=== PATIENT | female | born 1955 | race Caucasian/White ===

== ENCOUNTER → 2023-04-01 10:21 | Outpatient (REF) | payer MEDICARE, BC, SELFPAY ==
[2023-04-01 11:05] LABS: % Basophils 0.6 % (0-2); % Immature Granulocytes 2.1 % (0-0.5); % Lymphocytes 17.9 % (20.5-51.1); % Monocytes 9.6 % (1.7-9.3); % Neutrophils 68.8 % (42.2-75.2); Absolute Basophils 0.1 10^3/uL (0-0.2); Absolute Eosinophils 0.1 10^3/uL (0-0.7); Absolute Immature Granulocytes 0.3 10^3/uL (0-0.05); Absolute Lymphocytes 2.6 10^3/uL (1.2-3.4); Absolute Monocytes 1.4 10^3/uL (0.1-0.6); Hematocrit 26.7 % (37.0-47.0); Hemoglobin 8.7 g/dL (12.0-16.0); Mean Corp Hgb Conc. 32.6 g/dL (33.0-37.0); Mean Corpuscular Hgb 30.6 pg (27.0-31.0); Nucleated Red Blood Cells % 0 %; Platelet Count 306 10^3/uL (130-400); Red Blood Cell Count 2.84 10^6/uL (4.20-5.40); Red Cell Dist. Width 17.5 % (11.5-14.5); White Blood Cell Count 14.5 10^3/uL (4.8-10.8)
[2023-04-01 11:19] LABS: Blood Urea Nitrogen 15 mg/dl (7-17); Calcium 8.5 mg/dl (8.4-10.2); Carbon Dioxide 27 mmol/L (22-30); Chloride 102 mmol/L (98-107); Glucose 156 mg/dl (70-99); Potassium 4.9 mmol/L (3.5-5.1); Sodium 133 mmol/L (135-145); eGFR > 60.00
== END ==
LOC: OLABP 10:21
PROVIDERS: ATTENDING PHYSICIAN Family Medicine
DX: L03.116 Cellulitis of left lower limb (principal); A41.9 Sepsis, unspecified organism; T81.49XD Infection following a procedure, other surgical site, subsequent encounter; I48.92 Unspecified atrial flutter; D63.8 Anemia in other chronic diseases classified elsewhere; E11.9 Type 2 diabetes mellitus without complications; I89.0 Lymphedema, not elsewhere classified; J44.9 Chronic obstructive pulmonary disease, unspecified; D50.9 Iron deficiency anemia, unspecified; I48.0 Paroxysmal atrial fibrillation
CPT/HCPCS: 36415; 80048; 85025

== ENCOUNTER → 2023-04-14 11:53 | Outpatient (REF) | payer OTHER, MEDICARE, BC, SELFPAY ==
[2023-04-14 12:51] LABS: % Basophils 0.6 % (0-2); % Eosinophils 3.3 % (0-6); % Immature Granulocytes 2.1 % (0-0.5); % Lymphocytes 25.1 % (20.5-51.1); % Monocytes 9.1 % (1.7-9.3); % Neutrophils 59.8 % (42.2-75.2); Absolute Basophils 0.1 10^3/uL (0-0.2); Absolute Eosinophils 0.4 10^3/uL (0-0.7); Absolute Immature Granulocytes 0.2 10^3/uL (0-0.05); Absolute Lymphocytes 2.8 10^3/uL (1.2-3.4); Absolute Neutrophils 6.6 10^3/uL (1.4-6.5); Hematocrit 27.2 % (37.0-47.0); Hemoglobin 8.8 g/dL (12.0-16.0); Mean Corp Hgb Conc. 32.4 g/dL (33.0-37.0); Mean Corpuscular Hgb 30.9 pg (27.0-31.0); Mean Corpuscular Volume 95.4 fL (81.0-99.0); Mean Platelet Volume 9.9 fL (7.4-10.4); Nucleated Red Blood Cells % 0 %; Platelet Count 333 10^3/uL (130-400); Red Blood Cell Count 2.85 10^6/uL (4.20-5.40); Red Cell Dist. Width 16.8 % (11.5-14.5); White Blood Cell Count 11.1 10^3/uL (4.8-10.8)
[2023-04-14 13:02] LABS: Blood Urea Nitrogen 15 mg/dl (7-17); Calcium 8.8 mg/dl (8.4-10.2); Carbon Dioxide 28 mmol/L (22-30); Chloride 100 mmol/L (98-107); Glucose 127 mg/dl (70-99); Potassium 4.6 mmol/L (3.5-5.1); Sodium 134 mmol/L (135-145); eGFR > 60.00
== END ==
LOC: OLABP 11:53
PROVIDERS: ATTENDING PHYSICIAN Family Medicine
DX: L03.116 Cellulitis of left lower limb (principal); T81.49XD Infection following a procedure, other surgical site, subsequent encounter; A41.9 Sepsis, unspecified organism; I48.92 Unspecified atrial flutter; D63.8 Anemia in other chronic diseases classified elsewhere; E11.9 Type 2 diabetes mellitus without complications; I89.0 Lymphedema, not elsewhere classified; J44.9 Chronic obstructive pulmonary disease, unspecified; D50.9 Iron deficiency anemia, unspecified; I48.0 Paroxysmal atrial fibrillation
CPT/HCPCS: 36415; 80048; 85025

== ENCOUNTER → 2023-04-28 12:58 | Outpatient (REF) | payer OTHER, MEDICARE, BC, SELFPAY ==
[2023-04-28 13:12] LABS: % Basophils 0.6 % (0-2); % Eosinophils 3.3 % (0-6); % Lymphocytes 25.7 % (20.5-51.1); % Neutrophils 60.4 % (42.2-75.2); Absolute Basophils 0.1 10^3/uL (0-0.2); Absolute Eosinophils 0.3 10^3/uL (0-0.7); Absolute Immature Granulocytes 0.1 10^3/uL (0-0.05); Absolute Lymphocytes 2.7 10^3/uL (1.2-3.4); Absolute Monocytes 0.9 10^3/uL (0.1-0.6); Absolute Neutrophils 6.3 10^3/uL (1.4-6.5); Hematocrit 30.6 % (37.0-47.0); Hemoglobin 9.8 g/dL (12.0-16.0); Mean Corpuscular Hgb 29.9 pg (27.0-31.0); Mean Corpuscular Volume 93.3 fL (81.0-99.0); Mean Platelet Volume 9.8 fL (7.4-10.4); Nucleated Red Blood Cells % 0 %; Platelet Count 299 10^3/uL (130-400); Red Blood Cell Count 3.28 10^6/uL (4.20-5.40); Red Cell Dist. Width 16.2 % (11.5-14.5); White Blood Cell Count 10.4 10^3/uL (4.8-10.8)
[2023-04-28 13:37] LABS: Blood Urea Nitrogen 27 mg/dl (7-17); Calcium 8.9 mg/dl (8.4-10.2); Carbon Dioxide 28 mmol/L (22-30); Chloride 95 mmol/L (98-107); Glucose 135 mg/dl (70-99); Potassium 4.3 mmol/L (3.5-5.1); Sodium 131 mmol/L (135-145); eGFR > 60.00
== END ==
LOC: OLABP 12:58
PROVIDERS: ATTENDING PHYSICIAN Family Medicine
DX: E11.9 Type 2 diabetes mellitus without complications (principal); I89.0 Lymphedema, not elsewhere classified; J44.9 Chronic obstructive pulmonary disease, unspecified; D50.9 Iron deficiency anemia, unspecified; I48.0 Paroxysmal atrial fibrillation; D63.8 Anemia in other chronic diseases classified elsewhere; A41.9 Sepsis, unspecified organism
CPT/HCPCS: 36415; 80048; 85025

== ENCOUNTER → 2023-05-14 16:40 | Outpatient (REF) | payer OTHER, MEDICARE, BC, SELFPAY | LOC: OLABP 16:40 | PROVIDERS: ATTENDING PHYSICIAN Family Medicine | DX: L03.116 Cellulitis of left lower limb (principal); T81.49XD Infection following a procedure, other surgical site, subsequent encounter; A41.9 Sepsis, unspecified organism; I48.92 Unspecified atrial flutter; D63.8 Anemia in other chronic diseases classified elsewhere; E11.9 Type 2 diabetes mellitus without complications; I89.0 Lymphedema, not elsewhere classified; J44.9 Chronic obstructive pulmonary disease, unspecified; D50.9 Iron deficiency anemia, unspecified; I48.0 Paroxysmal atrial fibrillation | CPT/HCPCS: 87070; 87147; 87205 ==

== ENCOUNTER → 2023-05-19 17:45 | Outpatient (REF) | payer OTHER, MEDICARE, BC, SELFPAY | LOC: OLABP 17:45 | PROVIDERS: ATTENDING PHYSICIAN Family Medicine | DX: L03.116 Cellulitis of left lower limb (principal); T81.49XD Infection following a procedure, other surgical site, subsequent encounter | CPT/HCPCS: 87070; 87077; 87186; 87205 ==

== ENCOUNTER → 2023-05-21 12:36 | Outpatient (REF) | payer OTHER, MEDICARE, BC, SELFPAY ==
[2023-05-21 13:52] LABS: % Basophils 0.6 % (0-2); % Eosinophils 2.6 % (0-6); % Immature Granulocytes 0.9 % (0-0.5); % Lymphocytes 25.8 % (20.5-51.1); % Monocytes 7.7 % (1.7-9.3); % Neutrophils 62.4 % (42.2-75.2); Absolute Basophils 0.1 10^3/uL (0-0.2); Absolute Eosinophils 0.3 10^3/uL (0-0.7); Absolute Immature Granulocytes 0.1 10^3/uL (0-0.05); Absolute Lymphocytes 2.5 10^3/uL (1.2-3.4); Absolute Monocytes 0.7 10^3/uL (0.1-0.6); Hemoglobin 9.6 g/dL (12.0-16.0); Mean Corp Hgb Conc. 33.1 g/dL (33.0-37.0); Mean Corpuscular Hgb 29.9 pg (27.0-31.0); Mean Corpuscular Volume 90.3 fL (81.0-99.0); Mean Platelet Volume 9.7 fL (7.4-10.4); Nucleated Red Blood Cells % 0 %; Platelet Count 303 10^3/uL (130-400); Red Blood Cell Count 3.21 10^6/uL (4.20-5.40); Red Cell Dist. Width 14.5 % (11.5-14.5); White Blood Cell Count 9.6 10^3/uL (4.8-10.8)
[2023-05-21 13:56] LABS: ALT (SGPT) 14 U/L (0-35); AST (SGOT) 16 U/L (14-36); Albumin 3.4 g/dl (3.5-5.0); Alkaline Phosphatase 72 U/L (38-126); Blood Urea Nitrogen 25 mg/dl (7-17); Calcium 9.3 mg/dl (8.4-10.2); Carbon Dioxide 31 mmol/L (22-30); Chloride 90 mmol/L (98-107); Glucose 166 mg/dl (70-99); Potassium 4.2 mmol/L (3.5-5.1); Sodium 128 mmol/L (135-145); Total Bilirubin 0.4 mg/dl (0.2-1.3); Total Protein 6.4 g/dl (6.3-8.2); eGFR > 60.00
== END ==
LOC: OLABP 12:36
PROVIDERS: ATTENDING PHYSICIAN Family Medicine
DX: L03.116 Cellulitis of left lower limb (principal); T81.49XD Infection following a procedure, other surgical site, subsequent encounter
CPT/HCPCS: 36415; 80053; 85025

== ENCOUNTER → 2023-05-26 10:21 | Outpatient (REF) | payer MEDICARE, BC, SELFPAY | LOC: OLABP 10:21 | PROVIDERS: ATTENDING PHYSICIAN Family Medicine | DX: T81.49XD Infection following a procedure, other surgical site, subsequent encounter (principal); L03.116 Cellulitis of left lower limb | CPT/HCPCS: 36415 ==

== ENCOUNTER → 2023-05-27 10:54 | Outpatient (REF) | payer MEDICARE, BC, SELFPAY ==
[2023-05-27 12:07] LABS: Blood Urea Nitrogen 38 mg/dl (7-17); Carbon Dioxide 23 mmol/L (22-30); Chloride 92 mmol/L (98-107); Glucose 94 mg/dl (70-99); Potassium 4.7 mmol/L (3.5-5.1); Sodium 123 mmol/L (135-145); eGFR > 60.00
== END ==
LOC: OLABP 10:54
PROVIDERS: ATTENDING PHYSICIAN Family Medicine
DX: L03.116 Cellulitis of left lower limb (principal); T81.49XD Infection following a procedure, other surgical site, subsequent encounter
CPT/HCPCS: 80048

== ENCOUNTER → 2023-05-28 09:26 | Outpatient (REF) | payer MEDICARE, BC, SELFPAY ==
[2023-05-28 12:58] LABS: Blood Urea Nitrogen 46 mg/dl (7-17); Calcium 9.2 mg/dl (8.4-10.2); Carbon Dioxide 28 mmol/L (22-30); Chloride 86 mmol/L (98-107); Glucose 132 mg/dl (70-99); Potassium 4.7 mmol/L (3.5-5.1); Sodium 124 mmol/L (135-145); eGFR > 60.00
== END ==
LOC: OLABP 09:26
PROVIDERS: ATTENDING PHYSICIAN Family Medicine
DX: T81.49XD Infection following a procedure, other surgical site, subsequent encounter (principal); L03.116 Cellulitis of left lower limb
CPT/HCPCS: 80048

== ENCOUNTER → 2023-05-28 16:54 | Outpatient (REF) | payer MEDICARE, BC, SELFPAY | LOC: RAD 16:54 | PROVIDERS: ATTENDING PHYSICIAN Orthopaedic Surgery; FAMILY PHYSICIAN Internal Medicine | DX: S72.002S Fracture of unspecified part of neck of left femur, sequela (principal) | CPT/HCPCS: 73700 ==

== ENCOUNTER → 2023-05-29 11:40 | Outpatient (REF) | payer MEDICARE, BC, SELFPAY ==
[2023-05-29 13:15] LABS: Blood Urea Nitrogen 45 mg/dl (7-17); Calcium 9.4 mg/dl (8.4-10.2); Carbon Dioxide 26 mmol/L (22-30); Chloride 87 mmol/L (98-107); Glucose 81 mg/dl (70-99); Potassium 4.8 mmol/L (3.5-5.1); Sodium 125 mmol/L (135-145); eGFR > 60.00
== END ==
LOC: OLABP 11:40
PROVIDERS: ATTENDING PHYSICIAN Family Medicine
DX: I48.0 Paroxysmal atrial fibrillation (principal); D50.9 Iron deficiency anemia, unspecified; J44.9 Chronic obstructive pulmonary disease, unspecified; A41.9 Sepsis, unspecified organism; L03.116 Cellulitis of left lower limb; T81.49XD Infection following a procedure, other surgical site, subsequent encounter; E11.9 Type 2 diabetes mellitus without complications; D63.8 Anemia in other chronic diseases classified elsewhere; I48.92 Unspecified atrial flutter; G92.8 Other toxic encephalopathy
CPT/HCPCS: 36415; 80048

== ENCOUNTER → 2023-05-30 09:30 | Outpatient (REF) | payer MEDICARE, BC, SELFPAY ==
[2023-05-30 12:05] LABS: Blood Urea Nitrogen 46 mg/dl (7-17); Calcium 8.9 mg/dl (8.4-10.2); Carbon Dioxide 26 mmol/L (22-30); Chloride 92 mmol/L (98-107); Glucose 94 mg/dl (70-99); Potassium 4.7 mmol/L (3.5-5.1); Sodium 124 mmol/L (135-145); eGFR > 60.00
== END ==
LOC: OLABP 09:30
PROVIDERS: ATTENDING PHYSICIAN Family Medicine
DX: A41.9 Sepsis, unspecified organism (principal); E11.9 Type 2 diabetes mellitus without complications; I48.0 Paroxysmal atrial fibrillation; I48.92 Unspecified atrial flutter; G92.8 Other toxic encephalopathy; D50.9 Iron deficiency anemia, unspecified
CPT/HCPCS: 36415; 80048

== ENCOUNTER 2023-06-02 04:46 | Inpatient (IN) | payer MEDICARE, BC, SELFPAY ==
[2023-06-01 23:25] VITALS: BP 94/59; BMI 50.4
[2023-06-01 23:33] VITALS: BP 92/65
[2023-06-01 23:47] LABS: % Basophils 0.2 % (0-2); % Eosinophils 1.1 % (0-6); % Immature Granulocytes 0.7 % (0-0.5); % Monocytes 5.2 % (1.7-9.3); % Neutrophils 81.8 % (42.2-75.2); Absolute Eosinophils 0.1 10^3/uL (0-0.7); Absolute Immature Granulocytes 0.1 10^3/uL (0-0.05); Absolute Lymphocytes 1.2 10^3/uL (1.2-3.4); Absolute Monocytes 0.5 10^3/uL (0.1-0.6); Absolute Neutrophils 8.6 10^3/uL (1.4-6.5); Hemoglobin 9.6 g/dL (12.0-16.0); Mean Corp Hgb Conc. 34.3 g/dL (33.0-37.0); Mean Corpuscular Hgb 29.6 pg (27.0-31.0); Mean Corpuscular Volume 86.4 fL (81.0-99.0); Mean Platelet Volume 9.1 fL (7.4-10.4); Nucleated Red Blood Cells % 0 %; Platelet Count 277 10^3/uL (130-400); Red Blood Cell Count 3.24 10^6/uL (4.20-5.40); Red Cell Dist. Width 14.1 % (11.5-14.5); White Blood Cell Count 10.5 10^3/uL (4.8-10.8)
[2023-06-02] VITALS (50 sets, daily range): BP systolic 68–148; BP diastolic 39–118; BMI 49.4
[2023-06-02 00:15] LABS: ALT (SGPT) 11 U/L (0-35); AST (SGOT) 16 U/L (14-36); Albumin 3.5 g/dl (3.5-5.0); Alkaline Phosphatase 70 U/L (38-126); Blood Urea Nitrogen 60 mg/dl (7-17); Calcium 9.1 mg/dl (8.4-10.2); Carbon Dioxide 24 mmol/L (22-30); Chloride 88 mmol/L (98-107); Estimated Creatinine Clearance 44 ml/min; Glucose 76 mg/dl (70-99); Potassium 4.8 mmol/L (3.5-5.1); Sodium 124 mmol/L (135-145); Total Bilirubin 0.3 mg/dl (0.2-1.3); Total Protein 6.6 g/dl (6.3-8.2); eGFR 41.49
--- NOTE | 2023-06-02 00:46 | ED.GENMED ---
History of Present Illness
General
Chief Complaint: Abnormal Lab Value
Source: patient
Exam Limitations: none
Time Seen by Provider: 06/02/23 00:17
Nursing documentation reviewed up to this point in time: agreed with
Travel History
Have you had any contact with someone who has COVID-19?: No
Do you have any symptoms of coronavirus? Fever > 100 degrees, chills, cough, shortness of breath, sore throat, loss of taste or smell, muscle aches, or headache?: No
History of Present Illness
History of Present Illness:
68-year-old female from [facility] presents with hyponatremia. These lab values resulted 3 days ago but were discovered this evening. Patient has been on fluid restriction due to this hyponatremia. She has been restricted for the last 3 days.
Patient also complains about dyspnea.
Vital signs are stable. Patient not hypoxic on room air
Nursing note reviewed. I agree with nursing documentation up to this point in time.
Home Meds and allergies reviewed.
NUMBER AND COMPLEXITY OF PROBLEMS ADDRESSED AT THE ENCOUNTER
� Chronic conditions affecting care: Brain tumor, hypertension, hyperlipidemia, diabetes, morbid obesity, cellulitis
� Acute Exacerbation and/or Progression of Chronic Illness: Seemingly acute problem
� Differential Diagnosis includes: Hyponatremia, fluid overload
AMOUNT AND/OR COMPLEXITY OF DATA TO BE REVIEWED AND ANALYZED
I performed an independent evaluation of the following and my interpretation is:
EKG:
CT:
X-rays:
Ultrasound:
Laboratory Studies:
Other:
Review of other/old records: Discharge summary from 03/26/2023 for septic shock.
Clinical information was obtained by an independent historian: None
Prescriptions/Medications Considered but not given:
Further testing considered but not performed:
RISK OF COMPLICATIONS AND/OR MORBIDITY OR MORTALITY OF PATIENT MANAGEMENT
Social determinants of health affecting care: Good Social Support lives at [facility]
Discussion with other providers: Hospitalist for admission
Escalation of care including admission/observation vs risk of discharge considered: Patient is hyponatremic. They have been fluid restricting her. She is weaker and now has intractable vomiting patient to be brought into the
hospital service
CRITICAL CARE NOTE: Not applicable
Total Time (exclusive of procedures):
Update:
Past History
Past History
ED Past Medical History: Arrthythmia (Atrial flutter, SVT), Asthma, HTN, Hypercholesterolemia, IDDM, Psychiatric (Anxiety, ), Other (Meningioma, SISI, Cellulitis) and Other (chronic back pain, Severe DJD both knees, PNA, Sleep apnea, DVT, Anemia, )
ED Past Surgical History: Cardiac (Cardiac ablation (01/15)), Cholecystectomy, Gynecological (Oophorectomy Bilateral with tubes) and Other (Brain tumor removed, cataracts. Hemorrhoidectomy)
Social History
Tobacco: Non-smoker
Alcohol: None
Drug: None
Personal:
Living: with family
Employment: Other
Family History
Family History: Other (Family has the BRACA 2 gene)
Review of Systems
Review of Systems
Allergies reviewed?: Yes
All Other Systems: ROS reviewed and negative except as documented in HPI and ROS
Constitutional: Reports fatigue
EENT: Reports no symptoms
Respiratory: Reports no symptoms
Cardiac: Reports no symptoms
ABD/GI: Reports nausea and vomiting
: Reports no symptoms
Musculoskeletal: Reports no symptoms
Skin: Reports no symptoms
Neurological: Reports no symptoms
Endocrine: Reports no symptoms
Hematologic/Lymphatic: Reports no symptoms
Psychiatric: Reports anxiety
Phy Exam
General Physical Exam
General Presentation: mild distress
Course
Orders/Labs/Results
Orders:
Orders
06/01/23 23:41
CMP [Comprehensive Metabolic Panel] Urgent
Complete Blood Count/With Diff Urgent
06/02/23 00:45
Diphenhydramine [Benadryl] 12.5 mg IV NOW STA
Metoclopramide [Reglan] 10 mg IV NOW STA
06/02/23 00:48
Electrocardiogram (*1) Urgent
Reason for Study: QTc Monitoring
EKG- Treatment ONCE
06/02/23 01:31
CR Chest Portable - 1 View Urgent
Comment:
Reason For Exam: dyspnea
Reason Study Needs to be Portable: Unable to Transport
06/02/23 04:00
Osmolality, Random Urine Routine
Urine Sodium Routine
06/02/23 04:18
Urinalysis Reflex To Culture Routine
06/02/23 04:23
Admit/Transfer Patient As Directed
Co-Sign Provider:
Level of Care: Inpatient admission
Assign to:: Telemetry
Physician / Group: [email or web address]
Diagnosis: hyponatemia, NOAM, lethargy
Reason for Telemetry: Other
Other Reason for Telemetry: hypotension
Date to Stop Telemetry: 06/04/23
Time to Stop Telemetry: 11:00
Reason for Hospitalization: hyponatemia, NOAM, lethargy
Expected length of stay greater than two midnights?: Yes
ELOS- Estimated Length of Stay in days: 7
I certify the patient meets the requirements for IP care: Yes
06/02/23 04:27
Code Status As Directed
Resuscitation Status: Full Code
06/02/23 04:51
Dextrose 50%-Water [Dextrose 50% Syringe] 12.5 grams IV [id number] PRN
Glucagon [GlucaGen] 1 mg IM PRN PRN
06/02/23 04:51
Consult Notification Routine
Specialty to Notify: Nephrology
NEPHROLOGY CONSULT Routine
Consulting Provider: Salbador Borjas
Was physician already notified: No
Reason for consult: hypervolemic hyponatremia
Activity As Directed
Activity Level: With Assistance
Bedside Glucose Monitoring As Directed
Frequency: AC&HS
Comment: Change to q6h if pt on TPN, tube feeding or not eating
Intake/ Output As Directed
Frequency: Per unit guidelines
Vital Signs As Directed
Frequency: Per unit guidelines
Weight As Directed
Frequency: Daily
Cpap [RESP] Routine
Patient to use own unit?: No
Set Pressure (cm H2O): 10
Instructions: HS
Speech Screening from [place] Routine
DX Deep Vein Thrombosis Video Routine
06/02/23 05:09
Basic Metabolic Panel IN AM
Complete Blood Count/No Diff IN AM
Glycohemoglobin (HgbA1c) IN AM
06/02/23 07:30
Insulin Aspart Corrective Low [Novolog Flexpen-Low Resistance] See Protocol SC AC
06/02/23 18:00
Enoxaparin Sodium [Lovenox] 60 mg SC Q12H
06/04/23 11:00
DC Protocol for Telemetry ONCE
Abnormal Lab Results
06/01/23
23:41
RBC 3.24 L 10^6/uL
(4.20-5.40)
Hgb 9.6 L g/dL
(12.0-16.0)
Hct 28.0 L %
(37.0-47.0)
Abs Immat Gran (auto) 0.1 H 10^3/uL
(0-0.05)
Absolute Neuts (auto) 8.6 H 10^3/uL
(1.4-6.5)
Immature Gran % 0.7 H %
(0-0.5)
Neutrophils % 81.8 H %
(42.2-75.2)
Lymphocytes % 11.0 L %
(20.5-51.1)
Sodium 124 L mmol/L
(135-145)
Chloride 88 L mmol/L
(98-107)
BUN 60 H mg/dl
(7-17)
Creatinine 1.4 H mg/dL
(0.6-1.0)
06/01/23 23:41
06/01/23 23:41
Vital Signs
Initial and Last Documented VS:
Initial Vital Signs
Temp Pulse Resp BP Pulse Ox
97.7 F 84 18 94/59 92
06/01/23 23:25 06/01/23 23:25 06/01/23 23:25 06/01/23 23:25 06/01/23 23:25
Last Documented Vital Signs
Temp Pulse Resp BP Pulse Ox
97.7 F 72 20 89/56 96
06/01/23 23:25 06/02/23 05:05 06/02/23 05:05 06/02/23 05:05 06/02/23 05:05
MDM/Problems Addressed
Chronic conditions affecting care:
Hyponatremia
*Radiology
Radiology exam reviewed: preliminary read by ED provider (unchanged)
*Pulse Oximetry
Patient hypoxic: no
*EKG
Interpreted by ED Provider?: Yes
EKG Intrepretation Date: 06/02/23
Interpretation: abnormal
Comparison EKG: changes noted
Heart Rate: 94
Rate: normal
[place]: left axis deviation
Interval: first degree heart block and long QT
QRS Pattern: normal QRS
Ischemia: no ischemia
*Business Test Analyst Interpretation
Rate: normal
*Critical Care Note
Total Time (30-74mins, 75-104mins- exclusive of procedures): Not Applicable
Patient Management
Social determinants of health affecting care: Living situation
Discussion with other providers: Hospitalist
Escalation/DeEscalation of care consider admission/obs:
With the vomiting and increased weakness and shortness of breath, patient to be admitted to the's. Patient has not had an improvement in her sodium despite her fluid restrictions
Update Note
Update Note:
Sodium has been low for the last several ER visits. Patient does have shortness of breath and intractable
ED Attending Note
-
Portions of this chart may have been created with voice recognition software.� Occasional wrong word or��sound alike� substitutions may have occurred due to the inherent limitations of voice recognition software.
Discharge Plan
Departure
Patient Disposition: Admit
Date of Disposition: 06/02/23
Time of Disposition: 02:11
Admit to: Telemetry
Presentation/result/management discussed w/ accepting MD/DO: Hospitalist
Condition: Good
Discharge Problem:
Vomiting, Acute hyponatremia
Interventions
Interventions:
*Risk Screen - Suicide Last Done: 06/01/23 23:25
*General Assessment Last Done: 06/01/23 23:25
*Neglect/Abuse Screening Last Done: 06/01/23 23:25
ED- Fall Risk Assessment Last Done: 06/02/23 01:33
*ED COVID-19 Vaccine History Last Done: 06/01/23 23:25
[2023-06-02] MEDS: BENADRYL 12.5 MG IV (01:16)
[2023-06-02] MEDS: REGLAN 10 MG IV (01:17)
--- NOTE | 2023-06-02 01:17 | EDRN ---
Went into patients room, patient had thrown up all over herself and floor, Dr. Ozuna was at bedside with me as wel at this time, meds ordered, patient reports she had a bad cough and soiled herself and then threw up, patient cleaned up, large
amounts of vomit and diarrhea noted all over patient, cleaned up, new brief and gown placed on patient and given a throw up bag incase she gets sick again, patient reports she had not been getting sick prior to this.
--- NOTE | 2023-06-02 03:34 | EDRN ---
Patients o2 dropping while shes sleeping, patient placed on 3L nasal canula
--- NOTE | 2023-06-02 04:10 | HPS.HSE ---
Addendum entered and electronically signed by Sebastien Taylor MD 06/02/23 04:32:
Correction:
<del>IV</del> <del>NS</del> <del>40/H</del> <del>x</del> <del>1000</del> <del>cc</del>
Addendum entered and electronically signed by Sebastien Taylor MD 06/02/23 04:31:
Correction:
Hypervolemic Hyponatremia <del>suspect</del> <del>dehydration</del> <del>due</del> <del>to</del> <del>fluid</del> <del>restriction</del>
Suspect prerenal NOAM with significant azotemia and Hypochloremic
Hypotension s<del>uspect</del> <del>hypovolemia</del> <del>volume</del> <del>due</del> <del>to</del> <del>mornbidly</del> <del>obese</del>
Clinically hypervolemic with b/l [place] edema
Morbidly obese
- Ur Na, Ur Os, Sr Osm
- IV NS 40/H x 1000 cc
- f/u Na in AM
- f/u Cr
- Renal consult <del>in</del> <del>AM</del> <del>if</del> <del>Na</del> <del>is</del> <del>still</del> <del>the</del> <del>same</del> <del>or</del> <del>less</del>
lethargic ? TME ? sepsis
- UA pending
- PCT for sepsis
- CXR ; await final report
- Hold of ABx for now
Original Note:
Family Physician
-
Family Physician: Valery Saunders
Chief Complaint
-
abn Na
History of Present Illness
68-year-old female from [employer] presents with hyponatremia. These lab values resulted 3 days ago but were discovered this evening. Patient has been on fluid restriction due to this hyponatremia. She has been restricted for the last 3 days.
Patient also complains about dyspnea
Medical History
Past Medical History
Past Medical History: Reports Other
Additional Past Medical History:
Left hip intertrochanteric fracture s/p open reduction internal fixation
Streptococcal bovis bacteremia
Paroxysmal atrial fibrillation not on anticoagulation due to hemorrhagic complication
Peripheral arterial disease
Diabetes mellitus type 2
Morbid obesity with BMI of 46
Essential hypertension
Anemia of chronic disease
Dyslipidemia
Obstructive sleep apnea
Anxiety
Asthma
DVT
Degenerative disc disease
Osteoarthritis
Chronic pain syndrome on opiates
Kidney stones
Meningioma status post removal
Past Surgical History: Reports Other
Additional Past Surgical History:
Left hip surgery
Cardiac ablation
Cholecystectomy
Oophorectomy Bilateral with tubes
Meningioma removed
Cataracts
Hemorrhoidectomy
Social History
Tobacco: Non-smoker
Alcohol: None
Drug: None
Personal:
Family History
Family History: Not pertinent
Allergies / Home Medications
Allergies reflects when Allergies were last updated in [facility].
Home Medications with original date entered in [facility]
Allergy/Medication List:
Allergies
Allergy/AdvReac Type Severity Reaction Status Date / Time
ampicillin Allergy Rash AT Verified 06/01/23 23:32
AGE 20
cefaclor [From Ceclor] Allergy Rash/tolerates Verified 06/01/23 23:32
Cephalexin,
Cefazolin
ciprofloxacin [From Cipro] Allergy Rash/tolerated Verified 06/01/23 23:32
levofloxacin
clindamycin Allergy Rash - see Verified 06/01/23 23:32
comments
daptomycin Allergy Rash/ Verified 06/01/23 23:32
tolerated
linezolid
erythromycin base Allergy Rash Verified 06/01/23 23:32
Iodinated Contrast Media Allergy Itching Verified 06/01/23 23:32
Penicillins Allergy Rash/tolerated Verified 06/01/23 23:32
meropenem
shellfish derived Allergy Rash, Verified 06/01/23 23:32
itching
Sulfa (Sulfonamide Allergy Swelling Verified 06/01/23 23:32
Antibiotics)
Tetanus Vaccines and Toxoid Allergy Swelling Verified 06/01/23 23:32
tetracycline Allergy Rash Verified 06/01/23 23:32
vancomycin Allergy vancomycin Verified 06/01/23 23:32
infusion
reaction/rash,
itching
02/14/21
Home Medications
metoprolol succinate 25 mg tablet,extended release 24 hr 25 mg PO DAILY Blood pressure ##0 11/22/19
montelukast 10 mg tablet 10 mg PO QPM asthma 11/22/19
sotalol 120 mg tablet 120 mg PO BID Arrhythmia 11/22/19
atorvastatin 20 mg tablet 20 mg PO QPM High Cholesterol 08/27/22
cyclobenzaprine 10 mg tablet 10 mg PO TIDPRN PRN muscle spasm 02/11/23
acetaminophen 325 mg tablet (Tylenol) 650 mg PO Q6HPRN PRN MILD PAIN 03/18/23
alogliptin 25 mg tablet 25 mg PO DAILY Diabetes 03/18/23
bisacodyl 10 mg rectal suppository (Dulcolax (bisacodyl)) 10 mg MO DAILYPRN PRN IF NO BM AFTR MOM 03/18/23
glimepiride 2 mg tablet 2 mg PO DAILY Diabetes 03/18/23
irbesartan 150 mg tablet 150 mg PO DAILY Blood Pressure 03/18/23
lorazepam 1 mg tablet 1 mg PO [id number] PRN anxiety/sleep 03/18/23
mupirocin 2 % topical ointment 1 applic topical BID LEFT LOWER LEG 03/18/23
sodium phosphates 19 gram-7 gram/118 mL enema (Fleet Enema) 118 ml MO DAILYPRN PRN IF NO BM AFTR DULCOLAX 03/18/23
therapeutic multivitamin 1 tab PO DAILY Supplement 03/18/23
Lactobac/Bifidobac [Visbiome] 2 cap PO DAILY ##0 03/25/23
ammonium lactate 12 % lotion 1 applic topical BID #0 grams 03/25/23
cephalexin 500 mg capsule 500 mg PO QID #0 caps 03/25/23
gabapentin 100 mg capsule 100 mg PO TID #0 caps 03/25/23
pantoprazole 40 mg tablet,delayed release 40 mg PO DAILY #0 tabs 03/25/23
Review of Systems
-
Constitutional: Reports No Symptoms
EENT: Reports No Symptoms
Respiratory: Reports No Symptoms
Cardiac: Reports No Symptoms
Abdomen/GI: Reports No Symptoms
: Reports No Symptoms
Musculoskeletal: Reports No Symptoms
Skin: Reports No Symptoms
Neurological: Reports No Symptoms
Endocrine: Reports No Symptoms
Hematologic/Lymphatic: Reports No Symptoms
Psych: Reports No Symptoms
Physical Exam
Vital Signs
Vital Signs
Temp Pulse Resp BP Pulse Ox
97.7 F 88 22 90/59 97
06/01/23 23:25 06/02/23 03:30 06/02/23 03:30 06/02/23 03:00 06/02/23 03:34
Physical Exam
General: Slurred Speech and Morbidly Obese; No Conversant
HEENT: NormoCephalic and Anicteric
Respiratory: Clear; No Wheezes, Rales or Rhonchi
Cardiac: S1/S2, Regular Rhythm and Other (hypotensive )
Breast: Deferred by me
GI: Soft and Other (obese )
Rectal: Deferred by Provider
Genito-urinary: Deferred by me
Musculoskeletal: Edema, Left Lower Extremity (3plus ) and Edema, Right Lower Extremity (3 plus )
Skin: Other (echimoses both legs )
Neuro: Alert (lethargic )
Psych: Other (sleepy )
Laboratory Results
-
06/01/23 23:41
06/01/23 23:41
Laboratory Results
Total Bilirubin 0.3 mg/dl (0.2-1.3) 06/01/23 23:41
AST 16 U/L (14-36) 06/01/23 23:41
ALT 11 U/L (0-35) 06/01/23 23:41
Alkaline Phosphatase 70 U/L (38-126) 06/01/23 23:41
Data Reviewed
-
Lab Data: Labs Reviewed by me
Old Records: Reviewed
Impression/Plan
-
Reviewed VS: Afebrile HR 88 BP 90/60 RR 22 POx 85- 90
Data
nl WCC
Hgb 9.6 - stable
Na 124 - baseline is 124 to 128
Cl 88
BUN 60
Cr 1.4
nl LFTs
Pending Ur Na, Ur Os, Sr Osm
Pending UA
Pending CXR
EKG
SINUS RHYTHM WITH 1ST DEGREE A-V BLOCK WITH PREMATURE ATRIAL COMPLEXES
MODERATE VOLTAGE CRITERIA FOR LVH, MAY BE NORMAL VARIANT ( R in aVL , Nhan
product )
PROLONGED QT
ABNORMAL ECG
WHEN COMPARED WITH ECG OF 23-MAR-2023 09:22,
PREMATURE ATRIAL COMPLEXES ARE NOW PRESENT
MO INTERVAL HAS INCREASED
NONSPECIFIC T WAVE ABNORMALITY HAS REPLACED INVERTED T WAVES IN INFERIOR LEADS
QT HAS LENGTHENED
Last hospitalist admission: 03/18/23- 03/25/23
DC Dx
. Streptococcal septic shock.
2. Left lower extremity cellulitis.
3. Drug rash.
4. Acute on chronic anemia.
5. Recent left hip fracture.
6. Paroxysmal atrial fibrillation.
7. Acute toxic metabolic encephalopathy.
8. Acute kidney injury.
9. Hyponatremia.
10. Hypomagnesemia.
ASSESSMENT & PLAN
pending Rx reconciliation
Hyponatremia suspect dehydration due to fluid restriction
Suspect prerenal NOAM with significant azotemia and Hypochloremic
Hypotension suspect hypovolemia volume due to mornbidly obese
- Ur Na, Ur Os, Sr Osm
- IV NS 40/H x 1000 cc
- f/u Na in AM
- f/u Cr
- Renal consult in AM if Na is still the same or less
lethargic ? TME ? sepsis
- UA pending
- PCT for sepsis
- CXR ; await final report
- Hold of ABx for now
HX Paroxysmal AF
- Not on anticoagulation due to hemorrhagic complications in the past
- cont. sotalol
Chronic anemia
- stable
Essential HTN
- Held Irbesartan and metoprolol
Realtive hypoglycemia
T2DM
- Hold home glimepiride
- add ISS low
Chronic pain syndrome on chronic opioids
- Continue pain medications
SISI
- CPAP at bedtime
Morbid obesity due to excess calories
Affects all aspects of care
DVT Px: LMWH
Code: Full code
IP MS
[2023-06-02 05:21] LABS: Hemoglobin 8.9 g/dL (12.0-16.0); Mean Corp Hgb Conc. 34.2 g/dL (33.0-37.0); Mean Corpuscular Hgb 29.9 pg (27.0-31.0); Mean Corpuscular Volume 87.2 fL (81.0-99.0); Mean Platelet Volume 9.2 fL (7.4-10.4); Platelet Count 240 10^3/uL (130-400); Red Blood Cell Count 2.98 10^6/uL (4.20-5.40); Red Cell Dist. Width 14.2 % (11.5-14.5)
--- NOTE | 2023-06-02 05:34 | EDRN ---
Patients blood pressure trending down tiger texted hospitalist covering tele, patient upgraded to ICU and new orders placed
[2023-06-02 05:48] LABS: Blood Urea Nitrogen 63 mg/dl (7-17); Calcium 8.6 mg/dl (8.4-10.2); Carbon Dioxide 22 mmol/L (22-30); Chloride 89 mmol/L (98-107); Estimated Creatinine Clearance 44 ml/min; Glucose 33 mg/dl (70-99); Osmolality Serum 278 mOsm/kg (275-300); Potassium 4.5 mmol/L (3.5-5.1); Sodium 122 mmol/L (135-145); eGFR 41.49
[2023-06-02] MEDS: DEXTROSE 50% SYRINGE 12.5 GRAMS IV ×4 (05:50→15:23)
[2023-06-02] MEDS: LR 500 IV (05:51)
[2023-06-02 05:58] LABS: Procalcitonin 0.08 ng/ml (0.0-0.25)
[2023-06-02] MEDS: LEVOPHED 250 IV (06:06)
--- NOTE | 2023-06-02 06:10 | EDRN ---
blood sugar result was 33, gave prn dextrose and informed hospitalist, repeat blood sugar after is 130.
[2023-06-02 06:12] LABS: Glucose - Point of Care 130 mg/dl (70-99)
--- NOTE | 2023-06-02 06:15 | W.PN.UPDATE ---
Addendum entered and electronically signed by Sebastien Taylor MD 06/02/23 13:44:
Case d/w House [facility].
I saw and examined the patient.
The ANNEALING FURNACE TENDER or PA's note was reviewed and I agree with the note.
:
Original Note:
Update Note
Progress Note Update
ED RN reports BP decreasing now sbp 70s-80s/50s maps 50s-low 60s
Discussed with Dr Taylor. Due to recent sepsis last admit and similar presentations Will upgrade to ICU level of care- poss impending sepsis (source unknown)
Add:
-LR 500mg x1 ( avoiding excess fluids as hypervolemic hyponatremia suspected)
- check lactic, procal, blood cultures, us and cs
-Add levo gtt (keep MAP > 65)
-on am labs BG 33--dextrose iv given.
-add Meropenem (pt with mutltiple allergies to abx) - tolerated this last admit
[2023-06-02] MEDS: MERREM 500 MG IV ×3 (06:21→19:42)
[2023-06-02] MEDS: STERILE WATER FOR INJECTION 10 ML IV ×3 (06:22→19:42)
--- NOTE | 2023-06-02 06:29 | PTCARENOTE ---
OGT unclamped after approx 1 hour after acetaminophen administered. Placed back on low continuous suction, which pt had been in the beginning of the night. Immediately pt started draining dark maroon drainage. 600mL drained and then canister changed
before next shift, pt was still draining at that time. Several family members at bedside.
--- NOTE | 2023-06-02 06:35 | EDRN ---
Report to ICU as well as updated hospitalist on all patients morning lab changes.
--- NOTE | 2023-06-02 06:40 | PTCARENOTE ---
Arrived from ED via stretcher with RN, Oxygen 4 liters nasal cannula, and Norepinephrine infusing via left AC 20g @ 8mcg/min. Pt disoriented to place, she was informed of where she was and oriented to the ICU & plan of care. It was reported she had
explosive diarrhea and vomiting in the ED. She was incontinent for loose light brown stool upon arrival. Complete CHG bath upon arrival. Expelled large amounts of flatus while laying on her left side during assessment. Breath sounds posteriorly with
scattered late expiratory wheeze. Orthopneic. Requires 2 pillows. Morbidly obese. +BSX4. FMS placed due to MASD of her fili area and posterior upper thighs. She also has Left hand #22g and Right hand 20g protective catheters. Gross +2 anasarca. Left
hip silicone border dressing with packed wound with small amount of purulent blood tinged drainage. Pt denies any discomfort. She is able to make her needs known, calling out despite being reminded that her call frances is in her right hand. Safe
environment maintained. Placed in enhanced precautions due to diarrhea & bowel incontinence. She was informed that I would contact her family regarding her whereabouts and her condition.
--- NOTE | 2023-06-02 07:18 | CON.INTV ---
Consultation
Consultation Request
Date/Time Consultation Requested: 06/02/23
Date/Time Consultation Performed: 06/02/23
Performing Provider: Rose
Reason for Consultation: ICU
Medical History
-
History of Present Illness:
Patient is a 68-year-old female with history of Aflutter, HTN, IDDM, SISI, anxiety presenting to ER from [facility] with abnormal labs-hyponatremia. Patient has been on fluid restriction due to this hyponatremia for the last 3 days. Sodium on
arrival 123, previously 131 on 04/28/23. She was noted to be hypotensive on arrival, started on levophed and admitted to ICU.
She is noted to be hypoglycemic on arrival as well, given amp Dextrose with minimal improvement.
She does not provide additional history. Lethargic during conversation.
She had recent admission for L hip fracture s/p repair 02/16/23; readmitted in March for infected hip, treated with abx, discharged 03/26/23.
Past Medical History
Past Medical History: Other (see list below)
Social History
Tobacco: Non-smoker
Alcohol: None
Drug: None
Family History
Family History: Reviewed & Not Pertinent
Allergies / Home Medications
Allergies
Allergy/AdvReac Type Severity Reaction Status Date / Time
ampicillin Allergy Rash AT Verified 06/01/23 23:32
AGE 20
cefaclor [From Ceclor] Allergy Rash/tolerates Verified 06/01/23 23:32
Cephalexin,
Cefazolin
ciprofloxacin [From Cipro] Allergy Rash/tolerated Verified 06/01/23 23:32
levofloxacin
clindamycin Allergy Rash - see Verified 06/01/23 23:32
comments
daptomycin Allergy Rash/ Verified 06/01/23 23:32
tolerated
linezolid
erythromycin base Allergy Rash Verified 06/01/23 23:32
Iodinated Contrast Media Allergy Itching Verified 06/01/23 23:32
Penicillins Allergy Rash/tolerated Verified 06/01/23 23:32
meropenem
shellfish derived Allergy Rash, Verified 06/01/23 23:32
itching
Sulfa (Sulfonamide Allergy Swelling Verified 06/01/23 23:32
Antibiotics)
Tetanus Vaccines and Toxoid Allergy Swelling Verified 06/01/23 23:32
tetracycline Allergy Rash Verified 06/01/23 23:32
vancomycin Allergy vancomycin Verified 06/01/23 23:32
infusion
reaction/rash,
itching
02/14/21
Home Medications
�Medication �Instructions �Recorded �Confirmed �Last Taken �Type
metoprolol succinate 25 mg 25 mg PO DAILY Blood pressure ##0 11/22/19 03/18/23 12/16/22 09:00 History
tablet,extended release 24 hr
montelukast 10 mg tablet 10 mg PO QPM asthma 11/22/19 03/18/23 12/15/22 18:00 History
sotalol 120 mg tablet 120 mg PO BID Arrhythmia 11/22/19 03/18/23 02/10/23 History
atorvastatin 20 mg tablet 20 mg PO QPM High Cholesterol 08/27/22 03/18/23 12/15/22 18:00 History
cyclobenzaprine 10 mg tablet 10 mg PO TIDPRN PRN muscle spasm 02/11/23 03/18/23 Unknown History
acetaminophen 325 mg tablet 650 mg PO Q6HPRN PRN MILD PAIN 03/18/23 03/18/23 Unknown History
(Tylenol)
alogliptin 25 mg tablet 25 mg PO DAILY Diabetes 03/18/23 03/18/23 Unknown History
bisacodyl 10 mg rectal suppository 10 mg [place] DAILYPRN PRN IF NO BM 03/18/23 03/18/23 Unknown History
(Dulcolax (bisacodyl)) AFTR MOM
glimepiride 2 mg tablet 2 mg PO DAILY Diabetes 03/18/23 03/18/23 Unknown History
irbesartan 150 mg tablet 150 mg PO DAILY Blood Pressure 03/18/23 03/18/23 Unknown History
lorazepam 1 mg tablet 1 mg PO [id number] PRN anxiety/sleep 03/18/23 03/18/23 Unknown History
mupirocin 2 % topical ointment 1 applic topical BID LEFT LOWER LEG 03/18/23 03/18/23 Unknown History
sodium phosphates 19 gram-7 118 ml [place] DAILYPRN PRN IF NO BM 03/18/23 03/18/23 Unknown History
gram/118 mL enema (Fleet Enema) AFTR DULCOLAX
therapeutic multivitamin 1 tab PO DAILY Supplement 03/18/23 03/18/23 Unknown History
Lactobac/Bifidobac [Visbiome] 2 cap PO DAILY ##0 03/25/23 Unknown Rx
ammonium lactate 12 % lotion 1 applic topical BID #0 grams 03/25/23 Unknown Rx
cephalexin 500 mg capsule 500 mg PO QID #0 caps 03/25/23 Unknown Rx
gabapentin 100 mg capsule 100 mg PO TID #0 caps 03/25/23 Unknown Rx
pantoprazole 40 mg tablet,delayed 40 mg PO DAILY #0 tabs 03/25/23 Unknown Rx
release
Review of Systems
-
Unable to Obtain full review of systems at this time due to: Acuity
Vitals / Labs / Diagnostic Testing
Vital Signs
Temp Pulse Resp BP Pulse Ox
97.7 F 71 16 73/41 96
06/01/23 23:25 06/02/23 06:15 06/02/23 06:15 06/02/23 06:10 06/02/23 06:15
Lab Data
06/02/23 05:09
06/02/23 05:09
Diagnostic Testing:
Physical Exam
-
HEENT: Normocephalic, Anicteric and Moist Mucous Membranes
Cardiovascular: S1/S2 and Regular Rhythm
Respiratory: Clear and Non-Labored Respirations
GI: Soft, Non Distended and Non Tender
Neurology: Other (lethargic)
Skin: Warm and Dry
General: Comfortable, Poor Appetite and Other (NAD)
Assessment
-
Patient is a 68-year-old female with history of Aflutter, HTN, IDDM, SISI, anxiety presenting to ER from [facility] with abnormal labs-hyponatremia. Patient has been on fluid restriction due to this hyponatremia for the last 3 days. Sodium on
arrival 123, previously 131 on 04/28/23. She was noted to be hypotensive on arrival, started on levophed and admitted to ICU.
She is noted to be hypoglycemic on arrival as well, given amp Dextrose with minimal improvement.
Acute on chronic hyponatremia
Persistent hypoglycemia
Hypotension on pressors
NOAM, creat 1.4
Conditions present prior admission:
Discharged from 01/2023: Lethargy/status post fall status post left hip intertrochanteric fracture with repair
Lower extremity infection with Streptococcus bovis seen by ID and discharged on antibiotics until 02/26/2023
Atrial fibrillation off anticoagulation due to hemorrhagic complication
Peripheral arterial disease
Diabetes mellitus type 2
Morbid obesity with a BMI of 46
Hypertension
Anemia of chronic disease
Dyslipidemia
Obstructive sleep apnea
Chronic pain syndrome on opiates
Plan
TME noted, likely due to electrolyte abnl
Baseline MS reported as normal, she has chronic pain/opiate use history
Psychiatric history noted above including anxiety
Pain/sedation: limit, to assess MS
RASS goals: 0
Hemodynamically stable, not requiring pressors.
Requiring pressors: levophed needed initially, weaned to off this AM
Cardiac history reviewed--AFlutter maintained on sotalol
Prior ECHO reviewed indicating normal function
Hold home meds, resume when able
Oxygen needs: stable on room air
No history of pulmonary disease
SISI noted, can resume CPAP
Supplemental O2 as indicated to maintain sats > 89%
CXR/CT reviewed indicating clear lungs/NAD
NPO, resume diet when able, advance as tolerated
Assistant Editor recommendations
Aspiration precautions, HOB > 30 degrees
Speech therapy eval can be considered if at elevated risk
GI prophylaxis if indicated for mechanical ventilation >48 hours, prior history of GERD, stress ulcer formation in the critically ill
NOAM present
Renal consult, appreciate recs, possible need for 3%
Creat at baseline, no history of renal disease
Void trials
Follow urine output, critical I/Os
Replete electrolytes as needed--NA/Glu
No signs/symptoms suspicious for infectious etiology at this time, no fever/WBC
Started on empiric antibiotics--MRP, unclear source
She had recent admission for L hip fracture s/p repair 02/16/23; readmitted in March for infected hip, treated with abx
ID following
Cultures sent/pending
Blood
Wound culture left leg 03/18/2023: MRSA and Pseudomonas.
Follow fever trend, WBC count
Lactate not elevated on admission
CBC stable, no signs of bleeding or coagulopathy
DVT prophylaxis as assessed based on risk, including mechanical SCDs
Can transfuse if indicated for Hb <7, plt < 10
INR WNL
No prior h/o thyroid disease
H/o diabetes, persistent hypoglycemia noted, ? if from lack of intake
Can continue on home meds, SS for coverage --hold while hypoglycemic
D5NSS IVFs, continue to check accuchecks q2
HbA1c 7.1
We will follow
Diagnostic Data
Chest X-Ray:
Chest x-ray 03/18/2023: Rotated film. No acute infiltrates.
CT Scan: AP 02/13/23- Findings suggesting enteritis/ileus. Findings suggesting sequelae of chronic terminal ileitis. Intertrochanteric left femur fracture.
Echo: 02/17/23- Normal left ventricular size and systolic function. No regional wall motion abnormalities are seen. LV ejection fraction is 65-70% by visual assessment. Mild concentric left ventricular hypertrophy. Normal diastolic function. Mildly
dilated left atrium. Mild aortic stenosis. Peak/mean gradients are 34/18mmHg. The valve area by continuity equation is 1.6cm sq, using a LVOT of 1.9cm.
Mild aortic regurgitation. When compared to prior echocardiogram from June 16, 2021, the left atrium is now mildly enlarged and otherwise there is no significant change.
Echocardiogram 02/17/2023: Normal LVEF. Mild LVH. Mild aortic stenosis. Mild AR
PFT's:
Nocturnal ox 07/27/15: time below 90% 1:22:18 (23.8%); time below 88% 46:20 (13.4%); O2 nicol 67%; ALICIA >10s 31.0
Reports and relevant images were personally reviewed.
-----
Critical Care time 65 mins -- The patient is admitted for acute critical illness for the treatment of vital organ failure and/or prevention of further life-threatening conditions. Total care includes time spent in review of history, physical exam,
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
--- NOTE | 2023-06-02 07:56 | PTCARENOTE ---
Pt's daughter Pia Contreras [phone] called the unit and was updated regarding her mother's condition of admission. She is aware that her sodium and glucose was low and the interventions provided. She is also aware of her mother's mental state of
not being aware of her surroundings and required orientation several times.
[2023-06-02 08:34] LABS: Glucose - Point of Care 83 mg/dl (70-99)
[2023-06-02 08:46] LABS: Glycohemoglobin (HgbA1c) 7.1 % (4.0-5.6)
[2023-06-02 08:58] LABS: Magnesium 1.2 mg/dl (1.6-2.3)
--- NOTE | 2023-06-02 09:01 | W.PN.UPDATE ---
Addendum entered and electronically signed by Alexis Garcia MD 06/02/23 09:25:
pt initiated on meropenem on adx ;will dc cefepime.
Addendum entered and electronically signed by Alexis Garcia MD 06/02/23 09:16:
Pt with mulitple abx allergies - will hold on vanco till seen by ID; Cefepime initiated.
Original Note:
Update Note
Progress Note Update
Seen by Dr. Taylor this morning. Admitted to ICU because of hypotension. Currently on vasopressors.
Initial referral from facility seems to be hyponatremia issue.
Patient is alert and oriented. She complains of being nauseous and she did throw up after getting to the hospital. She also has ongoing loose stools.
She feels cold and asking for more blankets.
She has an audible wheeze. She says she has asthma. She has active ongoing bronchospasm without respiratory distress.
Abdomen tympanic soft nontender.
Bilateral lower extremity edema noted but denies any pain.
She has a left hip wound with purulence. She had a prior left hip fracture repair.CT Left hip 05/28/2023 -ORIF of an intertrochanteric/subtrochanteric fracture. The fracture plane remains evident, but there is some callus and heterotopic
ossification about the fracture site.
Clinical shock-patient with hypotension requiring vasopressors. Recent history of streptococcal bacteremia and wound infection noted. Clinically suspicious for sepsis as etiology for shock. She had normal EF on echo from end of last year. Blood
cultures are pending. Check a urine culture. Obtain the left hip wound culture as well. Start on empirical MRSA and gram-negative coverage. Consult infectious disease.
Hypervolemic hyponatremia. Patient also hypotensive. Unclear etiology of the hyponatremia - check urine lytes
NOAM on setting of hypotension -suspect hemodynamics related. Consult renal pending.
Severe hypoglycemia from this am labs - hold oral hypoglycemic agents
Diarrhea with vomiting -check stools for C Diff .
[2023-06-02] MEDS: NOVOLOG FLEXPEN-LOW RESISTANCE SC ×3 (09:09→16:15)
[2023-06-02 10:17] LABS: APTT 31.2 Sec (23.4-35.0); INR 1.01; PT 13.1 Sec (11.4-14.6)
--- NOTE | 2023-06-02 10:59 | CON.ID ---
Consultation
-
Date/Time Consultation Requested: 06/02/2023, 0909
Date/Time Consultation Performed: 06/02/2023, 1100
Requesting Provider: Dr. Alexis Garcia
Performing Provider: Dr. Kiera Neff
Reason for Consultation: shock
Chief Complaint / Past History
Chief Complaint
Hyponatremia
History of Present Illness
History obtained from review of medical records as patient currently lethargic. She is 68 year old female with class III obesity, DM, lymphedema, recurrent LE cellulitis, hx left hip fx nailing 02/16/23, numerous abx allergies who presented to ED
05/31 from [facility] with hyponatremia. Pt noted to be lethargic and hypotensive requiring pressor. She was started on empiric meropenem. The left hip incision wound noted to have mild purulence was cultured. Pt unable to provide history at this
time.
Past History
Additional Past Medical History:
Diabetes mellitus
Class III obesity BMI 49
Lymphedema
Obstructive sleep apnea
A flutter status post ablation
hypertension
cellulitis
Asthma
Dyslipidemia
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
Meningioma s/p resection
Chronic back pain
Cholecystectomy
Bilateral oophorectomy
Left hip fracture s/p gamma nailing 02/16/23
Allergy History:
ampicillin Allergy (Verified 06/01/23 23:32)
Rash AT AGE 20
cefaclor [From Ceclor] Allergy (Verified 06/01/23 23:32)
Rash/tolerates Cephalexin, Cefazolin
ciprofloxacin [From Cipro] Allergy (Verified 06/01/23 23:32)
Rash/tolerated levofloxacin
clindamycin Allergy (Verified 06/01/23 23:32)
Rash - see comments
daptomycin Allergy (Verified 06/01/23 23:32)
Rash/ tolerated linezolid
erythromycin base Allergy (Verified 06/01/23 23:32)
Rash
Iodinated Contrast Media Allergy (Verified 06/01/23 23:32)
Itching
Penicillins Allergy (Verified 06/01/23 23:32)
Rash/tolerated meropenem
shellfish derived Allergy (Verified 06/01/23 23:32)
Rash, itching
Sulfa (Sulfonamide Antibiotics) Allergy (Verified 06/01/23 23:32)
Swelling
Tetanus Vaccines and Toxoid Allergy (Verified 06/01/23 23:32)
Swelling
tetracycline Allergy (Verified 06/01/23 23:32)
Rash
vancomycin Allergy (Verified 06/01/23 23:32)
vancomycin infusion reaction/rash, itching 02/14/21
Medications Reviewed: Yes
Current Antibiotics:
meropenem d2
Social History
Tobacco: Non-Smoker
Alcohol: None
Drug: None
Living: [facility]
Family History
Family History: Not Pertinent
Review of Systems
Review of Systems
Unable to obtain due to lethargy
Vital Signs
Temp Pulse Resp BP Pulse Ox
97.4 F 87 14 90/56 87
06/02/23 10:34 06/02/23 10:30 06/02/23 10:30 06/02/23 10:30 06/02/23 09:45
Physical Exam
Physical Exam
Constitutional: Acutely Ill and Obese
Eyes: Sclera Anicteric
Cardiovascular: Regular Rate and Irregular Rate
Pulmonary: Clear
Gastrointestinal: Soft, Non Tender, Non Distended and Normal Bowel Sounds
Extremities: Edema (BLE lymphedema R>L) and Erythema (LLE erythroderma ankle to posterior thigh. RLE: milder erythema)
Wound: Other (left hip incision wound with packing - serosanguinous strike through, no surrounding erythema.)
Neurological: Other (lethargic)
Lab / Diagnostic Study Results
06/02/23 05:09
06/02/23 05:09
Abs Immat Gran (auto) 0.1 10^3/uL (0-0.05) H 06/01/23 23:41
Absolute Neuts (auto) 8.6 10^3/uL (1.4-6.5) H 06/01/23 23:41
Absolute Lymphs (auto) 1.2 10^3/uL (1.2-3.4) 06/01/23 23:41
Absolute Monos (auto) 0.5 10^3/uL (0.1-0.6) 06/01/23 23:41
Absolute Basos (auto) 0.0 10^3/uL (0-0.2) 06/01/23 23:41
Immature Gran % 0.7 % (0-0.5) H 06/01/23 23:41
Neutrophils % 81.8 % (42.2-75.2) H 06/01/23 23:41
Lymphocytes % 11.0 % (20.5-51.1) L 06/01/23 23:41
Monocytes % 5.2 % (1.7-9.3) 06/01/23 23:41
Eosinophils % 1.1 % (0-6) 06/01/23 23:41
Basophils % 0.2 % (0-2) 06/01/23 23:41
PT 13.1 Sec (11.4-14.6) 06/02/23 09:23
INR 1.01 06/02/23 09:23
Lactic Acid 1.0 mmol/L (0.7-2.0) 06/02/23 05:52
Procalcitonin 0.08 ng/ml (0.0-0.25) 06/02/23 05:09
Microbiology Results
Micro:
06/02/23 05:52 Blood Culture - Pending
Blood/Venous
06/02/23 05:52 Blood Culture - Pending
Blood/Venous
06/02/23 CXR: clear lungs
05/28/23 CT LLE: ORIF of an intertrochanteric/subtrochanteric fracture. The fracture plane remains evident, but there is some callus and heterotopic ossification about the fracture site.
Assessment / Plan
# Acute LLE cellulitis
# Possible left hip incision wound infection
# Hypotension on 1 pressor
# Leukocytosis
# hyponatremia
# NOAM
# Numerous abx allergies.
- Agree with meropenem for now
-Follow blood cx's.
-Follow wound cx.
-Trend vitals, wbc.
Care Review
Plan reviewed with: Nurse
--- NOTE | 2023-06-02 11:07 | W.CON.NEPH ---
Addendum entered and electronically signed by Claudia Abbott MD 06/02/23 12:53:
will try d5NS and repeat lab in 4hrs if sodium worsens likely switch to 3% saline and D10 at low rate
d/w pharmacy
Original Note:
Consultation
-
Date/Time Consultation Requested: 06/02/23 0500
Date/Time Consultation Performed: 06/02/23 1045
Requesting Provider: Lorrie Michelle
Performing Provider: Claudia Le
Reason for Consultation: Hyponatremia
Medical History
-
Chief Complaint: hyponatremia
History of Present Illness:
68-year-old female with PMH of Afib on Sotalol, HTN on ARB, DM type 2 on Glimepiride, Alogliptin, PAD, Obseity, SISI, chr pain syndrome on opioids, h/o left hip fracture status post surgery on 02/16/2023 who is at 2sms for 2m presents with
hyponatremia. Reportedly she has hyponatremia worsened since May 26 and did not improve with FR hence sent to ER, on arrival sodium was 124, BP were low and had 500cc LR and admit to ICU, was on pressors briefly till this morning.Sodium this am
at 122, cr 1.4 from baseline 0.9. She is poor historian most of the history from chart. She falls back sleep during conversation. She has mild nausea, no vomiting. 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 She is hypoglycemic this am at 33.
Past Medical History
Left hip intertrochanteric fracture s/p open reduction internal fixation 01/2023
Streptococcal bovis bacteremia
Paroxysmal atrial fibrillation not on anticoagulation due to hemorrhagic complication
Peripheral arterial disease
Diabetes mellitus type 2
Morbid obesity with BMI of 46
Essential hypertension
Anemia of chronic disease
Dyslipidemia
Obstructive sleep apnea
Anxiety
Asthma
DVT
Degenerative disc disease
Osteoarthritis
Chronic pain syndrome on opiates
Kidney stones
Meningioma status post removal
Past Surgical History: Other (Left hip surgery Cardiac ablation Cholecystectomy Oophorectomy Bilateral with tubes Meningioma removed Cataracts Hemorrhoidectomy)
Social History
Tobacco: Non-Smoker
Alcohol: None
Personal:
Living: Retirement
Family History
no CKD
Family History: Not Pertinent
Allergies / Home Medications
Allergy/AdvReac Type Severity Reaction Status Date / Time
ampicillin Allergy Rash AT Verified 06/01/23 23:32
AGE 20
cefaclor [From Ceclor] Allergy Rash/tolerates Verified 06/01/23 23:32
Cephalexin,
Cefazolin
ciprofloxacin [From Cipro] Allergy Rash/tolerated Verified 06/01/23 23:32
levofloxacin
clindamycin Allergy Rash - see Verified 06/01/23 23:32
comments
daptomycin Allergy Rash/ Verified 06/01/23 23:32
tolerated
linezolid
erythromycin base Allergy Rash Verified 06/01/23 23:32
Iodinated Contrast Media Allergy Itching Verified 06/01/23 23:32
Penicillins Allergy Rash/tolerated Verified 06/01/23 23:32
meropenem
shellfish derived Allergy Rash, Verified 06/01/23 23:32
itching
Sulfa (Sulfonamide Allergy Swelling Verified 06/01/23 23:32
Antibiotics)
Tetanus Vaccines and Toxoid Allergy Swelling Verified 06/01/23 23:32
tetracycline Allergy Rash Verified 06/01/23 23:32
vancomycin Allergy vancomycin Verified 06/01/23 23:32
infusion
reaction/rash,
itching
02/14/21
�Medication �Instructions �Recorded �Confirmed �Type
metoprolol succinate 25 mg 25 mg PO DAILY Blood pressure ##0 11/22/19 03/18/23 History
tablet,extended release 24 hr
montelukast 10 mg tablet 10 mg PO QPM asthma 11/22/19 03/18/23 History
sotalol 120 mg tablet 120 mg PO BID Arrhythmia 11/22/19 03/18/23 History
atorvastatin 20 mg tablet 20 mg PO QPM High Cholesterol 08/27/22 03/18/23 History
cyclobenzaprine 10 mg tablet 10 mg PO TIDPRN PRN muscle spasm 02/11/23 03/18/23 History
acetaminophen 325 mg tablet 650 mg PO Q6HPRN PRN MILD PAIN 03/18/23 03/18/23 History
(Tylenol)
alogliptin 25 mg tablet 25 mg PO DAILY Diabetes 03/18/23 03/18/23 History
bisacodyl 10 mg rectal suppository 10 mg [place] DAILYPRN PRN IF NO BM 03/18/23 03/18/23 History
(Dulcolax (bisacodyl)) AFTR MOM
glimepiride 2 mg tablet 2 mg PO DAILY Diabetes 03/18/23 03/18/23 History
irbesartan 150 mg tablet 150 mg PO DAILY Blood Pressure 03/18/23 03/18/23 History
lorazepam 1 mg tablet 1 mg PO [id number] PRN anxiety/sleep 03/18/23 03/18/23 History
mupirocin 2 % topical ointment 1 applic topical BID LEFT LOWER LEG 03/18/23 03/18/23 History
sodium phosphates 19 gram-7 118 ml [place] DAILYPRN PRN IF NO BM 03/18/23 03/18/23 History
gram/118 mL enema (Fleet Enema) AFTR DULCOLAX
therapeutic multivitamin 1 tab PO DAILY Supplement 03/18/23 03/18/23 History
Lactobac/Bifidobac [Visbiome] 2 cap PO DAILY ##0 03/25/23 Rx
ammonium lactate 12 % lotion 1 applic topical BID #0 grams 03/25/23 Rx
cephalexin 500 mg capsule 500 mg PO QID #0 caps 03/25/23 Rx
gabapentin 100 mg capsule 100 mg PO TID #0 caps 03/25/23 Rx
pantoprazole 40 mg tablet,delayed 40 mg PO DAILY #0 tabs 03/25/23 Rx
release
Review of Systems
-
difficult to obtain as pt unable to provide history
Physical Exam
Vital Signs
Vital Signs
Temp Pulse Resp BP Pulse Ox
97.4 F 87 14 90/56 87
06/02/23 10:34 06/02/23 10:30 06/02/23 10:30 06/02/23 10:30 06/02/23 09:45
Lab Results
WBC 11.0 10^3/uL (4.8-10.8) H 06/02/23 05:09
RBC 2.98 10^6/uL (4.20-5.40) L 06/02/23 05:09
Hgb 8.9 g/dL (12.0-16.0) L 06/02/23 05:09
Hct 26.0 % (37.0-47.0) L 06/02/23 05:09
Plt Count 240 10^3/uL (130-400) 06/02/23 05:09
Sodium 122 mmol/L (135-145) L 06/02/23 05:09
Potassium 4.5 mmol/L (3.5-5.1) 06/02/23 05:09
Chloride 89 mmol/L (98-107) L 06/02/23 05:09
Carbon Dioxide 22 mmol/L (22-30) 06/02/23 05:09
BUN 63 mg/dl (7-17) H 06/02/23 05:09
Creatinine 1.4 mg/dL (0.6-1.0) H 06/02/23 05:09
eGFR 41.49 06/02/23 05:09
Glucose 33 mg/dl (70-99) L* 06/02/23 05:09
Calcium 8.6 mg/dl (8.4-10.2) 06/02/23 05:09
Phosphorus 6.0 mg/dl (2.5-4.5) H 06/02/23 05:09
Albumin 3.5 g/dl (3.5-5.0) 06/01/23 23:41
CXR:
IMPRESSION:
1. Clear lungs.
2. No significant change compared to prior study.
Physical Exam
General: Awake, Oriented, No Distress and Nontoxic
HEENT: EOMI and Anicteric
Respiratory: Normal Excursion, Nonlabored Respirations and Other (decreased bilat)
Cardiac: S1/S2 and Regular Rate/Rhythm
Abdomen: Soft, Nontender and Nondistended
Musculoskeletal: Edema (3+)
Skin: Other (bilat LE erythema )
Neuro: Nonfocal/Grossly Intact
Psych: Appropriate
Assessment/Plan
-
IMP:
Hyponatremia-acute on chronic
NOAM with significant azotemia
suspected septic shock
hypoglycemia
Hypomagnesemia
TME
HX Paroxysmal AF- Not on anticoagulation due to hemorrhagic complications in the past
Chronic anemia
Essential HTN
T2DM
Chronic pain syndrome on chronic opioids
SISI - CPAP
Morbid obesity due to excess calories
PAD
h/o left hip fx s/p ORIF 01/2023
Plan:
A/w abnormal labs-hyponatremia, found to be hypotensive
Acute on chronic hyponatremia-will need urine studies
she is clinically hypervolemic however could be intravascularly dry
check BNP, will start 3% saline, frequent sodium checks Q6h
check TSH and cortisol
NOAM-possible prerenal, follow bladder scan and monitor UOP, check UA
avoid nephrotoxins, dose meds renally
Hypoglycemia-likely combine with 3%
replace mg total 3gm, possible from diarrhea
abx per primary, ID consulted
pressors prn to keep MAP>65
echo noted normal EF in Dec, holding ARB and BB
hypoglycemia-ok for d5 or d10 IVF if needed
d/w nursing and ICU
--- NOTE | 2023-06-02 11:16 | CM ---
Patient seen at bedside. Patient able to answer all questions. Patient stated that she lives with her and dog amrita in a 2 story home. Patient stated that she had elevators, and a chair lift. Patient stated that she also has home O2.
Patient on home O2 at night, but does not remember what company provides the DME. Patient also stated that she had helpers from [facility] at home for 3 hours daily but her plan is to go home with and not return to [facility] where she was for STC
after last hospitalization. Patient stated that she does not want to go back to SNF; Pending PT/OT assessment for care level needs. Patient PCP is Dr. Saunders and she uses the [facility] in [place].
Patient stated that she forgot her phone at the SNF and wanted to have daughter apple picker phone. Per [facility] admissions, patient has 7 days left in her medicare benefit, and family is not holding bed. Patient to apple picker belongings earlier this
afternoon. CM requested admissions to make sure phone was accounted for. CM will attempt to discuss with family. CM will continue to follow for discharge planning needs.
Plan; pending assessments; Patient wants home with Aides
[2023-06-02] MEDS: MAGNESIUM SULFATE 100 IV (11:32)
[2023-06-02 11:41] LABS: Glucose - Point of Care 43 mg/dl (70-99)
[2023-06-02 11:57] LABS: Glucose - Point of Care 47 mg/dl (70-99)
[2023-06-02 12:18] LABS: Glucose - Point of Care 73 mg/dl (70-99)
--- NOTE | 2023-06-02 12:26 | PTCARENOTE ---
Dr. Abbott notified via TT that 2 unsuccessful attempts were made in obtaining a urine sample via straight cath. Pur wick in place. Pt was repositioned in the bed.
--- NOTE | 2023-06-02 13:28 | RESPNOTE ---
CPAP ordered for patient- spoke to patient who informs me ' I will not wear that machine, I cant stand the mask. I only use oxygen at night.'
No machine left bedside
[2023-06-02 14:11] LABS: NT-proBNP 633 pg/ml
[2023-06-02] MEDS: D5/0.9% SODIUM CHLORIDE 1000 IV (14:29)
--- NOTE | 2023-06-02 14:30 | PTCARENOTE ---
Clarified with Dr. Abbott that she wanted an additional 2gm Magnesium Sulfate administered.
[2023-06-02 14:37] LABS: Glucose - Point of Care 63 mg/dl (70-99)
[2023-06-02] MEDS: ProAmatine 5 MG PO ×2 (15:23→21:02)
[2023-06-02] MEDS: MAGNESIUM SULFATE 50 IV (15:23)
[2023-06-02 15:29] LABS: Glucose - Point of Care 56 mg/dl (70-99)
[2023-06-02 15:54] LABS: Glucose - Point of Care 82 mg/dl (70-99)
[2023-06-02 15:59] LABS: Urine Albumin Trace (Neg - Trace); Urine Bilirubin Negative (Negative); Urine Character Slightly Cloudy (Clear); Urine Color Yellow; Urine Glucose Negative (Negative); Urine Ketone Trace (Negative); Urine Leukocyte 2+ (Negative); Urine Nitrite Negative (Negative); Urine Occult Blood 3+ (Negative); Urine Specific Gravity 1.015 (<1.030); Urine Urobilinogen Negative (Neg - 1+)
[2023-06-02 16:11] LABS: Urine Bacteria Moderate (Negative); Urine Red Blood Cell 0-2 /HPF (0-2); Urine White Cell 26-30 /HPF (0-5)
[2023-06-02 16:23] LABS: Glucose - Point of Care 77 mg/dl (70-99)
--- NOTE | 2023-06-02 17:06 | VATNOTE ---
Spoke w/ Dr. Velázquez for clarification on PICC Xray reading and PICC is central enough to use. Notified pt's PCN.
[2023-06-02 18:00] LABS: Glucose - Point of Care 70 mg/dl (70-99)
[2023-06-02] MEDS: LIPITOR 20 MG PO (18:05)
[2023-06-02 18:48] LABS: Sodium 124 mmol/L (135-145)
--- NOTE | 2023-06-02 19:06 | PTCARENOTE ---
Dr. Abbott notified of recent Na results. No orders at this time.
[2023-06-02] MEDS: PROTONIX 40 MG PO (19:47)
[2023-06-02] MEDS: NORCO 5/325 1 TABLET PO (19:58)
--- NOTE | 2023-06-02 20:00 | PTCARENOTE ---
Patient received in bed, awake, alert and oriented, forgetful, calls out frequently. NSR on monitor, afebrile, blood pressure as documented. Vasopressors off. +3 anasarca noted, distal pulses present by doppler. Lungs coarse, + orthponea, pulse
ox 95% on 4L. Abdomen obese with positve bowel sounds. FMS irrigated, purewick draining yellow urine. Left hip dressing intact. Bilateral arms, legs and neck red. Toes on both feet mottled. LDL PICC with IVF infusing as ordered, Turned and
repositioned. Call frances within reach
[2023-06-02 20:08] LABS: Urine Sodium 8 mmol/L (30-90)
[2023-06-02] MEDS: NEURONTIN 100 MG PO (21:02)
[2023-06-02] MEDS: FLEXERIL 5 MG PO (21:02)
[2023-06-02] MEDS: ATIVAN PO (21:03)
[2023-06-02 21:23] LABS: Osmolality Urine 231 mOsm/kg (300-900)
[2023-06-02] MEDS: ATIVAN 1 MG PO (21:26)
[2023-06-02 21:47] LABS: Cortisol, Random 28.8 ug/dl
[2023-06-02 22:32] LABS: Glucose - Point of Care 74 mg/dl (70-99)
[2023-06-02] MEDS: HEPARIN 5000 UNITS SC (23:49)
[2023-06-03] VITALS (21 sets, daily range): BP systolic 86–117; BP diastolic 48–75
--- NOTE | 2023-06-03 | PTCARENOTE ---
Assumed care of patient. NSR/ST. VSS on 4L NC. PICC line LUE infusing D5NS@50ml/hr. Purewick in place and FMS in place. Pt repositioned. All extremities elevated. Skin mottled, cool and ecchymotic. General edema throughout. Assessment for nursing
flowsheet.
--- NOTE | 2023-06-03 04:09 | PTCARENOTE ---
NSR - ST with PACs. SBP 90s, due for midodrine this am. Pt resting - wakes upon entering room. Assessment unchanged.
[2023-06-03] MEDS: STERILE WATER FOR INJECTION 10 ML IV ×4 (04:32→23:37)
[2023-06-03] MEDS: MERREM 500 MG IV ×4 (04:32→23:33)
[2023-06-03 05:08] LABS: Hematocrit 27.3 % (37.0-47.0); Hemoglobin 8.9 g/dL (12.0-16.0); Mean Corp Hgb Conc. 32.6 g/dL (33.0-37.0); Mean Corpuscular Volume 88.9 fL (81.0-99.0); Mean Platelet Volume 9.5 fL (7.4-10.4); Platelet Count 243 10^3/uL (130-400); Red Blood Cell Count 3.07 10^6/uL (4.20-5.40); Red Cell Dist. Width 13.9 % (11.5-14.5); White Blood Cell Count 12.6 10^3/uL (4.8-10.8)
[2023-06-03 05:56] LABS: Blood Urea Nitrogen 52 mg/dl (7-17); Calcium 8.9 mg/dl (8.4-10.2); Carbon Dioxide 25 mmol/L (22-30); Chloride 96 mmol/L (98-107); Estimated Creatinine Clearance 54 ml/min; Glucose 79 mg/dl (70-99); Magnesium 1.8 mg/dl (1.6-2.3); Potassium 4.8 mmol/L (3.5-5.1); Sodium 126 mmol/L (135-145); eGFR 55.42
[2023-06-03] MEDS: ProAmatine 5 MG PO ×3 (05:56→21:15)
[2023-06-03 07:57] LABS: Glucose - Point of Care 49 mg/dl (70-99)
[2023-06-03] MEDS: NOVOLOG FLEXPEN-LOW RESISTANCE SC ×2 (07:58→12:31)
[2023-06-03] MEDS: TYLENOL 650 MG PO ×2 (08:01→16:20)
[2023-06-03] MEDS: PROTONIX 40 MG PO ×2 (08:02→21:14)
[2023-06-03] MEDS: NEURONTIN 100 MG PO ×3 (08:02→21:16)
[2023-06-03] MEDS: HEPARIN 5000 UNITS SC ×3 (08:02→23:38)
[2023-06-03 08:04] LABS: Glucose - Point of Care 53 mg/dl (70-99)
[2023-06-03] MEDS: DEXTROSE 50% SYRINGE 12.5 GRAMS IV (08:24)
[2023-06-03 08:26] LABS: Glucose - Point of Care 68 mg/dl (70-99)
--- NOTE | 2023-06-03 08:42 | W.PN.HOSP.TC ---
Today's Communication/Plan
-
CW ABX
Wound care consult;Compression dressings to legs and lasix
Follow Na and Cr.
Follow accuchecks ;liberalize diet.
Wean O2.
Assessment / Plan
Assessment / Plan
Shock -suspected sepsis -resolved .Off of pressors . Normal EF on recent ECHO (01/2023), normal diastolic function, Mild ,mild AR .
Left leg cellulitis with left hip area wound - await cx data . CW Meropenem. Hx of MDR. ID following
Right leg warm and red as well - possible cellulitis -cw abx
Bilateral lower extremity edema-suspected may be dependent. Echo in January 2023 shows normal diastolic function and normal EF. Her BNP on admission was within the normal limit. Her weight gain has been significant since her recent discharge.
With superimposed cellulitis with started on diuretics as her blood pressure permits for edema management. Will also use compression dressings for fluid management.
Acute hypoxic respiratory insufficiency-chest x-ray with low lung volumes and no focal lung disease. Suspect may be atelectasis related. Patient also has obstructive sleep apnea. Continue with oxygen support.
Hyponatremia - management per renal - acute on chronic
NOAM with significant azotemia -urine sodium less than 8 all going in favor prerenal. Fluids per Renal.
HTN - hold ARB due to hypotension and follow
DM 2 with hyperglycemia. Patient with poor oral intake. Hemoglobin A1c 7.1. Hold glimepiride and alogliptin for now.Check cortisol.
Recent Left Hip ORIF - OP CT hip noted - cw PT eval; Wound care/abx for left hip wound.
Paroxysmal atrial fibrillation-in sinus rhythm. Holding sotalol with prolonged QTc. QTc in March 2023 was within normal limits. Follow QTc entry assumed when appropriate.
Chronic normocytic anemia-check iron stores. Hemoglobin at baseline. Aim to keep it more than 8.
Full code
Discussed with HAND COREMAKER
Discussed with and updated the clinical diagnosis and the treatment plan
Total time spent on today's encounter was 52 minutes which included time spent in counseling the patient/family regarding diagnosis and treatment plan as listed above, goals of care, and symptom management. Case was discussed with nursing staff,
specialists, and care coordinators/case management. All labs and imaging personally reviewed by me. Remainder the time spent in detailed review of previous records, lab data, imaging, and other medical provider documentation.
Anticipated Discharge: > 48 hours
Subjective/Interval History
-
Date of Service: June 03, 2023
Awake , alert and oriented today.
Low blood sugars requiring IV dextrose today.RN noticed her bit confused with low blood sugars.
Denies nausea vomiting. No abdominal pain.
Denies shortness of breath.
Off of vasopressors.
Objective Data
-
Labs:
Laboratory Results
06/03/23
04:31
WBC 12.6 H
Hgb 8.9 L
Hct 27.3 L
Plt Count 243
Sodium 126 L
Potassium 4.8
Chloride 96 L
Carbon Dioxide 25
BUN 52 H
Creatinine 1.1 H
Glucose 79
Calcium 8.9
Vital Signs:
Vital Signs
Temp Pulse Resp BP Pulse Ox
99.1 F 98 15 94/51 96
06/03/23 07:40 06/03/23 05:56 06/03/23 05:00 06/03/23 05:56 06/03/23 05:00
I&O
06/02/23 06/03/23 06/04/23
06:59 06:59 06:59
Intake Total 1717.5 / 1717.5
Output Total 1550 / 1550
Balance 167.5 / 167.5
Review of Systems
-
Constitutional: Denies Fever or Chills
Respiratory: Denies Trouble Breathing
Cardiac: Denies Chest Pain
Genitourinary: Denies Dysuria
Musculoskeletal: Reports Other (slight pain in left leg and left hip wound area)
Neuro: Denies Dizzy
Physical Exam
-
General: No Apparent Distress
HEENT: Moist Mucous Membranes
Respiratory: Clear to Auscultation (anteriorly but prolonged exp phase of respiration noted) and Non Labored Respirations; Negative Accessory Resp Muscle Use
Cardiac: Regular Rhythm, S1/S2 and Tachycardic
GI: Soft, Nontender, Normal Bowel Sounds and Other (obese)
Musculoskeletal: Edema, Right Lower Extrem and Edema, Left Lower Extrem (warm and red)
Skin: Other (left hip wound with pack in it-no drainage )
Neuro: AO x 3
Psych: Calm
Data Reviewed
-
Labs: Labs Reviewed by me
[2023-06-03 08:46] LABS: Glucose - Point of Care 88 mg/dl (70-99)
--- NOTE | 2023-06-03 10:23 | W.PN.ID1 ---
Date of Service
Date of Service: June 03, 2023
Today's Communication
Add ceftaroline to meropenem.
See below.
Assessment / Plan
# GPC clusters bacteremia (1 of 2 sets)
# Acute LLE cellulitis
# Possible left hip incision wound infection
# Shock on 1 pressor
# Leukocytosis - persists
# NOAM improving
# Numerous abx allergies.
-Repeat blood cx's x 2, then start ceftaroline 600mg IV q12 pending identification of GPC.
-Await left hip wound cx result.
-Continue meropenem (d2)
-Trend vitals, wbc.
#Additional Past Medical History:
Diabetes mellitus
Class III obesity BMI 49
Lymphedema
Obstructive sleep apnea
A flutter status post ablation
hypertension
cellulitis
Asthma
Dyslipidemia
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
Meningioma s/p resection
Chronic back pain
Cholecystectomy
Bilateral oophorectomy
Left hip fracture s/p gamma nailing 02/16/23
Chief Complaint
-: Clinical Sepsis
Subjective / Review of Systems
Drowsy
Vital Signs / Physical Exam
Vital Signs
Vital Signs
Temp Pulse Resp BP Pulse Ox
99.1 F 98 15 94/51 96
06/03/23 07:40 06/03/23 05:56 06/03/23 05:00 06/03/23 05:56 06/03/23 05:00
Physical Exam
Constitutional: Acutely Ill
Eyes: Sclera Anicteric
Cardiovascular: Regular Rate and S1/S2
Pulmonary: Clear
Gastrointestinal: Soft, Non Tender and Non Distended
Extremities: Edema (BLE 3+) and Erythema (LLE ankle to below knee to posterior thigh erythema decreased. RLE erythema stable)
Wound: Other (Left hip wound packing in place)
Neurological: Other (lethargic)
Objective Data
Lab Data
Lab Results
06/03/23 04:31
06/03/23 04:31
PT 13.1 Sec (11.4-14.6) 06/02/23 09:23
INR 1.01 06/02/23 09:23
APTT 31.2 Sec (23.4-35.0) 06/02/23 09:23
Estimated Creat Clear 54 ml/min 06/03/23 04:31
Lactic Acid 1.0 mmol/L (0.7-2.0) 06/02/23 05:52
Total Bilirubin 0.3 mg/dl (0.2-1.3) 06/01/23 23:41
AST 16 U/L (14-36) 06/01/23 23:41
ALT 11 U/L (0-35) 06/01/23 23:41
Alkaline Phosphatase 70 U/L (38-126) 06/01/23 23:41
Most recent labs reviewed.
Micro Results:
06/02/23 05:52 Blood Culture - Preliminary
Blood/Venous Positive culture in progress
Gram Stain - Preliminary
06/02/23 05:52 Blood Culture - Preliminary
Blood/Venous No Growth in 24 hours- Final report to follow
06/02/23 18:34 C. difficile GDH Antigen & Toxins - Final
Feces/Stool Negative for toxigenic C.difficile
06/02/23 13:24 Wound Culture - Pending
Hip - Left Gram Stain - Preliminary
06/02/23 13:25 Urine Culture - Pending
Urine
06/02/23 13:23 MRSA Screen - Pending
Nose
06/02/23 CXR: clear lungs
05/28/23 CT LLE: ORIF of an intertrochanteric/subtrochanteric fracture. The fracture plane remains evident, but there is some callus and heterotopic ossification about the fracture site.
--- NOTE | 2023-06-03 11:01 | W.PN.NEPH.PH ---
Today's Communication / Plan
-
ok for lasix
wean off IVF as BG improves
Assessment/Plan
-
IMP:
Hyponatremia-acute on chronic
NOAM with significant azotemia
suspected septic shock
hypoglycemia
Hypomagnesemia
TME
HX Paroxysmal AF- Not on anticoagulation due to hemorrhagic complications in the past
Chronic anemia
Essential HTN
T2DM
Chronic pain syndrome on chronic opioids
SISI - CPAP
Morbid obesity due to excess calories
PAD
h/o left hip fx s/p ORIF 01/2023
Plan:
A/w abnormal labs-hyponatremia, found to be hypotensive
Acute on chronic hyponatremia-U osmo 231, U na low 8-prerenal
she is clinically hypervolemic on exam however could be intravascularly dry
BNP low at 633, sodium better with isotonic IVF
TSH slightly high, pending F4, cortisol high as expected
NOAM-possible prerenal, UA with ?UTI, cr improving to 1.1
avoid nephrotoxins
Hypoglycemia-to start po today likely d/c IVF later today
abx per ID
pressors prn to keep MAP>65, currently off, on scheduled midodrine
echo noted normal EF in Dec, holding ARB and BB
wts are higher than last admit ok for lasix 40mg IV today
d/w nursing and ICU
-
-
Date of Service: June 03, 2023
CC / HPI / ROS
-
Chief Complaint:
NOAM, hyponatremia
History of Present Illness:
sodium improving to 126, cr better at 1.1
non oliguric
BG at 72 on D5NS
hb stable at 8.9
Review of Systems:
offers no cp
no n/v
poor historian, no sob at rest on 4lit NC
Labs
-
Labs:
WBC 12.6 10^3/uL (4.8-10.8) H 06/03/23 04:31
RBC 3.07 10^6/uL (4.20-5.40) L 06/03/23 04:31
Hgb 8.9 g/dL (12.0-16.0) L 06/03/23 04:31
Hct 27.3 % (37.0-47.0) L 06/03/23 04:31
Plt Count 243 10^3/uL (130-400) 06/03/23 04:31
Sodium 126 mmol/L (135-145) L 06/03/23 04:31
Potassium 4.8 mmol/L (3.5-5.1) 06/03/23 04:31
Chloride 96 mmol/L (98-107) L 06/03/23 04:31
Carbon Dioxide 25 mmol/L (22-30) 06/03/23 04:31
BUN 52 mg/dl (7-17) H 06/03/23 04:31
Creatinine 1.1 mg/dL (0.6-1.0) H 06/03/23 04:31
eGFR 55.42 06/03/23 04:31
Glucose 79 mg/dl (70-99) 06/03/23 04:31
Calcium 8.9 mg/dl (8.4-10.2) 06/03/23 04:31
Phosphorus 6.0 mg/dl (2.5-4.5) H 06/02/23 05:09
Dai-P-Kbwkgjybbbx Pept 633 pg/ml 06/02/23 05:09
Albumin 3.5 g/dl (3.5-5.0) 06/01/23 23:41
Physical Exam
-
Vital Signs:
Vital Signs
Temp Pulse Resp BP Pulse Ox
99.1 F 98 15 94/51 96
06/03/23 07:40 06/03/23 05:56 06/03/23 05:00 06/03/23 05:56 06/03/23 05:00
Cardiovascular:: Regular rate and rhythm
Lung Excursion:: Normal (decreased)
Abdomen:: Nontender and Soft
Extremity Edema:: +3: Bilateral:
Moore Catheter: No
Other Findings::
bilat LE erythema
[2023-06-03 11:02] LABS: Glucose - Point of Care 165 mg/dl (70-99)
[2023-06-03] MEDS: D5/0.9% SODIUM CHLORIDE 1000 IV (11:24)
[2023-06-03] MEDS: TEFLARO 270 MG IV (11:56)
[2023-06-03] MEDS: LASIX 40 MG IV (12:08)
[2023-06-03 12:14] LABS: Glucose - Point of Care 147 mg/dl (70-99)
--- NOTE | 2023-06-03 12:45 | PTCARENOTE ---
pt drowsy and confused this morning , pt hypoglycemic blood sugar 48 , protocol followed , current glucose is 147, pt is tolerating diet without difficulty , NSR on monitor, BP adequate , on 4L NC sats are 97% , incontinent of bowel and bladder,
lower extremities skin is reddened and warm to touch , pt had blood cultures drawn , she was given 40 of IV Lasix , NA level improving to 126 , she is currently oob to chair with lift device , pt has generalized weakness , she states she is
wheelchair bound
[2023-06-03 13:54] LABS: Free T3 2.63 pg/ml (2.77-5.27); Free T4 1.37 ng/dl (0.78-2.19)
--- NOTE | 2023-06-03 13:57 | W.PN.INTV ---
Today's Communication / Plan
Recommendations
Continue antibiotics
Follow cultures
Diuretics started
Monitor electrolytes
D5 for hypoglycemia. Will discontinue as blood sugars improved. Tolerating diet.
Continue to hold hypoglycemic agents
Advance diet as able.
Assessment
-
Patient is a 68-year-old female with history of Aflutter, HTN, IDDM, SISI, anxiety presenting to ER from [facility] with abnormal labs-hyponatremia. Patient has been on fluid restriction due to this hyponatremia for the last 3 days. Sodium on
arrival 123, previously 131 on 04/28/23. She was noted to be hypotensive on arrival, started on levophed and admitted to ICU.
She is noted to be hypoglycemic on arrival as well, given amp Dextrose with minimal improvement.
Acute on chronic hyponatremia
Persistent hypoglycemia
Hypotension on pressors
NOMA, creat 1.4
Conditions present prior admission:
Discharged from 01/2023: Lethargy/status post fall status post left hip intertrochanteric fracture with repair
Lower extremity infection with Streptococcus bovis seen by ID and discharged on antibiotics until 02/26/2023-Wound culture left leg 03/18/2023: MRSA and Pseudomonas.
Atrial fibrillation off anticoagulation due to hemorrhagic complication
Peripheral arterial disease
Diabetes mellitus type 2
Morbid obesity with a BMI of 46
Hypertension
Anemia of chronic disease
Dyslipidemia
Obstructive sleep apnea
Chronic pain syndrome on opiates
Plan
Shock has resolved. Likely septic.
Currently on midodrine.
Patient has normal LVEF on echocardiogram. Mild and mild AR on 01/2023.
-
Left lower extremity cellulitis likely on physical examination.
Significant lower extremity edema bilaterally.
Continue current antibiotics per infectious disease.
Blood cultures with gram-positive cocci in clusters. Identification pending.
She had recent admission for L hip fracture s/p repair 02/16/23; readmitted in March for infected hip, treated with abx
Continue to follow fever curve and leukocytosis
-
TME noted, likely due to electrolyte abnl-hyponatremia. Improved
Lasix started follow serial BMPs.
Increased TSH/reported low free T3. Free T4 is pending. I will defer this to primary team. Possible sick euthyroid.
Cortisol pending
Nephrology following the patient.
-
Baseline MS reported as normal, she has chronic pain/opiate use history.
Improved, back to baseline.
Back on gabapentin and lorazepam.
Psychiatric history noted above including anxiety
-
Cardiac history reviewed--AFlutter maintained on sotalol
Prior ECHO reviewed indicating normal function
Hold home meds, resume when able
Mild oxygen requirements likely due to atelectasis. Maintain pulse ox above 89%.
No history of pulmonary disease
SISI noted, can resume CPAP if patient tolerates.
CXR/CT reviewed indicating clear lungs/NAD
Advance diet as tolerated
Acute kidney injury improved. Creatinine down to 1.1.
Lasix started.
Continue to follow electrolytes and renal function.
Follow urine output, critical I/Os
-
H/o diabetes, persistent hypoglycemia noted, ? if from lack of intake and oral hypoglycemics in the outpatient setting.
Hold hypoglycemic agents
Continue D5 IV fluids. Hopefully can discontinue later, blood sugars are rising.
-
No severe hypoglycemia.
Will consider transfer to telemetry later today.
-
If transfer out of the ICU, critical care team will sign off. If any pulmonary issues arise, please call pulmonary.

Diagnostic Data
Chest X-Ray:
Chest x-ray 03/18/2023: Rotated film. No acute infiltrates.
CT Scan: AP 02/13/23- Findings suggesting enteritis/ileus. Findings suggesting sequelae of chronic terminal ileitis. Intertrochanteric left femur fracture.
Echo: 02/17/23- Normal left ventricular size and systolic function. No regional wall motion abnormalities are seen. LV ejection fraction is 65-70% by visual assessment. Mild concentric left ventricular hypertrophy. Normal diastolic function. Mildly
dilated left atrium. Mild aortic stenosis. Peak/mean gradients are 34/18mmHg. The valve area by continuity equation is 1.6cm sq, using a LVOT of 1.9cm.
Mild aortic regurgitation. When compared to prior echocardiogram from June 16, 2021, the left atrium is now mildly enlarged and otherwise there is no significant change.
Echocardiogram 02/17/2023: Normal LVEF. Mild LVH. Mild aortic stenosis. Mild AR
PFT's:
Nocturnal ox 07/27/15: time below 90% 1:22:18 (23.8%); time below 88% 46:20 (13.4%); O2 nicol 67%; ALICIA >10s 31.0
Reports and relevant images were personally reviewed.
-----
Subjective Dataa
Subjective Data
Date of Service:
Date of Service: June 03, 2023
Chief Complaint: Salon Professional Follow Up (Shock, hyponatremia.)
Review of Systems
General: Fever (n)
Cardiopulmonary: Dyspnea (none at rest)
GI: Abdominal Pain (n) and Nausea (n)
Objective Data
Data Reviewed
Vital Signs / I&O / Oxygen:
Vital Signs
Temp Pulse Resp BP Pulse Ox
98.7 F 99 20 102/75 99
06/03/23 11:15 06/03/23 13:50 06/03/23 12:03 06/03/23 13:50 06/03/23 09:00
Intake and Output
06/02/23 06/03/23 06/04/23
06:59 06:59 06:59
Intake Total 1717.5 / 1767.5 860 / 860
Output Total 1550 / 1550
Balance 167.5 / 217.5 860 / 860
SaO2 99
Nasal Cannula flow liters per 4
minute
Physical Exam
General: Respiratory Distress (n) and Comfortable
HEENT: Normocephalic
Cardiovascular: S1-S2
Respiratory: Clear and Non-Labored Respirations
GI: Soft and Non Distended
Neurology: Awake and Alert
Skin: Other
Labs/Micro/Reports
Lab Data
06/03/23 04:31
06/03/23 04:31
Microbiology
06/02/23 13:25 Urine Urine Culture - Final
NO GROWTH
06/02/23 13:24 Hip - Left Wound Culture - Preliminary
06/02/23 13:24 Hip - Left Gram Stain - Preliminary
06/02/23 05:52 Blood/Venous Blood Culture - Preliminary
Positive culture in progress
06/02/23 05:52 Blood/Venous Gram Stain - Preliminary
06/02/23 05:52 Blood/Venous Blood Culture - Preliminary
No Growth in 24 hours- Final report to follow
06/02/23 18:34 Feces/Stool C. difficile GDH Antigen & Toxins - Final
Negative for toxigenic C.difficile
[2023-06-03 14:07] LABS: Cortisol, Random 9.3 ug/dl
--- NOTE | 2023-06-03 15:53 | CM ---
CM following re: discharge planning.
Discussed in rounds, reviewed pt's chart, met with pt.
Pt reports she admitted here from [facility] where she was almost 2 months. Pt stated she was planning to return back to [facility] but they offered a bed hold payment and it was very expensive for the pt and pt's declined to pay a bed
hold. Pt reports she is able to stand only with 2-3 people to help and able to make a step or 2. Pt stated she was planning to return back to [facility] but now pt stated she is requesting to return back home. Pt stated she and her are
planning to have 12 hours of caregiver services with [facility]. It was not clear whether or not pt made a reasonable request regarding returning back home. CM will discuss in details with pt's and pt's daughter. Pt stated she lives
with and a dog in a 2SH and has supportive daughter. Pt stated she has a wheelchair and a walker at home.
PT and OT will evaluate the pt to determine a level of care at discharge.
D/c plan: per pt's request, home with VN and 12 hours of caregiver services and family support.
CM will follow with discharge plan updates as hospitalization progresses
--- NOTE | 2023-06-03 16:42 | PTCARENOTE ---
pt noted to have a rash after being washed up and also had Ceftaroline IV , it is on arms and trunk and blanchable she has not complaints of itching
, Dr Neff and Pharmacist notified
--- NOTE | 2023-06-03 16:50 | W.PN.UPDATE ---
Update Note
Progress Note Update
Patient seen and examined. L lateral thigh wound appears to be healing appropriately. No drainage expressed. Recommend continued antibiotics and packing of wound (change packing daily). She may WBAT at the LLE. Recommend PT/OT.
[2023-06-03] MEDS: LIPITOR 20 MG PO (17:00)
--- NOTE | 2023-06-03 17:00 | WOUNDNOTE ---
NICKIE RN NOTE: Patient admitted with acute hyponatremia, see computer for PMH. Patient known to service from frequent admissions. Spoke to nurse Hannah who just changed L hip surgical wound, packing with Mesalt and dry dressing. Nurse reports sacrum is
intact. Legs with cellulitis no open wounds. Patient for transfer to floor, asked nurse to put on [facility] air bed when transferred. Air mattress outside for when transferred. Will follow tomorrow for pictures and further instructions.
[2023-06-03 17:10] LABS: Glucose - Point of Care 310 mg/dl (70-99)
[2023-06-03] MEDS: NOVOLOG FLEXPEN-LOW RESISTANCE 4 UNITS SC (17:32)
--- NOTE | 2023-06-03 18:03 | PTCARENOTE ---
pt transferred to room 333 , report given to receiving RN
--- NOTE | 2023-06-03 19:17 | PTCARENOTE ---
1755 Pt received as transferred from ICU in bed. Personal items and call light within reach. Pt placed on telemetry.
[2023-06-03] MEDS: ATIVAN 1 MG PO (21:15)
[2023-06-03] MEDS: NORCO 5/325 1 TABLET PO (21:22)
[2023-06-03] MEDS: FLEXERIL 5 MG PO (21:23)
[2023-06-03 21:39] LABS: Glucose - Point of Care 392 mg/dl (70-99)
[2023-06-04 02:29] LABS: Glucose - Point of Care 279 mg/dl (70-99)
[2023-06-04 03:25] VITALS: BP 140/65
[2023-06-04 05:17] LABS: Hematocrit 25.4 % (37.0-47.0); Hemoglobin 8.2 g/dL (12.0-16.0); Mean Corp Hgb Conc. 32.3 g/dL (33.0-37.0); Mean Corpuscular Hgb 29.1 pg (27.0-31.0); Mean Corpuscular Volume 90.1 fL (81.0-99.0); Mean Platelet Volume 9.3 fL (7.4-10.4); Platelet Count 218 10^3/uL (130-400); Red Blood Cell Count 2.82 10^6/uL (4.20-5.40); White Blood Cell Count 14.3 10^3/uL (4.8-10.8)
[2023-06-04] MEDS: ProAmatine PO ×2 (05:28→15:33)
[2023-06-04] MEDS: MERREM 500 MG IV ×2 (05:29→12:38)
[2023-06-04] MEDS: STERILE WATER FOR INJECTION 10 ML IV ×2 (05:29→12:38)
[2023-06-04 05:40] LABS: Blood Urea Nitrogen 41 mg/dl (7-17); Calcium 9.2 mg/dl (8.4-10.2); Carbon Dioxide 26 mmol/L (22-30); Chloride 93 mmol/L (98-107); Estimated Creatinine Clearance 65 ml/min; Glucose 245 mg/dl (70-99); Iron 49 ug/dl (37-170); Potassium 4.7 mmol/L (3.5-5.1); Sodium 127 mmol/L (135-145); eGFR > 60.00
[2023-06-04 05:50] LABS: Percent Saturation 21 % (20-50); Total Iron Binding Capacity 229 ug/dl (265-497)
[2023-06-04 06:00] VITALS: BMI 48.8
[2023-06-04 06:15] LABS: Ferritin 33.3 ng/ml (11.1-264.0)
[2023-06-04 07:00] VITALS: BP 143/63
[2023-06-04 07:49] LABS: Glucose - Point of Care 258 mg/dl (70-99)
[2023-06-04] MEDS: NEURONTIN 100 MG PO ×3 (08:30→21:18)
[2023-06-04] MEDS: LASIX IV (08:30)
[2023-06-04] MEDS: PROTONIX 40 MG PO ×2 (08:31→19:54)
[2023-06-04] MEDS: HEPARIN 5000 UNITS SC ×3 (08:31→23:59)
[2023-06-04] MEDS: NOVOLOG FLEXPEN-LOW RESISTANCE 3 UNITS SC (08:32)
[2023-06-04] MEDS: LASIX 40 MG IV (08:45)
--- NOTE | 2023-06-04 09:03 | WOUNDNOTE ---
POSTERIOR LEGS AND HEELS
--- NOTE | 2023-06-04 09:03 | WOUNDNOTE ---
NICKIE RN NOTE: Followed up today with assist from PCT. Patient is on a [facility] care air bed, air cushion with pillow under calves. Appetite is good, getting protein in diet. Patient's skin much improved since last admission, has redness of legs/feet.
Now with L hip surgical site wound, shallow pink base. Wound culture is negative so far. Plain packing placed at base of wound followed by silicone foam. Will confirm with hospitalist and update care plan and orders. Nurse Casey updated with care.
Will follow as needed.
[2023-06-04 11:00] VITALS: BP 120/84
[2023-06-04 12:19] LABS: Glucose - Point of Care 236 mg/dl (70-99)
[2023-06-04] MEDS: NOVOLOG FLEXPEN-LOW RESISTANCE 2 UNITS SC ×2 (12:39→18:07)
[2023-06-04 15:00] VITALS: BP 143/70
--- NOTE | 2023-06-04 15:06 | W.PN.HOSP.TC ---
Today's Communication/Plan
-
CW ABX
Wean O2
Change Lasix to Ethacrynic acid
PT /OT eval
Assessment / Plan
Assessment / Plan
Shock -suspected sepsis -resolved .Off of pressors . Normal EF on recent ECHO (01/2023), normal diastolic function, Mild ,mild AR .
Left leg cellulitis with left hip area wound - No draiange from wound - eval by ortho. CW Meropenem. Hx of MDR. ID following
Right leg warm and red as well - possible cellulitis -cw abx
Bilateral lower extremity edema-suspected may be dependent. Echo in January 2023 shows normal diastolic function and normal EF. Her BNP on admission was within the normal limit. Her weight gain has been significant since her recent discharge.
With superimposed cellulitis with started on diuretics as her blood pressure permits for edema management. Will also use compression dressings for fluid management. Pt says she is allergic to sulfa including lasix .switch to ethacryanic acid
Acute hypoxic respiratory insufficiency-chest x-ray with low lung volumes and no focal lung disease. Suspect may be atelectasis related. Patient also has obstructive sleep apnea. Continue with oxygen support.
Hyponatremia - management per renal - acute on chronic
NOAM with significant azotemia -urine sodium less than 8 all going in favor prerenal.Off of IV fluids
HTN - hold ARB due to hypotension and follow
DM 2 with hyperglycemia. Patient with poor oral intake. Hemoglobin A1c 7.1. Hold glimepiride and alogliptin for now. cortisol is ok .
Recent Left Hip ORIF - OP CT hip noted - cw PT eval; Wound care/abx for left hip wound. Ortho input noted.
Paroxysmal atrial fibrillation-in sinus rhythm. QTc normal now . QTc in March 2023 was within normal limits. resume sotalol.
Chronic normocytic anemia-ACD. Hemoglobin at baseline. Aim to keep it more than 8.
Full code
Anticipated Discharge: 24 - 48 hours
Subjective/Interval History
-
Date of Service: June 04, 2023
Feeling improved. Improved appetite. Blood pressure improved. Not dizzy.
Patient having some attention that she is also allergic to Lasix. She is allergic to sulfa. Lasix is not mentioned in her allergy list. She says she did give her hives.
Objective Data
-
Labs:
Laboratory Results
06/04/23
04:47
WBC 14.3 H
Hgb 8.2 L
Hct 25.4 L
Plt Count 218
Sodium 127 L
Potassium 4.7
Chloride 93 L
Carbon Dioxide 26
BUN 41 H
Creatinine 0.9
Glucose 245 H
Calcium 9.2
Vital Signs:
Vital Signs
Temp Pulse Resp BP Pulse Ox
98.1 F 107 20 120/84 99
06/04/23 11:00 06/04/23 11:00 06/04/23 11:00 06/04/23 11:00 06/04/23 11:00
I&O
06/03/23 06/04/23 06/05/23
06:59 06:59 06:59
Intake Total 1717.5 / 1767.5 1600 / 1600
Output Total 1550 / 1550 900 / 900
Balance 167.5 / 217.5 700 / 700
Review of Systems
-
Constitutional: Denies Fever
Respiratory: Denies Trouble Breathing (normally on 2l of O2 at home per pt)
Cardiac: Denies Chest Pain
Abdomen/GI: Denies Nausea or Vomiting
Neuro: Denies Dizzy or Headache
Physical Exam
-
General: No Apparent Distress
HEENT: Moist Mucous Membranes
Respiratory: Clear to Auscultation (anteriorly)
Cardiac: Regular Rhythm and S1/S2
GI: Soft, Nontender, Nondistended, Normal Bowel Sounds and Other (obese)
Musculoskeletal: Edema, Right Lower Extrem and Edema, Left Lower Extrem (BL redness of LE)
Neuro: AO x 3
Psych: Calm
Data Reviewed
-
Labs: Labs Reviewed by me
--- NOTE | 2023-06-04 15:40 | W.PN.NEPH.PH ---
Today's Communication / Plan
-
Follow electrolytes
Currently on ethacrynic acid for volume overload
Assessment/Plan
-
IMP:
Hyponatremia-acute on chronic
NOAM with significant azotemia
suspected septic shock
hypoglycemia
Hypomagnesemia
TME
HX Paroxysmal AF- Not on anticoagulation due to hemorrhagic complications in the past
Chronic anemia
Essential HTN
T2DM
Chronic pain syndrome on chronic opioids
SISI - CPAP
Morbid obesity due to excess calories
PAD
h/o left hip fx s/p ORIF 01/2023
Plan:
A/w abnormal labs-hyponatremia, found to be hypotensive
Acute on chronic hyponatremia-U osmo 231, U na low 8-prerenal
Serum sodium with modest improvement to 127
Urine osmolality 231
BNP low at 633, sodium better with isotonic IVF
TSH slightly high, pending F4, cortisol high as expected
NOAM-possible prerenal, UA with ?UTI, cr improving to 0.9
avoid nephrotoxins
Will use Samsca if hyponatremia exacerbated
abx per ID currently on meropenem for cellulitis
on scheduled midodrine
echo noted normal EF in Dec, holding ARB and BB
wts are higher than last admit now on ethacrynic acid twice daily as patient reports allergy to Lasix and noted rash after Lasix given yesterday
d/w nursing and ICU
-
-
Date of Service: June 04, 2023
CC / HPI / ROS
-
Chief Complaint:
NOAM, hyponatremia
History of Present Illness:
sodium improving to 127, cr better at 0.9
non oliguric with ethacrynic acid
developed erythematous red rash on chest last p.m. after Lasix given
Review of Systems:
offers no cp
no n/v
poor historian, no sob at rest on 4lit NC
Labs
-
Labs:
WBC 14.3 10^3/uL (4.8-10.8) H 06/04/23 04:47
RBC 2.82 10^6/uL (4.20-5.40) L 06/04/23 04:47
Hgb 8.2 g/dL (12.0-16.0) L 06/04/23 04:47
Hct 25.4 % (37.0-47.0) L 06/04/23 04:47
Plt Count 218 10^3/uL (130-400) 06/04/23 04:47
Sodium 127 mmol/L (135-145) L 06/04/23 04:47
Potassium 4.7 mmol/L (3.5-5.1) 06/04/23 04:47
Chloride 93 mmol/L (98-107) L 06/04/23 04:47
Carbon Dioxide 26 mmol/L (22-30) 06/04/23 04:47
BUN 41 mg/dl (7-17) H 06/04/23 04:47
Creatinine 0.9 mg/dL (0.6-1.0) 06/04/23 04:47
eGFR > 60.00 06/04/23 04:47
Glucose 245 mg/dl (70-99) H 06/04/23 04:47
Calcium 9.2 mg/dl (8.4-10.2) 06/04/23 04:47
Phosphorus 6.0 mg/dl (2.5-4.5) H 06/02/23 05:09
Ivb-O-Suybmfothin Pept 633 pg/ml 06/02/23 05:09
Albumin 3.5 g/dl (3.5-5.0) 06/01/23 23:41
Physical Exam
-
Vital Signs:
Vital Signs
Temp Pulse Resp BP Pulse Ox
98.1 F 109 20 143/70 99
0403/24 11:00 06/04/23 15:33 06/04/23 11:00 06/04/23 15:33 06/04/23 11:00
Cardiovascular:: Regular rate and rhythm
Respiratory:: Bilateral: Coarse
Lung Excursion:: Normal
Abdomen:: Nontender
Bowel Sounds:: Normal
Extremity Edema:: +1: Bilateral: (Erythematous cellulitic changes)
Moore Catheter: No
--- NOTE | 2023-06-04 15:45 | CM ---
CM following for d/c planning
Remains on IV abx, weaning FiO2, diuretics
Pending PT/OT recs
CM will follow for d/c planning
Plan - anticipate VN vs SNF
[2023-06-04] MEDS: EDECRIN 50 MG PO (15:55)
--- NOTE | 2023-06-04 15:59 | W.PN.ID1 ---
Date of Service
Date of Service: June 04, 2023
Today's Communication
Transition IV abx to po linezolid.
Assessment / Plan
# New drug rash- likely due to furosemide
- Received furosemide prior to rash
-Per patient similar reaction in the past with furosemide.
- Ordered Benadryl now and prn
# Coag-neg staph bacteremia (1 of 2 sets)
-contaminant
- dc'd ceftaroline yesterday (received 1 dose)
# Acute LLE cellulitis
# Lymphedema
# MRSA colonized
- some improvement.
-Transition meropenem (d3) to po linezolid 600mg po bid x 5 more days.
- Apply compression
# Left hip incision wound clean without infection
- cx skin [place]
# s/p Shock
# Leukocytosis - trending up
- follow for now
# NOAM resolved
# Numerous abx allergies.
#Additional Past Medical History:
Diabetes mellitus
Class III obesity BMI 49
Lymphedema
Obstructive sleep apnea
A flutter status post ablation
hypertension
cellulitis
Asthma
Dyslipidemia
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
Meningioma s/p resection
Chronic back pain
Cholecystectomy
Bilateral oophorectomy
Left hip fracture s/p gamma nailing 02/16/23
Chief Complaint
-: Clinical Sepsis
Subjective / Review of Systems
c/o itchy rash since yesterday afternoon. States she received lasix yesterday at noon and this am. Reports she developed hives in the past with lasix.
Vital Signs / Physical Exam
Vital Signs
Vital Signs
Temp Pulse Resp BP Pulse Ox
98.3 F 109 20 143/70 99
06/04/23 15:00 06/04/23 15:33 06/04/23 15:00 06/04/23 15:33 06/04/23 15:00
Physical Exam
Constitutional: Obese
Eyes: Sclera Anicteric
Pulmonary: Clear (anteriorly)
Gastrointestinal: Soft, Non Tender and Non Distended
Genito-Urinary: Negative CVA Tenderness
Extremities: Edema (BLE lymphedema) and Erythema (BLE erythroderma)
Skin: Rash (Diffuse blanchable rash on torso, BUE, B thighs, neck.)
Wound: Other (left hip insicion wound about 0.5 cm shallow granulation tissue, clean, no surrounding erythema)
Neurological: AO x 3
Objective Data
Lab Data
Lab Results
06/04/23 04:47
06/04/23 04:47
PT 13.1 Sec (11.4-14.6) 06/02/23 09:23
INR 1.01 06/02/23 09:23
APTT 31.2 Sec (23.4-35.0) 06/02/23 09:23
Estimated Creat Clear 65 ml/min 06/04/23 04:47
Lactic Acid 1.0 mmol/L (0.7-2.0) 06/02/23 05:52
Total Bilirubin 0.3 mg/dl (0.2-1.3) 06/01/23 23:41
AST 16 U/L (14-36) 06/01/23 23:41
ALT 11 U/L (0-35) 06/01/23 23:41
Alkaline Phosphatase 70 U/L (38-126) 06/01/23 23:41
Most recent labs reviewed.
Micro Results:
06/02/23 13:24 Wound Culture - Final
Hip - Left Gram Stain - Final
06/03/23 10:41 Blood Culture - Preliminary
Blood/Venous No Growth in 24 hours- Final report to follow
06/03/23 10:41 Blood Culture - Preliminary
Blood/Venous No Growth in 24 hours- Final report to follow
06/02/23 05:52 Blood Culture - Preliminary
Blood/Venous Coagulase neg. staphylococcus
Additional testing on request
Gram Stain - Preliminary
06/02/23 13:23 MRSA Screen - Final
Nose Staph aureus MRSA
06/02/23 05:52 Blood Culture - Preliminary
Blood/Venous No Growth in 48 hours- Final report to follow
06/02/23 13:25 Urine Culture - Final
Urine NO GROWTH
06/02/23 18:34 C. difficile GDH Antigen & Toxins - Final
Feces/Stool Negative for toxigenic C.difficile
06/02/23 CXR: clear lungs
05/28/23 CT LLE: ORIF of an intertrochanteric/subtrochanteric fracture. The fracture plane remains evident, but there is some callus and heterotopic ossification about the fracture site.
Care Review
Plan reviewed with: Physician (Dr. Lozano)
[2023-06-04 16:16] LABS: Glucose - Point of Care 242 mg/dl (70-99)
[2023-06-04] MEDS: LIPITOR 20 MG PO (18:06)
[2023-06-04] MEDS: BENADRYL PO (18:08)
[2023-06-04] MEDS: BENADRYL 50 MG PO (18:13)
[2023-06-04] MEDS: ZYVOX 600 MG PO (19:46)
[2023-06-04] MEDS: BETAPACE 120 MG PO (19:50)
[2023-06-04 20:02] VITALS: BP 105/73
[2023-06-04 21:11] LABS: Glucose - Point of Care 206 mg/dl (70-99)
[2023-06-04] MEDS: ATIVAN 1 MG PO (21:18)
[2023-06-04 23:50] VITALS: BP 138/71
[2023-06-05] VITALS (7 sets, daily range): BP systolic 116–139; BP diastolic 57–78; BMI 46.8
[2023-06-05 05:11] LABS: Hematocrit 24.9 % (37.0-47.0); Hemoglobin 8.2 g/dL (12.0-16.0); Mean Corp Hgb Conc. 32.9 g/dL (33.0-37.0); Mean Corpuscular Hgb 28.8 pg (27.0-31.0); Mean Corpuscular Volume 87.4 fL (81.0-99.0); Mean Platelet Volume 9.2 fL (7.4-10.4); Platelet Count 193 10^3/uL (130-400); Red Blood Cell Count 2.85 10^6/uL (4.20-5.40); Red Cell Dist. Width 14.1 % (11.5-14.5); White Blood Cell Count 9.9 10^3/uL (4.8-10.8)
--- NOTE | 2023-06-05 05:28 | PTCARENOTE ---
Pt incontinent - with frequent large amount of loose stools and urine. Discussed with [employer] need for fecal management system due to risk of skin breakdown. Orders placed and FMS inserted by PRN nurse. Pure wick in place at this time.
[2023-06-05 05:42] LABS: Blood Urea Nitrogen 35 mg/dl (7-17); Calcium 9.5 mg/dl (8.4-10.2); Carbon Dioxide 30 mmol/L (22-30); Chloride 94 mmol/L (98-107); Estimated Creatinine Clearance 81 ml/min; Glucose 209 mg/dl (70-99); Potassium 4.2 mmol/L (3.5-5.1); Sodium 131 mmol/L (135-145); eGFR > 60.00
--- NOTE | 2023-06-05 05:42 | W.PN.UPDATE ---
Update Note
Progress Note Update
Swelling and redness was noted by [place] team at [facility] [place] around PICC area. LT arm with + pulse. Patient has medical history of DVT.
-U/S of [facility] [place] order was placed.
[2023-06-05 08:03] LABS: Glucose - Point of Care 205 mg/dl (70-99)
[2023-06-05] MEDS: NEURONTIN 100 MG PO ×3 (09:00→23:07)
[2023-06-05] MEDS: EDECRIN 50 MG PO ×2 (09:00→17:40)
[2023-06-05] MEDS: BETAPACE 120 MG PO ×2 (09:00→21:14)
[2023-06-05] MEDS: ZYVOX 600 MG PO ×2 (09:00→21:15)
[2023-06-05] MEDS: PROTONIX 40 MG PO ×2 (09:00→21:15)
[2023-06-05] MEDS: HEPARIN 5000 UNITS SC (09:00)
[2023-06-05] MEDS: NOVOLOG FLEXPEN-LOW RESISTANCE 2 UNITS SC ×3 (09:01→17:41)
--- NOTE | 2023-06-05 11:17 | W.PN.ID1 ---
Date of Service
Date of Service: June 05, 2023
Today's Communication
Continue linezolid 600mg po bid x through 06/08/2023.
Assessment / Plan
# Drug rash- likely due to furosemide
- Significantly improved off furosemide
# Coag-neg staph bacteremia (1 of 2 sets)
-contaminant
# Acute LLE cellulitis - resolving
# Lymphedema
# MRSA colonized
-s/p meropenem x 3 d.
-Continue linezolid 600mg po bid x through 06/08/2023.
Hold Flexeril while on linezolid.
- Continue compression
# Coag-neg staph bacteremia (1 of 2 sets)
-contaminant
# Left hip incision wound clean without infection
- cx skin [place]
# s/p Shock
# Leukocytosis - resolved
# NOAM resolved
# Numerous abx allergies.
#Additional Past Medical History:
Diabetes mellitus
Class III obesity BMI 49
Lymphedema
Obstructive sleep apnea
A flutter status post ablation
hypertension
cellulitis
Asthma
Dyslipidemia
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
Meningioma s/p resection
Chronic back pain
Cholecystectomy
Bilateral oophorectomy
Left hip fracture s/p gamma nailing 02/16/23
Chief Complaint
-: Clinical Sepsis and Cellulitis
Subjective / Review of Systems
No itching today.
Thirsty.
Vital Signs / Physical Exam
Vital Signs
Vital Signs
Temp Pulse Resp BP Pulse Ox
97.6 F 101 20 116/58 99
06/05/23 07:00 06/05/23 07:00 06/05/23 07:00 06/05/23 07:00 06/05/23 07:00
Physical Exam
Constitutional: No Acute Distress and Comfortable
Extremities: Edema (BLE edema decreased) and Erythema (LLE resolving)
Skin: Rash (Difuse rash on torso BUE, neck improved)
Neurological: AO x 3
Objective Data
Lab Data
Lab Results
06/05/23 05:01
06/05/23 05:01
PT 13.1 Sec (11.4-14.6) 06/02/23 09:23
INR 1.01 06/02/23 09:23
APTT 31.2 Sec (23.4-35.0) 06/02/23 09:23
Estimated Creat Clear 81 ml/min 06/05/23 05:01
Lactic Acid 1.0 mmol/L (0.7-2.0) 06/02/23 05:52
Total Bilirubin 0.3 mg/dl (0.2-1.3) 06/01/23 23:41
AST 16 U/L (14-36) 06/01/23 23:41
ALT 11 U/L (0-35) 06/01/23 23:41
Alkaline Phosphatase 70 U/L (38-126) 06/01/23 23:41
Most recent labs reviewed.
Micro Results:
06/03/23 10:41 Blood Culture - Preliminary
Blood/Venous No Growth in 48 hours- Final report to follow
06/03/23 10:41 Blood Culture - Preliminary
Blood/Venous No Growth in 48 hours- Final report to follow
06/02/23 05:52 Blood Culture - Preliminary
Blood/Venous No Growth in 72 hours- Final report to follow
06/02/23 13:24 Wound Culture - Final
Hip - Left Gram Stain - Final
06/02/23 05:52 Blood Culture - Preliminary
Blood/Venous Coagulase neg. staphylococcus
Additional testing on request
Gram Stain - Preliminary
06/02/23 13:23 MRSA Screen - Final
Nose Staph aureus MRSA
06/02/23 13:25 Urine Culture - Final
Urine NO GROWTH
06/02/23 18:34 C. difficile GDH Antigen & Toxins - Final
Feces/Stool Negative for toxigenic C.difficile
06/02/23 CXR: clear lungs
05/28/23 CT LLE: ORIF of an intertrochanteric/subtrochanteric fracture. The fracture plane remains evident, but there is some callus and heterotopic ossification about the fracture site.
[2023-06-05 12:15] LABS: Glucose - Point of Care 208 mg/dl (70-99)
--- NOTE | 2023-06-05 12:38 | W.PN.NEPH.PH ---
Today's Communication / Plan
-
follow bmp
Assessment/Plan
-
IMP:
Hyponatremia-acute on chronic
NOAM with significant azotemia
suspected septic shock
hypoglycemia
Hypomagnesemia
TME
HX Paroxysmal AF- Not on anticoagulation due to hemorrhagic complications in the past
Chronic anemia
Essential HTN
T2DM
Chronic pain syndrome on chronic opioids
SISI - CPAP
Morbid obesity due to excess calories
PAD
h/o left hip fx s/p ORIF 01/2023
Plan:
A/w abnormal labs-hyponatremia, found to be hypotensive
Acute on chronic hyponatremia-U osmo 231, U na low 8-prerenal
Serum sodium with modest improvement to 131
Urine osmolality 231
BNP low at 633
TSH slightly high, pending F4, cortisol high as expected
NOAM-possible prerenal, UA with ?UTI, cr improving to 0.7
avoid nephrotoxins
Will use Samsca if hyponatremia exacerbated
abx per ID currently on meropenem for cellulitis
on scheduled midodrine
echo noted normal EF in Dec, holding ARB and BB
wts are higher than last admit now on ethacrynic acid twice daily as patient reports allergy to Lasix and noted rash after Lasix given yesterday
d/w nursing and ICU
-
-
Date of Service: June 05, 2023
CC / HPI / ROS
-
Chief Complaint:
NOAM, hyponatremia
History of Present Illness:
sodium improving to 131, cr better at 0.7
non oliguric with ethacrynic acid
developed erythematous red rash on chest last p.m. after Lasix given
Review of Systems:
offers no cp
no n/v
poor historian, no sob at rest on 4lit NC
Labs
-
Labs:
WBC 9.9 10^3/uL (4.8-10.8) 06/05/23 05:01
RBC 2.85 10^6/uL (4.20-5.40) L 06/05/23 05:01
Hgb 8.2 g/dL (12.0-16.0) L 06/05/23 05:01
Hct 24.9 % (37.0-47.0) L 06/05/23 05:01
Plt Count 193 10^3/uL (130-400) 06/05/23 05:01
Sodium 131 mmol/L (135-145) L 06/05/23 05:01
Potassium 4.2 mmol/L (3.5-5.1) 06/05/23 05:01
Chloride 94 mmol/L (98-107) L 06/05/23 05:01
Carbon Dioxide 30 mmol/L (22-30) 06/05/23 05:01
BUN 35 mg/dl (7-17) H 06/05/23 05:01
Creatinine 0.7 mg/dL (0.6-1.0) 06/05/23 05:01
eGFR > 60.00 06/05/23 05:01
Glucose 209 mg/dl (70-99) H 06/05/23 05:01
Calcium 9.5 mg/dl (8.4-10.2) 06/05/23 05:01
Phosphorus 6.0 mg/dl (2.5-4.5) H 06/02/23 05:09
Kst-O-Ipdojcsfzuh Pept 633 pg/ml 06/02/23 05:09
Albumin 3.5 g/dl (3.5-5.0) 06/01/23 23:41
Physical Exam
-
Vital Signs:
Vital Signs
Temp Pulse Resp BP Pulse Ox
97.6 F 101 20 116/58 99
06/05/23 07:00 06/05/23 07:00 06/05/23 07:00 06/05/23 07:00 06/05/23 07:00
Cardiovascular:: Regular rate and rhythm
Respiratory:: Bilateral: Coarse
Lung Excursion:: Normal
Abdomen:: Nontender and Soft
Bowel Sounds:: Normal
Extremity Edema:: +1: Bilateral:
Moore Catheter: No
--- NOTE | 2023-06-05 13:49 | W.PN.HOSP.TC ---
Today's Communication/Plan
-
prn zofran
cw abx
wean O2
cw PT
Assessment / Plan
Assessment / Plan
Shock -suspected sepsis -resolved .Off of pressors . Normal EF on recent ECHO (01/2023), normal diastolic function, Mild ,mild AR .
Left leg cellulitis with left hip area wound - No draiange from wound - eval by ortho. CW abx per ID. Hx of MDR. ID following
Right leg warm and red as well - possible cellulitis -cw abx
Bilateral lower extremity edema-suspected may be dependent. Echo in January 2023 shows normal diastolic function and normal EF. Her BNP on admission was within the normal limit. Her weight gain has been significant since her recent discharge.
With superimposed cellulitis with started on diuretics as her blood pressure permits for edema management. Will also use compression dressings for fluid management. Pt says she is allergic to sulfa including lasix .switch to ethacryanic acid
Drug rash -possible lasix - it is off now. Got 2 doses only . Allergic to sulfa drugs . Lasix listed as allergy as well now.
Acute hypoxic respiratory insufficiency-chest x-ray with low lung volumes and no focal lung disease. Suspect may be atelectasis related. Patient also has obstructive sleep apnea. Continue with oxygen support.
Chronic hypoxic respiratory insufficiency -normally on 2l at home
Hyponatremia - management per renal - acute on chronic .Improved.
NOAM with significant azotemia -urine sodium less than 8 all going in favor prerenal.Off of IV fluids.Improved.
HTN - hold ARB due to hypotension and follow
DM 2 with hyperglycemia. Patient with poor oral intake. Hemoglobin A1c 7.1. Hold glimepiride and alogliptin for now. cortisol is ok .
Recent Left Hip ORIF - OP CT hip noted - cw PT eval; Wound care/abx for left hip wound. Ortho input noted.
Paroxysmal atrial fibrillation-in sinus rhythm. QTc normal now . QTc in March 2023 was within normal limits. resume sotalol.
Chronic normocytic anemia-ACD. Hemoglobin at baseline. Aim to keep it more than 8.
Emesis*1 - abdo soft -follow for now. New abx started . Álvaro davenport.
Full code
Anticipated Discharge: > 48 hours
Subjective/Interval History
-
Date of Service: June 05, 2023
Vomiting *1 this afternoon
Breakfast and dinner was ok
Denies Abdo pain
Has rectal tube
Breathing is okay. Normally on 2 L of oxygen at home currently on 4 L
Objective Data
-
Labs:
Laboratory Results
06/05/23
05:01
WBC 9.9
Hgb 8.2 L
Hct 24.9 L
Plt Count 193
Sodium 131 L
Potassium 4.2
Chloride 94 L
Carbon Dioxide 30
BUN 35 H
Creatinine 0.7
Glucose 209 H
Calcium 9.5
Vital Signs:
Vital Signs
Temp Pulse Resp BP Pulse Ox
98.1 F 103 20 121/65 99
06/05/23 11:00 06/05/23 11:00 06/05/23 11:00 06/05/23 11:00 06/05/23 11:00
I&O
06/04/23 06/05/23 06/06/23
06:59 06:59 06:59
Intake Total 1600 / 1600 900 / 900
Output Total 900 / 900 1600 / 1600
Balance 700 / 700 -700 / -700
Review of Systems
-
Constitutional: Denies Fever or Chills
Cardiac: Denies Chest Pain
Skin: Reports Rash (after lasix ; on chest and arms -now ok)
Neuro: Denies Dizzy
Physical Exam
-
General: No Apparent Distress
HEENT: Moist Mucous Membranes
Respiratory: Clear to Auscultation (anteriorly)
Cardiac: Regular Rhythm and S1/S2
GI: Soft, Nontender and Other (obese)
Skin: Rash (torso and arms)
Neuro: AO x 3
Psych: Calm
--- NOTE | 2023-06-05 15:19 | CM ---
[facility] following for d/c planning
PT recs - SNF vs LTC
Discussed with pt and at bedside
Request [facility] - referral sent in [facility]
PLan - anticipate transfer to [facility] pending acceptance
[2023-06-05 16:52] LABS: Glucose - Point of Care 202 mg/dl (70-99)
[2023-06-05] MEDS: LIPITOR 20 MG PO (17:39)
[2023-06-05] MEDS: LOVENOX 100 MG SC (17:40)
[2023-06-05] MEDS: HEPARIN SC (17:46)
[2023-06-05] MEDS: ATIVAN 1 MG PO (21:14)
[2023-06-05 21:25] LABS: Glucose - Point of Care 180 mg/dl (70-99)
[2023-06-06 03:40] VITALS: BP 119/69
[2023-06-06 05:42] VITALS: BMI 45.9
[2023-06-06] MEDS: LOVENOX 100 MG SC ×2 (06:06→16:10)
[2023-06-06 06:20] LABS: Mean Corpuscular Hgb 28.7 pg (27.0-31.0); Mean Corpuscular Volume 89.6 fL (81.0-99.0); Mean Platelet Volume 9.2 fL (7.4-10.4); Platelet Count 208 10^3/uL (130-400); Red Blood Cell Count 2.79 10^6/uL (4.20-5.40); White Blood Cell Count 11.6 10^3/uL (4.8-10.8)
[2023-06-06 06:46] LABS: Blood Urea Nitrogen 31 mg/dl (7-17); Calcium 9.5 mg/dl (8.4-10.2); Carbon Dioxide 28 mmol/L (22-30); Chloride 98 mmol/L (98-107); Estimated Creatinine Clearance 70 ml/min; Glucose 135 mg/dl (70-99); Potassium 3.6 mmol/L (3.5-5.1); Sodium 133 mmol/L (135-145); eGFR > 60.00
[2023-06-06 07:40] VITALS: BP 111/60
[2023-06-06 08:06] LABS: Glucose - Point of Care 149 mg/dl (70-99)
[2023-06-06] MEDS: EDECRIN 50 MG PO ×2 (08:07→16:10)
[2023-06-06] MEDS: PROTONIX 40 MG PO ×2 (08:07→23:07)
[2023-06-06] MEDS: ZYVOX 600 MG PO ×2 (08:07→23:08)
[2023-06-06] MEDS: BETAPACE 120 MG PO ×2 (08:07→23:06)
[2023-06-06] MEDS: NEURONTIN 100 MG PO ×3 (08:07→23:08)
[2023-06-06] MEDS: NOVOLOG FLEXPEN-LOW RESISTANCE SC (08:12)
[2023-06-06 11:38] LABS: Glucose - Point of Care 171 mg/dl (70-99)
[2023-06-06] MEDS: NOVOLOG FLEXPEN-LOW RESISTANCE 1 UNITS SC ×2 (12:12→17:40)
[2023-06-06 12:18] VITALS: BP 128/83
--- NOTE | 2023-06-06 13:54 | W.PN.ID1 ---
Date of Service
Date of Service: June 06, 2023
Today's Communication
Continue linezolid 600mg po bid x through 06/08/2023.
Assessment / Plan
# Acute LLE cellulitis - resolving
# Lymphedema
# MRSA colonized
-s/p meropenem x 3 d.
-Continue linezolid 600mg po bid x through 06/08/2023.
Hold Flexeril while on linezolid.
- Continue BLE compression
# Drug rash- likely due to furosemide
- improved off furosemide
# Coag-neg staph bacteremia (1 of 2 sets)
-contaminant
# LUE picc associated DVT
- PICC dc'd
# Left hip incision wound clean without infection
- cx skin [place]
# s/p Shock
# NOAM resolved
# Numerous abx allergies.
#Additional Past Medical History:
Diabetes mellitus
Class III obesity BMI 49
Lymphedema
Obstructive sleep apnea
A flutter status post ablation
hypertension
cellulitis
Asthma
Dyslipidemia
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
Meningioma s/p resection
Chronic back pain
Cholecystectomy
Bilateral oophorectomy
Left hip fracture s/p gamma nailing 02/16/23
Chief Complaint
-: Clinical Sepsis and Cellulitis
Subjective / Review of Systems
Wants to increase PT sessions.
Appetite poor.
Diarrhea yesterday, better today.
Vital Signs / Physical Exam
Vital Signs
Vital Signs
Temp Pulse Resp BP Pulse Ox
98.1 F 93 18 128/83 100
06/06/23 12:18 06/06/23 12:18 06/06/23 12:18 06/06/23 12:18 06/06/23 12:18
Physical Exam
Constitutional: Comfortable and Chronically Ill
Gastrointestinal: Soft, Non Tender and Non Distended
Extremities: Edema (BLE lymphedema improving, 2 small blisters RLE) and Erythema (BLE overall less bright)
Skin: Rash (Residual rash on torso, arms)
Neurological: AO x 3
Objective Data
Lab Data
Lab Results
06/06/23 05:43
06/06/23 05:43
PT 13.1 Sec (11.4-14.6) 06/02/23 09:23
INR 1.01 06/02/23 09:23
APTT 31.2 Sec (23.4-35.0) 06/02/23 09:23
Estimated Creat Clear 70 ml/min 06/06/23 05:43
Lactic Acid 1.0 mmol/L (0.7-2.0) 06/02/23 05:52
Total Bilirubin 0.3 mg/dl (0.2-1.3) 06/01/23 23:41
AST 16 U/L (14-36) 06/01/23 23:41
ALT 11 U/L (0-35) 06/01/23 23:41
Alkaline Phosphatase 70 U/L (38-126) 06/01/23 23:41
Most recent labs reviewed.
Micro Results:
06/03/23 10:41 Blood Culture - Preliminary
Blood/Venous No Growth in 72 hours- Final report to follow
06/03/23 10:41 Blood Culture - Preliminary
Blood/Venous No Growth in 72 hours- Final report to follow
06/02/23 05:52 Blood Culture - Preliminary
Blood/Venous No Growth in 4 days- Final report to follow
06/02/23 13:24 Wound Culture - Final
Hip - Left Gram Stain - Final
06/02/23 05:52 Blood Culture - Preliminary
Blood/Venous Coagulase neg. staphylococcus
Additional testing on request
Gram Stain - Preliminary
06/02/23 13:23 MRSA Screen - Final
Nose Staph aureus MRSA
06/02/23 13:25 Urine Culture - Final
Urine NO GROWTH
06/02/23 18:34 C. difficile GDH Antigen & Toxins - Final
Feces/Stool Negative for toxigenic C.difficile
06/02/23 CXR: clear lungs
05/28/23 CT LLE: ORIF of an intertrochanteric/subtrochanteric fracture. The fracture plane remains evident, but there is some callus and heterotopic ossification about the fracture site.
--- NOTE | 2023-06-06 14:41 | W.PN.HOSP.TC ---
Today's Communication/Plan
-
see plan above
Assessment / Plan
Assessment / Plan
Shock -suspected sepsis -resolved .Off of pressors . Normal EF on recent ECHO (01/2023), normal diastolic function, Mild ,mild AR .
Left leg cellulitis with left hip area wound - No draiange from wound - eval by ortho. CW abx per ID. Hx of MDR. ID following
Right leg warm and red as well - possible cellulitis -cw abx
Bilateral lower extremity edema-suspected may be dependent. Echo in January 2023 shows normal diastolic function and normal EF. Her BNP on admission was within the normal limit. Her weight gain has been significant since her recent discharge.
With superimposed cellulitis with started on diuretics as her blood pressure permits for edema management. Will also use compression dressings for fluid management. Pt says she is allergic to sulfa including lasix .switched to ethacryanic acid
-improved wt
Drug rash -possible lasix - it is off now. Got 2 doses only . Allergic to sulfa drugs . Lasix listed as allergy as well now.
Acute hypoxic respiratory insufficiency-chest x-ray with low lung volumes and no focal lung disease. Suspect may be atelectasis related. Patient also has obstructive sleep apnea. Continue with oxygen support.
Chronic hypoxic respiratory insufficiency -normally on 2l at home- back on 2l
Nausea with vomiting - no vomiting today , abdo soft , no pain and not tender. tx symptomatically . New medication is Linezolid and ethycranic acid.
Hyponatremia - management per renal - acute on chronic .Improved.
NOAM with significant azotemia -urine sodium less than 8 all going in favor prerenal.Off of IV fluids.Improved.
HTN - hold ARB due to hypotension and follow
DM 2 with hyperglycemia. Patient with poor oral intake. Hemoglobin A1c 7.1. Hold glimepiride and alogliptin for now. cortisol is ok .
Recent Left Hip ORIF - OP CT hip noted - cw PT eval; Wound care/abx for left hip wound. Ortho input noted.
Paroxysmal atrial fibrillation-in sinus rhythm. QTc normal now . QTc in March 2023 was within normal limits. resume sotalol.
Chronic normocytic anemia-ACD. Hemoglobin at baseline. Aim to keep it more than 8. No iron def.
Left arm PICC associated DVT -tx with AC for 1 month. On lovenox ,will switch to PO eliquis once GI symtoms are resolved
Full code
DW at bedside.
Anticipated Discharge: 24 - 48 hours
Subjective/Interval History
-
Date of Service: June 06, 2023
Patient felt nauseous today. Did not throw up. She had vomiting yesterday. Denies any abdominal pain.
Objective Data
-
Labs:
Laboratory Results
06/06/23
05:43
WBC 11.6 H
Hgb 8.0 L
Hct 25.0 L
Plt Count 208
Sodium 133 L
Potassium 3.6
Chloride 98
Carbon Dioxide 28
BUN 31 H
Creatinine 0.8
Glucose 135 H
Calcium 9.5
Vital Signs:
Vital Signs
Temp Pulse Resp BP Pulse Ox
98.1 F 93 18 128/83 100
06/06/23 12:18 06/06/23 12:18 06/06/23 12:18 06/06/23 12:18 06/06/23 12:18
I&O
06/05/23 06/06/23 06/07/23
06:59 06:59 06:59
Intake Total 900 / 900 780 / 780 100 / 100
Output Total 1600 / 1600 600 / 600 750 / 750
Balance -700 / -700 180 / 180 -650 / -650
Review of Systems
-
Constitutional: Reports Weakness; Denies Fever
Respiratory: Denies Trouble Breathing
Cardiac: Denies Chest Pain
Neuro: Denies Dizzy
Physical Exam
-
General: No Apparent Distress
HEENT: Moist Mucous Membranes
Respiratory: Clear to Auscultation (anteriorly) and Non Labored Respirations; Negative Accessory Resp Muscle Use
Cardiac: Regular Rhythm and S1/S2
GI: Soft, Nontender, Nondistended, Normal Bowel Sounds and Other (obese)
Musculoskeletal: Edema, Right Lower Extrem and Edema, Left Lower Extrem (improved)
Neuro: AO x 3
Psych: Calm
Data Reviewed
-
Labs: Labs Reviewed by me
[2023-06-06 15:20] VITALS: BP 126/74
--- NOTE | 2023-06-06 15:59 | W.PN.NEPH.PH ---
Today's Communication / Plan
-
cotn diuresis, FR
Assessment/Plan
-
IMP:
Hyponatremia-acute on chronic
NOAM with significant azotemia
suspected septic shock
hypoglycemia
Hypomagnesemia
TME
HX Paroxysmal AF- Not on anticoagulation due to hemorrhagic complications in the past
Chronic anemia
Essential HTN
T2DM
Chronic pain syndrome on chronic opioids
SISI - CPAP
Morbid obesity due to excess calories
PAD
h/o left hip fx s/p ORIF 01/2023
Plan:
A/w abnormal labs-hyponatremia, found to be hypotensive
Acute on chronic hyponatremia-U osmo 231, U na low 8-prerenal
Serum sodium improving to 133 on diuretics
TSH slightly high, pending F4, cortisol high as expected
NOAM-possible prerenal, UA with ?UTI, cr improving to 0.7
avoid nephrotoxins
abx per ID currently on meropenem for cellulitis
BP stable off midodrine
echo noted normal EF in Dec, resume ARB and BB when needed
Rash reprotedly improving per family, off lasix on Ethacrynic acid-cont even at d/c , adjust dose as needed
will s/o, call with ?s
d/w nursing
-
-
Date of Service: June 06, 2023
CC / HPI / ROS
-
Chief Complaint:
NOAM, hyponatremia
History of Present Illness:
sodium improving to 133, cr better at 0.78
non oliguric with ethacrynic acid
developed erythematous red rash on chest post Lasix now improving per family
Review of Systems:
offers no cp
not willing to work with PT
Labs
-
Labs:
WBC 11.6 10^3/uL (4.8-10.8) H 06/06/23 05:43
RBC 2.79 10^6/uL (4.20-5.40) L 06/06/23 05:43
Hgb 8.0 g/dL (12.0-16.0) L 06/06/23 05:43
Hct 25.0 % (37.0-47.0) L 06/06/23 05:43
Plt Count 208 10^3/uL (130-400) 06/06/23 05:43
Sodium 133 mmol/L (135-145) L 06/06/23 05:43
Potassium 3.6 mmol/L (3.5-5.1) 06/06/23 05:43
Chloride 98 mmol/L (98-107) 06/06/23 05:43
Carbon Dioxide 28 mmol/L (22-30) 06/06/23 05:43
BUN 31 mg/dl (7-17) H 06/06/23 05:43
Creatinine 0.8 mg/dL (0.6-1.0) 06/06/23 05:43
eGFR > 60.00 06/06/23 05:43
Glucose 135 mg/dl (70-99) H 06/06/23 05:43
Calcium 9.5 mg/dl (8.4-10.2) 06/06/23 05:43
Phosphorus 6.0 mg/dl (2.5-4.5) H 06/02/23 05:09
Lnj-F-Gfbobxtjdkz Pept 633 pg/ml 06/02/23 05:09
Albumin 3.5 g/dl (3.5-5.0) 06/01/23 23:41
Physical Exam
-
Vital Signs:
Vital Signs
Temp Pulse Resp BP Pulse Ox
98.3 F 88 17 126/74 100
06/06/23 15:20 06/06/23 15:20 06/06/23 15:20 06/06/23 15:20 06/06/23 15:20
Cardiovascular:: Regular rate and rhythm
Respiratory:: Bilateral: CTA
Lung Excursion:: Normal (decreased)
Abdomen:: Nontender and Soft
Extremity Edema:: +2: Bilateral:
Moore Catheter: No
--- NOTE | 2023-06-06 16:07 | CM ---
[place] [facility] following for d/c planning
PT recs - SNF vs LTC
Discussed with pt and at bedside
Request [facility]
Referral sent in [facility]
Plan - anticipate transfer to [facility] pending acceptance when medically ready
[2023-06-06 16:59] LABS: Glucose - Point of Care 195 mg/dl (70-99)
[2023-06-06] MEDS: LIPITOR 20 MG PO (17:40)
[2023-06-06 19:00] VITALS: BP 143/74
[2023-06-06 21:51] LABS: Glucose - Point of Care 152 mg/dl (70-99)
[2023-06-06 23:00] VITALS: BP 150/78
[2023-06-06] MEDS: ATIVAN 1 MG PO (23:08)
[2023-06-07 03:28] VITALS: BP 103/56
[2023-06-07] MEDS: LOVENOX 100 MG SC ×2 (04:16→16:57)
[2023-06-07 06:00] VITALS: BMI 45.0
[2023-06-07 07:57] VITALS: BP 91/51
[2023-06-07 08:22] LABS: Glucose - Point of Care 151 mg/dl (70-99)
[2023-06-07 08:59] LABS: Hematocrit 24.9 % (37.0-47.0); Hemoglobin 8.3 g/dL (12.0-16.0); Mean Corp Hgb Conc. 33.3 g/dL (33.0-37.0); Mean Corpuscular Hgb 29.4 pg (27.0-31.0); Mean Corpuscular Volume 88.3 fL (81.0-99.0); Mean Platelet Volume 9.4 fL (7.4-10.4); Platelet Count 215 10^3/uL (130-400); Red Blood Cell Count 2.82 10^6/uL (4.20-5.40); Red Cell Dist. Width 13.9 % (11.5-14.5)
[2023-06-07 09:33] LABS: Blood Urea Nitrogen 28 mg/dl (7-17); Calcium 9.1 mg/dl (8.4-10.2); Carbon Dioxide 29 mmol/L (22-30); Chloride 95 mmol/L (98-107); Estimated Creatinine Clearance 69 ml/min; Glucose 128 mg/dl (70-99); Potassium 3.4 mmol/L (3.5-5.1); Sodium 133 mmol/L (135-145); eGFR > 60.00
[2023-06-07] MEDS: ZYVOX 600 MG PO ×2 (10:58→20:17)
[2023-06-07] MEDS: PROTONIX 40 MG PO ×2 (10:58→20:17)
[2023-06-07] MEDS: NEURONTIN 100 MG PO ×3 (10:58→21:04)
[2023-06-07] MEDS: EDECRIN 50 MG PO ×2 (10:59→16:48)
[2023-06-07] MEDS: BETAPACE 120 MG PO ×2 (11:05→20:17)
[2023-06-07] MEDS: NORCO 5/325 1 TABLET PO (11:05)
[2023-06-07 11:34] VITALS: BP 137/74
[2023-06-07] MEDS: NOVOLOG FLEXPEN-LOW RESISTANCE SC ×3 (11:40→16:58)
[2023-06-07 12:20] LABS: Glucose - Point of Care 142 mg/dl (70-99)
--- NOTE | 2023-06-07 12:27 | PTCARENOTE ---
Patient with vomiting of moderate amount of emesis, patient states the onset of nausea was sudden and has gone away since vomiting. Patient ate 50% of breakfast tray. Will continue to monitor.
--- NOTE | 2023-06-07 14:11 | W.PN.ID1 ---
Date of Service
Date of Service: June 07, 2023
Today's Communication
See below.
Assessment / Plan
# Green mucous loose stools
# Nausea/vomiting
# Leukocytosis trending up
- C. diff negative
-Check for norovirus
-AXR
-OK for Imodium
- Follow WBC and clinically
# Acute LLE cellulitis - resolving
# Lymphedema
# MRSA colonized
-s/p meropenem x 3 d.
-Continue linezolid 600mg po bid x through 06/08/2023 am
Hold Flexeril while on linezolid.
- Continue BLE compression
# Drug rash resolving off furosemide
# Coag-neg staph bacteremia (1 of 2 sets)
-contaminant
# LUE picc associated DVT
- PICC dc'd
# Left hip incision wound clean without infection
- cx skin [place]
# s/p Shock
# NOAM resolved
# Numerous abx allergies.
#Additional Past Medical History:
Diabetes mellitus
Class III obesity BMI 49
Lymphedema
Obstructive sleep apnea
A flutter status post ablation
hypertension
cellulitis
Asthma
Dyslipidemia
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
Meningioma s/p resection
Chronic back pain
Cholecystectomy
Bilateral oophorectomy
Left hip fracture s/p gamma nailing 02/16/23
Chief Complaint
-: Cellulitis
Subjective / Review of Systems
+ N/V, appetite poor
Per nurse, pt with green mucous stool
Vital Signs / Physical Exam
Vital Signs
Vital Signs
Temp Pulse Resp BP Pulse Ox
98.5 F 91 16 137/74 97
06/07/23 11:34 06/07/23 11:34 06/07/23 11:34 06/07/23 11:34 06/07/23 11:34
Physical Exam
Constitutional: Chronically Ill
Extremities: Edema (BLE edema decreasing) and Erythema (BLE erythema resolving)
Skin: Rash (Diffuse resolving)
Objective Data
Lab Data
Lab Results
06/07/23 08:06
06/07/23 08:06
PT 13.1 Sec (11.4-14.6) 06/02/23 09:23
INR 1.01 06/02/23 09:23
APTT 31.2 Sec (23.4-35.0) 06/02/23 09:23
Estimated Creat Clear 69 ml/min 06/07/23 08:06
Lactic Acid 1.0 mmol/L (0.7-2.0) 06/02/23 05:52
Total Bilirubin 0.3 mg/dl (0.2-1.3) 06/01/23 23:41
AST 16 U/L (14-36) 06/01/23 23:41
ALT 11 U/L (0-35) 06/01/23 23:41
Alkaline Phosphatase 70 U/L (38-126) 06/01/23 23:41
Most recent labs reviewed.
Micro Results:
06/03/23 10:41 Blood Culture - Preliminary
Blood/Venous No Growth in 4 days- Final report to follow
06/03/23 10:41 Blood Culture - Preliminary
Blood/Venous No Growth in 4 days- Final report to follow
06/02/23 05:52 Blood Culture - Final
Blood/Venous No Growth - Final Report
06/02/23 13:24 Wound Culture - Final
Hip - Left Gram Stain - Final
06/02/23 05:52 Blood Culture - Preliminary
Blood/Venous Coagulase neg. staphylococcus
Additional testing on request
Gram Stain - Preliminary
06/02/23 13:23 MRSA Screen - Final
Nose Staph aureus MRSA
06/02/23 13:25 Urine Culture - Final
Urine NO GROWTH
06/02/23 18:34 C. difficile GDH Antigen & Toxins - Final
Feces/Stool Negative for toxigenic C.difficile
06/02/23 CXR: clear lungs
05/28/23 CT LLE: ORIF of an intertrochanteric/subtrochanteric fracture. The fracture plane remains evident, but there is some callus and heterotopic ossification about the fracture site.
Care Review
Plan reviewed with: Nurse and Physician (Dr. Garcia)
--- NOTE | 2023-06-07 15:16 | W.PN.HOSP.TC ---
Today's Communication/Plan
-
Check AXR
Norovirus check
Prn imodium
CW antiemetics
Assessment / Plan
Assessment / Plan
Shock -suspected sepsis -resolved .Off of pressors . Normal EF on recent ECHO (01/2023), normal diastolic function, Mild ,mild AR .
Left leg cellulitis with left hip area wound - No draiange from wound - eval by ortho. CW abx per ID. Hx of MDR. ID following
Right leg warm and red as well - possible cellulitis -cw abx
Bilateral lower extremity edema-suspected may be dependent. Echo in January 2023 shows normal diastolic function and normal EF. Her BNP on admission was within the normal limit. Her weight gain has been significant since her recent discharge.
With superimposed cellulitis with started on diuretics as her blood pressure permits for edema management. Will also use compression dressings for fluid management. Pt says she is allergic to sulfa including lasix .switched to ethacryanic acid
-improved wt
Drug rash -possible lasix - it is off now. Got 2 doses only . Allergic to sulfa drugs . Lasix listed as allergy as well now.
Acute hypoxic respiratory insufficiency-chest x-ray with low lung volumes and no focal lung disease. Suspect may be atelectasis related. Patient also has obstructive sleep apnea. Continue with oxygen support.
Chronic hypoxic respiratory insufficiency -normally on 2l at home- back on 2l
Nausea with vomiting with loose stools- abdo soft , no pain and not tender. tx symptomatically . New medication is Linezolid and ethycranic acid. Check Abdo xray, check stools for Noro virus.Imodium prn
Hyponatremia - management per renal - acute on chronic .Improved.
NOAM with significant azotemia -urine sodium less than 8 all going in favor prerenal.Off of IV fluids.Improved.
HTN - hold ARB due to hypotension and follow
DM 2 with hyperglycemia. Patient with poor oral intake. Hemoglobin A1c 7.1. Hold glimepiride and alogliptin for now. cortisol is ok .
Recent Left Hip ORIF - OP CT hip noted - cw PT eval; Wound care/abx for left hip wound. Ortho input noted.
Paroxysmal atrial fibrillation-in sinus rhythm. QTc normal now . QTc in March 2023 was within normal limits. resume sotalol.
Chronic normocytic anemia-ACD. Hemoglobin at baseline. Aim to keep it more than 8. No iron def.
Left arm PICC associated DVT -tx with AC for 1 month. On lovenox ,will switch to PO eliquis once GI symtoms are resolved
Full code
Anticipated Discharge: > 48 hours
Subjective/Interval History
-
Date of Service: June 07, 2023
Feeling nausea intermittently. She has some belching. She did tolerate some breakfast. She is having loose stools. Some vague abdominal gassy pain.
No fever or chills.
Breathing is okay.
Objective Data
-
Labs:
Laboratory Results
06/07/23
08:06
WBC 14.0 H
Hgb 8.3 L
Hct 24.9 L
Plt Count 215
Sodium 133 L
Potassium 3.4 L
Chloride 95 L
Carbon Dioxide 29
BUN 28 H
Creatinine 0.8
Glucose 128 H
Calcium 9.1
Vital Signs:
Vital Signs
Temp Pulse Resp BP Pulse Ox
98.5 F 91 16 137/74 97
06/07/23 11:34 06/07/23 11:34 06/07/23 11:34 06/07/23 11:34 06/07/23 11:34
I&O
06/06/23 06/07/23 06/08/23
06:59 06:59 06:59
Intake Total 780 / 780 194 / 1939
Output Total 600 / 600 2250 / 2250
Balance 180 / 180 -310 / -310
Review of Systems
-
Respiratory: Denies Trouble Breathing
Cardiac: Denies Chest Pain
Neuro: Denies Dizzy
Physical Exam
-
General: No Apparent Distress
HEENT: Moist Mucous Membranes
Respiratory: Clear to Auscultation (anteriorly)
Cardiac: Regular Rhythm and S1/S2
GI: Soft, Nontender, Nondistended, Normal Bowel Sounds and Other (obese)
Musculoskeletal: Edema, Right Lower Extrem and Edema, Left Lower Extrem (improved)
Neuro: AO x 3
Psych: Calm
Data Reviewed
-
Labs: Labs Reviewed by me
[2023-06-07 16:54] LABS: Glucose - Point of Care 149 mg/dl (70-99)
[2023-06-07] MEDS: LIPITOR 20 MG PO (17:50)
[2023-06-07 19:00] VITALS: BP 121/63
[2023-06-07] MEDS: ATIVAN 1 MG PO (21:04)
[2023-06-07] MEDS: IMODIUM 2 MG PO (21:04)
[2023-06-07 22:17] LABS: Glucose - Point of Care 148 mg/dl (70-99)
[2023-06-07 23:00] VITALS: BP 104/58
[2023-06-08 03:00] VITALS: BP 131/64
[2023-06-08] MEDS: LOVENOX 100 MG SC ×2 (04:05→17:19)
[2023-06-08 06:00] VITALS: BMI 43.6
[2023-06-08 07:00] VITALS: BP 127/64
[2023-06-08 08:16] LABS: Albumin 2.8 g/dl (3.5-5.0); Chloride 100 mmol/L (98-107); Sodium 133 mmol/L (135-145)
[2023-06-08 08:50] LABS: Hematocrit 26.4 % (37.0-47.0); Hemoglobin 8.6 g/dL (12.0-16.0); Mean Corp Hgb Conc. 32.6 g/dL (33.0-37.0); Mean Corpuscular Hgb 29.6 pg (27.0-31.0); Mean Corpuscular Volume 90.7 fL (81.0-99.0); Mean Platelet Volume 9.6 fL (7.4-10.4); Platelet Count 213 10^3/uL (130-400); Red Blood Cell Count 2.91 10^6/uL (4.20-5.40); Red Cell Dist. Width 14.1 % (11.5-14.5); White Blood Cell Count 17.2 10^3/uL (4.8-10.8)
[2023-06-08] MEDS: PROTONIX 40 MG PO ×2 (09:03→20:33)
[2023-06-08] MEDS: EDECRIN 50 MG PO (09:03)
[2023-06-08] MEDS: NEURONTIN 100 MG PO ×3 (09:04→21:51)
[2023-06-08] MEDS: ZYVOX 600 MG PO (09:04)
[2023-06-08] MEDS: BETAPACE 120 MG PO ×2 (09:04→20:32)
[2023-06-08 09:07] LABS: Glucose - Point of Care 112 mg/dl (70-99)
[2023-06-08] MEDS: IMODIUM 2 MG PO ×2 (09:08→17:19)
[2023-06-08] MEDS: NOVOLOG FLEXPEN-LOW RESISTANCE SC ×2 (09:09→17:18)
[2023-06-08] MEDS: NORCO 5/325 1 TABLET PO (09:16)
[2023-06-08 10:12] LABS: ALT (SGPT) < 10 U/L (0-35); AST (SGOT) 18 U/L (14-36); Alkaline Phosphatase 68 U/L (38-126); Blood Urea Nitrogen 28 mg/dl (7-17); Calcium 9.6 mg/dl (8.4-10.2); Carbon Dioxide 15 mmol/L (22-30); Estimated Creatinine Clearance 50 ml/min; Glucose 98 mg/dl (70-99); Lipase 157 U/L (23-300); Total Bilirubin 0.5 mg/dl (0.2-1.3); Total Protein 5.8 g/dl (6.3-8.2); eGFR 55.42
--- NOTE | 2023-06-08 10:41 | W.PN.HOSP.TC ---
Today's Communication/Plan
-
CT A/P
Hold Ethacrynic acid
Assessment / Plan
Assessment / Plan
Shock -suspected sepsis -resolved .Off of pressors . Normal EF on recent ECHO (01/2023), normal diastolic function, Mild ,mild AR .
Left leg cellulitis with left hip area wound - No draiange from wound - eval by ortho. CW abx per ID. Hx of MDR. ID following
Right leg warm and red as well - possible cellulitis -cw abx
Bilateral lower extremity edema-suspected may be dependent. Echo in January 2023 shows normal diastolic function and normal EF. Her BNP on admission was within the normal limit. Her weight gain has been higher since her recent discharge. cw
compression dressings for fluid management. Pt says she is allergic to sulfa including lasix .switched to ethacryanic acid -much improved wt ;lowest so far in [facility] system since 06/2021.Raise in Cr slightly noted .Hold Ethycranic acid.
Drug rash -possible lasix - it is off now. Got 2 doses only . Allergic to sulfa drugs . Lasix listed as allergy as well now.
Acute hypoxic respiratory insufficiency-chest x-ray with low lung volumes and no focal lung disease. Suspect may be atelectasis related. Patient also has obstructive sleep apnea. Continue with oxygen support.
Chronic hypoxic respiratory insufficiency -normally on 2l at home- back on 2l
Nausea with vomiting with loose stools- abdo soft , no pain and not tender. tx symptomatically . New medication is Linezolid and ethycranic acid. Abdo xray no SI obstruction;showed moderate stomach distension .Pt denies hx of gastroparesis.Ongoing
diarrhea , check stools for Noro virus.Imodium prn
With raising WBC will obtain CT A/P for further eval
Hyponatremia - management per renal - acute on chronic .Improved.
NOAM with significant azotemia -urine sodium less than 8 all going in favor prerenal.Off of IV fluids.Improved.
HTN - hold ARB due to hypotension and follow
DM 2 with hyperglycemia. Patient with poor oral intake. Hemoglobin A1c 7.1. Hold glimepiride and alogliptin for now. cortisol is ok .
Recent Left Hip ORIF - OP CT hip noted - cw PT eval; Wound care/abx for left hip wound. Ortho input noted.
Paroxysmal atrial fibrillation-in sinus rhythm. QTc normal now . QTc in March 2023 was within normal limits. resumed sotalol.
Chronic normocytic anemia-ACD. Hemoglobin at baseline. Aim to keep it more than 8. No iron def.
Left arm PICC associated DVT -tx with AC for 1 month. On lovenox ,will switch to PO eliquis once GI symtoms are resolved
Full code
total time spent on today's encounter was 52 minutes which included time spent in counseling the patient regarding diagnosis and treatment plan as listed above, goals of care, and symptom management. Case was discussed with nursing staff,
specialists . All labs and imaging personally reviewed by me. Remainder the time spent in detailed review of previous records, lab data, imaging, and other medical provider documentation.
Anticipated Discharge: > 48 hours
Subjective/Interval History
-
Date of Service: June 08, 2023
Ongoing nausea with episodes of emesis. Not much abdo pain.
Ongoing diarrhea.
No fever or chills.
No shortness of breath ;on 2l NC which is chronic for her.
Objective Data
-
Labs:
Laboratory Results
06/08/23 06/08/23
06:23 08:31
WBC Cancelled 17.2 H
Hgb Cancelled 8.6 L
Hct Cancelled 26.4 L
Plt Count Cancelled 213
Sodium 133 L
Potassium 4.0
Chloride 100
Carbon Dioxide 15 L
BUN 28 H
Creatinine 1.1 H
Glucose 98
Calcium 9.6
Total Bilirubin 0.5
AST 18
ALT < 10
Alkaline Phosphatase 68
Vital Signs:
Vital Signs
Temp Pulse Resp BP Pulse Ox
99.0 F 84 19 127/64 98
06/08/23 07:00 06/08/23 09:04 06/08/23 07:00 06/08/23 09:04 06/08/23 07:00
I&O
06/07/23 06/08/23 06/09/23
06:59 06:59 06:59
Intake Total 1939 1140 / 1140
Output Total 2249 / 2249
Balance -310 / -310 1140 / 1140
Review of Systems
-
Constitutional: Denies Fever
EENT: Denies Sore Throat
Genitourinary: Denies Dysuria
Neuro: Denies Dizzy or Headache
Physical Exam
-
General: No Apparent Distress
HEENT: Moist Mucous Membranes
Respiratory: Clear to Auscultation; Negative Wheezes
Cardiac: Regular Rhythm and S1/S2
GI: Soft, Nondistended, Normal Bowel Sounds, Tender (some discomfort in LLQ) and Other (obese)
Musculoskeletal: Edema, Right Lower Extrem and Edema, Left Lower Extrem (IMPROVED)
Neuro: AO x 3
Psych: Calm
Data Reviewed
-
Labs: Labs Reviewed by me
[2023-06-08 11:00] VITALS: BP 92/62
[2023-06-08 12:08] LABS: Glucose - Point of Care 152 mg/dl (70-99)
[2023-06-08] MEDS: NOVOLOG FLEXPEN-LOW RESISTANCE 1 UNITS SC (12:26)
--- NOTE | 2023-06-08 12:35 | W.PN.ID1 ---
Date of Service
Date of Service: June 08, 2023
Today's Communication
Completed abx.
Assessment / Plan
# Nausea/vomiting
# Green mucous loose stools
# Leukocytosis trending up
- C. diff negative
-norovirus negative
-AXR: moderate distention of the stomach.
- Imodium prn
- Follow WBC
-N/V possibly due to ethacrynic acid - > dc'd today by hospitalist
# Acute LLE cellulitis - resolved
# Lymphedema
# MRSA colonized
-s/p meropenem x 3 d.
-Completed linezolid 600mg po bid x through 06/08/2023 am
Resume Flexeril tomorrow.
- Continue BLE compression
# Drug rash resolved off furosemide
# Coag-neg staph bacteremia (1 of 2 sets)
-contaminant
# LUE picc associated DVT
- PICC dc'd
# Left hip incision wound clean without infection
- cx skin [place]
# s/p Shock
# NOAM resolved
# Numerous abx allergies.
#Additional Past Medical History:
Diabetes mellitus
Class III obesity BMI 49
Lymphedema
Obstructive sleep apnea
A flutter status post ablation
hypertension
cellulitis
Asthma
Dyslipidemia
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
Meningioma s/p resection
Chronic back pain
Cholecystectomy
Bilateral oophorectomy
Left hip fracture s/p gamma nailing 02/16/23
Chief Complaint
-: Cellulitis
Subjective / Review of Systems
Still with N/V after eating. She now recalled similar symptoms in the past when she developed rash to furosemide, an alternative diuretic was used resulting in N/V.
Vital Signs / Physical Exam
Vital Signs
Vital Signs
Temp Pulse Resp BP Pulse Ox
98.6 F 83 18 92/62 97
06/08/23 11:00 06/08/23 11:00 06/08/23 11:00 06/08/23 11:00 06/08/23 11:00
Physical Exam
Constitutional: No Acute Distress
Gastrointestinal: Soft, Non Tender and Non Distended
Extremities: Edema (BLE decreasing) and Erythema (BLE resolving)
Neurological: AO x 3
Objective Data
Lab Data
Lab Results
06/08/23 08:31
06/08/23 06:23
PT 13.1 Sec (11.4-14.6) 06/02/23 09:23
INR 1.01 06/02/23 09:23
APTT 31.2 Sec (23.4-35.0) 06/02/23 09:23
Estimated Creat Clear 50 ml/min 06/08/23 06:23
Lactic Acid 1.0 mmol/L (0.7-2.0) 06/02/23 05:52
Total Bilirubin 0.5 mg/dl (0.2-1.3) 06/08/23 06:23
AST 18 U/L (14-36) 06/08/23 06:23
ALT < 10 U/L (0-35) 06/08/23 06:23
Alkaline Phosphatase 68 U/L (38-126) 06/08/23 06:23
Most recent labs reviewed.
Micro Results:
06/07/23 23:53 - Final
Feces/Stool Negative for Norovirus GI and GII.
06/03/23 10:41 Blood Culture - Final
Blood/Venous No Growth - Final Report
06/03/23 10:41 Blood Culture - Final
Blood/Venous No Growth - Final Report
06/02/23 05:52 Blood Culture - Final
Blood/Venous Coagulase neg. staphylococcus
Additional testing on request
Gram Stain - Final
06/02/23 05:52 Blood Culture - Final
Blood/Venous No Growth - Final Report
06/02/23 13:24 Wound Culture - Final
Hip - Left Gram Stain - Final
06/02/23 13:23 MRSA Screen - Final
Nose Staph aureus MRSA
06/02/23 13:25 Urine Culture - Final
Urine NO GROWTH
06/02/23 18:34 C. difficile GDH Antigen & Toxins - Final
Feces/Stool Negative for toxigenic C.difficile
06/02/23 CXR: clear lungs
05/28/23 CT LLE: ORIF of an intertrochanteric/subtrochanteric fracture. The fracture plane remains evident, but there is some callus and heterotopic ossification about the fracture site.
Care Review
Plan reviewed with: Physician (Dr. Garcia. )
[2023-06-08] MEDS: SOLU-CORTEF 200 MG IV (13:54)
[2023-06-08] MEDS: BENADRYL 50 MG IV (13:56)
[2023-06-08] MEDS: OMNIPAQUE 50 ML PO (14:12)
[2023-06-08 17:13] LABS: Glucose - Point of Care 146 mg/dl (70-99)
[2023-06-08] MEDS: LIPITOR 20 MG PO (17:19)
[2023-06-08] MEDS: MYLICON 80 MG PO (17:27)
[2023-06-08 19:50] VITALS: BP 136/70
[2023-06-08] MEDS: BENADRYL 25 MG PO (20:33)
[2023-06-08 21:38] LABS: Glucose - Point of Care 179 mg/dl (70-99)
[2023-06-08] MEDS: ATIVAN 1 MG PO (21:51)
[2023-06-08 23:45] VITALS: BP 140/61
[2023-06-09 04:00] VITALS: BP 130/54
[2023-06-09] MEDS: LOVENOX 100 MG SC ×2 (04:00→16:24)
[2023-06-09] MEDS: IMODIUM 2 MG PO (04:10)
[2023-06-09 05:58] LABS: Hematocrit 26.2 % (37.0-47.0); Hemoglobin 8.7 g/dL (12.0-16.0); Mean Corp Hgb Conc. 33.2 g/dL (33.0-37.0); Mean Corpuscular Hgb 29.2 pg (27.0-31.0); Mean Corpuscular Volume 87.9 fL (81.0-99.0); Mean Platelet Volume 9.2 fL (7.4-10.4); Platelet Count 221 10^3/uL (130-400); Red Blood Cell Count 2.98 10^6/uL (4.20-5.40); Red Cell Dist. Width 13.8 % (11.5-14.5); White Blood Cell Count 18.5 10^3/uL (4.8-10.8)
[2023-06-09 06:00] VITALS: BMI 43.5
[2023-06-09 06:25] LABS: Blood Urea Nitrogen 30 mg/dl (7-17); Carbon Dioxide 22 mmol/L (22-30); Chloride 100 mmol/L (98-107); Estimated Creatinine Clearance 39 ml/min; Glucose 109 mg/dl (70-99); Potassium 2.8 mmol/L (3.5-5.1); Sodium 133 mmol/L (135-145); eGFR 41.49
[2023-06-09 07:00] VITALS: BP 99/49
[2023-06-09 08:08] LABS: Glucose - Point of Care 147 mg/dl (70-99)
--- NOTE | 2023-06-09 09:31 | WOUNDNOTE ---
POS
SACRUM, BUTTOCKS, BACK
--- NOTE | 2023-06-09 09:33 | WOUNDNOTE ---
BILATERAL HEELS (blanchable red)
[2023-06-09] MEDS: BETAPACE 120 MG PO ×2 (09:39→22:11)
[2023-06-09] MEDS: NOVOLOG FLEXPEN-LOW RESISTANCE SC (09:39)
--- NOTE | 2023-06-09 09:39 | WOUNDNOTE ---
[facility] RN NOTE: Reviewed chart and spoke to RNSima. Per chart review, patient with allergic reaction to Lasix and cellulitis right LE. Patient also with rectal tube to help manage moisture related to urine and fecal incontinence/diarrhea. Left thigh
with flakey, crusty appearance that appears to be resolving. Buttocks and posterior thighs with MASD. All skin cleaned with assistance of MILADIS Paris and moisture barrier applied. Left hip wound appears stable and wound care performed as
ordered. Heels intact and off-loaded on pillows. RN Sima given update. Will continue to follow as needed.
[2023-06-09] MEDS: NEURONTIN 100 MG PO ×3 (09:40→22:11)
[2023-06-09] MEDS: PROTONIX 40 MG PO ×2 (09:40→22:12)
--- NOTE | 2023-06-09 09:58 | CON.GI ---
Addendum entered and electronically signed by Robbie Jackson MD 06/09/23 11:52:
Patient seen and examined, agree respecters for now. Patient presents again with sepsis, we are consulted for abnormal CT scan. She is a history of strep bovis bacteremia in March 2023, though thought to be more from a Ortho source, was to
follow-up for colonoscopy after discharge but has not been able to. She has complicated past medical history including diabetes, benign meningioma, peripheral vascular disease, AAS, colon polyps and liver hemangioma, last colonoscopy in 2015 with a
15 mm polyp at the hepatic flexure. She was to have repeat colonoscopy in though that was canceled in August. Currently she has been having increasing green diarrhea, though stool studies have been negative including C. difficile. She denies any
significant abdominal pain and exam is overall benign from an abdominal standpoint. Her CT scan did show a possible 1.5 cm intraluminal mass in the descending colon/sigmoid colon junction suspicious for large polyp, possibly adenocarcinoma per
radiology. There is mild diffuse small bowel distention as well as mild diffuse thickening of the distal colon and rectum, along with mild pancolitis. This is a difficult clinical scenario, though given her previous strep bovis bacteremia and CAT
scan results underlying malignancy is not excluded. She has had difficulty with colon preps in the past and medically she would likely have a hard time finishing this now as she is recovering from her current illnesses. We discussed at length,
will plan sigmoidoscopy tomorrow after 2 tapwater enemas, hopefully able to reach the area noted on CT scan, as well as also can rule out underlying inflammatory bowel disease given her chronic diarrhea and thickening noted on CT scan. Pending
these results would need eventual for colonoscopy unable to tolerate prep.
Original Note:
Consultation
-
Date/Time Consultation Requested: 06/09/23 09
Date/Time Consultation Performed: 06/09/23914
Requesting Provider: Dr. Garcia
Performing Provider: Dr. Jackson/CHARLA Escamilla
Reason for Consultation: pancolitis, large polyp
Medical History
Chief Complaint / HPI
Chief Complaint: diarrhea, fall
History of Present Illness:
68 year old female with a past medical history of osteoarthritis, brain tumor (meningioma that was removed), DM, HTN, HLD, peripheral vascular diseases with chronic foot ulcers, lymphedema, left hip fx with nailing 01/2023, hx DVT off AC secondary
to hemorrhagic complications. , aortic stenosis, SVT, hx colon polyps 2015(15 mm hepatic flexure tubular adenoma) and liver hemangioma. Hx of blood culture was positive for strep bovis in March 2023, she was treated for an infected hip at that
time and was to follow up for colonoscopy after DC. Patient was to have colonoscopy in 2022 as well but cancelled that appt in August 2022. She was admitted on 06/02/23 from [facility] with abnormal labs (hyponatremia 123, she was found to be hypotensive
and she was started on Levophed and admitted to the ICU. The patient was started on Meropenem, her left hip incision was found to have purulence and was cultured. She continues on Merem and Linezolid added. Patient was placed on Lasix and developed
a drug rash. This was stopped and patient started on Edecrin. The day following her appetite decreased and she developed N/V and diarrhea. Patient has baseline loose stools, this was green copious and gelatinous.C Diff was negative. Linezolid
finished 06/08/23. Imodium added as Cdiff was negative. She has been on a solid diet her entire admission without any issues. Edecrin had been stopped. Nausea and vomiting resolved. Patient without any abdominal pain. WBC increasing therefore CT Abd
Pelvis ordered. (Patient did require SoluCortef prior to CT as patient has allergy to contrast, however WBC rising prior) Patient had multiple episodes of BM yesterday per Nursing staff. Minimal today. Patient currently denies any F, C, V, abd pain,
melena, hematochezia, dysphagia or odynophagia. She does states that she does not have much of an appetite.
Past Medical History
Past Medical History: Other (osteoarthritis, brain tumor (meningioma that was removed), DM, HTN, HLD, peripheral vascular diseases with chronic foot ulcers, DVT, , SVT, colon polyp, liver hemangioma)
Past Surgical History: Other (Cardiac (Cardiac ablation (01/15), Cholecystectomy, Gynecological (Oophorectomy Bilateral with tubes) and Other (Brain tumor removed, cataracts. Hemorrhoidectomy), left hip fx with mail 01/2023)
Social History
Tobacco: Non-Smoker
Alcohol: None
Drug: None
Living: With Family
Family History
Family History: Other (no family history of colorectal cancer or IBD)
Allergies / Home Medications
Allergy/AdvReac Type Severity Reaction Status Date / Time
ampicillin Allergy Rash AT Verified 06/01/23 23:32
AGE 20
cefaclor [From Ceclor] Allergy Rash/tolerates Verified 06/01/23 23:32
Cephalexin,
Cefazolin
ciprofloxacin [From Cipro] Allergy Rash/tolerated Verified 06/01/23 23:32
levofloxacin
clindamycin Allergy Rash - see Verified 06/01/23 23:32
comments
daptomycin Allergy Rash/ Verified 06/01/23 23:32
tolerated
linezolid
erythromycin base Allergy Rash Verified 06/01/23 23:32
furosemide Allergy Body Rash Verified 06/04/23 16:04
Iodinated Contrast Media Allergy Itching Verified 06/01/23 23:32
Penicillins Allergy Rash/tolerated Verified 06/01/23 23:32
meropenem
shellfish derived Allergy Rash, Verified 06/01/23 23:32
itching
Sulfa (Sulfonamide Allergy Swelling Verified 06/01/23 23:32
Antibiotics)
Tetanus Vaccines and Toxoid Allergy Swelling Verified 06/01/23 23:32
tetracycline Allergy Rash Verified 06/01/23 23:32
vancomycin Allergy vancomycin Verified 06/01/23 23:32
infusion
reaction/rash,
itching
02/14/21
lasix Allergy Intermediate Rash Uncoded 06/05/23 13:49
�Medication �Instructions �Recorded
metoprolol succinate 25 mg 25 mg PO DAILY Blood pressure ##0 11/22/19
tablet,extended release 24 hr
montelukast 10 mg tablet 10 mg PO QPM asthma 11/22/19
sotalol 120 mg tablet 120 mg PO BID Arrhythmia 11/22/19
atorvastatin 20 mg tablet 20 mg PO QPM High Cholesterol 08/27/22
cyclobenzaprine 10 mg tablet 10 mg PO TID PRN MUSCLE SPASM 02/11/23
acetaminophen 325 mg tablet 650 mg PO Q6HPRN PRN MILD PAIN 03/18/23
(Tylenol)
alogliptin 25 mg tablet 25 mg PO DAILY Diabetes 03/18/23
glimepiride 2 mg tablet 2 mg PO DAILY Diabetes 03/18/23
irbesartan 150 mg tablet 150 mg PO DAILY Blood Pressure 03/18/23
lorazepam 1 mg tablet 1 mg PO HS anxiety 03/18/23
gabapentin 100 mg capsule 100 mg PO TID #0 caps 03/25/23
Saccharomyces boulardii 250 mg 250 mg PO DAILY probiotic 06/02/23
capsule
hydrocodone 5 mg-acetaminophen 325 1 tab PO Q8H Pain 06/02/23
mg tablet
levofloxacin 750 mg tablet 750 mg PO HS Infection 06/02/23
pantoprazole 40 mg tablet,delayed 40 mg PO BID Gastrointestinal Issue 06/02/23
release
ammonium lactate 12 % lotion 1 applic topical BID Skin Issues 06/03/23
Review of Systems
-
All other systems: A 12 pt ROS was Negative except as stated above in HPI
Vital Signs
Temp Pulse Resp BP Pulse Ox
98.6 F 74 18 99/49 97
06/09/23 07:00 06/09/23 07:00 06/09/23 07:00 06/09/23 07:00 06/09/23 07:00
Physical Exam
Exam
General: No Apparent Distress
Respiratory: Clear (anterior)
Cardiac: Regular Rhythm
GI: Soft, Non Tender, Non Distended and Normal Bowel Sounds
Musculoskeletal: Edema (+ JAMA)
Skin: Rash (+ fine red rash B/L arms/hands)
Neuro: AO x 3
Psych: Calm
Results
WBC 18.5 10^3/uL (4.8-10.8) H 06/09/23 05:49
Hgb 8.7 g/dL (12.0-16.0) L 06/09/23 05:49
Hct 26.2 % (37.0-47.0) L 06/09/23 05:49
MCV 87.9 fL (81.0-99.0) 06/09/23 05:49
Plt Count 221 10^3/uL (130-400) 06/09/23 05:49
Absolute Neuts (auto) 8.6 10^3/uL (1.4-6.5) H 06/01/23 23:41
PT 13.1 Sec (11.4-14.6) 06/02/23 09:23
INR 1.01 06/02/23 09:23
APTT 31.2 Sec (23.4-35.0) 06/02/23 09:23
Sodium 133 mmol/L (135-145) L 06/09/23 05:49
Potassium 2.8 mmol/L (3.5-5.1) L D 06/09/23 05:49
Chloride 100 mmol/L (98-107) 06/09/23 05:49
Carbon Dioxide 22 mmol/L (22-30) 06/09/23 05:49
BUN 30 mg/dl (7-17) H 06/09/23 05:49
Creatinine 1.4 mg/dL (0.6-1.0) H 06/09/23 05:49
Calcium 8.0 mg/dl (8.4-10.2) L D 06/09/23 05:49
Total Bilirubin 0.5 mg/dl (0.2-1.3) 06/08/23 06:23
AST 18 U/L (14-36) 06/08/23 06:23
ALT < 10 U/L (0-35) 06/08/23 06:23
Alkaline Phosphatase 68 U/L (38-126) 06/08/23 06:23
Lipase 157 U/L (23-300) 06/08/23 06:23
Diagnostic Image Results:
CT Abd/Pelvis with IV/Oral contrast 06/08/23:
IMPRESSION:
1. MILD ACUTE INFECTIOUS PANCOLITIS with mild fluid distention of the proximal colon and mild wall thickening and mucosal hyperenhancement in the distal colon and rectum.
2. 1.5 cm intraluminal mass in the descending colon-sigmoid colon junction suspicious for a large colonic polyp (possibly adenocarcinoma).
3. Mild diffuse small bowel distention.
4. Mild hepatomegaly and mild diffuse hepatic steatosis.
5. Small hiatal hernia.
6. Mild pelvic and retroperitoneal lymphadenopathy.
7. Multiple uterine leiomyoma.
8. Mild diffuse thickening and trabeculation of the urinary bladder wall suggesting chronic cystitis.
9. Previous cholecystectomy.
10. Mild cardiomegaly.
11. Osteoporosis with multilevel chronic vertebral body endplate fractures in the lumbar spine.
12. Severe discogenic degenerative disease and facet joint arthrosis in the lower lumbar spine.
13. Severe atrophy of the parapelvic and posterior paraspinal muscles.
Electronically signed by Sergo Faulkner MD 06/08/2023 5:27 PM
Abd Xray 06/07/23:
IMPRESSION:
1. Moderate air distention of the stomach.
2. No radiographic evidence for small bowel obstruction.
3. Incompletely healed intertrochanteric fracture of the left proximal femur which has been treated with open reduction and internal fixation.
4. Severe bilateral osteoarthritis of the hips.
5. Severe discogenic degenerative disease and facet joint arthrosis in the lower lumbar spine.
Electronically signed by Sergo Faulkner MD 06/07/2023 6:07
Prior GI Procedures:
EGD:
Colonoscopy: Prior colonoscopy in [address] Woo showed a 15mm tubular adenoma at the hepatic flexure. There is no family history of colorectal cancer.
Assessment / Plan
-
68 year old female with a past medical history of osteoarthritis, brain tumor (meningioma that was removed), DM, HTN, HLD, peripheral vascular diseases with chronic foot ulcers, lymphedema, left hip fx with nailing 01/2023, hx DVT off AC secondary
to hemorrhagic complications. , aortic stenosis, SVT, hx colon polyps 2015(15 mm hepatic flexure tubular adenoma) and liver hemangioma. Hx of blood culture was positive for strep bovis in March 2023, she was treated for an infected hip at that
time and was to follow up for colonoscopy after DC. Patient was to have colonoscopy in 2022 as well but cancelled that appt in August 2022. She was admitted on 06/02/23 from [facility] with abnormal labs (hyponatremia 123, she was found to be hypotensive
and she was started on Levophed and admitted to the ICU. The patient was started on Meropenem, her left hip incision was found to have purulence and was cultured. She continues on Merem and Linezolid added. Patient was placed on Lasix and developed
a drug rash. This was stopped and patient started on Edecrin. The day following her appetite decreased and she developed N/V and diarrhea. Patient has baseline loose stools, this was green copious and gelatinous.C Diff was negative. CT Abd/Pelvis
with oral and IV contrast shows mild acute infectious pancolitis with mild fluid distention of the proximal colon and mild wall thickening and mucosal hyperenhancement in the distal colon and rectum. 1.5 cm intraluminal mass in the descending
colon�sigmoid colon junction suspicious for large colonic polyp (possibly adenocarcinoma). Mild diffuse small bowel distention. Mild hepatomegaly and mild diffuse hepatic steatosis. Small hiatal hernia. Mild pelvic and retroperitoneal
adenopathy. Multiple uterine leiomyoma. Mild diffuse thickening and trabeculation of the urinary bladder suggesting chronic cystitis. Previous cholecystectomy. Mild cardiomegaly. Osteoporosis. Severe degenerative disc disease. Severe atrophy
of the parapelvic and posterior paraspinal muscles.
Impression:
-Nausea/vomiting-> improved but patient still with no appetite. ? Edocrin associated
-Copious diarrhea-> slowing down. On Imodium currently. Stool negative C. difficile. Stool norovirus negative.
-Abnormal imaging of GI tract, -> descending�sigmoid colon junction suspicious for large colonic polyp sees possibly adenocarcinoma). Mild diffuse small bowel distention.
Patient with history of large 15 mm tubular adenoma at hepatic flexure in 2016 with repeat recommended in April 2022. Appointment canceled for August 2022. Hospitalized with strep bovis in January 2023. Recommended to have colonoscopy after
discharge as being treated for infected hip status post left hip fracture with nailing.
-Bilateral lower extremity edema-> drug rash with Lasix. Was on Edocrin, now off.
-Shock, suspected sepsis-resolved, off pressors. Off all Abx at this time.
-LUE DVT-> axillary vein with extension into the basilic vein-> on Lovenox
Plan:
-Trend labs, WBC and electrolytes.
-Clear liquids for now as patient still with some poor appetite and also plan on Flex Sig. Patient on chronic opiates with decreased mobility.
-Will plan on Flex Sig tomorrow with 2 Tap water enemas.
-In the past she was supposed to have extended prep (clear liquids for 2 days, Gavilyte and Senna). Patient states that she had a reaction to Miralax in the past 'turned her feet purple and her kidney function increased' but that she did okay with
gallon jug for colonoscopy in the past. Will plan on eventual colonoscopy, timing to be determined.
-NPO after midnight.
-
-
Thank you for consultation and allowing me to participate in the patient's care. Please call the concreting supervisor GI physician during the after hours with any questions or concerns.
[2023-06-09 11:00] VITALS: BP 134/67
--- NOTE | 2023-06-09 11:52 | W.PN.UPDATE ---
Update Note
Progress Note Update
For billing purposes
[2023-06-09 12:35] LABS: Glucose - Point of Care 206 mg/dl (70-99)
--- NOTE | 2023-06-09 12:44 | W.PN.ID1 ---
Date of Service
Date of Service: June 09, 2023
Today's Communication
Observe off abx.
Assessment / Plan
# New finding of intraluminal colon mass
- hx Strep bovis bacteremia 02/11/2023. Pt did not follow-up with colonoscopy
- GI planning for sigmoidoscopy tomorrow
# Nausea/vomiting/Green mucous loose stools/mild pancolitis on CT
- Possibly due to ethacrynic acid - > dc'd 06/07
- Symptoms improving off the drug.
- C. diff negative
-norovirus negative
# Leukocytosis trending up (Received 1 dose hydrocortisone 200mg on 06/08/23)
- Unclear source
-C. diff neg.
- Check CBC with diff in am.
# Acute LLE cellulitis - resolved
# Lymphedema
# MRSA colonized
-s/p meropenem x 3 d.
-Completed linezolid 600mg po bid x through 06/08/2023 am
Resume Flexeril tomorrow.
- Continue BLE compression
# Drug rash resolved off furosemide
# Coag-neg staph bacteremia (1 of 2 sets)
-contaminant
# LUE picc associated DVT
- PICC dc'd
# Left hip incision wound clean without infection
- cx skin [place]
# s/p Shock
# Numerous abx allergies.
#Additional Past Medical History:
Diabetes mellitus
Class III obesity BMI 49
Lymphedema
Obstructive sleep apnea
A flutter status post ablation
hypertension
cellulitis
Asthma
Dyslipidemia
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
Meningioma s/p resection
Chronic back pain
Cholecystectomy
Bilateral oophorectomy
Left hip fracture s/p gamma nailing 02/16/23
Chief Complaint
-: Cellulitis
Subjective / Review of Systems
Nausea improved.
Vital Signs / Physical Exam
Vital Signs
Vital Signs
Temp Pulse Resp BP Pulse Ox
98.6 F 68 18 134/67 99
06/09/23 11:00 06/09/23 11:00 06/09/23 11:00 06/09/23 11:00 06/09/23 11:00
Physical Exam
Constitutional: No Acute Distress and Chronically Ill
Gastrointestinal: Soft, Non Tender and Non Distended
Extremities: Edema (ble improving) and Erythema (ble resolved to baseline )
Objective Data
Lab Data
Lab Results
06/09/23 05:49
06/09/23 05:49
PT 13.1 Sec (11.4-14.6) 06/02/23 09:23
INR 1.01 06/02/23 09:23
APTT 31.2 Sec (23.4-35.0) 06/02/23 09:23
Estimated Creat Clear 39 ml/min 06/09/23 05:49
Lactic Acid 1.0 mmol/L (0.7-2.0) 06/02/23 05:52
Total Bilirubin 0.5 mg/dl (0.2-1.3) 06/08/23 06:23
AST 18 U/L (14-36) 06/08/23 06:23
ALT < 10 U/L (0-35) 06/08/23 06:23
Alkaline Phosphatase 68 U/L (38-126) 06/08/23 06:23
Most recent labs reviewed.
Micro Results:
06/07/23 23:53 - Final
Feces/Stool Negative for Norovirus GI and GII.
06/03/23 10:41 Blood Culture - Final
Blood/Venous No Growth - Final Report
06/03/23 10:41 Blood Culture - Final
Blood/Venous No Growth - Final Report
06/02/23 05:52 Blood Culture - Final
Blood/Venous Coagulase neg. staphylococcus
Additional testing on request
Gram Stain - Final
06/02/23 05:52 Blood Culture - Final
Blood/Venous No Growth - Final Report
06/02/23 13:24 Wound Culture - Final
Hip - Left Gram Stain - Final
06/02/23 13:23 MRSA Screen - Final
Nose Staph aureus MRSA
06/02/23 13:25 Urine Culture - Final
Urine NO GROWTH
06/02/23 18:34 C. difficile GDH Antigen & Toxins - Final
Feces/Stool Negative for toxigenic C.difficile
06/08/23 CT a/p: MILD ACUTE INFECTIOUS PANCOLITIS with mild fluid distention of the proximal colon and mild wall thickening and mucosal hyperenhancement in the distal colon and rectum. 1.5 cm intraluminal mass in the descending colon-sigmoid colon
junction suspicious for a large colonic polyp (possibly adenocarcinoma). Mild diffuse small bowel distention.
06/02/23 CXR: clear lungs
05/28/23 CT LLE: ORIF of an intertrochanteric/subtrochanteric fracture. The fracture plane remains evident, but there is some callus and heterotopic ossification about the fracture site.
Care Review
Plan reviewed with: Physician (Dr. Garcia)
[2023-06-09] MEDS: NOVOLOG FLEXPEN-LOW RESISTANCE 2 UNITS SC (12:58)
--- NOTE | 2023-06-09 14:02 | W.PN.HOSP.TC ---
Today's Communication/Plan
-
Finished Linezolid
Off of diuretics
Watch raising WBC off of steroids
GI consult
Assessment / Plan
Assessment / Plan
Shock -suspected sepsis -resolved .Off of pressors . Normal EF on recent ECHO (01/2023), normal diastolic function, Mild ,mild AR .
Left leg cellulitis with left hip area wound - No draiange from wound - eval by ortho. CW abx per ID. Hx of MDR. ID following
Right leg warm and red as well - possible cellulitis -cw abx
Bilateral lower extremity edema-suspected may be dependent. Echo in January 2023 shows normal diastolic function and normal EF. Her BNP on admission was within the normal limit. Her weight gain has been higher since her recent discharge. cw
compression dressings for fluid management. Pt says she is allergic to sulfa including lasix .switched to ethacryanic acid -much improved wt ;lowest so far in [employer] system since 06/2021.Raise in Cr slightly noted .Hold Ethycranic acid.
Drug rash -possible lasix - it is off now. Got 2 doses only . Allergic to sulfa drugs . Lasix listed as allergy as well now.
Acute hypoxic respiratory insufficiency-chest x-ray with low lung volumes and no focal lung disease. Suspect may be atelectasis related. Patient also has obstructive sleep apnea. Continue with oxygen support.
Chronic hypoxic respiratory insufficiency -normally on 2l at home- back on 2l
Nausea with vomiting with loose stools- abdo soft , no pain and not tender. tx symptomatically . New medication is Linezolid and ethycranic acid. Abdo xray no SI obstruction;showed moderate stomach distension .Pt denies hx of gastroparesis.Ongoing
diarrhea , Neg Noro virus.Imodium prn. Resolved upper GI symptoms.
Mild cabrera colitis with left colon large polyp - GI consult noted - for colo tomorrow.
Hyponatremia - management per renal - acute on chronic .Improved.
NOAM with significant azotemia -urine sodium less than 8 all going in favor prerenal.Off of IV fluids.Improved.
HTN - hold ARB due to hypotension and follow
DM 2 with hyperglycemia. Patient with poor oral intake. Hemoglobin A1c 7.1. Hold glimepiride and alogliptin for now. cortisol is ok .
Recent Left Hip ORIF - OP CT hip noted - cw PT eval; Wound care/abx for left hip wound. Ortho input noted.
Paroxysmal atrial fibrillation-in sinus rhythm. QTc normal now . QTc in March 2023 was within normal limits. resumed sotalol.
Chronic normocytic anemia-ACD. Hemoglobin at baseline. Aim to keep it more than 8. No iron def.
Left arm PICC associated DVT -tx with AC for 1 month. On lovenox ,will switch to PO eliquis once GI symtoms are resolved
Full code
Anticipated Discharge: > 48 hours
Subjective/Interval History
-
Date of Service: June 09, 2023
Feel exhausted. Did sleep well last night.
Denies any other GI symptoms today. No nausea vomiting. Tolerating diet. Ongoing diarrhea.
No fever or chills.
Objective Data
-
Labs:
Laboratory Results
06/09/23
05:49
WBC 18.5 H
Hgb 8.7 L
Hct 26.2 L
Plt Count 221
Sodium 133 L
Potassium 2.8 L D
Chloride 100
Carbon Dioxide 22
BUN 30 H
Creatinine 1.4 H
Glucose 109 H
Calcium 8.0 L D
Vital Signs:
Vital Signs
Temp Pulse Resp BP Pulse Ox
98.6 F 68 18 134/67 99
06/09/23 11:00 06/09/23 11:00 06/09/23 11:00 06/09/23 11:00 06/09/23 11:00
I&O
06/08/23 06/09/23 06/10/23
06:59 06:59 06:59
Intake Total 1140 / 1140 720 / 720
Balance 1140 / 1140 720 / 720
Review of Systems
-
Respiratory: Denies Trouble Breathing
Cardiac: Denies Chest Pain
Neuro: Denies Dizzy
Physical Exam
-
General: No Apparent Distress
HEENT: Moist Mucous Membranes
Respiratory: Clear to Auscultation (anteriorly)
Cardiac: Regular Rhythm and S1/S2
GI: Soft, Nontender, Nondistended and Normal Bowel Sounds
Neuro: AO x 3
Data Reviewed
-
CT Scan: Report Reviewed by me (ct a/p)
[2023-06-09 15:00] VITALS: BP 108/57
--- NOTE | 2023-06-09 15:37 | CM ---
Case management following for d/c planning
Pt now off diuretics
Watching WBC's off of steroids
GI consult today
Referral sent in care port to [facility] for SNF when medically ready
CM will continue to follow for d/c needs
Plan - [facility] when medically ready
[2023-06-09] MEDS: NORCO 5/325 1 TABLET PO (16:24)
[2023-06-09 16:55] LABS: Glucose - Point of Care 173 mg/dl (70-99)
[2023-06-09] MEDS: NOVOLOG FLEXPEN-LOW RESISTANCE 1 UNITS SC (17:33)
[2023-06-09] MEDS: LIPITOR 20 MG PO (17:33)
[2023-06-09] MEDS: BENADRYL 25 MG PO ×2 (18:37→22:44)
[2023-06-09 19:30] VITALS: BP 103/57
[2023-06-09 21:44] LABS: Glucose - Point of Care 136 mg/dl (70-99)
[2023-06-09] MEDS: FLEXERIL 5 MG PO (22:11)
[2023-06-09] MEDS: ATIVAN 1 MG PO (22:11)
[2023-06-09 23:55] VITALS: BP 107/42
[2023-06-10 03:20] VITALS: BP 91/52
[2023-06-10 05:54] LABS: % Basophils 0.4 % (0-2); % Eosinophils 3.7 % (0-6); % Immature Granulocytes 4.5 % (0-0.5); % Lymphocytes 24.8 % (20.5-51.1); % Monocytes 9.3 % (1.7-9.3); % Neutrophils 57.3 % (42.2-75.2); Absolute Basophils 0.1 10^3/uL (0-0.2); Absolute Eosinophils 0.6 10^3/uL (0-0.7); Absolute Immature Granulocytes 0.7 10^3/uL (0-0.05); Absolute Lymphocytes 3.9 10^3/uL (1.2-3.4); Absolute Monocytes 1.5 10^3/uL (0.1-0.6); Hematocrit 27.6 % (37.0-47.0); Mean Corp Hgb Conc. 32.6 g/dL (33.0-37.0); Mean Corpuscular Hgb 29.4 pg (27.0-31.0); Mean Corpuscular Volume 90.2 fL (81.0-99.0); Mean Platelet Volume 9.4 fL (7.4-10.4); Nucleated Red Blood Cells % 0 %; Platelet Count 232 10^3/uL (130-400); Red Blood Cell Count 3.06 10^6/uL (4.20-5.40); Red Cell Dist. Width 14.1 % (11.5-14.5); White Blood Cell Count 15.8 10^3/uL (4.8-10.8)
[2023-06-10] MEDS: LOVENOX 100 MG SC (05:55)
[2023-06-10 06:00] VITALS: BMI 43.6
[2023-06-10 06:44] LABS: ALT (SGPT) < 10 U/L (0-35); AST (SGOT) 14 U/L (14-36); Albumin 2.7 g/dl (3.5-5.0); Alkaline Phosphatase 58 U/L (38-126); Blood Urea Nitrogen 35 mg/dl (7-17); Calcium 7.7 mg/dl (8.4-10.2); Carbon Dioxide 24 mmol/L (22-30); Chloride 95 mmol/L (98-107); Estimated Creatinine Clearance 18 ml/min; Glucose 122 mg/dl (70-99); Potassium 2.8 mmol/L (3.5-5.1); Sodium 132 mmol/L (135-145); Total Bilirubin 0.3 mg/dl (0.2-1.3); Total Protein 5.5 g/dl (6.3-8.2); eGFR 16.63
[2023-06-10] MEDS: BETAPACE 120 MG PO (07:32)
[2023-06-10] MEDS: NEURONTIN 100 MG PO ×3 (07:32→22:51)
[2023-06-10] MEDS: PROTONIX 40 MG PO ×2 (07:32→22:50)
[2023-06-10] MEDS: NOVOLOG FLEXPEN-LOW RESISTANCE 1 UNITS SC ×2 (07:33→17:16)
[2023-06-10 07:34] LABS: Glucose - Point of Care 172 mg/dl (70-99)
[2023-06-10 07:42] VITALS: BP 114/63
[2023-06-10] MEDS: KCL 270 MEQ IV (08:38)
[2023-06-10] MEDS: BENADRYL 25 MG PO ×2 (09:18→16:23)
[2023-06-10 11:40] VITALS: BP 118/57
[2023-06-10] MEDS: NORCO 5/325 1 TABLET PO (13:30)
[2023-06-10] MEDS: NOVOLOG FLEXPEN-LOW RESISTANCE SC (15:22)
[2023-06-10] MEDS: NSS 1000 IV (15:23)
[2023-06-10] MEDS: KCL 40 MEQ PO (15:24)
[2023-06-10 15:27] VITALS: BP 103/59
--- NOTE | 2023-06-10 15:41 | W.PN.HOSP.TC ---
Today's Communication/Plan
-
Diet per GI.
Start on IV fluids.
Straight catheter retention assessment and urine lites.
Consult nephrology.
Hold sotalol.
Will switch to IV heparin when okay from GI standpoint
Assessment / Plan
Assessment / Plan
Shock -suspected sepsis -resolved .Off of pressors . Normal EF on recent ECHO (01/2023), normal diastolic function, Mild ,mild AR .
Left leg cellulitis with left hip area wound - No draiange from wound - eval by ortho. CW abx per ID. Hx of MDR. ID following
Right leg warm and red as well - possible cellulitis
Off of abx - finished PO Linezolid
Watch closely white count which is up
Bilateral lower extremity edema-suspected may be dependent. Echo in January 2023 shows normal diastolic function and normal EF. Her BNP on admission was within the normal limit. Her weight gain has been higher since her recent discharge. cw
compression dressings for fluid management. Pt says she is allergic to sulfa including lasix .switched to ethacryanic acid -much improved wt ;lowest so far in enymotion system since 06/2021.Raise in Cr slightly noted .Hold Ethacrynic acid. There is
concern of N/V sec to ethacrynic acid but pt was also getting linezolid at same time.
Drug rash -possible lasix - it is off now. Got 2 doses only . Allergic to sulfa antibiotic drugs . Lasix listed as allergy as well now.
Acute hypoxic respiratory insufficiency-chest x-ray with low lung volumes and no focal lung disease. Suspect may be atelectasis related. Patient also has obstructive sleep apnea. Continue with oxygen support.
Chronic hypoxic respiratory insufficiency -normally on 2l at home- back on 2l
Nausea with vomiting with loose stools- abdo soft , no pain and not tender. tx symptomatically . New medication is Linezolid and ethycranic acid. Abdo xray no SI obstruction;showed moderate stomach distension .Pt denies hx of gastroparesis.Ongoing
diarrhea , Neg Noro virus.Imodium prn. Resolved upper GI symptoms.
Mild cabrera colitis with left colon large polyp
s/p flex thomas - 3 polyps removed; large on20mm to be removed at by interventionalist GI - timing not know yet.
Hyponatremia - management per renal - acute on chronic .Improved.
NOAM with significant azotemia -urine sodium less than 8 all going in favor prerenal.Off of IV fluids.Improved.
Recurrent NOAM - suspect contrast or prerenal related . Check urine lytes .Straight cath to rule out retention . consult renal. start on iv fluids .
HTN - hold ARB due to hypotension and follow
DM 2 with hyperglycemia. Patient with poor oral intake. Hemoglobin A1c 7.1. Hold glimepiride and alogliptin for now. cortisol is ok .
Recent Left Hip ORIF - OP CT hip noted - cw PT eval; Wound care/abx for left hip wound. Ortho input noted.
Paroxysmal atrial fibrillation-in sinus rhythm. QTc normal now . QTc in March 2023 was within normal limits. hold sotalol due to NOAM.
Chronic normocytic anemia-ACD. Hemoglobin at baseline. Aim to keep it more than 8. No iron def.
Left arm PICC associated DVT -tx with AC for 1 month. On lovenox ,will switch to PO eliquis once GI symtoms are resolved. Now with NOAM and need for repeat colo will have to consider IV heparin . Her DVT was in axillary vein extending into basilic .
Full code
DW GI
DW RN
Total time spent on today's encounter was 52 minutes which included time spent in counseling the patient regarding diagnosis and treatment plan as listed above, goals of care, and symptom management. Case was discussed with nursing staff,
specialists, and care coordinators/case management. All labs and imaging personally reviewed by me. Remainder the time spent in detailed review of previous records, lab data, imaging, and other medical provider documentation.
Anticipated Discharge: > 48 hours
Subjective/Interval History
-
Date of Service: June 10, 2023
Back from flex thomas
denies any abdominal pain. She is feeling hungry. No further nausea vomiting.
Denies shortness of breath.
Objective Data
-
Labs:
Laboratory Results
06/10/23
05:43
WBC 15.8 H
Hgb 9.0 L
Hct 27.6 L
Plt Count 232
Sodium 132 L
Potassium 2.8 L
Chloride 95 L
Carbon Dioxide 24
BUN 35 H
Creatinine 3.0 H
Glucose 122 H
Calcium 7.7 L
Total Bilirubin 0.3
AST 14
ALT < 10
Alkaline Phosphatase 58
Vital Signs:
Vital Signs
Temp Pulse Resp BP Pulse Ox
98.6 F 64 17 103/59 99
06/10/23 15:27 06/10/23 15:27 06/10/23 15:27 06/10/23 15:27 06/10/23 15:27
I&O
06/09/23 06/10/23 06/11/23
06:59 06:59 06:59
Intake Total 720 / 720 1520 / 1520
Output Total 300 / 300
Balance 720 / 720 1220 / 1220
Review of Systems
-
Constitutional: Denies Fever
EENT: Denies Sore Throat
Respiratory: Denies Cough
Cardiac: Denies Diaphoresis
Neuro: Denies Dizzy
Physical Exam
-
General: No Apparent Distress
HEENT: Moist Mucous Membranes
Respiratory: Clear to Auscultation (ANTERIORLY)
Cardiac: Regular Rhythm and S1/S2
GI: Soft, Nontender, Nondistended, Normal Bowel Sounds and Other (obese)
Musculoskeletal: Edema, Right Lower Extrem and Edema, Left Lower Extrem (improved compared to prior)
Neuro: AO x 3
Psych: Calm
Data Reviewed
-
Labs: Labs Reviewed by me
[2023-06-10 16:23] LABS: Urine Sodium 73 mmol/L (30-90)
[2023-06-10 16:37] LABS: Glucose - Point of Care 175 mg/dl (70-99)
[2023-06-10] MEDS: NULYTELY SOLUTION 2 LITERS PO (17:03)
--- NOTE | 2023-06-10 17:13 | W.PN.NEPH.PH ---
Today's Communication / Plan
-
see plan
Assessment/Plan
-
IMP:
Hyponatremia-acute on chronic
NOAM with significant azotemia
suspected septic shock
hypoglycemia
Hypomagnesemia
TME
HX Paroxysmal AF- Not on anticoagulation due to hemorrhagic complications in the past
Chronic anemia
Essential HTN
T2DM
Chronic pain syndrome on chronic opioids
SISI - CPAP
Morbid obesity due to excess calories
PAD
h/o left hip fx s/p ORIF 01/2023
Plan:
Reconsult for NOAM , last saw on 06/05 with cr of 0.7
now cr up at 3, specially post contrast on 06/07+diarrhea
Ethacrynic acid last was on 06/07
HANNAH is on high differential, Fena not low
monitor UOP-decreasing today, low threshold for esposito, monitor with bladder scan, SC for 10cc per nurse
agree with IVF , recent CT no hydro but concern of GI abnormality colitis, mass?
for C scope tomorrow, sigmoidoscopy today , biopsy taken from polyp
hypokalemia- likely from diarrhea, replace k
stable hyponatremia
her edema is significantly improved, stay off diuretics for now
BP soft but stable
avoid nephrotoxins
d/w nursing
labs in am
high risk encounter
-
-
Date of Service: June 10, 2023
CC / HPI / ROS
-
Chief Complaint:
NOAM, hyponatremia
History of Present Illness:
sodium stable at 132, cr up at 3 from 1.4
UOP not measured, incontinent
developed erythematous red rash on chest post Lasix now improving
k is low 2.8
Review of Systems:
offers no cp or sob
sleepy post benadryl
Labs
-
Labs:
WBC 15.8 10^3/uL (4.8-10.8) H 06/10/23 05:43
RBC 3.06 10^6/uL (4.20-5.40) L 06/10/23 05:43
Hgb 9.0 g/dL (12.0-16.0) L 06/10/23 05:43
Hct 27.6 % (37.0-47.0) L 06/10/23 05:43
Plt Count 232 10^3/uL (130-400) 06/10/23 05:43
Sodium 132 mmol/L (135-145) L 06/10/23 05:43
Potassium 2.8 mmol/L (3.5-5.1) L 06/10/23 05:43
Chloride 95 mmol/L (98-107) L 06/10/23 05:43
Carbon Dioxide 24 mmol/L (22-30) 06/10/23 05:43
BUN 35 mg/dl (7-17) H 06/10/23 05:43
Creatinine 3.0 mg/dL (0.6-1.0) H 06/10/23 05:43
eGFR 16.63 06/10/23 05:43
Glucose 122 mg/dl (70-99) H 06/10/23 05:43
Calcium 7.7 mg/dl (8.4-10.2) L 06/10/23 05:43
Phosphorus 6.0 mg/dl (2.5-4.5) H 06/02/23 05:09
Efq-A-Jgmngvklqte Pept 633 pg/ml 06/02/23 05:09
Albumin 2.7 g/dl (3.5-5.0) L 06/10/23 05:43
Physical Exam
-
Vital Signs:
Vital Signs
Temp Pulse Resp BP Pulse Ox
98.6 F 64 17 103/59 99
06/10/23 15:27 06/10/23 15:27 06/10/23 15:27 06/10/23 15:27 06/10/23 15:27
Cardiovascular:: Regular rate and rhythm
Respiratory:: Bilateral: CTA (anteriorly)
Lung Excursion:: Normal
Abdomen:: Nontender and Soft
Extremity Edema:: +1: Bilateral:
Esposito Catheter: No
[2023-06-10] MEDS: LIPITOR 20 MG PO (17:16)
[2023-06-10 19:40] VITALS: BP 109/59
[2023-06-10 21:56] LABS: Glucose - Point of Care 159 mg/dl (70-99)
[2023-06-10] MEDS: ATIVAN 1 MG PO (22:56)
[2023-06-10 23:15] VITALS: BP 115/60
[2023-06-11] VITALS (8 sets, daily range): BP systolic 97–121; BP diastolic 45–68; BMI 44.8
[2023-06-11] MEDS: NSS 1000 IV ×2 (02:48→15:34)
[2023-06-11 05:20] LABS: Hematocrit 26.3 % (37.0-47.0); Hemoglobin 8.8 g/dL (12.0-16.0); Mean Corp Hgb Conc. 33.5 g/dL (33.0-37.0); Mean Corpuscular Hgb 29.2 pg (27.0-31.0); Mean Corpuscular Volume 87.4 fL (81.0-99.0); Mean Platelet Volume 9.2 fL (7.4-10.4); Platelet Count 209 10^3/uL (130-400); Red Blood Cell Count 3.01 10^6/uL (4.20-5.40); Red Cell Dist. Width 14.3 % (11.5-14.5)
[2023-06-11 05:37] LABS: Glucose - Point of Care 151 mg/dl (70-99)
[2023-06-11 05:43] LABS: Blood Urea Nitrogen 38 mg/dl (7-17); Carbon Dioxide 21 mmol/L (22-30); Chloride 99 mmol/L (98-107); Estimated Creatinine Clearance 15 ml/min; Glucose 128 mg/dl (70-99); Potassium 4.2 mmol/L (3.5-5.1); Sodium 129 mmol/L (135-145); eGFR 13.36
--- NOTE | 2023-06-11 06:45 | W.PN.UPDATE ---
Update Note
Progress Note Update
RN notified RADIOLOGY SPECIAL PROCEDURE TECH, patient with HR back and forth 60's -120. EKG showed AFib with RVR, NSR on previous EKG. Sotalol is on hold due to NOAM. HR mostly staying in 60's - 70's, BP= 97/52, Hr= 82 , MAP=67. Advised RN to let RADIOLOGY SPECIAL PROCEDURE TECH knows if sustaining High.
Also noted large maroon BM by RN. Hgb 8.8 at present. will monitor.
--- NOTE | 2023-06-11 06:50 | PTCARENOTE ---
@0503;Instructed [employer] ANALYST Wei , pt had large liquid maroon BM and mixed with yellow urine.Pt bladder scanned for 9ml. Pt's nasal rectal triumph was pushed out approx 0000 and found in Covidien.It was not placed back in rectum.@0515;Labs
drawn.Instructed [employer] ANALYST ;pt's heart rate is ranging 68 to 120.She is oriented and sleepy since 0000.BP now is =97/52 and HR=83.@0540; Instructed [employer] ANALYST ;pt is hallucinating and stating' I don't want to be eaten for dinner.I don't want to be in put in
the oven.'.@0540 EKG done and showed A fib.@0545 ;Instructed [employer] ANALYST on EKG and AM labs are up. @0630 ;WR=813/68 , HR= continues to range 68 to 119 , Resp= 20, and POX= 98% on 2liters.Pt appears comfortable sleeping.
[2023-06-11] MEDS: PROTONIX 40 MG PO (08:27)
[2023-06-11] MEDS: NEURONTIN 100 MG PO (08:27)
[2023-06-11 10:36] LABS: Hematocrit 28.6 % (37.0-47.0); Hemoglobin 9.2 g/dL (12.0-16.0); Mean Corp Hgb Conc. 32.2 g/dL (33.0-37.0); Mean Corpuscular Hgb 28.8 pg (27.0-31.0); Mean Corpuscular Volume 89.7 fL (81.0-99.0); Platelet Count 244 10^3/uL (130-400); Red Blood Cell Count 3.19 10^6/uL (4.20-5.40); Red Cell Dist. Width 14.1 % (11.5-14.5); White Blood Cell Count 14.7 10^3/uL (4.8-10.8)
--- NOTE | 2023-06-11 11:29 | W.PN.UPDATE ---
Addendum entered and electronically signed by Marlyn Monique DO 06/11/23 13:58:
I went to see the patient because of the concern that cardiology had about her being lethargic.
She is exactly how she was yesterday during her colonoscopy
Despite having some lower bleeding, likely from her polypectomies yesterday Her hemoglobin is stable. Her pathology is already back and she has high-grade dysplasia in the large polyp that we will hopefully be able to be EMR today
She can have ice chips, she is going for colon today with Dr. Wang WITHOUT SEDATION
She is to get an enema for the procedure today
Addendum entered and electronically signed by Chrissy Ivy NP 06/11/23 13:06:
Spoke with Rebecca Mercedes from cardiology who evaluated the patient in consultation. Per her the patient was lethargic and difficult to arouse which was not how she was this morning. I did let Dr. Monique know and she will evaluate the patient. Repeat
H/H stable. Ordered repeat for this afternoon. No further bleeding per Rina Etienne NP who evaluated her briefly after I saw her.
Original Note:
Update Note
Progress Note Update
Plan for scope today. Per nursing the patient has had an increase in her creatinine to 3.6 and sodium is lower at 129. She has been in and out of an atrial abnormal rhythm. She has been having some very dark red/burgundy output from her rectum
today. 1 episode that I witnessed, and another episode overnight. She has no complaints of abdominal pain, dizziness, or lightheadedness. Repeat H&H is stable at 9.2. She has been NPO. I did review this with Dr. Monique. Plan is to monitor her
bleeding and monitor her hemoglobin. She did have 2 polyps removed yesterday which may be the cause of the bleeding. She is otherwise hemodynamically stable. I did review this with the hospitalist as well and we will have cardiology see her due
to her abnormal atrial rhythm. She will proceed with an unsedated endoscopic evaluation later today as planned as long as she remains stable. Will repeat her H&H this afternoon and monitor for ongoing bleeding. Also recommended that she get a
blood transfusion if her hemoglobin does drop further to optimize her for her procedure today.
--- NOTE | 2023-06-11 11:53 | CON.CAR ---
Addendum entered and electronically signed by Wing Nj MD 06/11/23 15:37:
I saw and examined the patient.
The Roadside Mechanic's note was reviewed and I agree with the note.
Comment: Briefly, 68-year-old woman past medical history of SVT who was initially brought in for hyponatremia and admitted to ICU for septic shock requiring Levophed
Cardiology is consulted for evaluation of SVT
Maintained as an outpatient on sotalol but this has been discontinued due to NOAM (creatinine uptrending to 3.6 today)
Per my review of telemetry she is having paroxysms of SVT, suspect this is atrial tachycardia
Blood pressure may not tolerate beta-vivek or calcium channel vivek
Given renal dysfunction, would favor starting amiodarone in place of sotalol, this could be started potentially tomorrow following washout
Original Note:
Consultation
Consultation Request
Date/Time Consultation Performed: 06/11/23
Requesting Provider: Dr. Rincon
Performing Provider: Rebecca Mercedes PA-C for Dr. Nj
Reason for Consultation: tachycardia
Medical History
-
Chief Complaint: hyponatremia
History of Present Illness:
Patient is a 68 yo F who had been at [facility] for SNF after 03/2023 hospitalization, then returned to home with , who we have followed for SVT/atrial tachycardia. She underwent empiric CTI flutter ablation in 2014 as was uninducible for any
other arrhythmia. She has been maintained on sotalol therapy. She presented to 06/02/23 due to hyponatremia on OP labs. Had been on fluid restriction at [facility]. Na was 123 on arrival. She was then hypotensive and admitted to ICU for sepsis,
requiring levophed weaned off within 24 hours. proBNP low at 633. She received lasix however then developed rash. She was then transitioned to ethacrynic acid, last dose 06/07. Weight improved. She was found to have PICC associated LUE DVT. She was
placed on abx for LLE cellulitis. She then developed N/V/diarrhea. CTAP was noted to have possible 1.5 cm intraluminal mass in descending color suspicious for large polyp. Also evidence by CT scan of pancolitis. GI was consulted. She underwent
sigmoidoscopy 06/09 and noted to have several polyps which were removed. Over last 48 hours her Cr bumped from 1.4 to 3.6, possibly related to HANNAH from contrast. Her OP sotalol is on hold due to this, last dose 06/09/AM. Cardiology consulted as patient
noted to have brief runs of tachycardia. Concern for primary service for afib. Patient lethargic and unable to provide any history. She denies CP, SOB.
PMH:
Paroxysmal SVT with noninducibility during EP study and empiric atrial flutter ablation 2014
Prior rate related LBBB in setting of SVT
chronic sotalol therapy
Chronic HFpEF
Hyponatremia
HTN
HLD
DM
Diabetic neuropathy
History of RLE DVT
Anemia of chronic disease
Meningioma
Morbid obesity
SISI
Persistent LE wounds/cellulitis/osteomyelitis
Chronic lymphedema/venous stasis
History of L femur fracture s/p ORIF 02/16/2023 with incomplete healing by imaging
Chronic pain syndrome on opioids
History of partial hysterectomy, oophorectomy, salpingectomy
History of NOAM
Past Medical History
Past Medical History: Other (in HPI)
Social History
Living: Retirement
Allergies / Home Medications
Allergy/AdvReac Type Severity Reaction Status Date / Time
ampicillin Allergy Rash AT Verified 06/01/23 23:32
AGE 20
cefaclor [From Ceclor] Allergy Rash/tolerates Verified 06/01/23 23:32
Cephalexin,
Cefazolin
ciprofloxacin [From Cipro] Allergy Rash/tolerated Verified 06/01/23 23:32
levofloxacin
clindamycin Allergy Rash - see Verified 06/01/23 23:32
comments
daptomycin Allergy Rash/ Verified 06/01/23 23:32
tolerated
linezolid
erythromycin base Allergy Rash Verified 06/01/23 23:32
furosemide Allergy Body Rash Verified 06/04/23 16:04
Iodinated Contrast Media Allergy Itching Verified 06/01/23 23:32
Penicillins Allergy Rash/tolerated Verified 06/01/23 23:32
meropenem
shellfish derived Allergy Rash, Verified 06/01/23 23:32
itching
Sulfa (Sulfonamide Allergy Swelling Verified 06/01/23 23:32
Antibiotics)
Tetanus Vaccines and Toxoid Allergy Swelling Verified 06/01/23 23:32
tetracycline Allergy Rash Verified 06/01/23 23:32
vancomycin Allergy vancomycin Verified 06/01/23 23:32
infusion
reaction/rash,
itching
02/14/21
lasix Allergy Intermediate Rash Uncoded 06/05/23 13:49
�Medication �Instructions �Recorded �Confirmed �Type
metoprolol succinate 25 mg 25 mg PO DAILY Blood pressure ##0 11/22/19 06/02/23 History
tablet,extended release 24 hr
montelukast 10 mg tablet 10 mg PO QPM asthma 11/22/19 06/02/23 History
sotalol 120 mg tablet 120 mg PO BID Arrhythmia 11/22/19 06/02/23 History
atorvastatin 20 mg tablet 20 mg PO QPM High Cholesterol 08/27/22 06/02/23 History
cyclobenzaprine 10 mg tablet 10 mg PO TID PRN MUSCLE SPASM 02/11/23 06/02/23 History
acetaminophen 325 mg tablet 650 mg PO Q6HPRN PRN MILD PAIN 03/18/23 06/02/23 History
(Tylenol)
alogliptin 25 mg tablet 25 mg PO DAILY Diabetes 03/18/23 06/02/23 History
glimepiride 2 mg tablet 2 mg PO DAILY Diabetes 03/18/23 06/02/23 History
irbesartan 150 mg tablet 150 mg PO DAILY Blood Pressure 03/18/23 06/02/23 History
lorazepam 1 mg tablet 1 mg PO HS anxiety 03/18/23 06/02/23 History
gabapentin 100 mg capsule 100 mg PO TID #0 caps 03/25/23 06/02/23 Rx
Saccharomyces boulardii 250 mg 250 mg PO DAILY probiotic 06/02/23 06/02/23 History
capsule
hydrocodone 5 mg-acetaminophen 325 1 tab PO Q8H Pain 06/02/23 06/02/23 History
mg tablet
levofloxacin 750 mg tablet 750 mg PO HS Infection 06/02/23 06/02/23 History
pantoprazole 40 mg tablet,delayed 40 mg PO BID Gastrointestinal Issue 06/02/23 06/02/23 History
release
ammonium lactate 12 % lotion 1 applic topical BID Skin Issues 06/03/23 06/02/23 History
Review of Systems
-
History Source: Patient (although limited due to lethargy)
Physical Exam
Vital Signs
Temp Pulse Resp BP Pulse Ox
98.6 F 70 17 99/45 100
06/11/23 11:33 06/11/23 11:33 06/11/23 11:33 06/11/23 11:33 06/11/23 11:33
Lab Results
06/11/23 05:16
Yki-E-Ibxcfjxuwkq Pept 633 pg/ml 06/02/23 05:09
Physical Exam
General: No Apparent Distress, Comfortable and Other (lethargic. obese. on supp O2. chronically ill appearing)
HEENT: Normocephalic, Anicteric and Moist Mucous Membranes
Respiratory: Rhonchi and Non Labored Respirations
Cardiac: S1/S2 and Regular Rhythm
GI: Soft and Normal Bowel Sounds
Musculoskeletal: No Clubbing, No Cyanosis and Edema (2+ edema of B/L LE)
Skin: Warm and Dry
Neuro: Other (lethargic. opens eyes and can mumble answers to questions with simultaneous verbal and tactile stimulation)
Impression / Plan
-
Primary Public Relations Account Supervisor: Dr. Low, last seen in office 03/2022
Assessment:
Presentation with hyponatremia, acute worsening on chronic
Sepsis with shock
Acute on chronic hypoxic respiratory insufficiency, chronically on 2L NC
NOAM with azotemia
LLE cellulitis
N/V/D
Pancolitis
Colon polyps s/p flex sigmoidoscopy with snaring/biopsy 06/10/23
Drug rash, felt to be from lasix, improved
LUE PICC associated DVT
Lethargy
Prolonged QTc
Paroxysmal SVT with noninducibility during EP study and empiric atrial flutter ablation 2014
Prior rate related LBBB in setting of SVT
chronic sotalol therapy
Chronic HFpEF
Hyponatremia
HTN
HLD
DM
Diabetic neuropathy
History of RLE DVT
Anemia of chronic disease
Meningioma
Morbid obesity
SISI
Persistent LE wounds/cellulitis/osteomyelitis
Chronic lymphedema/venous stasis
History of L femur fracture s/p ORIF 02/16/2023 with incomplete healing by imaging
Chronic pain syndrome on opioids
History of partial hysterectomy, oophorectomy, salpingectomy
History of NOAM
ECHO 02/17/23: EF 65 to 70%, mild concentric LVH, mildly dilated left atrium, mild with peak/mean gradients 34/18 mmHg, LA NENA 1.6 cm�, mild AR
Plan:
-She has been hospitalized for 9 days initially with sepsis/shock, treated for LLE cellulitis. Then developed N/V/D, had CTAP with finding suspicious for large colon polyp and pancolitis. Now with NOAM felt to be due to combination of diarrhea and
contrast. Her OP sotalol has been held due to NOAM. On tele she has had multiple brief runs of atrial tachycardia, no episodes sustained.
-she does not have documented history of afib and is not on OAC as OP
-stop sotalol
-she currently does not appear able to take po medications.
-s/p flex sig with several polyps removed however not able to reach large polyp. with some rectal bleeding this morning per GI. she is NPO for unsedated colonoscopy today but is also very lethargic. unclear etiology. last ativan was last night per
record. d/w GI PIPE PRODUCTION WORKER today
-during flex sig yesterday reportedly with hypotension
-OP toprol on hold due to hypotension
-would consider transition to amiodarone in AM (after 48 hour sotalol washout), however will need to reassess QTc in AM, was prolonged by EKG 06/10. does not appear to be on QTc prolonging meds at present
-last echo from 01/2023 as above
-with prolonged, complex hospitalization.
-she is presently full code. reportedly prior to admission was living with .
-d/w nursing.
Data Reviewed
-
EKG: Tracing Personally Visualized and interpreted
CT Scan: Report Reviewed by me
Ultrasound: Report Reviewed by me
Medical Tests (Nuc Med, Echo etc): Report Reviewed by me
Labs: Labs Reviewed by me
Old Records: Reviewed
[2023-06-11 11:54] LABS: Glucose - Point of Care 133 mg/dl (70-99)
--- NOTE | 2023-06-11 12:06 | W.PN.HOSP.TC ---
Today's Communication/Plan
-
Discussed with the patient
Discussed with the nurse
Assessment / Plan
Assessment / Plan
Physical exam:
General: Lethargic but awake, alert and oriented x3, not in distress and holds appropriate conversation.
HEENT: No active discharge, ecchymosis or bruising, moist lips, tongue and mucous membrane.
Eyes: No discharge or red conjunctiva, no nystagmus, pupils are reactive and equal
Neck:Supple, no JVD no bruit no goiter.
Respiratory: Normal AP contour and diameter, normal chest wall movement, normal respiratory effort, no respiratory distress,
Lungs: Good air entry bilaterally, no wheezing or rhonchi, no rales or crackles
Heart: S1, S2 regular, normal rate, no added sound.
Gastrointestinal: Positive bowel sounds, soft, nontender, no guarding or rigidity or organomegaly
Musculoskeletal: no chest wall abnormality or tenderness. All joints and extremities have good range of motion, no muscle tenderness or any joint swelling or tenderness.
Extremities: Moderate lower extremity pitting edema, good peripheral pulses, good range of motion
Skin: Warm and dry, no ulceration, normal color.
Neurological: Awake, alert and oriented x3, speaks in low tone voice, no facial droop, but speech is clear, moves extremities well
Psychiatric: Normal mood, normal thought and judgment, normal affect,
Assessment and plan:
GI bleed.
Possible related to polyp after polyp resection.
Plan for colonoscopy already today as patient on a prep and she is n.p.o.
Discussed with GI look like they still get a go ahead with colonoscopy as she is bleeding
Continue to hold Eliquis
H&H ordered
GI recommended cardiology consult for preoperative evaluation specially she is in A-fib
Shock -suspected sepsis -resolved .Off of pressors . Normal EF on recent ECHO (01/2023), normal diastolic function, Mild ,mild AR .
Left leg cellulitis with left hip area wound - No drainage from wound - eval by ortho. Completed antibiotic,
# MRSA colonized
-s/p meropenem x 3 d.
-Completed linezolid 600mg po bid x through 06/08/2023 am
Right leg warm and red as well - possible cellulitis, completed antibiotic as above.
White cell count trended down and stable
Watch closely white count which is up
Bilateral lower extremity edema-suspected may be dependent. Echo in January 2023 shows normal diastolic function and normal EF. Her BNP on admission was within the normal limit. Her weight gain has been higher since her recent discharge. cw
compression dressings for fluid management. Pt says she is allergic to sulfa including lasix .switched to ethacryanic acid -much improved wt ;lowest so far in [facility] system since 06/2021.Raise in Cr slightly noted .Hold Ethacrynic acid. There is
concern of N/V sec to ethacrynic acid but pt was also getting linezolid at same time.
Cardiology were consulted.
Drug rash -possible lasix - it is off now. Got 2 doses only . Allergic to sulfa antibiotic drugs . Lasix listed as allergy as well now.
Acute hypoxic respiratory insufficiency-chest x-ray with low lung volumes and no focal lung disease. Suspect may be atelectasis related. Patient also has obstructive sleep apnea. Continue with oxygen support.
Chronic hypoxic respiratory insufficiency -normally on 2l at home- back on 2l
Nausea with vomiting with loose stools- abdo soft , no pain and not tender. tx symptomatically . New medication is Linezolid and ethycranic acid. Abdo xray no SI obstruction;showed moderate stomach distension .Pt denies hx of gastroparesis.Ongoing
diarrhea , Neg Noro virus.Imodium prn. Resolved upper GI symptoms.
Mild cabrera colitis with left colon large polyp
s/p flex thomas - 3 polyps removed; yesterday, , plan for colonoscopy today
Hyponatremia - management per renal - acute on chronic .Improved.
Fluctuating
Recheck
Nephrology on board
Recurrent NOAM - suspect contrast or prerenal related .
Initially creatinine was elevated but normalized now is relatively gone up today is 3.9
Nephrology on board
We nephrotoxin
HTN - hold ARB due to hypotension and follow
DM 2 with hyperglycemia. Patient with poor oral intake. Hemoglobin A1c 7.1. Hold glimepiride and alogliptin for now. cortisol is ok .
Recent Left Hip ORIF - OP CT hip noted - cw PT eval; Wound care/abx for left hip wound. Ortho input noted.
Paroxysmal atrial fibrillation-in sinus rhythm. QTc normal now . QTc in March 2023 was within normal limits. hold sotalol due to NOAM and low normal blood pressure
Cardiology consulted.
Chronic normocytic anemia-ACD. Hemoglobin at baseline. Aim to keep it more than 8. No iron def.
Left arm PICC associated DVT -tx with AC for 1 month. On lovenox which is on hold now because of bleeding and and acute renal failure,will switch to PO eliquis once GI symtoms are resolved.
Once cleared bleeding issues resolve may consider IV heparin .
Addressed with GI
Her DVT was in axillary vein extending into basilic .
Full code
DW GI
DW RN
Total time spent on today's encounter was 52 minutes which included time spent in counseling the patient regarding diagnosis and treatment plan as listed above, goals of care, and symptom management. Case was discussed with nursing staff,
specialists, and care coordinators/case management. All labs and imaging personally reviewed by me. Remainder the time spent in detailed review of previous records, lab data, imaging, and other medical provider documentation.
Anticipated Discharge: > 48 hours
Subjective/Interval History
-
Date of Service: June 11, 2023
Seen and examined, awake, alert and oriented x 3, she is n.p.o. and there was a plan for repeat colonoscopy with his bleeding, on feels hungry. Open creatinine has been fresh rectal bleed primarily morning earlier today and this morning was some
dark stool, denies abdominal pain, no nausea or vomiting or hematemesis, no fever or chill or chest pain.
-Moderate lower extremity edema, afebrile.
Had colonoscopy yesterday and 2 polyps removed
GI were at the bedside and discussed with GI.
Look like she is in and out of A-fib with rate control she has a history of A-fib
Objective Data
-
Labs:
Laboratory Results
06/11/23 06/11/23 06/11/23
05:16 09:53 09:53
WBC 15.0 H 14.7 H
Hgb 8.8 L 9.2 L Cancelled
Hct 26.3 L 28.6 L
Plt Count 209
Sodium 129 L
Potassium 4.2 D
Chloride 99
Carbon Dioxide 21 L
BUN 38 H
Creatinine 3.6 H
Glucose 128 H
Calcium 7.0 L
06/11/23 06/11/23
09:53 15:00
WBC
Hgb Pending
Hct Cancelled Pending
Plt Count 244
Sodium
Potassium
Chloride
Carbon Dioxide
BUN
Creatinine
Glucose
Calcium
Vital Signs:
Vital Signs
Temp Pulse Resp BP Pulse Ox
98.6 F 70 17 99/45 100
06/11/23 11:33 06/11/23 11:33 06/11/23 11:33 06/11/23 11:33 06/11/23 11:33
I&O
06/10/23 06/11/23 06/12/23
07:59 07:59 07:59
Intake Total 1520 / 1520 2910 / 2910
Output Total 300 / 300
Balance 1220 / 1220 2910 / 2910
Review of Systems
-
All other systems: Reviewed and negative
--- NOTE | 2023-06-11 13:27 | W.PN.ID1 ---
Date of Service
Date of Service: June 11, 2023
Today's Communication
ID will sign off.
Assessment / Plan
# Leukocytosis trending down
- (Received 1 dose hydrocortisone 200mg on 06/08/23)
- Unclear source
-C. diff neg.
# New finding of intraluminal colon mass
- hx Strep bovis bacteremia 02/11/2023, treated.
- 06/10/23 s/p sigmoidoscopy, removal of several polyps.
- For colonoscopy when stable
# NOAM
# s/p Nausea/vomiting/Green mucous loose stools/mild pancolitis on CT
- Possibly due to ethacrynic acid - > dc'd 06/07
- C. diff negative
-norovirus negative
# s/p Acute LLE cellulitis - resolved
# Lymphedema
-s/p meropenem x 3 d.
-Completed linezolid 600mg po bid through 06/08/2023 am
- Continue BLE compression
# Drug rash resolved off furosemide
# Coag-neg staph bacteremia (1 of 2 sets)
-contaminant
# LUE picc associated DVT
- PICC dc'd
# Left hip incision wound clean without infection
- cx skin [place]
# s/p Shock
# Numerous abx allergies.
ID will sign off. Call prn.
#Additional Past Medical History:
Diabetes mellitus
Class III obesity BMI 49
Lymphedema
Obstructive sleep apnea
A flutter status post ablation
hypertension
cellulitis
Asthma
Dyslipidemia
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
Meningioma s/p resection
Chronic back pain
Cholecystectomy
Bilateral oophorectomy
Left hip fracture s/p gamma nailing 02/16/23
Chief Complaint
-: Cellulitis
Vital Signs / Physical Exam
Vital Signs
Vital Signs
Temp Pulse Resp BP Pulse Ox
98.6 F 70 17 99/45 100
06/11/23 11:33 06/11/23 11:33 06/11/23 11:33 06/11/23 11:33 06/11/23 11:33
Physical Exam
Constitutional: No Acute Distress and Chronically Ill
Gastrointestinal: Soft, Non Tender and Non Distended
Extremities: Edema (BLE lymphedema with chronic mild erythema now at baseline)
Objective Data
Lab Data
Lab Results
06/11/23 05:16
PT 13.1 Sec (11.4-14.6) 06/02/23 09:23
INR 1.01 06/02/23 09:23
APTT 31.2 Sec (23.4-35.0) 06/02/23 09:23
Estimated Creat Clear 15 ml/min 06/11/23 05:16
Lactic Acid 1.0 mmol/L (0.7-2.0) 06/02/23 05:52
Total Bilirubin 0.3 mg/dl (0.2-1.3) 06/10/23 05:43
AST 14 U/L (14-36) 06/10/23 05:43
ALT < 10 U/L (0-35) 06/10/23 05:43
Alkaline Phosphatase 58 U/L (38-126) 06/10/23 05:43
Most recent labs reviewed.
Micro Results:
06/07/23 23:53 - Final
Feces/Stool Negative for Norovirus GI and GII.
06/03/23 10:41 Blood Culture - Final
Blood/Venous No Growth - Final Report
06/03/23 10:41 Blood Culture - Final
Blood/Venous No Growth - Final Report
06/02/23 05:52 Blood Culture - Final
Blood/Venous Coagulase neg. staphylococcus
Additional testing on request
Gram Stain - Final
06/02/23 05:52 Blood Culture - Final
Blood/Venous No Growth - Final Report
06/02/23 13:24 Wound Culture - Final
Hip - Left Gram Stain - Final
06/02/23 13:23 MRSA Screen - Final
Nose Staph aureus MRSA
06/02/23 13:25 Urine Culture - Final
Urine NO GROWTH
06/02/23 18:34 C. difficile GDH Antigen & Toxins - Final
Feces/Stool Negative for toxigenic C.difficile
06/08/23 CT a/p: MILD ACUTE INFECTIOUS PANCOLITIS with mild fluid distention of the proximal colon and mild wall thickening and mucosal hyperenhancement in the distal colon and rectum. 1.5 cm intraluminal mass in the descending colon-sigmoid colon
junction suspicious for a large colonic polyp (possibly adenocarcinoma). Mild diffuse small bowel distention.
06/02/23 CXR: clear lungs
05/28/23 CT LLE: ORIF of an intertrochanteric/subtrochanteric fracture. The fracture plane remains evident, but there is some callus and heterotopic ossification about the fracture site.
[2023-06-11 15:02] LABS: Hematocrit 26.9 % (37.0-47.0); Hemoglobin 8.7 g/dL (12.0-16.0)
--- NOTE | 2023-06-11 15:03 | CM ---
CM following for d/c planning
For colonoscopy today, questionable GI bleed
Cards consult - a fib
[facility] can accept pt has only 7 SNF left for coverage
CM cont to follow for d/c needs
Plan - Anticipate SNF at d/c
[2023-06-11] MEDS: LIPITOR PO (17:05)
[2023-06-11] MEDS: NEURONTIN PO (17:05)
--- NOTE | 2023-06-11 17:08 | W.PN.NEPH.PH ---
Today's Communication / Plan
-
decrease IVF
labs in am
Assessment/Plan
-
IMP:
Hyponatremia-acute on chronic
NOAM with significant azotemia
suspected septic shock
hypoglycemia
Hypomagnesemia
TME
HX Paroxysmal AF- Not on anticoagulation due to hemorrhagic complications in the past
Chronic anemia
Essential HTN
T2DM
Chronic pain syndrome on chronic opioids
SISI - CPAP
Morbid obesity due to excess calories
PAD
h/o left hip fx s/p ORIF 01/2023
Plan:
NOAM , baseline cr of 0.7
now cr up at 3.6, specially post contrast on 06/07+diarrhea
Ethacrynic acid last given on 06/07
HANNAH is on high differential, Fena not low
monitor UOP-decreasing, low threshold for esposito once colonoscopy is done
monitor with bladder scan, SC for 10cc per nurse
decrease IVF rate to 60cc/hr , recent CT no hydro but concern of GI abnormality colitis, mass?
hypokalemia- improved
hyponatremia -monitor decreasing to 129
her edema is significantly improved but wt is increasing with IVF, hold off diuretics for now
check I nikia for hypocalcemia, alb check in am
BP stable
avoid nephrotoxins
d/w nursing
labs in am
high risk encounter
-
-
Date of Service: June 11, 2023
CC / HPI / ROS
-
Chief Complaint:
NOAM, hyponatremia
History of Present Illness:
sodium down to 129, cr up at 3.6, wt is increasing
UOP not measured, incontinent
developed erythematous red rash on chest post Lasix now improving
k normal
BP stable
GIB now post sigmoidoscopy 06/09
Review of Systems:
offers no cp or sob
sleepy most of the time
Labs
-
Labs:
WBC 14.7 10^3/uL (4.8-10.8) H 06/11/23 09:53
RBC 3.19 10^6/uL (4.20-5.40) L 06/11/23 09:53
Hgb 8.7 g/dL (12.0-16.0) L 06/11/23 14:56
Hct 26.9 % (37.0-47.0) L 06/11/23 14:56
Plt Count 244 10^3/uL (130-400) 06/11/23 09:53
Sodium 129 mmol/L (135-145) L 06/11/23 05:16
Potassium 4.2 mmol/L (3.5-5.1) D 06/11/23 05:16
Chloride 99 mmol/L (98-107) 06/11/23 05:16
Carbon Dioxide 21 mmol/L (22-30) L 06/11/23 05:16
BUN 38 mg/dl (7-17) H 06/11/23 05:16
Creatinine 3.6 mg/dL (0.6-1.0) H 06/11/23 05:16
eGFR 13.36 06/11/23 05:16
Glucose 128 mg/dl (70-99) H 06/11/23 05:16
Calcium 7.0 mg/dl (8.4-10.2) L 06/11/23 05:16
Phosphorus 6.0 mg/dl (2.5-4.5) H 06/02/23 05:09
Mhq-P-Fssnqwogdnh Pept 633 pg/ml 06/02/23 05:09
Albumin 2.7 g/dl (3.5-5.0) L 06/10/23 05:43
Physical Exam
-
Vital Signs:
Vital Signs
Temp Pulse Resp BP Pulse Ox
98.0 F 77 17 121/53 99
06/11/23 15:29 06/11/23 15:29 06/11/23 15:29 06/11/23 15:29 06/11/23 15:29
Cardiovascular:: Regular rate and rhythm
Respiratory:: Bilateral: CTA
Lung Excursion:: Normal
Abdomen:: Nontender and Soft
Extremity Edema:: +1: Bilateral:
Esposito Catheter: No
--- NOTE | 2023-06-11 20:55 | PTCARENOTE ---
@1943 ;Received pt from GI lab,via stretcher ,tele monitor and accompanied by JUDE Best.Pt oriented x3 and anxious with many questions.Pt was incontinent of large amount of urine and small maroon rectal clot x1.Instructed pt and on plan of
care.Will clarify diet with [employer]ING [employer] WORKER.
[2023-06-11] MEDS: PROTONIX PO (21:00)
[2023-06-11 21:12] LABS: Glucose - Point of Care 162 mg/dl (70-99)
[2023-06-12] VITALS (7 sets, daily range): BP systolic 73–141; BP diastolic 51–72; BMI 45.5
[2023-06-12] MEDS: BENADRYL 25 MG PO ×2 (04:10→13:16)
[2023-06-12] MEDS: ATIVAN PO (04:10)
[2023-06-12] MEDS: NEURONTIN PO (04:10)
[2023-06-12 05:43] LABS: Ionized Calcium 0.92 mMOL/L (1.15-1.33)
[2023-06-12 05:45] LABS: % Basophils 0.4 % (0-2); % Eosinophils 3.3 % (0-6); % Immature Granulocytes 4.4 % (0-0.5); % Lymphocytes 16.5 % (20.5-51.1); % Monocytes 4.8 % (1.7-9.3); % Neutrophils 70.6 % (42.2-75.2); Absolute Basophils 0.1 10^3/uL (0-0.2); Absolute Eosinophils 0.5 10^3/uL (0-0.7); Absolute Immature Granulocytes 0.7 10^3/uL (0-0.05); Absolute Lymphocytes 2.4 10^3/uL (1.2-3.4); Absolute Monocytes 0.7 10^3/uL (0.1-0.6); Absolute Neutrophils 10.3 10^3/uL (1.4-6.5); Hematocrit 25.3 % (37.0-47.0); Hemoglobin 8.4 g/dL (12.0-16.0); Mean Corp Hgb Conc. 33.2 g/dL (33.0-37.0); Mean Corpuscular Volume 87.2 fL (81.0-99.0); Mean Platelet Volume 9.4 fL (7.4-10.4); Nucleated Red Blood Cells % 0 %; Platelet Count 230 10^3/uL (130-400); White Blood Cell Count 14.7 10^3/uL (4.8-10.8)
[2023-06-12 06:54] LABS: Albumin 2.2 g/dl (3.5-5.0); Blood Urea Nitrogen 43 mg/dl (7-17); Calcium 6.8 mg/dl (8.4-10.2); Carbon Dioxide 16 mmol/L (22-30); Chloride 100 mmol/L (98-107); Estimated Creatinine Clearance 14 ml/min; Glucose 116 mg/dl (70-99); Magnesium 0.7 mg/dl (1.6-2.3); Sodium 130 mmol/L (135-145); eGFR 11.77
--- NOTE | 2023-06-12 08:38 | W.PN.CARDCBS ---
Today's Communication / Plan
-
Permanently discontinue sotalol
Start amiodarone 200 mg 3 times daily, then 200 mg twice daily at discharge then 200 mg daily
Observe for allergy
Check EKG in a.m.
Volume management per nephrology
Impression / Plan
-
Primary Stock Shaper: Dr. Low, last seen in office 03/2022
Assessment:
Presentation with hyponatremia, acute worsening on chronic
Sepsis with shock
Acute on chronic hypoxic respiratory insufficiency, chronically on 2L NC
NOAM with azotemia
LLE cellulitis
N/V/D
Pancolitis
Colon polyps s/p flex sigmoidoscopy with snaring/biopsy 06/10/23
Drug rash, felt to be from lasix, improved
LUE PICC associated DVT
Lethargy
Prolonged QTc
Paroxysmal SVT with noninducibility during EP study and empiric atrial flutter ablation 2014
Prior rate related LBBB in setting of SVT
chronic sotalol therapy
Chronic HFpEF
Hyponatremia
HTN
HLD
DM
Diabetic neuropathy
History of RLE DVT
Anemia of chronic disease
Meningioma
Morbid obesity
SISI
Persistent LE wounds/cellulitis/osteomyelitis
Chronic lymphedema/venous stasis
History of L femur fracture s/p ORIF 02/16/2023 with incomplete healing by imaging
Chronic pain syndrome on opioids
History of partial hysterectomy, oophorectomy, salpingectomy
History of NOAM
ECHO 02/17/23: EF 65 to 70%, mild concentric LVH, mildly dilated left atrium, mild with peak/mean gradients 34/18 mmHg, LA NENA 1.6 cm�, mild AR
Plan:
Her creatinine continues to rise, but her rhythm is currently sinus. EKG yesterday showed runs of atrial tachycardia with prolonged QT.
She had multiple colon polyps removed yesterday.
Her arrhythmia is atrial tachycardia rather than atrial fibrillation, so at present would hold anticoagulation. She was not anticoagulated at admission.
Her QT interval looks better on telemetry today.
Will start amiodarone 200 mg 3 times daily. Recheck EKG in AM. She has multiple drug allergies, will need to observe closely for exacerbation of rash which was presumably sulfa related/related to furosemide.
Defer management of renal function, volume status, etc. to nephrology. She is still volume overloaded.
Discussed with Sergo over the phone.
Progress Note - Stock Shaper
Subjective
Date of Service: June 12, 2023:
Colonoscopy with multiple polyps resected June 10
Allergies: Ampicillin, cephalosporins, Cipro, clindamycin, daptomycin, contrast, sulfa/furosemide doxycycline, vancomycin,
Outpatient meds alogliptin, atorvastatin 40, cyclobenzaprine, gabapentin, glimepiride, hydrocodone, irbesartan, levofloxacin, metoprolol, Singulair, pantoprazole, sotalol 120 twice daily
Current medications: Neurontin, Ativan, pantoprazole, atorvastatin 20 mg daily, sotalol on hold, enoxaparin on hold, insulin, magnesium,
PMH/PSH/SH/FH: Reviewed
Review of systems: Negative except as described above
White count 14.7, hemoglobin 8.4, platelets 230, BUN and creatinine 43 and 4.0, sodium 130, magnesium 0.7, calcium 6.8
EKG June 10 sinus rhythm with runs of slow atrial tachycardia, LVH, left axis
Telemetry bursts of atrial tachycardia, currently sinus rhythm, QTc seems improved
Objective
Labs:
06/12/23 05:35
06/12/23 05:35
Labs
Hgb 8.4 g/dL (12.0-16.0) L 06/12/23 05:35
Hct 25.3 % (37.0-47.0) L 06/12/23 05:35
Plt Count 230 10^3/uL (130-400) 06/12/23 05:35
PT 13.1 Sec (11.4-14.6) 06/02/23 09:23
INR 1.01 06/02/23 09:23
APTT 31.2 Sec (23.4-35.0) 06/02/23 09:23
Sodium 130 mmol/L (135-145) L 06/12/23 05:35
Potassium 4.0 mmol/L (3.5-5.1) 06/12/23 05:35
BUN 43 mg/dl (7-17) H 06/12/23 05:35
Creatinine 4.0 mg/dL (0.6-1.0) H 06/12/23 05:35
Glucose 116 mg/dl (70-99) H 06/12/23 05:35
Vital Signs and I&O:
Vital Signs
Temp Pulse Resp BP Pulse Ox
36.5 C 72 18 112/51 100
06/12/23 03:00 06/12/23 03:00 06/12/23 03:00 06/12/23 03:00 06/12/23 03:00
Vital Signs
Temp Pulse Resp BP Pulse Ox
36.5 C 72 18 112/51 100
06/12/23 03:00 06/12/23 03:00 06/12/23 03:00 06/12/23 03:00 06/12/23 03:00
Intake & Output
06/10/23 06/11/23 06/12/23 06/13/23
07:59 07:59 07:59 07:59
Intake Total 1520 / 1520 2910 / 2910 960 / 960
Output Total 300 / 300
Balance 1220 / 1220 2910 / 2910 960 / 960
Physical Exam
Physical Exam
112/51, pulse 72, respirate 18, afebrile, sats 100%, weight is 98.7 kg, on 05/31 was 113.8 kg
Anasarca, no discrete distress, markedly reduced mobility, head neck exam question proptosis, rales left base greater than right, JVD hard to assess, systolic murmur at base, abdomen obese, extremities with anasarca, erythema of arms and legs, neuro
nonfocal
[2023-06-12 08:58] LABS: Glucose - Point of Care 119 mg/dl (70-99)
[2023-06-12] MEDS: NOVOLOG FLEXPEN-LOW RESISTANCE SC ×2 (09:10→12:21)
[2023-06-12] MEDS: OSCAL CAL 500 1000 MG PO ×2 (09:11→21:48)
[2023-06-12] MEDS: MAGNESIUM OXIDE 500 MG PO (09:11)
[2023-06-12] MEDS: PROTONIX 40 MG PO ×2 (09:14→21:49)
[2023-06-12] MEDS: NEURONTIN 100 MG PO ×3 (09:14→21:50)
[2023-06-12] MEDS: MAGNESIUM SULFATE 54 GRAMS IV (09:26)
--- NOTE | 2023-06-12 11:36 | W.PN.NEPH.PH ---
Today's Communication / Plan
-
esposito
replace mg and nikia
labs in am
Assessment/Plan
-
IMP:
Hyponatremia-acute on chronic
NOAM with significant azotemia
suspected septic shock
hypoglycemia
Hypomagnesemia
TME
HX Paroxysmal AF- Not on anticoagulation due to hemorrhagic complications in the past
Chronic anemia
Essential HTN
T2DM
Chronic pain syndrome on chronic opioids
SISI - CPAP
Morbid obesity due to excess calories
PAD
h/o left hip fx s/p ORIF 01/2023
Plan:
NOAM , baseline cr of 0.7
specially post contrast on 06/07+diarrhea
Ethacrynic acid last given on 06/07
HANNAH is on high differential, Fena not low
now cr up at 4 suspect it likely reaching peak since rate of rise is slowing down,
monitor UOP-decreasing, low threshold for esposito
Recent CT no hydro but concern of GI abnormality colitis, mass?
mild gap met acidosis-will give her low rate of bicarb IVF
hyponatremia -monitor stable at 130
her edema is significantly improved but wt is increasing, cont to hold off diuretics for now
replace calcium, hypocalcemia likely from hypomagnesemia, check vit D
replace magnesium-total 4gram today
BP stable but soft
avoid nephrotoxins
d/w pt and on phone in detail
reviewed that should her renal function worsens likely need [employer] iin next 1-2 days
hopefully she may escape
monitor h/h s/p C scope 06/10-polypectomies
Amio per cards for afib
labs in am
high risk encounter
-
-
Date of Service: June 12, 2023
CC / HPI / ROS
-
Chief Complaint:
NOAM, hyponatremia
History of Present Illness:
sodium stable at 130, cr up at 4, wt is increasing
UOP not measured, incontinent
developed erythematous red rash on chest post Lasix now improving
k normal , bicarb 116, nikia 6.8, I nikia 0.9, Mag 0.7
BP stable
GIB , Hb slowly decreasing 8.4 post sigmoidoscopy 06/09, C scope on 06/10 polypectomies
Review of Systems:
offers no cp or sob at rest
concern about BP cuff which not even inflated while addressing need of dialysis
insight seem poor
Labs
-
Labs:
WBC 14.7 10^3/uL (4.8-10.8) H 06/12/23 05:35
RBC 2.90 10^6/uL (4.20-5.40) L 06/12/23 05:35
Hgb 8.4 g/dL (12.0-16.0) L 06/12/23 05:35
Hct 25.3 % (37.0-47.0) L 06/12/23 05:35
Plt Count 230 10^3/uL (130-400) 06/12/23 05:35
Sodium 130 mmol/L (135-145) L 06/12/23 05:35
Potassium 4.0 mmol/L (3.5-5.1) 06/12/23 05:35
Chloride 100 mmol/L (98-107) 06/12/23 05:35
Carbon Dioxide 16 mmol/L (22-30) L 06/12/23 05:35
BUN 43 mg/dl (7-17) H 06/12/23 05:35
Creatinine 4.0 mg/dL (0.6-1.0) H 06/12/23 05:35
eGFR 11.77 06/12/23 05:35
Glucose 116 mg/dl (70-99) H 06/12/23 05:35
Calcium 6.8 mg/dl (8.4-10.2) L* 06/12/23 05:35
Phosphorus 6.0 mg/dl (2.5-4.5) H 06/02/23 05:09
Aaz-O-Kskqjkbpjeq Pept 633 pg/ml 06/02/23 05:09
Albumin 2.2 g/dl (3.5-5.0) L 06/12/23 05:35
Physical Exam
-
Vital Signs:
Vital Signs
Temp Pulse Resp BP Pulse Ox
97.7 F 73 17 103/56 100
06/12/23 03:00 06/12/23 07:00 06/12/23 07:00 06/12/23 07:00 06/12/23 07:00
Cardiovascular:: Regular rate and rhythm
Lung Excursion:: Abnormal (decreased)
Abdomen:: Nontender and Soft
Extremity Edema:: +2: Bilateral:
Esposito Catheter: No
[2023-06-12] MEDS: CALCIUM GLUCONATE 100 IV (12:20)
[2023-06-12 12:23] LABS: Glucose - Point of Care 143 mg/dl (70-99)
[2023-06-12] MEDS: SODIUM BICARBONATE 1150 MEQ IV (13:07)
[2023-06-12] MEDS: MAGNESIUM SULFATE 50 IV (13:08)
--- NOTE | 2023-06-12 13:47 | W.PN.HOSP.TC ---
Today's Communication/Plan
-
All discussed with the patient and the nurse
Assessment / Plan
Assessment / Plan
Physical exam:
General: Lethargic but awake, alert and oriented x3, not in distress and holds appropriate conversation.
HEENT: No active discharge, ecchymosis or bruising, moist lips, tongue and mucous membrane.
Eyes: No discharge or red conjunctiva, no nystagmus, pupils are reactive and equal
Neck:Supple, no JVD no bruit no goiter.
Respiratory: Normal AP contour and diameter, normal chest wall movement, normal respiratory effort, no respiratory distress,
Lungs: Good air entry bilaterally, no wheezing or rhonchi, no rales or crackles
Heart: S1, S2 regular, normal rate, no added sound.
Gastrointestinal: Positive bowel sounds, soft, nontender, no guarding or rigidity or organomegaly
Musculoskeletal: no chest wall abnormality or tenderness. All joints and extremities have good range of motion, no muscle tenderness or any joint swelling or tenderness.
Extremities: Moderate lower extremity pitting edema, good peripheral pulses, good range of motion
Skin: Warm and dry, no ulceration, normal color.
Neurological: Awake, alert and oriented x3, speaks in low tone voice, no facial droop, but speech is clear, moves extremities well
Psychiatric: Normal mood, normal thought and judgment, normal affect,
Assessment and plan:
GI bleed.
No bleeding.
Had a full colonoscopy yesterday and multiple polyps removed
Possible related to polyp after initial sigmoidoscopy and polyp resection.
Hemoglobin is stable
Continue to hold Eliquis
Recheck labs
Acute renal failure: Could be multifactorial including receiving ethacrynic acid, sepsis shock hypotension, IV contrast
Creatinine worsening today is similar
Nephrology on board
Continue to monitor
Avoid nephrotoxin
Started on low-dose of Ringer lactate because of metabolic acidosis
Discussed with the patient
Shock -suspected sepsis -resolved .Off of pressors . Normal EF on recent ECHO (01/2023), normal diastolic function, Mild ,mild AR .
Left leg cellulitis with left hip area wound - No drainage from wound - eval by ortho. Completed antibiotic,
# MRSA colonized
-s/p meropenem x 3 d.
-Completed linezolid 600mg po bid x through 06/08/2023 am
Right leg warm and red as well - possible cellulitis, completed antibiotic as above.
White cell count trended down and stable
Watch closely white count which is up
Bilateral lower extremity edema-suspected may be dependent, while protein caloric malnutrition hypoalbuminemia could be another reason, acute renal failure could adding to it.
. Echo in January 2023 shows normal diastolic function and normal EF. Her BNP on admission was within the normal limit. Her weight gain has been higher since her recent discharge. cw compression dressings for fluid management. Pt says she is
allergic to sulfa including lasix .switched to ethacryanic acid -much improved wt ;lowest so far in [facility] system since 06/2021.Raise in Cr slightly noted .Hold Ethacrynic acid. There is concern of N/V sec to ethacrynic acid but pt was also getting
linezolid at same time.
Cardiology were consulted.
Drug rash -possible lasix - it is off now. Got 2 doses only . Allergic to sulfa antibiotic drugs . Lasix listed as allergy as well now.
Acute hypoxic respiratory insufficiency-chest x-ray with low lung volumes and no focal lung disease. Suspect may be atelectasis related. Patient also has obstructive sleep apnea. Continue with oxygen support.
Chronic hypoxic respiratory insufficiency -normally on 2l at home- back on 2l
Nausea with vomiting with loose stools- abdo soft , no pain and not tender. tx symptomatically . New medication is Linezolid and ethycranic acid. Abdo xray no SI obstruction;showed moderate stomach distension .Pt denies hx of gastroparesis.Ongoing
diarrhea , Neg Noro virus.Imodium prn. Resolved upper GI symptoms.
Mild cabrera colitis with left colon large polyp
Status post sigmoidoscopy and colonoscopy.
Hyponatremia - management per renal - acute on chronic .
Fluctuating
Recheck
Nephrology on board
Moderate protein caloric malnutrition, albumin 2.2.
Get a telecommunication systems designer consult
Hypomagnesia: Magnesium 0.7
Replace and recheck
Hypocalcemia, corrected calcium is napoleon be close to 8 but we will put him on some calcium gluconate and recheck
HTN - hold ARB due to hypotension and follow
DM 2 with hyperglycemia. Patient with poor oral intake. Hemoglobin A1c 7.1. Hold glimepiride and alogliptin for now. cortisol is ok .
Recent Left Hip ORIF - OP CT hip noted - cw PT eval; Wound care/abx for left hip wound. Ortho input noted.
Paroxysmal atrial fibrillation-in sinus rhythm. QTc normal now . QTc in March 2023 was within normal limits. hold sotalol due to NOAM and low normal blood pressure
Cardiology consulted.
Chronic normocytic anemia-ACD. Hemoglobin at baseline. Aim to keep it more than 8. No iron def.
Left arm PICC associated DVT -tx with AC for 1 month. On lovenox which is on hold now because of bleeding and and acute renal failure,will switch to PO eliquis once GI symtoms are resolved.
Once cleared bleeding issues resolve may consider IV heparin .
Will get a hematology consult regarding this DVT
Her DVT was in axillary vein extending into basilic .
Full code
DW GI
DW RN
Total time spent on today's encounter was 52 minutes which included time spent in counseling the patient regarding diagnosis and treatment plan as listed above, goals of care, and symptom management. Case was discussed with nursing staff,
specialists, and care coordinators/case management. All labs and imaging personally reviewed by me. Remainder the time spent in detailed review of previous records, lab data, imaging, and other medical provider documentation.
Anticipated Discharge: > 48 hours
Subjective/Interval History
-
Date of Service: June 12, 2023
Seen and examined, awake and alert, tolerating liquid diet well and she asked for regular food, no rectal bleed no bowel movement so far yet.
Denies abdominal pain no fever or chill any nausea or vomiting, renal functioning worsening
Objective Data
-
Labs:
Laboratory Results
06/12/23
05:35
WBC 14.7 H
Hgb 8.4 L
Hct 25.3 L
Plt Count 230
Sodium 130 L
Potassium 4.0
Chloride 100
Carbon Dioxide 16 L
BUN 43 H
Creatinine 4.0 H
Glucose 116 H
Calcium 6.8 L*
Vital Signs:
Vital Signs
Temp Pulse Resp BP Pulse Ox
97.7 F 73 17 103/56 100
06/12/23 03:00 06/12/23 07:00 06/12/23 07:00 06/12/23 07:00 06/12/23 07:00
I&O
06/11/23 06/12/23 06/13/23
07:59 07:59 07:59
Intake Total 2910 / 2910 960 / 960
Balance 2910 / 2910 960 / 960
Review of Systems
-
All other systems: Reviewed and negative
--- NOTE | 2023-06-12 14:55 | W.PN.GI.CBS2 ---
Addendum entered and electronically signed by Marlyn Monique DO 06/12/23 16:24:
Patient seen and examined independently of COACH PROFESSIONAL ATHLETES. I agree with her note with my additions below
Patient has had no further bleeding. She tolerated the colonoscopy yesterday with Dr. Wang. Awaiting pathology on the advanced polyp in the descending colon status post EMR.
Otherwise she has been asymptomatic from a GI standpoint. No further vomiting.
-- Will follow peripherally for biopsy results
Original Note:
Today's Communication / Plan
-
s/p flex sig and colonoscopy 06/09 and 06/10
await path from repeat colon 06/10 with concern for high grade dysplasia on 06/09 flex with follow up EMR completed
trend cbc with anemia
cont diet as tolerated no further vomiting
monitor bowel function post procedures --likely need bowel regiment but noted diarrhea on admission. Per chart Miralax turned her feet purple and her kidney function increased will add senna PRN for now
Assessment / Plan
-
68 year old female with a past medical history of osteoarthritis, brain tumor (meningioma that was removed), DM, HTN, HLD, peripheral vascular diseases with chronic foot ulcers, lymphedema, left hip fx with nailing 01/2023, hx DVT off AC secondary
to hemorrhagic complications. , aortic stenosis, SVT, hx colon polyps 2015(15 mm hepatic flexure tubular adenoma) and liver hemangioma. Hx of blood culture was positive for strep bovis in March 2023, she was treated for an infected hip at that
time and was to follow up for colonoscopy after DC. Patient was to have colonoscopy in 2022 as well but cancelled that appt in August 2022. She was admitted on 06/02/23 from [facility] with abnormal labs (hyponatremia 123, she was found to be hypotensive
and she was started on Levophed and admitted to the ICU. The patient was started on Meropenem, her left hip incision was found to have purulence and was cultured. She continues on Merem and Linezolid added. She was noted with appetite decreased and
she developed N/V and diarrhea. CT as noted with pancolitis and also concernof r1.5 cm mass descending/sigmoid. S/p flex sig 06/09 and colonsocopy 06/10.
06/07 CT Abd/Pelvis with oral and IV contrast shows mild acute infectious pancolitis with mild fluid distention of the proximal colon and mild wall thickening and mucosal hyperenhancement in the distal colon and rectum. 1.5 cm intraluminal mass in
the descending colon�sigmoid colon junction suspicious for large colonic polyp (possibly adenocarcinoma). Mild diffuse small bowel distention. Mild hepatomegaly and mild diffuse hepatic steatosis. Small hiatal hernia. Mild pelvic and
retroperitoneal adenopathy. Multiple uterine leiomyoma. Mild diffuse thickening and trabeculation of the urinary bladder suggesting chronic cystitis. Previous cholecystectomy. Mild cardiomegaly. Osteoporosis. Severe degenerative disc disease.
Severe atrophy of the parapelvic and posterior paraspinal muscles.
06/09 flex sig fair preps 2 8-15 mm polyps sigmoid/descending 10mm polyp descending likely benign leison muliple polyps not removed path with sigmoid polyp TA with high grade dysplasia, descending TA, neg colitis on random bx
06/10 colonoscopy - poor prep, hemorrhoids, blood in rectum/descending colon, multiple polyps resected including 22 mm polyp descending with EMR and clip placed path pending
Impression:
-nausea/vomiting/diarrhea improving
-abnormal CT with pancolitis. SB distention and concern for intraluminial mass and pelvis/retroperitoneal adenopathy
-flex sig 06/09 with multiple polyps including sigmoid polyp with high grade dysplasia with follow up colonsocopy as above with EMR and removal of multiple polyps
-hx strep bovis bacteremia 01/2023
-hx colon polyps
-recent infected hip status post left hip fracture with nailing.
-Bilateral lower extremity edema-> drug rash with Lasix vs other
-Shock, suspected sepsis
-LUE DVT-> axillary vein with extension into the basilic vein-> on Lovenox
-fatty liver
PLAN:
s/p flex sig and colonoscopy 06/09 and 06/10
await path from repeat colon 06/10 with concern for high grade dysplasia on 06/09 flex with follow up EMR completed
trend cbc with anemia
cont diet as tolerated no further vomiting
monitor bowel function post procedures --likely need bowel regiment but noted diarrhea on admission. Per chart Miralax turned her feet purple and her kidney function increased will add senna PRN for now
Subjective
Subjective
Date of Service: June 12, 2023
06/10 brown bloody stool with prep on low residue diet
Objective
Data Reviewed
Laboratory Data:
Laboratory Results
06/12/23 05:35
06/12/23 05:35
Laboratory Results
PT 13.1 Sec (11.4-14.6) 06/02/23 09:23
INR 1.01 06/02/23 09:23
APTT 31.2 Sec (23.4-35.0) 06/02/23 09:23
Phosphorus 6.0 mg/dl (2.5-4.5) H 06/02/23 05:09
Magnesium 0.7 mg/dl (1.6-2.3) L* 06/12/23 05:35
Total Bilirubin 0.3 mg/dl (0.2-1.3) 06/10/23 05:43
AST 14 U/L (14-36) 06/10/23 05:43
ALT < 10 U/L (0-35) 06/10/23 05:43
Alkaline Phosphatase 58 U/L (38-126) 06/10/23 05:43
Lipase 157 U/L (23-300) 06/08/23 06:23
Vital Signs and I&O:
Vital Signs
Temp Pulse Resp BP Pulse Ox
97.7 F 77 18 122/61 99
06/12/23 11:00 06/12/23 11:00 06/12/23 11:00 06/12/23 11:00 06/12/23 11:00
I&O
06/11/23 06/12/23 06/13/23
06:59 06:59 06:59
Intake Total 2910 / 2910 960 / 960
Balance 2910 / 2910 960 / 960
Physical Exam
Physical Exam
HEENT: Anicteric and Moist mucous membranes
Cardiology: Normal Sinus Rhythm
Pulmonary: Clear
GI: Soft, Non Distended and Non Tender
Extremities: Edema (with swelling)
Neuro: Non Focal
[2023-06-12] MEDS: PACERONE 200 MG PO ×2 (15:43→21:50)
[2023-06-12] MEDS: NORCO 5/325 1 TABLET PO (15:50)
--- NOTE | 2023-06-12 16:24 | W.PN.UPDATE ---
Update Note
Progress Note Update
For billing purposes
[2023-06-12 16:36] LABS: Glucose - Point of Care 221 mg/dl (70-99)
[2023-06-12] MEDS: NOVOLOG FLEXPEN-LOW RESISTANCE 2 UNITS SC (17:06)
[2023-06-12] MEDS: LIPITOR 20 MG PO (17:06)
[2023-06-12] MEDS: ATIVAN 1 MG PO (21:49)
[2023-06-13] VITALS (13 sets, daily range): BP systolic 92–125; BP diastolic 43–70; PULSE 2–73; BMI 46.1
[2023-06-13 01:16] LABS: Glucose - Point of Care 225 mg/dl (70-99)
[2023-06-13 05:47] LABS: Hemoglobin 8.2 g/dL (12.0-16.0); Mean Corp Hgb Conc. 32.8 g/dL (33.0-37.0); Mean Corpuscular Hgb 28.8 pg (27.0-31.0); Mean Corpuscular Volume 87.7 fL (81.0-99.0); Mean Platelet Volume 9.6 fL (7.4-10.4); Platelet Count 260 10^3/uL (130-400); Red Blood Cell Count 2.85 10^6/uL (4.20-5.40); Red Cell Dist. Width 14.3 % (11.5-14.5); White Blood Cell Count 14.9 10^3/uL (4.8-10.8)
[2023-06-13 06:55] LABS: Blood Urea Nitrogen 46 mg/dl (7-17); Calcium 7.3 mg/dl (8.4-10.2); Carbon Dioxide 18 mmol/L (22-30); Chloride 99 mmol/L (98-107); Estimated Creatinine Clearance 13 ml/min; Glucose 175 mg/dl (70-99); Magnesium 1.7 mg/dl (1.6-2.3); Potassium 3.6 mmol/L (3.5-5.1); Sodium 128 mmol/L (135-145); eGFR 10.79
[2023-06-13 07:06] LABS: Vitamin D, 25-OH*** 26.2 ng/mL (30-80)
[2023-06-13 07:49] LABS: Glucose - Point of Care 204 mg/dl (70-99)
--- NOTE | 2023-06-13 09:10 | PTCARENOTE ---
pt lethargic, difficult to arouse, diaphoretic labored breathing. repositioned, obtained VS, obtained BS. tachycardic and low BP low grade temp, pt remained difficult to arouse and continues with abdominal labored breathing. RR called. ABG, labs
CXR. pt subsequently transferred to IMU
--- NOTE | 2023-06-13 09:19 | CON.ONC ---
Addendum entered and electronically signed by Robbie Calvin MD 06/13/23 15:33:
Hematology Addendum:
Pt seen and evaluated and agree w/ CERTIFICATION ENGINEER note and plan as outlined
-large left colon polyp on colonoscopy - await pathology
-left UE DVT w/ continued edema - anticoag on hold GI bleeding which appears to have abated
-anticoagulation to be re-started once determined to safe to re-start by GI
-heparin gtt could be utilized in short term w/ close monitoring
-follow CBC closely
Will continue to follow with you.
Original Note:
Impression
Impression
Large left colon polyp w/ concern for high grade dysplasia
GI bleed
Hypotension
Acute renal failure
LLE cellulitis s/p left hip fracture with repair (01/2023)
Lower extremity edema
Acute change in mental status
Hypercapnic respiratory failure
Hx SISI; noncompliant w/ CPAP
Plan
Plan
s/p flex sig 06/09 and colonoscopy 06/10
Await pathology report from 06/10 biopsies: concern for high grade dysplasia
Monitor CBC w/ diff daily
06/12 WBC 14.9, Hgb 8.2, Hct 25, PLT 260
Transfuse as needed to maintain Hgb >7.5, PLT >20
Anticoagulation on hold; transition to Eliquis once medically stable
Supportive care in IMU
Nephrology, Pulmonary, ID, and GI following
Await pathology of advanced polyp from 06/10. We will follow
Patient History
History of Present Illness
Sonam Nance is a 68 year old female from [place] who presented to ER on 06/01 due to abnormal outpatient labs revealing hyponatremia. She was instructed to maintain fluid restriction x3 days prior to coming in. She complained of dyspnea in the
ER as well. She was noted to be lethargic on presentation and severely hypotensive. She was admitted to ICU on Levophed gtt. She had left hip fracture s/p repair 02/16/23 and was then readmitted in March 2023 with infected joint/streptococcal
septic shock and LLE cellulitis. This morning, she was transferred from Med/Surg to IMU for closer monitoring due to change in mental status and abnormal ABGs showing hypercapnic hypoxic respiratory failure. She is on Bipap at this time.
Past-Medical/Surgical History
Atrial flutter, SVT (no anticoagulation)
Asthma
Chronic back pain with chronic opioid use
Hypertension
Hypercholesterolemia
IDDM
Anxiety
Meningioma removal
SISI noncompliance w/ CPAP
Cellulitis
Severe DJD bilateral knees
Anemia of chronic disease
Cardiac ablation
Cholecystectomy
B/L oophorectomy
Cataracts
Hemorrhoidectomy
Respiratory insufficiency, 2l oxygen at home PRN
LLE cellulitis, left hip repair 01/2023
Patient Medication
�Medication �Instructions �Recorded �Confirmed �Last Taken �Type
metoprolol succinate 25 mg 25 mg PO DAILY Blood pressure ##0 11/22/19 06/02/23 12/16/22 09:00 History
tablet,extended release 24 hr
montelukast 10 mg tablet 10 mg PO QPM asthma 11/22/19 06/02/23 12/15/22 18:00 History
sotalol 120 mg tablet 120 mg PO BID Arrhythmia 11/22/19 06/02/23 02/10/23 History
atorvastatin 20 mg tablet 20 mg PO QPM High Cholesterol 08/27/22 06/02/23 12/15/22 18:00 History
cyclobenzaprine 10 mg tablet 10 mg PO TID PRN MUSCLE SPASM 02/11/23 06/02/23 Unknown History
acetaminophen 325 mg tablet 650 mg PO Q6HPRN PRN MILD PAIN 03/18/23 06/02/23 Unknown History
(Tylenol)
alogliptin 25 mg tablet 25 mg PO DAILY Diabetes 03/18/23 06/02/23 Unknown History
glimepiride 2 mg tablet 2 mg PO DAILY Diabetes 03/18/23 06/02/23 Unknown History
irbesartan 150 mg tablet 150 mg PO DAILY Blood Pressure 03/18/23 06/02/23 Unknown History
lorazepam 1 mg tablet 1 mg PO HS anxiety 03/18/23 06/02/23 Unknown History
gabapentin 100 mg capsule 100 mg PO TID #0 caps 03/25/23 06/02/23 Unknown Rx
Saccharomyces boulardii 250 mg 250 mg PO DAILY probiotic 06/02/23 06/02/23 Unknown History
capsule
hydrocodone 5 mg-acetaminophen 325 1 tab PO Q8H Pain 06/02/23 06/02/23 Unknown History
mg tablet
levofloxacin 750 mg tablet 750 mg PO HS Infection 06/02/23 06/02/23 Unknown History
pantoprazole 40 mg tablet,delayed 40 mg PO BID Gastrointestinal Issue 06/02/23 06/02/23 Unknown History
release
ammonium lactate 12 % lotion 1 applic topical BID Skin Issues 06/03/23 06/02/23 Unknown History
Active Medications
Generic Name Dose Route Start Last Admin
Trade Name Freq PRN Reason Stop Dose Admin
Acetaminophen 650 mg 06/02/23 17:35 06/03/23 16:20
Acetaminophen 325 Mg Tablet PO 06/30/23 17:34 650 mg
Q4HPRN PRN Administration
mild pain
Hydrocodone Bitart/Acetaminophen 1 tablet 06/02/23 17:19 06/12/23 15:50
Hydrocodone 5 Mg/Acetaminophen 325 Mg Tablet PO 06/16/23 17:18 1 tablet
Q8HPRN PRN Administration
moderate-severe pain
Amiodarone HCl 200 mg 06/12/23 16:00 06/12/23 21:50
Amiodarone 200 Mg Tablet PO 07/10/23 15:59 200 mg
TID FLACO Administration
Atorvastatin Calcium 20 mg 06/02/23 18:00 06/12/23 17:06
Atorvastatin (Lipitor) 20 Mg Tablet PO 06/30/23 17:59 20 mg
QPM FLACO Administration
Calcium Carbonate 1,000 mg 06/12/23 09:00 06/12/23 21:48
Calcium Carbonate 500 Mg Tablet PO 07/10/23 08:59 1,000 mg
BID FLACO Administration
Cyclobenzaprine HCl 5 mg 06/02/23 17:19 06/09/23 22:11
Cyclobenzaprine 10 Mg Tablet PO 06/30/23 17:18 5 mg
TIDPRN PRN Administration
muscle spasms
Dextrose 12.5 grams 06/02/23 04:51 06/03/23 08:24
Dextrose 50% (0.5 Grams/Ml) 50 Ml Syringe IV 06/30/23 04:50 12.5 grams
[id number] PRN Administration
hypoglycemia
Protocol
Diphenhydramine HCl 25 mg 06/04/23 16:07 06/12/23 13:16
Diphenhydramine 25 Mg Capsule PO 07/02/23 16:06 25 mg
Q4HPRN PRN Administration
Itching
Enoxaparin Sodium 100 mg 06/05/23 17:00 06/10/23 05:55
Enoxaparin Sodium 100 Mg/Ml Syringe SC 07/03/23 16:59 100 mg
Q12H FLACO Administration
Gabapentin 100 mg 06/02/23 22:00 06/12/23 21:50
Gabapentin 100 Mg Capsule PO 06/30/23 21:59 100 mg
TID FLACO Administration
Glucagon 1 mg 06/02/23 04:51
Glucagon 1 Mg Vial IM 06/30/23 04:50
PRN PRN
hypoglycemia
Protocol
Sodium Bicarbonate 150 meq/ 1,150 mls @ 50 mls/hr 06/12/23 12:00 06/12/23 13:07
Dextrose IV 06/13/23 10:59 1,150 mls
.Q23H FLACO Administration
Insulin Aspart 0 units 06/12/23 07:30 04/11/24 17:06
Insulin Aspart Low Resistance 300 Units/3 Ml Pen.Injctr SC 07/10/23 07:29 2 units
AC FLACO Administration
Protocol
Loperamide HCl 2 mg 06/07/23 14:01 06/09/23 04:10
Loperamide 2 Mg Capsule PO 07/05/23 14:00 2 mg
Q4HPRN PRN Administration
diarrhea
Lorazepam 1 mg 06/02/23 22:00 06/12/23 21:49
Lorazepam 1 Mg Tablet PO 06/30/23 21:59 1 mg
HS FLACO Administration
Metoprolol Tartrate 2.5 mg 06/11/23 13:13
Metoprolol 5 Mg/5 Ml Vial IV 07/09/23 13:12
Q6HPRN PRN
sustained HR>120
Pantoprazole Sodium 40 mg 06/02/23 20:00 06/12/23 21:49
Pantoprazole 40 Mg Delayed Release Tablet PO 06/30/23 19:59 40 mg
BID FLACO Administration
Senna/Docusate Sodium 1 tablet 06/12/23 15:26
Docusate W/Senna (Geovanna-Colace) Tablet PO 07/10/23 15:25
DAILYPRN PRN
constipation
Simethicone 80 mg 06/07/23 15:28 06/08/23 17:27
Simethicone 80 Mg Chewable Tablet PO 07/05/23 15:27 80 mg
QIDPRN PRN Administration
Bleaching or gassy abdomen
Sodium Chloride 0 flush 06/02/23 05:00
Sodium Chloride 0.9% (Flush) Syringe IV 06/30/23 04:59
PER PROTOCOL FLACO
Trimethobenzamide HCl 200 mg 06/05/23 16:57
Trimethobenzamide 200 Mg/2 Ml Vial IM 07/03/23 16:56
Q6HPRN PRN
nausea/vomiting
Review of Systems
-
patient lethargic, unable to participate in ROS
Unable to obtain full review of systems at this time due to: Acuity
All Other Systems: Not reviewed unless documented
Physical Exam
-
Patient resting in bed. Portable CXR at bedside. patient denies pain. she arouses to voice.
General: No Apparent Distress, Comfortable, Respiratory Distress (bipap), Appears Chronically Ill and Morbidly Obese; Negative Conversant
HEENT: Negative Jaundice
Cardiology: S1 and S2
Pulmonary: Other (diminished/clear)
GI: Soft and Normal Bowel Sounds (hypoactive)
Genito-Urinary: Moore
Musculoskeletal: Edema, Right Upper Extrem, Edema. Left Upper Extrem, Edema, Right Lower Extrem and Edema, Left Lower Extrem
Extremities: Pulses Present
Neurology: Non Focal
Skin: Dry, Rash and Other (erythema to extremities)
Psych: Calm and Confused (aaox2, self/place. lethargic, arouses to voice )
Labs
Lab Results
WBC 14.9 10^3/uL (4.8-10.8) H 06/13/23 05:39
RBC 2.85 10^6/uL (4.20-5.40) L 06/13/23 05:39
Hgb 8.2 g/dL (12.0-16.0) L 06/13/23 05:39
Hct 25.0 % (37.0-47.0) L 06/13/23 05:39
MCV 87.7 fL (81.0-99.0) 06/13/23 05:39
MCH 28.8 pg (27.0-31.0) 06/13/23 05:39
MCHC 32.8 g/dL (33.0-37.0) L 06/13/23 05:39
RDW 14.3 % (11.5-14.5) 06/13/23 05:39
Plt Count 260 10^3/uL (130-400) 06/13/23 05:39
MPV 9.6 fL (7.4-10.4) 06/13/23 05:39
Abs Immat Gran (auto) 0.7 10^3/uL (0-0.05) H 06/12/23 05:35
Absolute Neuts (auto) 10.3 10^3/uL (1.4-6.5) H 06/12/23 05:35
Absolute Lymphs (auto) 2.4 10^3/uL (1.2-3.4) 06/12/23 05:35
Absolute Monos (auto) 0.7 10^3/uL (0.1-0.6) H 06/12/23 05:35
Absolute Eos (auto) 0.5 10^3/uL (0-0.7) 06/12/23 05:35
Absolute Basos (auto) 0.1 10^3/uL (0-0.2) 06/12/23 05:35
Immature Gran % 4.4 % (0-0.5) H 06/12/23 05:35
Neutrophils % 70.6 % (42.2-75.2) 06/12/23 05:35
Lymphocytes % 16.5 % (20.5-51.1) L 06/12/23 05:35
Monocytes % 4.8 % (1.7-9.3) 06/12/23 05:35
Eosinophils % 3.3 % (0-6) 06/12/23 05:35
Basophils % 0.4 % (0-2) 06/12/23 05:35
Creatinine 4.3 mg/dL (0.6-1.0) H* 06/13/23 05:39
Vital Signs
Vital Signs
Temp Pulse Resp BP Pulse Ox
99.0 F 62 18 99/43 95
06/13/23 03:03 06/13/23 03:03 06/13/23 03:03 06/13/23 03:03 06/13/23 03:03
06/08/23 CT abdomen/pelvis: MILD ACUTE INFECTIOUS PANCOLITIS with mild fluid distention of the proximal colon and mild wall thickening and mucosal hyperenhancement in the distal colon and rectum. 1.5 cm intraluminal mass in the descending
colon-sigmoid colon junction suspicious for a large colonic polyp (possibly adenocarcinoma). Mild diffuse small bowel distention.Mild hepatomegaly and mild diffuse hepatic steatosis.Small hiatal hernia. Mild pelvic and retroperitoneal
lymphadenopathy. Multiple uterine leiomyoma. Mild diffuse thickening and trabeculation of the urinary bladder wall suggesting chronic cystitis. Previous cholecystectomy. Mild cardiomegaly. Osteoporosis with multilevel chronic vertebral body
endplate fractures in the lumbar spine. Severe discogenic degenerative disease and facet joint arthrosis in the lower lumbar spine.Severe atrophy of the parapelvic and posterior paraspinal muscles.
[2023-06-13 09:22] LABS: Glucose - Point of Care 254 mg/dl (70-99)
[2023-06-13 09:51] LABS: B.E. -4.8 mmol/L; HCO3 22.6 mmol/L (21-28); O2 Saturation % 99.3 % (94-98); PCO2 54 mmHg (32-35); PO2 107 mmHg (83-108); pH 7.23 (7.35-7.45)
--- NOTE | 2023-06-13 09:53 | W.PN.HOSP.TC ---
Today's Communication/Plan
-
Tx to IMU
BIPAP
Reconsult Pulm
Assessment / Plan
Assessment / Plan
Assessment and plan:
change in mental status this morning - suspected encephalopathy
ABG was obtained it shows she has acute hypercapnic hypoxic respiratory failure.Correct respiratory status and assess mental status again . difficult exam neurologically with grossly intact.
Acute hypercapnic hypoxic respiratory failure. Patient with chronic hypoxic respiratory insufficiency on 2 L at home. She has history of sleep apnea but was not able to tolerate mask in the past. She is obese. Suspected respiratory distress
secondary to sleep apnea. Avoid sedation.
Obtain a chest x-ray to rule out secondary lung issues.
Start on BiPAP at 15/5 on 2 L of oxygen.
Consult pulmonary.
Aucte GI bleed
No active bleeding.
Had a full colonoscopy 06/10 and multiple polyps removed
Possible related to polyp after initial sigmoidoscopy and polyp resection.
Hemoglobin is stable
Continue to hold Eliquis
Follow bx results
GI following
Basline Chronic normocytic anemia-ACD. Hemoglobin at baseline. Aim to keep it more than 8. No iron def.
Acute renal failure: Could be multifactorial including receiving ethacrynic acid, sepsis shock hypotension, IV contrast
Creatinine seems to be peaking
Nephrology on board
Continue to monitor
Avoid nephrotoxin
CW IV fluids per renal
Watch closely white count which is up
Shock on admission -suspected sepsis -resolved .Off of pressors . Normal EF on recent ECHO (01/2023), normal diastolic function, Mild ,mild AR .
Left leg cellulitis with left hip area wound - No drainage from wound - eval by ortho. Completed antibiotic,
# MRSA colonized
-s/p meropenem x 3 d.
-Completed linezolid 600mg po bid x through 06/08/2023 am
- Follow leukocytosis closely
Right leg warm and red as well - possible cellulitis, completed antibiotic as above.
White cell count trended down and stable
Bilateral lower extremity edema-suspected may be dependent, while protein caloric malnutrition hypoalbuminemia could be another reason, acute renal failure could adding to it.
. Echo in January 2023 shows normal diastolic function and normal EF. Her BNP on admission was within the normal limit. Her weight gain has been higher since her recent discharge. cw compression dressings for fluid management. Pt says she is
allergic to sulfa including lasix .switched to ethacryanic acid -much improved wt ;lowest so far in [employer] system since 06/2021.Raise in Cr slightly noted .Hold Ethacrynic acid. There is concern of N/V sec to ethacrynic acid but pt was also getting
linezolid at same time.
Weight up again -follow daily weights
Drug rash -possible lasix - it is off now. Got 2 doses only . Allergic to sulfa antibiotic drugs . Lasix listed as allergy as well now.
Hyponatremia - management per renal - acute on chronic .
Fluctuating
Nephrology on board
Moderate protein caloric malnutrition, albumin 2.2.
HTN - hold ARB due to hypotension and follow
DM 2 with hyperglycemia. Patient with poor oral intake. Hemoglobin A1c 7.1. Hold glimepiride and alogliptin for now. cortisol is ok .
Recent Left Hip ORIF - OP CT hip noted - cw PT eval; Wound care/abx for left hip wound. Ortho input noted.
Paroxysmal atrial fibrillation-in sinus rhythm. QTc normal now . QTc in March 2023 was within normal limits. DC sotalol due to NOAM and low normal blood pressure
Cardiology following -now on Amio
Left arm PICC associated DVT -tx with AC for 1 month. On lovenox which is on hold now because of bleeding and and acute renal failure,will switch to PO eliquis once GI symtoms are resolved.
Once cleared bleeding issues resolve may consider IV heparin .
hematology consulted regarding this DVT
Her DVT was in axillary vein extending into basilic .
Full code
DW LOCAL TANKER TRUCK DRIVER team
DW RN
Total time spent on today's encounter was 52 minutes which included time spent in counseling the patient regarding diagnosis and treatment plan as listed above, goals of care, and symptom management. Case was discussed with nursing staff,
specialists, and care coordinators/case management. All labs and imaging personally reviewed by me. Remainder the time spent in detailed review of previous records, lab data, imaging, and other medical provider documentation.
Tx to IMU
Anticipated Discharge: > 48 hours
Subjective/Interval History
-
Date of Service: June 13, 2023
Rapid response was called for change in mental status.
rapid response team at bedside when I arrived.
Patient seen lethargic. Normally very talkative. She is able to answer questions. Able to follow simple commands.
She is oriented to place.
She does say her mouth is dry.
Denies any shortness of breath or chest pain. Denies any nausea or vomiting.
Objective Data
-
Labs:
Laboratory Results
06/13/23 06/13/23
05:39 09:44
WBC 14.9 H
Hgb 8.2 L
Hct 25.0 L
Plt Count 260
HCO3 Pending
Sodium 128 L
Potassium 3.6
Chloride 99
Carbon Dioxide 18 L
BUN 46 H
Creatinine 4.3 H*
Glucose 175 H
Calcium 7.3 L
Vital Signs:
Vital Signs
Temp Pulse Resp BP Pulse Ox
99.0 F 62 18 99/43 95
06/13/23 03:03 06/13/23 03:03 06/13/23 03:03 06/13/23 03:03 06/13/23 03:03
I&O
06/12/23 06/13/23 06/14/23
06:59 06:59 06:59
Intake Total 960 / 960 1614 / 1614
Output Total 250 / 250
Balance 960 / 960 1364 / 1364
Review of Systems
-
Unable to obtain full review of systems at this time due to: Other ( Difficult due to current mental status.)
Physical Exam
-
General: No Apparent Distress
HEENT: Moist Mucous Membranes
Respiratory: Clear to Auscultation (( on anterior ausculatation)but has bit prolonged exp phase of breathing) and Non Labored Respirations; Negative Accessory Resp Muscle Use
Cardiac: Regular Rhythm and S1/S2
GI: Soft, Nontender, Normal Bowel Sounds and Other (obese)
Neuro: Awake and Oriented (place and person); Negative Alert, No Motor Deficits ( Difficult exam but moving all 4 limbs. She has difficulty lifting her lower extremities at the hip and the knees but strength at ankles 4/5 atleast ), Tremors,
Slurred Speech or Facial Droop
Psych: Calm and Confused; Negative Agitated
Data Reviewed
-
Labs: Labs Reviewed by me (abg noted)
[2023-06-13 10:12] LABS: Lactic Acid 0.9 mmol/L (0.7-2.0)
--- NOTE | 2023-06-13 10:13 | PTOTSP ---
Patient transferred to IMU due to acute respiratory failure - please place updated PT and OT orders when medically stable to resume therapy. Thank you.
--- NOTE | 2023-06-13 10:18 | W.PN.PUL3 ---
Today's Communication / Plan
-
Asked to re-eval, doing well on BIPAP
Repeat ABG showing CO2 level stable with drop in pH suggestive of concurrent metabolic acidosis
NOAM and bicarb declining, which may indicate need for HD per renal in the near future
She remains full code
May consider overall discussions if she is clinically deteriorating
Assessment
-
Patient is a 68-year-old female with history of Aflutter, HTN, IDDM, SISI, anxiety presenting to ER from [facility] with abnormal labs-hyponatremia. Patient has been on fluid restriction due to this hyponatremia for the last 3 days. Sodium on
arrival 123, previously 131 on 04/28/23. She was noted to be hypotensive on arrival, started on levophed and admitted to ICU.
She is noted to be hypoglycemic on arrival as well, given amp Dextrose with minimal improvement.
Acute on chronic hyponatremia
Persistent hypoglycemia, resolved
NOAM, creat now 4.3
Worsening metabolic acidosis
Chronically compensated resp acidosis, suspected SISI/OHS now on BIPAP
Lethargy
Oliguria
Hypocalcemia/hypomag
Acute infected pancolitis on CT, neg lactate/c diff
Conditions present prior admission:
Discharged from 01/2023: Lethargy/status post fall status post left hip intertrochanteric fracture with repair
Lower extremity infection with Streptococcus bovis seen by ID and discharged on antibiotics until 02/26/2023-Wound culture left leg 03/18/2023: MRSA and Pseudomonas.
Atrial fibrillation off anticoagulation due to hemorrhagic complication
Peripheral arterial disease
Diabetes mellitus type 2
Morbid obesity with a BMI of 46
Hypertension
Anemia of chronic disease
Dyslipidemia
Obstructive sleep apnea
Chronic pain syndrome on opiates
Plan
Reconsulted on patient for SISI/chronic hypercarbia 06/13/23
History of SISI noted, started on BIPAP
She is otherwise maintained on 2L NC
Repeat ABG ., prior 7.
Chronic CO2 retention noted, she is close to baseline CO2
Suspect she has more concurrent metabolic acidosis - with worsening pH
CXR/CT reviewed indicating clear lungs/NAD
CT AP reviewed showing cabrera colitis, neg c diff and lactate
Initial Shock has resolved. Likely septic.
Currently on midodrine.
Patient has normal LVEF on echocardiogram. Mild and mild AR on 01/2023.
Completed antibiotics per infectious disease, signed off
Blood cultures with gram-positive cocci in clusters-CoNS, likely contaminant
MRSA screen +
Wound cultures with numerous orgs
She had recent admission for L hip fracture s/p repair 02/16/23; readmitted in March for infected hip, treated with abx
Continue to follow fever curve and leukocytosis
TME noted, likely due to electrolyte abnl-hyponatremia
Lasix started follow serial BMPs.
Increased TSH/reported low free T3.
Nephrology following the patient.
NOAM worsening, at some point may need HD in next few days if not improving
Bicarb IVFs
Cardiac history reviewed--AFlutter maintained on sotalol
Prior ECHO reviewed indicating normal function
Hold home meds, resume when able
Diagnostic Data
Chest X-Ray:
Chest x-ray 03/18/2023: Rotated film. No acute infiltrates.
CT AP 06/08/23- 1. MILD ACUTE INFECTIOUS PANCOLITIS with mild fluid distention of the proximal colon and mild wall thickening and mucosal hyperenhancement in the distal colon and rectum.
2. 1.5 cm intraluminal mass in the descending colon-sigmoid colon junction suspicious for a large colonic polyp (possibly adenocarcinoma).
3. Mild diffuse small bowel distention.
4. Mild hepatomegaly and mild diffuse hepatic steatosis.
5. Small hiatal hernia.
6. Mild pelvic and retroperitoneal lymphadenopathy.
7. Multiple uterine leiomyoma.
8. Mild diffuse thickening and trabeculation of the urinary bladder wall suggesting chronic cystitis.
9. Previous cholecystectomy.
10. Mild cardiomegaly.
11. Osteoporosis with multilevel chronic vertebral body endplate fractures in the lumbar spine.
12. Severe discogenic degenerative disease and facet joint arthrosis in the lower lumbar spine.
13. Severe atrophy of the parapelvic and posterior paraspinal muscles.
CT Scan: AP 02/13/23- Findings suggesting enteritis/ileus. Findings suggesting sequelae of chronic terminal ileitis. Intertrochanteric left femur fracture.
Echo: 02/17/23- Normal left ventricular size and systolic function. No regional wall motion abnormalities are seen. LV ejection fraction is 65-70% by visual assessment. Mild concentric left ventricular hypertrophy. Normal diastolic function. Mildly
dilated left atrium. Mild aortic stenosis. Peak/mean gradients are 34/18mmHg. The valve area by continuity equation is 1.6cm sq, using a LVOT of 1.9cm.
Mild aortic regurgitation. When compared to prior echocardiogram from June 16, 2021, the left atrium is now mildly enlarged and otherwise there is no significant change.
Echocardiogram 02/17/2023: Normal LVEF. Mild LVH. Mild aortic stenosis. Mild AR
PFT's:
Nocturnal ox 07/27/15: time below 90% 1:22:18 (23.8%); time below 88% 46:20 (13.4%); O2 nicol 67%; ALICIA >10s 31.0
Reports and relevant images were personally reviewed.
Subjective Data
-
Date of Service:
Date of Service: June 13, 2023
Chief Complaint: Pulmonary Follow Up
Subjective:
We are asked to re-see
More lethargic, repeat ABG showing chronic Co2 retention
Ongoing management for electrolyte issues
She is sleeping on my arrival, not answering
Objective Data
Data Reviewed
Vital Signs / I&O / Oxygen:
Vital Signs
Temp Pulse Resp BP Pulse Ox
99.0 F 78 22 99/55 96
06/13/23 09:00 06/13/23 09:00 06/13/23 09:00 06/13/23 09:10 06/13/23 09:00
Intake and Output
06/12/23 06/13/23 06/14/23
06:59 06:59 06:59
Intake Total 960 / 960 1614 / 1614
Output Total 250 / 250
Balance 960 / 960 1364 / 1364
SaO2 96
Nasal Cannula flow liters per 2
minute
Physical Exam
General: Poor Appetite and Other (chronically ill appearing, morbidly obese)
HEENT: Normocephalic, Anicteric and Moist Mucous Membranes
Cardiovascular: S1-S2, Regular Rhythm and Peripheral Edema
Respiratory: Clear, Non-Labored Respirations and Other (overall decreased)
GI: Soft, Non Distended and Non Tender
Neurology: Lethargic (not answering questions/following commands)
Skin: Warm, Dry and Other (mottling)
Labs/Micro/Reports
Lab Data
06/13/23 05:39
06/13/23 05:39
Laboratory Results
06/13/23
09:44
pH 7.23 L
pCO2 54 H
pO2 107
HCO3 22.6
O2 Delivery Level
--- NOTE | 2023-06-13 10:20 | W.PN.CARDCBS ---
Today's Communication / Plan
-
Continue amiodarone
Lovenox and gabapentin on hold related to renal failure
In sinus rhythm, anticoagulation at this moment not mandatory from cardiac standpoint.
Impression / Plan
-
Primary Senior Security Engineer: Dr. Low, last seen in office 03/2022
Assessment:
Acute on chronic hyponatremia
Clinical sepsis with shock
Acute on chronic hypoxic respiratory insufficiency, chronically on 2L NC
NOAM with azotemia
LLE cellulitis
N/V/D
Pancolitis
Colon polyps s/p flex sigmoidoscopy with snaring/biopsy 06/10/23
Drug rash, felt to be from lasix, improved
LUE PICC associated DVT
Lethargy
Prolonged QTc on sotalol
Paroxysmal SVT with noninducibility during EP study and empiric atrial flutter ablation 2014
Prior rate related LBBB in setting of SVT
Chronic HFpEF
Hyponatremia
HTN
HLD
DM
Diabetic neuropathy
History of RLE DVT
Anemia of chronic disease
Meningioma
Morbid obesity
SISI
Persistent LE wounds/cellulitis/osteomyelitis
Chronic lymphedema/venous stasis
History of L femur fracture s/p ORIF 02/16/2023 with incomplete healing by imaging
Chronic pain syndrome on opioids
History of partial hysterectomy, oophorectomy, salpingectomy
History of NOAM
ECHO 02/17/23: EF 65 to 70%, mild concentric LVH, mildly dilated left atrium, mild with peak/mean gradients 34/18 mmHg, LA NENA 1.6 cm�, mild AR
Plan:
She is now obtunded with hypercapnic respiratory failure on BiPAP. Somewhat more awake with BiPAP.
Sotalol has been discontinued because of renal failure and QTc prolongation.
Patient now on amiodarone, 200 mg 3 times daily. Most recent QTc is 491 ms and appears to be shortening. Continue amiodarone. No evidence of atrial fibrillation or atrial tach at present.
With progressive renal failure, clearance of gabapentin is decreased, would consider further adjustment in doses. Could be contributing to mental status changes. I have taken the liberty of holding for now, await assessment by renal and
hospitalist.
Creatinine continues to rise, defer to hospitalist and renal as to whether mental status changes could reflect uremia.
Hematology oncology now following given colonoscopy findings, await pathology.
She was not anticoagulated on admission. Currently written for therapeutic dose enoxaparin, dosed for normal renal function, now on hold. If anticoagulation required, would favor heparin over Lovenox.
Progress Note - Senior Security Engineer
Subjective
Date of Service: June 13, 2023:
Patient transferred to IMU today for BiPAP with hypercapnic hypoxemic respiratory failure and mental status changes
Allergies: Numerous per summary screen
Home medications: Per summary screenCurrent medications: Gabapentin 100 mg 3 times daily lorazepam, pantoprazole, atorvastatin 20 mg a day, enoxaparin 100 mg SQ every 12 on hold, insulin, amiodarone 200 mg 3 times daily
PMH/PSH/SH/FH: Reviewed
ROS: Negative except as above
hemoglobin 8.2, white count 14.9, ABG 7.23, pCO2 54, pO2 107, sodium 128, potassium 3.6, CO2 18, creatinine 4.3, GFR 13, lactic acid 0.9
ECG sinus rhythm, sinus arrhythmia, LVH with QRS widening, QTc 491
Objective
Labs:
06/13/23 05:39
06/13/23 05:39
Labs
Hgb 8.2 g/dL (12.0-16.0) L 06/13/23 05:39
Hct 25.0 % (37.0-47.0) L 06/13/23 05:39
Plt Count 260 10^3/uL (130-400) 06/13/23 05:39
PT 13.1 Sec (11.4-14.6) 06/02/23 09:23
INR 1.01 06/02/23 09:23
APTT 31.2 Sec (23.4-35.0) 06/02/23 09:23
Sodium 128 mmol/L (135-145) L 06/13/23 05:39
Potassium 3.6 mmol/L (3.5-5.1) 06/13/23 05:39
BUN 46 mg/dl (7-17) H 06/13/23 05:39
Creatinine 4.3 mg/dL (0.6-1.0) H* 06/13/23 05:39
Glucose 175 mg/dl (70-99) H 06/13/23 05:39
Vital Signs and I&O:
Vital Signs
Temp Pulse Resp BP Pulse Ox
37.2 C 78 22 99/55 96
06/13/23 09:00 06/13/23 09:00 06/13/23 09:00 06/13/23 09:10 06/13/23 09:00
Vital Signs
Temp Pulse Resp BP Pulse Ox
37.2 C 78 22 99/55 96
06/13/23 09:00 06/13/23 09:00 06/13/23 09:00 06/13/23 09:10 06/13/23 09:00
Intake & Output
06/11/23 06/12/23 06/13/23 06/14/23
07:59 07:59 07:59 07:59
Intake Total 2910 / 2910 960 / 960 1614 / 1614
Output Total 250 / 250
Balance 2910 / 2910 960 / 960 1364 / 1364
Physical Exam
Physical Exam
99/55, pulse 78, respiratory 22, febrile, sats 96%'s, weight is 100 kg, up to 1.4 kg, intake and output +1.4 L
On BiPAP, eyes open, responds to verbal stimuli, but obtunded, limited exam, diffuse drug rash persists, has systolic murmur JVD difficult to say exam of lungs limited, abdomen very obese, anasarca, neuro nonfocal
--- NOTE | 2023-06-13 11:08 | CM ---
Case Management following for d/c planning
Transferred to IMU today - change in MS and resp distress
CM will continue to follow for d/c needs
Plan - TBD based on needs
[2023-06-13] MEDS: PROTONIX PO ×2 (11:23→20:32)
[2023-06-13] MEDS: NEURONTIN PO (11:23)
[2023-06-13] MEDS: PACERONE PO ×3 (11:23→22:47)
[2023-06-13] MEDS: OSCAL CAL 500 PO ×2 (11:23→20:31)
[2023-06-13] MEDS: NOVOLOG FLEXPEN-LOW RESISTANCE SC (11:58)
[2023-06-13 13:33] LABS: Glucose - Point of Care 215 mg/dl (70-99)
[2023-06-13] MEDS: NOVOLOG FLEXPEN-LOW RESISTANCE 2 UNITS SC (13:35)
--- NOTE | 2023-06-13 16:15 | W.PN.NEPH.PH ---
Today's Communication / Plan
-
- transferred to IMU
- monitor kidney function
- hold IVF
Assessment/Plan
-
IMP:
Hyponatremia-acute on chronic
NOAM with significant azotemia
suspected septic shock
hypoglycemia
Hypomagnesemia
TME
HX Paroxysmal AF- Not on anticoagulation due to hemorrhagic complications in the past
Chronic anemia
Essential HTN
T2DM
Chronic pain syndrome on chronic opioids
SISI - CPAP
Morbid obesity due to excess calories
PAD
h/o left hip fx s/p ORIF 01/2023
Plan:
NOAM, baseline cr of 0.7
specially post contrast on 06/07+diarrhea
Ethacrynic acid last given on 06/07
HANNAH is on high differential, FeNa not low
now cr up at 4.3 suspect it likely reaching peak since rate of rise is slowing down
monitor UOP-decreasing, Moore in place now
Recent CT no hydro but concern of GI abnormality colitis, mass?
mild gap met acidosis-will hold off on fluids due to hypercapnia and c/f volume overloaod
hyponatremia -monitor. likely from some hypervolemia due to decreased kidney function. Na 128
her edema is significantly improved but wt is increasing, plan for ethacrynic acid tomorrow
replace calcium PRN and initiated on vit D supplementation
replace magnesium-total 4gram today
BP stable but soft
avoid nephrotoxins
unable to discuss with patient as she has NIV
previously reviewed by Dr. Abbott that should her renal function worsens likely need RETORT FORKER in next 1-2 days
hopefully she may escape
monitor h/h s/p C scope 06/10-polypectomies
Amio per cards for afib
labs in am
high risk encounter
-
-
Date of Service: June 13, 2023
CC / HPI / ROS
-
Chief Complaint:
NOAM, hyponatremia
History of Present Illness:
sodium stable at 128, cr up at 4.3, wt is increasing
UOP not measured, incontinent
developed erythematous red rash on chest post Lasix now improving
k normal, bicarb 18, nikia 7.3, Mag 1.7
BP stable
GIB , Hb slowly decreasing 8.2 post sigmoidoscopy 06/09, C scope on 06/10 polypectomies
Review of Systems:
now transferred to IMU for hypercapnia and lethargy
concern about BP cuff which not even inflated while addressing need of dialysis
insight seem poor
Labs
-
Labs:
WBC 14.9 10^3/uL (4.8-10.8) H 06/13/23 05:39
RBC 2.85 10^6/uL (4.20-5.40) L 06/13/23 05:39
Hgb 8.2 g/dL (12.0-16.0) L 06/13/23 05:39
Hct 25.0 % (37.0-47.0) L 06/13/23 05:39
Plt Count 260 10^3/uL (130-400) 06/13/23 05:39
Sodium 128 mmol/L (135-145) L 06/13/23 05:39
Potassium 3.6 mmol/L (3.5-5.1) 06/13/23 05:39
Chloride 99 mmol/L (98-107) 06/13/23 05:39
Carbon Dioxide 18 mmol/L (22-30) L 06/13/23 05:39
BUN 46 mg/dl (7-17) H 06/13/23 05:39
Creatinine 4.3 mg/dL (0.6-1.0) H* 06/13/23 05:39
eGFR 10.79 06/13/23 05:39
Glucose 175 mg/dl (70-99) H 06/13/23 05:39
Calcium 7.3 mg/dl (8.4-10.2) L 06/13/23 05:39
Phosphorus 6.0 mg/dl (2.5-4.5) H 06/02/23 05:09
Ocp-V-Wuzuraejdoq Pept 633 pg/ml 06/02/23 05:09
Albumin 2.2 g/dl (3.5-5.0) L 06/12/23 05:35
Physical Exam
-
Vital Signs:
Vital Signs
Temp Pulse Resp BP Pulse Ox
99.0 F 71 15 95/56 100
06/13/23 09:00 06/13/23 15:00 06/13/23 15:00 06/13/23 14:00 06/13/23 15:53
Cardiovascular:: Regular rate and rhythm
Respiratory:: Bilateral: Coarse
Lung Excursion:: Normal
Abdomen:: Nontender and Soft
Bowel Sounds:: Normal
Extremity Edema:: +2: Bilateral:
Moore Catheter: Yes
[2023-06-13 17:42] LABS: Glucose - Point of Care 178 mg/dl (70-99)
[2023-06-13] MEDS: NOVOLOG FLEXPEN-LOW RESISTANCE 1 UNITS SC (18:00)
[2023-06-13] MEDS: LIPITOR PO (18:15)
--- NOTE | 2023-06-13 19:35 | PTCARENOTE ---
day shift note. recieved pt from general floor s/p rapid response. assessment as charted. pt remains lethargic. bipap on with sat 99 to100 percent. pt opens eyes to voice and occasionally speaks then goes back to sleep. scant urine output at this
point. discussed with nephrology. no new orders at this time. sinus rythym with pacs on monitor. pt and kids here this afternoon and educated re pts plan of care.
[2023-06-13] MEDS: DESENEX/MITRAZOL/ZEASORB 1 APPLIC TOPICAL (20:31)
[2023-06-13 21:37] LABS: Glucose - Point of Care 144 mg/dl (70-99)
[2023-06-13] MEDS: ATIVAN PO (22:46)
[2023-06-14] VITALS (15 sets, daily range): BP systolic 97–127; BP diastolic 47–107; PULSE 2–103; BMI 46.5
--- NOTE | 2023-06-14 04:38 | PTCARENOTE ---
Pt received at beginning of shift resting in bed. BIPAP remains on at 15/5/2L POX 98-100%. Pt awakens with any care provided but remains drowsy. VSS. Afebrile. SR/PAC on CM rate 60-110, mostly 70's. Moore with minimal drainage overnight. Moore
tubing with bebo/sediment urine. Moore tubing closest to pt has straw colored urine in tubing. Odor present. Skin remain flushed. Desenex applied to all skin folds. Wound care to left hip completed. No change from previous assessment. Call frances
remains within reach. Will continue to monitor.
[2023-06-14 04:57] LABS: Blood Urea Nitrogen 59 mg/dl (7-17); Calcium 8.2 mg/dl (8.4-10.2); Carbon Dioxide 18 mmol/L (22-30); Chloride 98 mmol/L (98-107); Estimated Creatinine Clearance 13 ml/min; Glucose 126 mg/dl (70-99); Sodium 129 mmol/L (135-145)
[2023-06-14 07:52] LABS: Glucose - Point of Care 152 mg/dl (70-99)
[2023-06-14] MEDS: NOVOLOG FLEXPEN-LOW RESISTANCE 1 UNITS SC ×2 (08:20→12:48)
[2023-06-14] MEDS: PACERONE 200 MG PO ×3 (08:21→22:15)
[2023-06-14] MEDS: VITAMIN D3 (cholecalciferol) 125 MCG PO (08:21)
[2023-06-14] MEDS: PROTONIX 40 MG PO ×2 (08:21→22:11)
[2023-06-14] MEDS: OSCAL CAL 500 1000 MG PO ×2 (08:21→22:14)
[2023-06-14] MEDS: DESENEX/MITRAZOL/ZEASORB 1 APPLIC TOPICAL ×2 (08:21→19:44)
--- NOTE | 2023-06-14 08:27 | W.PN.CARDCBS ---
Today's Communication / Plan
-
Difficult situation
switched to amiodarone for arrhythmia suppression
treating hypercapnia
follow renal function
prognosis guarded
Impression / Plan
-
Primary Taping Machine Operator: Dr. Low, last seen in office 03/2022
Assessment:
Acute on chronic hyponatremia
Clinical sepsis with shock
Acute on chronic hypoxic respiratory insufficiency, chronically on 2L NC
NOAM with azotemia
LLE cellulitis
N/V/D
Pancolitis
Colon polyps s/p flex sigmoidoscopy with snaring/biopsy 06/10/23
Drug rash, felt to be from lasix, improved
LUE PICC associated DVT
Lethargy
Prolonged QTc on sotalol
Paroxysmal SVT with noninducibility during EP study and empiric atrial flutter ablation 2014
Prior rate related LBBB in setting of SVT
Chronic HFpEF
Hyponatremia
HTN
HLD
DM
Diabetic neuropathy
History of RLE DVT
Anemia of chronic disease
Meningioma
Morbid obesity
SISI
Persistent LE wounds/cellulitis/osteomyelitis
Chronic lymphedema/venous stasis
History of L femur fracture s/p ORIF 02/16/2023 with incomplete healing by imaging
Chronic pain syndrome on opioids
History of partial hysterectomy, oophorectomy, salpingectomy
History of NOAM
ECHO 02/17/23: EF 65 to 70%, mild concentric LVH, mildly dilated left atrium, mild with peak/mean gradients 34/18 mmHg, LA NENA 1.6 cm�, mild AR
Plan:
Change in mental status noted, she is interactive but not cogent
Sotalol has been discontinued because of renal failure and QTc prolongation.
Patient now on amiodarone, 200 mg 3 times daily. Most recent QTc is 491 ms and appears to be shortening. Continue amiodarone. No evidence of atrial fibrillation or atrial tach at present although she has frequent PAC's and amiodarone to suppress
rapid arrhythmias. would be ideal to avoid elevated rates
Follow renal function
Hematology oncology now following given colonoscopy findings, await pathology.
She was not anticoagulated on admission. Currently written for therapeutic dose enoxaparin, dosed for normal renal function, now on hold. If anticoagulation required, would favor heparin over Lovenox.
Progress Note - Taping Machine Operator
Subjective
Date of Service: June 14, 2023
responds to verbal stimuli but not coherent
Objective
Labs:
06/14/23 04:16
Labs
Hgb Cancelled 06/14/23 04:16
Hct Cancelled 06/14/23 04:16
Plt Count Cancelled 06/14/23 04:16
PT 13.1 Sec (11.4-14.6) 06/02/23 09:23
INR 1.01 06/02/23 09:23
APTT 31.2 Sec (23.4-35.0) 06/02/23 09:23
Sodium 129 mmol/L (135-145) L 06/14/23 04:16
Potassium 4.0 mmol/L (3.5-5.1) 06/14/23 04:16
BUN 59 mg/dl (7-17) H 06/14/23 04:16
Creatinine 4.4 mg/dL (0.6-1.0) H* 06/14/23 04:16
Glucose 126 mg/dl (70-99) H 06/14/23 04:16
Vital Signs and I&O:
Vital Signs
Temp Pulse Resp BP Pulse Ox
98.2 F 88 18 108/65 100
06/14/23 04:05 06/14/23 08:21 06/14/23 06:00 06/14/23 08:21 06/14/23 07:52
Vital Signs
Temp Pulse Resp BP Pulse Ox
98.2 F 88 18 108/65 100
06/14/23 04:05 06/14/23 08:21 06/14/23 06:00 06/14/23 08:21 06/14/23 07:52
Intake & Output
06/12/23 06/13/23 06/14/23 06/15/23
06:59 06:59 06:59 06:59
Intake Total 960 / 960 1614 / 1614 0 / 0
Output Total 250 / 250 100 / 100
Balance 960 / 960 1364 / 1364 -100 / -100
Physical Exam
Physical Exam
heent ncat
aao x 2
non localizing neurologically
morbid obesity
cor regular no m
lungs diminished
abd soft nt distended
1+ ext edema
--- NOTE | 2023-06-14 08:57 | W.PN.HOSP.TC ---
Today's Communication/Plan
-
Start on IV heparin
Follow HH
Midline
Follow Cr
Assessment / Plan
Assessment / Plan
Assessment and plan:
change in mental status this morning - sec to metabolic encephalopathy
ABG was obtained it shows she has acute hypercapnic hypoxic respiratory failure.
Resolved with BiPAP support.
Acute hypercapnic hypoxic respiratory failure. Patient with chronic hypoxic respiratory insufficiency on 2 L at home. She has history of sleep apnea but was not able to tolerate mask in the past. She is obese. Suspected respiratory distress
secondary to sleep apnea. Avoid sedation.
Repeat chest x-ray 06/12 showed low lung volumes
cw BiPAP at 15/5 on 2 L of oxygen prn sleep
Appt pulm input
Aucte GI bleed
No active bleeding.
Had a full colonoscopy 06/10 and multiple polyps removed
Possible related to polyp after initial sigmoidoscopy and polyp resection.
Hemoglobin is stable
Follow bx results
GI following
Restart AC for Left arm DVT
Baseline Chronic normocytic anemia-ACD. Hemoglobin at baseline. Aim to keep it more than 8. No iron def.
Acute renal failure: Could be multifactorial including receiving ethacrynic acid, sepsis shock hypotension, IV contrast
Creatinine seems to be peaking
Nephrology on board
Continue to monitor
Avoid nephrotoxin
CW IV fluids per renal
Left arm PICC associated DVT -tx with AC for 1 month. On lovenox which was on hold because of bleeding and and acute renal failure.
start on IV heparin .
hematology input noted regarding this DVT
Her DVT was in axillary vein extending into basilic .
Shock on admission -suspected sepsis -resolved .Off of pressors . Normal EF on recent ECHO (01/2023), normal diastolic function, Mild ,mild AR .
Left leg cellulitis with left hip area wound - No drainage from wound - eval by ortho. Completed antibiotic,
# MRSA colonized
-s/p meropenem x 3 d.
-Completed linezolid 600mg po bid x through 06/08/2023 am
- Follow leukocytosis closely
Right leg warm and red as well - possible cellulitis, completed antibiotic as above.
White cell count trended down and stable
Bilateral lower extremity edema-suspected may be dependent, while protein caloric malnutrition hypoalbuminemia could be another reason, acute renal failure could adding to it.
. Echo in January 2023 shows normal diastolic function and normal EF. Her BNP on admission was within the normal limit. Her weight gain has been higher since her recent discharge. cw compression dressings for fluid management. Pt says she is
allergic to sulfa including lasix .switched to ethacryanic acid -much improved wt ;lowest so far in [facility] system since 06/2021.Raise in Cr slightly noted .Hold Ethacrynic acid. There is concern of N/V sec to ethacrynic acid but pt was also getting
linezolid at same time.
Weight up again -follow daily weights
Drug rash -possible lasix - it is off now. Got 2 doses only . Allergic to sulfa antibiotic drugs . Lasix listed as allergy as well now.
Hyponatremia - management per renal - acute on chronic .
Fluctuating
Nephrology on board
Moderate protein caloric malnutrition, albumin 2.2.
HTN - hold ARB due to hypotension and follow
DM 2 with hyperglycemia. Patient with poor oral intake. Hemoglobin A1c 7.1. Hold glimepiride and alogliptin for now. cortisol is ok .
Recent Left Hip ORIF - OP CT hip noted - cw PT eval; Wound care/abx for left hip wound. Ortho input noted.
Paroxysmal atrial fibrillation-in sinus rhythm. QTc normal now . QTc in March 2023 was within normal limits. DC sotalol due to NOAM and low normal blood pressure
Cardiology following -now on Amio
Full code
DW RN
Total time spent on today's encounter was 52 minutes which included time spent in counseling the patient regarding diagnosis and treatment plan as listed above, goals of care, and symptom management. Case was discussed with nursing staff,
specialists. All labs and imaging personally reviewed by me. Remainder the time spent in detailed review of previous records, lab data, imaging, and other medical provider documentation.
Anticipated Discharge: > 48 hours
Subjective/Interval History
-
Date of Service: June 14, 2023
This morning much better. She tolerated BiPAP last night.
She is alert and oriented today. She does not remember much of yesterday.
She is hungry for breakfast. No nausea. No abdominal pain.
Denies shortness of breath.
Objective Data
-
Labs:
Laboratory Results
06/14/23 06/14/23
04:16 04:32
WBC Cancelled Pending
Hgb Cancelled Pending
Hct Cancelled Pending
Plt Count Cancelled Pending
Sodium 129 L
Potassium 4.0
Chloride 98
Carbon Dioxide 18 L
BUN 59 H
Creatinine 4.4 H*
Glucose 126 H
Calcium 8.2 L
Vital Signs:
Vital Signs
Temp Pulse Resp BP Pulse Ox
98.4 F 88 18 108/65 100
06/14/23 07:30 06/14/23 08:21 06/14/23 06:00 06/14/23 08:21 06/14/23 07:52
I&O
06/13/23 06/14/23 06/15/23
06:59 06:59 06:59
Intake Total 1614 / 1614 0 / 0
Output Total 250 / 250 100 / 100
Balance 1364 / 1364 -100 / -100
Review of Systems
-
Constitutional: Denies Fever
EENT: Denies Sore Throat
Respiratory: Denies Cough
Cardiac: Denies Chest Pain
Neuro: Denies Dizzy
Physical Exam
-
General: No Apparent Distress
HEENT: Moist Mucous Membranes
Respiratory: Clear to Auscultation (anteriorly)
Cardiac: Regular Rhythm and S1/S2
GI: Soft, Nontender, Normal Bowel Sounds and Other (obese)
Musculoskeletal: Edema, Left Upper Extrem (still with mild swelling)
Neuro: AO x 3; Negative Tremors
Psych: Calm; Negative Confused
Data Reviewed
-
Labs: Labs Reviewed by me
[2023-06-14] MEDS: EDECRIN IV (11:43)
[2023-06-14 12:10] LABS: Glucose - Point of Care 181 mg/dl (70-99)
[2023-06-14] MEDS: EDECRIN 50 MG IV (12:49)
--- NOTE | 2023-06-14 13:55 | W.PN.PUL3 ---
Today's Communication / Plan
-
Continue nocturnal BiPAP. Reviewed with patient that this will be lifelong
Continue to follow for metabolic acidemia
Nephrology following, may require MARINE ENGINE DRIVER
heparin therapy started
Positional therapy
Assessment
-
Patient is a 68-year-old female with history of Aflutter, HTN, IDDM, SISI, anxiety presenting to ER from [facility] with abnormal labs-hyponatremia. Patient has been on fluid restriction due to this hyponatremia for the last 3 days. Sodium on
arrival 123, previously 131 on 04/28/23. She was noted to be hypotensive on arrival, started on levophed and admitted to ICU.
She is noted to be hypoglycemic on arrival as well, given amp Dextrose with minimal improvement.
Acute on chronic hyponatremia
Persistent hypoglycemia, resolved
NOAM, creat now 4.3
Worsening metabolic acidosis
Chronically compensated resp acidosis, suspected SISI/OHS now on BIPAP
Lethargy
Oliguria
Hypocalcemia/hypomag
Acute infected pancolitis on CT, neg lactate/c diff
Conditions present prior admission:
Discharged from 01/2023: Lethargy/status post fall status post left hip intertrochanteric fracture with repair
Lower extremity infection with Streptococcus bovis seen by ID and discharged on antibiotics until 02/26/2023-Wound culture left leg 03/18/2023: MRSA and Pseudomonas.
Atrial fibrillation off anticoagulation due to hemorrhagic complication
Peripheral arterial disease
Diabetes mellitus type 2
Morbid obesity with a BMI of 46
Hypertension
Anemia of chronic disease
Dyslipidemia
Obstructive sleep apnea
Chronic pain syndrome on opiates
Plan
Reconsulted on patient for SISI/chronic hypercarbia 06/13/23
History of SISI noted, started on BIPAP
She is otherwise maintained on 2L NC
Repeat ABG 7.2354, prior 7.38
Chronic CO2 retention noted, she is close to baseline CO2
Suspect she has more concurrent metabolic acidosis - with worsening pH
CXR/CT reviewed indicating clear lungs/NAD
CT AP reviewed showing cabrera colitis, neg c diff and lactate
Initial Shock has resolved. Likely septic.
Currently on midodrine.
Patient has normal LVEF on echocardiogram. Mild and mild AR on 01/2023.
Completed antibiotics per infectious disease, signed off
Blood cultures with gram-positive cocci in clusters-CoNS, likely contaminant
MRSA screen +
Wound cultures with numerous orgs
She had recent admission for L hip fracture s/p repair 02/16/23; readmitted in March for infected hip, treated with abx
Continue to follow fever curve and leukocytosis
TME noted, likely due to electrolyte abnl-hyponatremia
Lasix started follow serial BMPs.
Increased TSH/reported low free T3.
Nephrology following. Reviewed with nephrology
NOAM worsening, at some point may need HD in next few days if not improving
Bicarb IVFs
Cardiac history reviewed--AFlutter maintained on sotalol
Prior ECHO reviewed indicating normal function
Hold home meds, resume when able
heparin therapy started
Avoid narcotics, sedatives
patient on gabapentin 100 mg 3 times a day, Ativan
Hold for sedation
Patient with poor prognosis long-term given multiple comorbidities, severely deconditioned
Diagnostic Data
Chest X-Ray:
Chest x-ray 03/18/2023: Rotated film. No acute infiltrates.
CT AP 06/08/23- 1. MILD ACUTE INFECTIOUS PANCOLITIS with mild fluid distention of the proximal colon and mild wall thickening and mucosal hyperenhancement in the distal colon and rectum.
2. 1.5 cm intraluminal mass in the descending colon-sigmoid colon junction suspicious for a large colonic polyp (possibly adenocarcinoma).
3. Mild diffuse small bowel distention.
4. Mild hepatomegaly and mild diffuse hepatic steatosis.
5. Small hiatal hernia.
6. Mild pelvic and retroperitoneal lymphadenopathy.
7. Multiple uterine leiomyoma.
8. Mild diffuse thickening and trabeculation of the urinary bladder wall suggesting chronic cystitis.
9. Previous cholecystectomy.
10. Mild cardiomegaly.
11. Osteoporosis with multilevel chronic vertebral body endplate fractures in the lumbar spine.
12. Severe discogenic degenerative disease and facet joint arthrosis in the lower lumbar spine.
13. Severe atrophy of the parapelvic and posterior paraspinal muscles.
CT Scan: AP 02/13/23- Findings suggesting enteritis/ileus. Findings suggesting sequelae of chronic terminal ileitis. Intertrochanteric left femur fracture.
Echo: 02/17/23- Normal left ventricular size and systolic function. No regional wall motion abnormalities are seen. LV ejection fraction is 65-70% by visual assessment. Mild concentric left ventricular hypertrophy. Normal diastolic function. Mildly
dilated left atrium. Mild aortic stenosis. Peak/mean gradients are 34/18mmHg. The valve area by continuity equation is 1.6cm sq, using a LVOT of 1.9cm.
Mild aortic regurgitation. When compared to prior echocardiogram from June 16, 2021, the left atrium is now mildly enlarged and otherwise there is no significant change.
Echocardiogram 02/17/2023: Normal LVEF. Mild LVH. Mild aortic stenosis. Mild AR
PFT's:
Nocturnal ox 07/27/15: time below 90% 1:22:18 (23.8%); time below 88% 46:20 (13.4%); O2 nicol 67%; ALICIA >10s 31.0
Reports and relevant images were personally reviewed.
Subjective Data
-
Date of Service:
Date of Service: June 14, 2023
Chief Complaint: Pulmonary Follow Up
Subjective:
Patient seen and examined earlier this morning. She did tolerate her BiPAP overnight but does not like it. He is fatigued, intermittently falling asleep during my interview with her. Denies nausea, abdominal pain. She denies shortness of breath
Objective Data
Data Reviewed
Vital Signs / I&O / Oxygen:
Vital Signs
Temp Pulse Resp BP Pulse Ox
98.4 F 106 18 127/95 100
04/13/24 11:20 06/14/23 12:49 06/14/23 06:00 06/14/23 12:49 06/14/23 07:52
Intake and Output
06/13/23 06/14/23 06/15/23
06:59 06:59 06:59
Intake Total 1614 / 1614 0 / 0
Output Total 250 / 250 100 / 100
Balance 1364 / 1364 -100 / -100
SaO2 100
Nasal Cannula flow liters per 2
minute
Physical Exam
General: Other (chronically ill appearing, morbidly obese)
HEENT: Normocephalic, Anicteric, Moist Mucous Membranes and Other (Large neck)
Cardiovascular: S1-S2, Regular Rhythm and Peripheral Edema
Respiratory: Clear, Wheeze (n), Crackles (n), Non-Labored Respirations, Stridor (n) and Other (overall decreased)
GI: Soft, Non Distended (Morbidly obese) and Non Tender
Neurology: Lethargic (She is conversant but closes eyes intermittently during conversation)
Skin: Warm, Dry, Cyanosis (n), Jaundice (n) and Other (mottling)
Labs/Micro/Reports
Lab Data
06/14/23 04:16
--- NOTE | 2023-06-14 15:01 | W.PN.NEPH.PH ---
Today's Communication / Plan
-
- ethacrynic acid
- trend BMPs
Assessment/Plan
-
IMP:
Hyponatremia-acute on chronic
NOAM with significant azotemia
suspected septic shock
hypoglycemia
Hypomagnesemia
TME
HX Paroxysmal AF- Not on anticoagulation due to hemorrhagic complications in the past
Chronic anemia
Essential HTN
T2DM
Chronic pain syndrome on chronic opioids
SISI - CPAP
Morbid obesity due to excess calories
PAD
h/o left hip fx s/p ORIF 01/2023
Plan:
NOAM, baseline cr of 0.7 now elevated to 4.4. hoping this is the peak
specially post contrast on 06/07+diarrhea
Ethacrynic acid last given on 06/07, plan to give again today
HANNAH is on high differential, FeNa not low
monitor UOP-decreasing, Moore in place now
Recent CT no hydro but concern of GI abnormality colitis, mass?
mild gap met acidosis-will hold off on fluids due to hypercapnia and c/f volume overloaod
hyponatremia -monitor. likely from some hypervolemia due to decreased kidney function. Na 128
continues to have edema, gave a dose of ethacrynic acid today
replace calcium PRN and initiated on vit D supplementation
BP stable but soft
avoid nephrotoxins
discussed with patient and at [facility]
previously reviewed by Dr. Abbott that should her renal function worsens likely need SEDIMENT REMEDIATION CONSULTANT in next 1-2 days
hopefully she may escape
monitor h/h s/p C scope 06/10-polypectomies
Amio per cards for afib
labs in am
high risk encounter
-
-
Date of Service: June 14, 2023
CC / HPI / ROS
-
Chief Complaint:
NOAM, hyponatremia
History of Present Illness:
sodium stable at 129, cr up at 4.4, wt is increasing
UOP not measured, incontinent
developed erythematous red rash on chest post Lasix now improving
k normal, bicarb 18, nikia 8.2
BP stable
GIB , Hb slowly decreasing 8.2 post sigmoidoscopy 06/09, C scope on 06/10 polypectomies
Review of Systems:
now transferred to IMU for hypercapnia and lethargy
concern about BP cuff which not even inflated while addressing need of dialysis
insight seem poor
Labs
-
Labs:
Sodium 129 mmol/L (135-145) L 06/14/23 04:16
Potassium 4.0 mmol/L (3.5-5.1) 06/14/23 04:16
Chloride 98 mmol/L (98-107) 06/14/23 04:16
Carbon Dioxide 18 mmol/L (22-30) L 06/14/23 04:16
BUN 59 mg/dl (7-17) H 06/14/23 04:16
Creatinine 4.4 mg/dL (0.6-1.0) H* 06/14/23 04:16
eGFR 10.50 06/14/23 04:16
Glucose 126 mg/dl (70-99) H 06/14/23 04:16
Calcium 8.2 mg/dl (8.4-10.2) L 06/14/23 04:16
Phosphorus 6.0 mg/dl (2.5-4.5) H 06/02/23 05:09
Dxk-L-Cazgdraparp Pept 633 pg/ml 06/02/23 05:09
Albumin 2.2 g/dl (3.5-5.0) L 06/12/23 05:35
Physical Exam
-
Vital Signs:
Vital Signs
Temp Pulse Resp BP Pulse Ox
98.4 F 106 18 127/95 100
06/14/23 11:20 06/14/23 12:49 06/14/23 06:00 06/14/23 12:49 06/14/23 07:52
Cardiovascular:: Regular rate and rhythm
Respiratory:: Bilateral: Coarse
Lung Excursion:: Normal
Abdomen:: Distended, Nontender and Soft
Bowel Sounds:: Normal
Extremity Edema:: +3: Bilateral:
Moore Catheter: Yes
[2023-06-14] MEDS: LIPITOR 20 MG PO (17:49)
[2023-06-14] MEDS: NOVOLOG FLEXPEN-LOW RESISTANCE 2 UNITS SC (17:51)
[2023-06-14 18:03] LABS: Glucose - Point of Care 214 mg/dl (70-99)
[2023-06-14 18:35] LABS: Hematocrit 24.6 % (37.0-47.0); Hemoglobin 8.5 g/dL (12.0-16.0); Mean Corp Hgb Conc. 34.6 g/dL (33.0-37.0); Mean Corpuscular Hgb 28.9 pg (27.0-31.0); Mean Corpuscular Volume 83.7 fL (81.0-99.0); Mean Platelet Volume 9.6 fL (7.4-10.4); Platelet Count 431 10^3/uL (130-400); Red Blood Cell Count 2.94 10^6/uL (4.20-5.40); Red Cell Dist. Width 14.4 % (11.5-14.5)
--- NOTE | 2023-06-14 18:44 | PTCARENOTE ---
POST RIGHT ARM ULTRASOUND,R ARM MIDLINE PLACED PER MD
[2023-06-14 19:29] LABS: APTT 21.6 Sec (23.4-35.0)
[2023-06-14] MEDS: HEPARIN 25000 UNITS/250 ML IV (19:34)
[2023-06-14] MEDS: TIGAN 200 MG IM (19:42)
--- NOTE | 2023-06-14 21:05 | RESPNOTE ---
I attempted to place pt on CPAP per the Dr's order. Pt adamantly refused stating 'You can't force me to wear that', 'I just want to wear oxygen'. I explained that we do not force any pt to do something they don't want. I explained that the Dr wished
for her to try it and again she refused.
[2023-06-14] MEDS: ATIVAN 1 MG PO (22:14)
[2023-06-14 22:43] LABS: Glucose - Point of Care 232 mg/dl (70-99)
[2023-06-15] VITALS (12 sets, daily range): BP systolic 90–140; BP diastolic 31–87; BMI 46.0
--- NOTE | 2023-06-15 01:30 | PTCARENOTE ---
Addendum entered by Jazz Feng RN 06/15/23 01:59:
Pt had episode of n/v at beginning of shift. Approx emesis 300mls. Tigan IM given as ordered with good relief.
Original Note:
Pt received at beginning of shift resting in bed. AAOx3. Calls out frequently when awake. PTT obtained at beginning of shift resulted 21.6. Heparin gtt initiated as ordered at 1800 units. Next PTT scheduled for 0145. Pt having multiple loose/watery
BM's. Rectal trumpet placed. Moore draining cloudy straw color urine. Skin remains flushed, red, peeling in areas, many areas open. Pt refuses to wear CPAP overnight. Continues on 4L NC. VSS. Afebrile. Rest of assessment as documented. Maintained on
Q2hr turns. Call frances remain within reach. Will continue to monitor.
[2023-06-15 02:05] LABS: APTT 113.6 Sec (23.4-35.0)
[2023-06-15 05:08] LABS: Hemoglobin 8.3 g/dL (12.0-16.0); Mean Corp Hgb Conc. 33.2 g/dL (33.0-37.0); Mean Corpuscular Hgb 28.8 pg (27.0-31.0); Mean Corpuscular Volume 86.8 fL (81.0-99.0); Mean Platelet Volume 10.3 fL (7.4-10.4); Platelet Count 420 10^3/uL (130-400); Red Blood Cell Count 2.88 10^6/uL (4.20-5.40); Red Cell Dist. Width 14.3 % (11.5-14.5); White Blood Cell Count 15.4 10^3/uL (4.8-10.8)
[2023-06-15 05:37] LABS: Blood Urea Nitrogen 68 mg/dl (7-17); Calcium 8.3 mg/dl (8.4-10.2); Carbon Dioxide 18 mmol/L (22-30); Chloride 99 mmol/L (98-107); Estimated Creatinine Clearance 13 ml/min; Glucose 147 mg/dl (70-99); Potassium 3.7 mmol/L (3.5-5.1); Sodium 130 mmol/L (135-145); eGFR 10.22
[2023-06-15] MEDS: PACERONE 200 MG PO ×3 (08:54→21:33)
[2023-06-15] MEDS: VITAMIN D3 (cholecalciferol) 125 MCG PO (08:54)
[2023-06-15] MEDS: OSCAL CAL 500 1000 MG PO ×2 (08:54→21:01)
[2023-06-15] MEDS: PROTONIX 40 MG PO ×2 (08:54→21:01)
[2023-06-15] MEDS: DESENEX/MITRAZOL/ZEASORB 1 APPLIC TOPICAL ×2 (08:55→21:01)
[2023-06-15] MEDS: NOVOLOG FLEXPEN-LOW RESISTANCE 1 UNITS SC ×3 (09:01→17:37)
[2023-06-15 09:11] LABS: Glucose - Point of Care 157 mg/dl (70-99)
--- NOTE | 2023-06-15 09:49 | W.PN.CARDCBS ---
Today's Communication / Plan
-
We switched to amiodarone therapy for SVT suppression
Clinically deteriorating
Following renal function
IV heparin for PICC associated DVT
Impression / Plan
-
Primary Bridal Service Sales And Management: Dr. Low, last seen in office 03/2022
Assessment:
Acute on chronic hyponatremia
Clinical sepsis with shock
Acute on chronic hypoxic respiratory insufficiency, chronically on 2L NC
NOAM with azotemia
LLE cellulitis
N/V/D
Pancolitis
Colon polyps s/p flex sigmoidoscopy with snaring/biopsy 06/10/23
Drug rash, felt to be from lasix, improved
LUE PICC associated DVT
Lethargy
Prolonged QTc on sotalol
Paroxysmal SVT with noninducibility during EP study and empiric atrial flutter ablation 2014
Prior rate related LBBB in setting of SVT
Chronic HFpEF
Hyponatremia
HTN
HLD
DM
Diabetic neuropathy
History of RLE DVT
Anemia of chronic disease
Meningioma
Morbid obesity
SISI
Persistent LE wounds/cellulitis/osteomyelitis
Chronic lymphedema/venous stasis
History of L femur fracture s/p ORIF 02/16/2023 with incomplete healing by imaging
Chronic pain syndrome on opioids
History of partial hysterectomy, oophorectomy, salpingectomy
History of NOAM
ECHO 02/17/23: EF 65 to 70%, mild concentric LVH, mildly dilated left atrium, mild with peak/mean gradients 34/18 mmHg, LA NENA 1.6 cm�, mild AR
Plan:
Change in mental status noted
Sotalol has been discontinued because of renal failure and QTc prolongation. We have switched her to amiodarone for arrhythmia suppression
Patient now on amiodarone, 200 mg 3 times daily. Most recent QTc is 477 ms and appears to be shortening. Continue amiodarone. No evidence of atrial fibrillation or atrial tach at present although she has frequent PAC's and amiodarone to suppress
rapid arrhythmias. would be ideal to avoid elevated rates
Follow renal function. Unfortunately it continues to slowly rise with a concomitant rise in BUN.
Hematology oncology now following given colonoscopy findings, await pathology.
She was not anticoagulated on admission. Currently written for heparin given her PICC line associated DVT. If anticoagulation required, would favor heparin over Lovenox.
Overall I am concerned about her clinical course and prognosis is guarded. It would be reasonable to have goals of care discussions with family as she appears to be deteriorating each day
Progress Note - Bridal Service Sales And Management
Subjective
Date of Service: June 15, 2023
Less interactive today
Objective
Labs:
06/15/23 04:24
06/15/23 04:24
Labs
Hgb 8.3 g/dL (12.0-16.0) L 06/15/23 04:24
Hct 25.0 % (37.0-47.0) L 06/15/23 04:24
Plt Count 420 10^3/uL (130-400) H 06/15/23 04:24
PT 13.1 Sec (11.4-14.6) 06/02/23 09:23
INR 1.01 06/02/23 09:23
APTT 113.6 Sec (23.4-35.0) H 06/15/23 01:45
Sodium 130 mmol/L (135-145) L 06/15/23 04:24
Potassium 3.7 mmol/L (3.5-5.1) 06/15/23 04:24
BUN 68 mg/dl (7-17) H 06/15/23 04:24
Creatinine 4.5 mg/dL (0.6-1.0) H* 06/15/23 04:24
Glucose 147 mg/dl (70-99) H 06/15/23 04:24
Vital Signs and I&O:
Vital Signs
Temp Pulse Resp BP Pulse Ox
99.9 F 91 19 111/47 96
06/15/23 04:10 06/15/23 06:03 06/15/23 06:03 06/15/23 06:03 06/15/23 06:03
Vital Signs
Temp Pulse Resp BP Pulse Ox
99.9 F 91 19 111/47 96
06/15/23 04:10 06/15/23 06:03 06/15/23 06:03 06/15/23 06:03 06/15/23 06:03
Intake & Output
06/13/23 06/14/23 06/15/23 06/16/23
06:59 06:59 06:59 06:59
Intake Total 1614 / 1614 0 / 0 175 / 175
Output Total 250 / 250 100 / 100 400 / 400
Balance 1364 / 1364 -100 / -100 -225 / -225
Physical Exam
Physical Exam
Physical Exam
General: no apparent distress, not acutely ill
Neck: supple. no meningeal signs. normal psoterior pharynx
Heart: s1/s2 regular rate and rhythm, no murmur. equal radial pulses.
Lungs: no acute respiratory distress. clear bilaterally
Abdomen: normal bowel sounds. not tender. no CVAT
Neuro: alert and oriented. no focal neurological deficits
Skin: no rash
Psychiatric: well kept. interactive and cooperative
Extremities: no edema. no calf tenderness. negative homans. good distal pulses
[2023-06-15] MEDS: HEPARIN 25000 UNITS/250 ML IV (11:38)
[2023-06-15 12:08] LABS: Glucose - Point of Care 178 mg/dl (70-99)
--- NOTE | 2023-06-15 13:40 | W.PN.NEPH.PH ---
Today's Communication / Plan
-
- ethacrynic acid
Assessment/Plan
-
IMP:
Hyponatremia-acute on chronic
NOAM with significant azotemia
suspected septic shock
hypoglycemia
Hypomagnesemia
TME
HX Paroxysmal AF- Not on anticoagulation due to hemorrhagic complications in the past
Chronic anemia
Essential HTN
T2DM
Chronic pain syndrome on chronic opioids
SISI - CPAP
Morbid obesity due to excess calories
PAD
h/o left hip fx s/p ORIF 01/2023
Plan:
NOAM, baseline cr of 0.7 now elevated to 4.5. hoping this is the peak
specially post contrast on 06/07+diarrhea
Ethacrynic acid last given on 06/13, plan to give again today
HANNAH is on high differential, FeNa not low
monitor UOP-increasing, Moore in place now
Recent CT no hydro but concern of GI abnormality colitis, mass?
mild gap met acidosis-will hold off on fluids due to hypercapnia and c/f volume overload
hyponatremia -monitor. likely from some hypervolemia due to decreased kidney function. Na 130 (improved after ethacrynic acid)
continues with edema
replace calcium PRN and initiated on vit D supplementation
BP stable but soft
avoid nephrotoxins
discussed with patient
previously reviewed by Dr. Abbott that should her renal function worsens likely need ADAPTED PHYSICAL EDUCATION TEACHER in next 1-2 days
Discussed again with patient on 06/13 that she would be okay with short term HD
If kidney function continues to worsen, would place HD line and initiate ADAPTED PHYSICAL EDUCATION TEACHER
hopefully she may escape
monitor h/h s/p C scope 06/10-polypectomies
Amio per cards for afib
labs in am
high risk encounter
-
-
Date of Service: June 15, 2023
CC / HPI / ROS
-
Chief Complaint:
NOAM, hyponatremia
History of Present Illness:
sodium stable at 130, cr up at 4.5
UOP at 200cc yesterday, improving today
developed erythematous red rash on chest post Lasix now improving
k normal, bicarb 18,
BP stable
GIB , Hb slowly decreasing 8.3 post sigmoidoscopy 06/09, C scope on 06/10 polypectomies
Review of Systems:
now transferred to IMU for hypercapnia and lethargy
insight seem poor
Labs
-
Labs:
WBC 15.4 10^3/uL (4.8-10.8) H 06/15/23 04:24
RBC 2.88 10^6/uL (4.20-5.40) L 06/15/23 04:24
Hgb 8.3 g/dL (12.0-16.0) L 06/15/23 04:24
Hct 25.0 % (37.0-47.0) L 06/15/23 04:24
Plt Count 420 10^3/uL (130-400) H 06/15/23 04:24
Sodium 130 mmol/L (135-145) L 06/15/23 04:24
Potassium 3.7 mmol/L (3.5-5.1) 06/15/23 04:24
Chloride 99 mmol/L (98-107) 06/15/23 04:24
Carbon Dioxide 18 mmol/L (22-30) L 06/15/23 04:24
BUN 68 mg/dl (7-17) H 06/15/23 04:24
Creatinine 4.5 mg/dL (0.6-1.0) H* 06/15/23 04:24
eGFR 10.22 06/15/23 04:24
Glucose 147 mg/dl (70-99) H 06/15/23 04:24
Calcium 8.3 mg/dl (8.4-10.2) L 06/15/23 04:24
Phosphorus 6.0 mg/dl (2.5-4.5) H 06/02/23 05:09
Zxy-M-Dtlqhfsdsad Pept 633 pg/ml 06/02/23 05:09
Albumin 2.2 g/dl (3.5-5.0) L 06/12/23 05:35
Physical Exam
-
Vital Signs:
Vital Signs
Temp Pulse Resp BP Pulse Ox
98.7 F 91 19 111/47 96
06/15/23 07:20 06/15/23 06:03 06/15/23 06:03 06/15/23 06:03 06/15/23 06:03
Cardiovascular:: Regular rate and rhythm
Respiratory:: Bilateral: Coarse
Lung Excursion:: Normal
Abdomen:: Nontender and Soft
Bowel Sounds:: Normal
Extremity Edema:: +2: Bilateral:
Moore Catheter: Yes
--- NOTE | 2023-06-15 13:59 | W.PN.HOSP.TC ---
Today's Communication/Plan
-
Repeat cabrera cx
Stool studies
Follow CBC
CW diuretics per renal
Assessment / Plan
Assessment / Plan
Assessment and plan:
change in mental status - sec to metabolic encephalopathy
ABG was obtained it shows she has acute hypercapnic hypoxic respiratory failure.
Resolved with BiPAP support.
Acute hypercapnic hypoxic respiratory failure. Patient with chronic hypoxic respiratory insufficiency on 2 L at home. She has history of sleep apnea but was not able to tolerate mask in the past. She is obese. Suspected respiratory distress
secondary to sleep apnea. Avoid sedation.
Repeat chest x-ray 06/12 showed low lung volumes
cw BiPAP at 15/5 on 2 L of oxygen prn sleep
Appt pulm input
Pt refusing BIPAP due to intolerance
Consider nasal CPAP
Aucte GI bleed
No active bleeding.
Had a full colonoscopy 06/10 and multiple polyps removed
Possible related to polyp after initial sigmoidoscopy and polyp resection.
Hemoglobin is stable
Follow bx results
GI following
Restart AC for Left arm DVT
Baseline Chronic normocytic anemia-ACD. Hemoglobin at baseline. Aim to keep it more than 8. No iron def.
Acute renal failure: Could be multifactorial including receiving ethacrynic acid, sepsis shock hypotension, IV contrast
Creatinine seems to be peaking
Pt is becoming oliguric
Wt is climging
Nephrology on board
Continue to monitor
Avoid nephrotoxin
IV Ethacrynic acid per renal
Left arm PICC associated DVT -tx with AC for 1 month. On lovenox which was on hold because of bleeding and and acute renal failure.
started on IV heparin .
hematology input noted regarding this DVT
Her DVT was in axillary vein extending into basilic .
Leukocytosis - afebrile .Nontoxic . check stools for C Diff and wbc;check urine analysis and cx ; CXR couple of days ago no pneumonia.Check Blood cx. Will reconsult ID if continued rise.
Shock on admission -suspected sepsis -resolved .Off of pressors . Normal EF on recent ECHO (01/2023), normal diastolic function, Mild ,mild AR .
Left leg cellulitis with left hip area wound - No drainage from wound - eval by ortho. Completed antibiotic,
# MRSA colonized
-s/p meropenem x 3 d.
-Completed linezolid 600mg po bid x through 06/08/2023 am
- Follow leukocytosis closely
Bilateral lower extremity edema-suspected may be dependent, while protein caloric malnutrition hypoalbuminemia could be another reason, acute renal failure could adding to it.
. Echo in January 2023 shows normal diastolic function and normal EF. Her BNP on admission was within the normal limit. Her weight gain has been higher since her recent discharge. cw compression dressings for fluid management. Pt says she is
allergic to sulfa including lasix .switched to ethacryanic acid -much improved wt ;lowest so far in [employer] system since 06/2021.Raise in Cr slightly noted .Hold Ethacrynic acid. There is concern of N/V sec to ethacrynic acid but pt was also getting
linezolid at same time.
Weight up again -follow daily weights
Drug rash -possible lasix - it is off now. Got 2 doses only . Allergic to sulfa antibiotic drugs . Lasix listed as allergy as well now.
Hyponatremia - management per renal - acute on chronic .
Fluctuating
Nephrology on board
Moderate protein caloric malnutrition, albumin 2.2.
HTN - hold ARB due to hypotension and follow
DM 2 with hyperglycemia. Patient with poor oral intake. Hemoglobin A1c 7.1. Hold glimepiride and alogliptin for now. cortisol is ok .
Recent Left Hip ORIF - OP CT hip noted - cw PT eval; Wound care/abx for left hip wound. Ortho input noted.
Paroxysmal atrial fibrillation-in sinus rhythm. QTc normal now . QTc in March 2023 was within normal limits. DC sotalol due to NOAM and low normal blood pressure
Cardiology following -now on Amio
With oliguric renal failure , inability to tolerate BIPAP, immobilization after hip surgery, and multiple comorbidities prognosis is guarded
DW at bedside and went over oliguric nature of renal failure and if no improvement HD need.
Full code
DW RN
Anticipated Discharge: > 48 hours
Subjective/Interval History
-
Date of Service: June 15, 2023
Nauseous last night
Emesis once - she thinks it is due to nerves
Today had her lunch without issues so far
Loose stools noted - rectal tube in
Denies Abdo pain
Denies SOB
Pt says she cant tolerate BIPAP mask and refused BIPAP last night
Objective Data
-
Labs:
Laboratory Results
06/15/23 06/15/23 06/15/23
01:45 04:24 09:55
WBC 15.4 H
Hgb 8.3 L
Hct 25.0 L
Plt Count 420 H
APTT 113.6 H 125.0 H
Sodium 130 L
Potassium 3.7
Chloride 99
Carbon Dioxide 18 L
BUN 68 H
Creatinine 4.5 H*
Glucose 147 H
Calcium 8.3 L
06/15/23
17:40
WBC
Hgb
Hct
Plt Count
APTT Pending
Sodium
Potassium
Chloride
Carbon Dioxide
BUN
Creatinine
Glucose
Calcium
Vital Signs:
Vital Signs
Temp Pulse Resp BP Pulse Ox
98.5 F 91 19 111/47 96
06/15/23 11:20 06/15/23 06:03 06/15/23 06:03 06/15/23 06:03 06/15/23 06:03
I&O
06/14/23 06/15/23 06/16/23
06:59 06:59 06:59
Intake Total 0 / 0 175 / 175
Output Total 100 / 100 400 / 400
Balance -100 / -100 -225 / -225
Review of Systems
-
Constitutional: Denies Fever
EENT: Denies Sore Throat
Respiratory: Denies Cough or Trouble Breathing (at rest)
Cardiac: Denies Chest Pain
Neuro: Denies Dizzy
Physical Exam
-
General: No Apparent Distress
HEENT: Moist Mucous Membranes
Respiratory: Clear to Auscultation (anteriorly)
Cardiac: Regular Rhythm and S1/S2
GI: Soft, Nontender, Nondistended (obese) and Normal Bowel Sounds
Musculoskeletal: Edema, Right Lower Extrem and Edema, Left Lower Extrem
Neuro: AO x 3
Psych: Calm; Negative Confused or Agitated
Data Reviewed
-
Labs: Labs Reviewed by me
--- NOTE | 2023-06-15 14:07 | W.PN.PUL3 ---
Today's Communication / Plan
-
Continue attempts with nocturnal BiPAP although patient is refusing
Amiodarone therapy per cardiology
Remains on heparin for DVT
Attempts at diuresis noted per nephrology
May require PHOTOGRAPHY INTERN
Poor prognosis
Assessment
-
Patient is a 68-year-old female with history of Aflutter, HTN, IDDM, SISI, anxiety presenting to ER from [facility] with abnormal labs-hyponatremia. Patient has been on fluid restriction due to this hyponatremia for the last 3 days. Sodium on
arrival 123, previously 131 on 04/28/23. She was noted to be hypotensive on arrival, started on levophed and admitted to ICU.
She is noted to be hypoglycemic on arrival as well, given amp Dextrose with minimal improvement.
Acute on chronic hyponatremia
Persistent hypoglycemia, resolved
NOAM, creat now 4.3
Worsening metabolic acidosis
Chronically compensated resp acidosis, suspected SISI/OHS now on BIPAP
Lethargy
Oliguria
Hypocalcemia/hypomag
Acute infected pancolitis on CT, neg lactate/c diff
Conditions present prior admission:
Discharged from 01/2023: Lethargy/status post fall status post left hip intertrochanteric fracture with repair
Lower extremity infection with Streptococcus bovis seen by ID and discharged on antibiotics until 02/26/2023-Wound culture left leg 03/18/2023: MRSA and Pseudomonas.
Atrial fibrillation off anticoagulation due to hemorrhagic complication
Peripheral arterial disease
Diabetes mellitus type 2
Morbid obesity with a BMI of 46
Hypertension
Anemia of chronic disease
Dyslipidemia
Obstructive sleep apnea
Chronic pain syndrome on opiates
Plan
Reconsulted on patient for SISI/chronic hypercarbia 06/13/23
History of SISI noted, started on BIPAP
She is otherwise maintained on 2L NC
Repeat ABG 7., prior 7
Chronic CO2 retention noted, she is close to baseline CO2
Suspect she has more concurrent metabolic acidosis - with worsening pH
Unfortunately she refused BiPAP yesterday p.m.
CXR/CT reviewed indicating clear lungs/NAD
CT AP reviewed showing cabrera colitis, neg c diff and lactate
Initial Shock has resolved. Likely septic.
Currently on midodrine.
Patient has normal LVEF on echocardiogram. Mild and mild AR on 01/2023.
Completed antibiotics per infectious disease, signed off
Blood cultures with gram-positive cocci in clusters-CoNS, likely contaminant
MRSA screen +
Wound cultures with numerous orgs
She had recent admission for L hip fracture s/p repair 02/16/23; readmitted in March for infected hip, treated with abx
Continue to follow fever curve and leukocytosis
TME noted, likely due to electrolyte abnl-hyponatremia
Patient refusing Lasix due to sulfa allergy
Increased TSH/reported low free T3.
Nephrology following. Reviewed with nephrology
NOAM worsening, at some point may need HD in next few days if not improving
Bicarb IVFs
Ethacrynic acid is being started
Cardiac history reviewed--AFlutter maintained on sotalol
Prior ECHO reviewed indicating normal function
Hold home meds, resume when able
heparin therapy started
Avoid narcotics, sedatives
patient on gabapentin 100 mg 3 times a day, Ativan
Hold for sedation
Patient with poor prognosis long-term given multiple comorbidities, severely deconditioned, noncompliance with recommendations
Diagnostic Data
Chest X-Ray:
Chest x-ray 03/18/2023: Rotated film. No acute infiltrates.
CT AP 06/08/23- 1. MILD ACUTE INFECTIOUS PANCOLITIS with mild fluid distention of the proximal colon and mild wall thickening and mucosal hyperenhancement in the distal colon and rectum.
2. 1.5 cm intraluminal mass in the descending colon-sigmoid colon junction suspicious for a large colonic polyp (possibly adenocarcinoma).
3. Mild diffuse small bowel distention.
4. Mild hepatomegaly and mild diffuse hepatic steatosis.
5. Small hiatal hernia.
6. Mild pelvic and retroperitoneal lymphadenopathy.
7. Multiple uterine leiomyoma.
8. Mild diffuse thickening and trabeculation of the urinary bladder wall suggesting chronic cystitis.
9. Previous cholecystectomy.
10. Mild cardiomegaly.
11. Osteoporosis with multilevel chronic vertebral body endplate fractures in the lumbar spine.
12. Severe discogenic degenerative disease and facet joint arthrosis in the lower lumbar spine.
13. Severe atrophy of the parapelvic and posterior paraspinal muscles.
CT Scan: AP 02/13/23- Findings suggesting enteritis/ileus. Findings suggesting sequelae of chronic terminal ileitis. Intertrochanteric left femur fracture.
Echo: 02/17/23- Normal left ventricular size and systolic function. No regional wall motion abnormalities are seen. LV ejection fraction is 65-70% by visual assessment. Mild concentric left ventricular hypertrophy. Normal diastolic function. Mildly
dilated left atrium. Mild aortic stenosis. Peak/mean gradients are 34/18mmHg. The valve area by continuity equation is 1.6cm sq, using a LVOT of 1.9cm.
Mild aortic regurgitation. When compared to prior echocardiogram from June 16, 2021, the left atrium is now mildly enlarged and otherwise there is no significant change.
Echocardiogram 02/17/2023: Normal LVEF. Mild LVH. Mild aortic stenosis. Mild AR
PFT's:
Nocturnal ox 07/27/15: time below 90% 1:22:18 (23.8%); time below 88% 46:20 (13.4%); O2 nicol 67%; ALICIA >10s 31.0
Reports and relevant images were personally reviewed.
Subjective Data
-
Date of Service:
Date of Service: June 15, 2023
Chief Complaint: Pulmonary Follow Up
Subjective:
Patient refused BiPAP yesterday p.m. During my exam, patient is sleeping and lethargic. Although she wakes up, she falls asleep easily
Objective Data
Data Reviewed
Vital Signs / I&O / Oxygen:
Vital Signs
Temp Pulse Resp BP Pulse Ox
98.5 F 91 19 111/47 96
06/15/23 11:20 06/15/23 06:03 06/15/23 06:03 06/15/23 06:03 06/15/23 06:03
Intake and Output
06/14/23 06/15/23 06/16/23
06:59 06:59 06:59
Intake Total 0 / 0 175 / 175
Output Total 100 / 100 400 / 400
Balance -100 / -100 -225 / -225
SaO2 96
Nasal Cannula flow liters per 4
minute
Physical Exam
General: Other (chronically ill appearing, morbidly obese)
HEENT: Normocephalic, Anicteric, Moist Mucous Membranes and Other (Large neck)
Cardiovascular: S1-S2, Regular Rhythm and Peripheral Edema
Respiratory: Clear, Wheeze (n), Crackles (n), Non-Labored Respirations, Stridor (n) and Other (overall decreased)
GI: Soft, Non Distended (Morbidly obese) and Non Tender
Neurology: Lethargic (Opens eyes, then falls asleep after saying 1-2 words)
Skin: Warm, Dry, Cyanosis (n), Jaundice (n) and Other (mottling)
Labs/Micro/Reports
Lab Data
06/15/23 04:24
06/15/23 04:24
Laboratory Results
06/14/23 06/14/23 06/15/23
08:55 18:28 01:45
APTT Cancelled 21.6 L 113.6 H
06/15/23
09:55
APTT 125.0 H
[2023-06-15] MEDS: EDECRIN 50 MG IV (15:51)
[2023-06-15] MEDS: LIPITOR 20 MG PO (17:32)
[2023-06-15 17:49] LABS: Glucose - Point of Care 189 mg/dl (70-99)
[2023-06-15 18:04] LABS: APTT 115.7 Sec (23.4-35.0)
[2023-06-15] MEDS: TIGAN 200 MG IM (18:44)
[2023-06-15] MEDS: TYLENOL 650 MG PO (21:02)
[2023-06-15] MEDS: ATIVAN 1 MG PO (21:33)
[2023-06-15 21:40] LABS: Glucose - Point of Care 218 mg/dl (70-99)
[2023-06-15] MEDS: FLEXERIL 5 MG PO (22:00)
[2023-06-16] VITALS (12 sets, daily range): BP systolic 92–141; BP diastolic 50–97; BMI 45.0
[2023-06-16 02:53] LABS: APTT 103.4 Sec (23.4-35.0)
--- NOTE | 2023-06-16 02:55 | PTCARENOTE ---
Addendum entered by Katrin Sanchez RN 06/16/23 06:34:
Pt refused BiPAP and trying nasal CPAP all night. Pt on 4l NC. SPOR 93-95%. morning Labs carbon dioxide 14, FAMILY MEDICINE RESIDENT made aware.
Original Note:
Assumed care of Pt from day RN. Pt having complaints of pain and anxiety. PRN medications given when able. During night Pt appeared to get 5+ hours of sleep. Pt vitals stable, Respiration even and unlabored. Assessment, vitals and care as charted.
[2023-06-16 05:24] LABS: Urine Albumin 2+ (Neg - Trace); Urine Bilirubin 1+ (Negative); Urine Character Very Cloudy (Clear); Urine Color Yellow; Urine Glucose Negative (Negative); Urine Ketone Trace (Negative); Urine Leukocyte 2+ (Negative); Urine Nitrite Positive (Negative); Urine Occult Blood 4+ (Negative); Urine Urobilinogen Negative (Neg - 1+)
[2023-06-16 05:24] LABS: Hematocrit 22.7 % (37.0-47.0); Hemoglobin 7.9 g/dL (12.0-16.0); Mean Corp Hgb Conc. 34.8 g/dL (33.0-37.0); Mean Corpuscular Hgb 29.4 pg (27.0-31.0); Mean Corpuscular Volume 84.4 fL (81.0-99.0); Mean Platelet Volume 9.7 fL (7.4-10.4); Platelet Count 523 10^3/uL (130-400); Red Blood Cell Count 2.69 10^6/uL (4.20-5.40); Red Cell Dist. Width 14.4 % (11.5-14.5); White Blood Cell Count 14.5 10^3/uL (4.8-10.8)
[2023-06-16 06:05] LABS: Blood Urea Nitrogen 70 mg/dl (7-17); Calcium 8.4 mg/dl (8.4-10.2); Carbon Dioxide 14 mmol/L (22-30); Chloride 103 mmol/L (98-107); Estimated Creatinine Clearance 13 ml/min; Glucose 124 mg/dl (70-99); Potassium 3.6 mmol/L (3.5-5.1); Sodium 130 mmol/L (135-145)
[2023-06-16 06:22] LABS: Urine White Cell >100 /HPF (0-5)
[2023-06-16] MEDS: HEPARIN 25000 UNITS/250 ML IV ×2 (07:47→22:52)
[2023-06-16 08:01] LABS: Glucose - Point of Care 170 mg/dl (70-99)
[2023-06-16] MEDS: PROTONIX 40 MG PO ×2 (08:26→21:17)
[2023-06-16] MEDS: VITAMIN D3 (cholecalciferol) 125 MCG PO (08:26)
[2023-06-16] MEDS: NOVOLOG FLEXPEN-LOW RESISTANCE 1 UNITS SC ×3 (08:26→17:12)
--- NOTE | 2023-06-16 08:26 | W.PN.CARDCBS ---
Addendum entered and electronically signed by Robina Lundberg MD 06/16/23 10:22:
I saw and examined the patient.
The Rating Examiner's note was reviewed and I agree with the note.
Comment: She is significantly ill with multiple medical problems as outlined below.
Sepsis, bacteremia, change in mental status acute renal failure and hypoxemic respiratory failure.
Supportive care of multiple medical conditions with overall poor outlook
From a cardiac point of view rhythm is overall fairly stable with sinus rhythm and short runs of PAT. This was known previously.
Sotalol was discontinued given renal function and prolonged QT interval. Avoid QT prolonging medications.
She is now on amiodarone and as of this morning has received 1.8 g. Continue to load.
Check EKG in the morning. Today's EKG pending.
Original Note:
Today's Communication / Plan
-
Continue Amiodarone load
ECG to monitor QTc
Continue IV Heparin
Impression / Plan
-
Family Physician: Valery Saunders
Primary Pastry Wrapper: Dr. Low, last seen in office 03/2022
Assessment:
Presented 06/02/23 w/ abnormal labs, hyponatremia
Acute on chronic hyponatremia
Clinical sepsis with shock from pancolitits
Acute on chronic hypoxic respiratory insufficiency, chronically on 2L NC
NOAM with azotemia
LLE cellulitis
N/V/D
Pancolitis
Colon polyps s/p flex sigmoidoscopy with snaring/biopsy 06/10/23
Drug rash, felt to be from lasix, improved
LUE PICC associated DVT
Lethargy
Prolonged QTc on sotalol
Paroxysmal SVT with noninducibility during EP study and empiric atrial flutter ablation 2014
Prior rate related LBBB in setting of SVT
Chronic HFpEF
Hyponatremia
HTN
HLD
DM
Diabetic neuropathy
History of RLE DVT
Anemia of chronic disease
Meningioma
Morbid obesity
SISI
Persistent LE wounds/cellulitis/osteomyelitis
Chronic lymphedema/venous stasis
History of L femur fracture s/p ORIF 02/16/2023 with incomplete healing by imaging
Chronic pain syndrome on opioids
History of partial hysterectomy, oophorectomy, salpingectomy
History of NOAM
ECHO 02/17/23: EF 65 to 70%, mild concentric LVH, mildly dilated left atrium, mild with peak/mean gradients 34/18 mmHg, LA NENA 1.6 cm�, mild AR
Plan:
Change in mental status noted. Likely TME Now appears to have UTI, culture pending and positive BC gram negative bacilli.
Sotalol has been discontinued (stopped 06/12/23) because of renal failure and QTc prolongation. We have switched her to amiodarone for arrhythmia suppression
History of SVT Patient now on amiodarone, 200 mg 3 times daily. Started 06/12/23, has gotten 1800 mg load so far. Most recent QTc is 477 ms and appears to be shortening. Repeat ECG. Continue amiodarone. No evidence of atrial fibrillation but does
have short runs of atrial tachycardia and frequent PAC's. Continue Amiodarone to suppress rapid arrhythmias. Would be ideal to avoid elevated rates
NOAM. Unfortunately renal function continues to slowly rise, admitted w/ creat of 0.7, peaked 4.5 but now 4.4. Nephrology following and managing diuretics, got ethacrynic acid on 06/15/23. They are considering PARKING METER ATTENDANT if no improvement in renal function
Left UE DVT. Hematology oncology involved given colonoscopy findings, await pathology. Anticoag on hold due to GI bleeding but on IV Heparin. Hgb 7.9.
She was not anticoagulated on admission. Currently getting heparin given her PICC line associated DVT.
Wean oxygen as tolerated, currently on 4 LPM via NC
Prognosis is guarded. It would be reasonable to have goals of care discussions with family as she appears to be deteriorating each day
Progress Note - Pastry Wrapper
Subjective
Date of Service: June 16, 2023
Patient seen and examined. Opens eyes on command but is lethargic
Objective
Labs:
06/16/23 04:22
06/16/23 04:22
Labs
Hgb 7.9 g/dL (12.0-16.0) L 06/16/23 04:22
Hct 22.7 % (37.0-47.0) L 06/16/23 04:22
Plt Count 523 10^3/uL (130-400) H D 06/16/23 04:22
PT 13.1 Sec (11.4-14.6) 06/02/23 09:23
INR 1.01 06/02/23 09:23
APTT 103.4 Sec (23.4-35.0) H 06/16/23 02:02
Sodium 130 mmol/L (135-145) L 06/16/23 04:22
Potassium 3.6 mmol/L (3.5-5.1) 06/16/23 04:22
BUN 70 mg/dl (7-17) H 06/16/23 04:22
Creatinine 4.4 mg/dL (0.6-1.0) H* 06/16/23 04:22
Glucose 124 mg/dl (70-99) H 06/16/23 04:22
Vital Signs and I&O:
Vital Signs
Temp Pulse Resp BP Pulse Ox
98.6 F 117 23 116/86 97
06/16/23 02:56 06/16/23 06:00 06/16/23 06:00 06/16/23 06:00 06/16/23 06:00
Vital Signs
Temp Pulse Resp BP Pulse Ox
98.6 F 117 23 116/86 97
06/16/23 02:56 06/16/23 06:00 06/16/23 06:00 06/16/23 06:00 06/16/23 06:00
Intake & Output
06/14/23 06/15/23 06/16/23 06/17/23
06:59 06:59 06:59 06:59
Intake Total 0 / 0 175 / 175 179 / 179
Output Total 100 / 100 400 / 400 1000 / 1000
Balance -100 / -100 -225 / -225 794 / 794
Physical Exam
Physical Exam
GEN: No distress, lethargic, chronically ill appearing
HEENT: supple, anicteric, mmm
LUNGS: CTA anteriorly, no wheezes/rales; on O2 via N/c
CV: Reg but tachycardic at times, S1/S2, 1/6 murmur
ABD: soft, BS+, NT/ND
EXT: +1 edema bilaterally
NEURO: lethargic, but opens eyes on command
SKIN: No rash, warm, dry, pink
[2023-06-16] MEDS: OSCAL CAL 500 1000 MG PO ×2 (08:27→21:17)
[2023-06-16] MEDS: PACERONE 200 MG PO ×3 (08:27→21:17)
[2023-06-16] MEDS: DESENEX/MITRAZOL/ZEASORB 1 APPLIC TOPICAL ×2 (08:27→21:26)
[2023-06-16 08:48] LABS: APTT 67.4 Sec (23.4-35.0)
--- NOTE | 2023-06-16 09:18 | W.PN.ID1 ---
Date of Service
Date of Service: June 16, 2023
Today's Communication
Start meropenem after repeat blood cx's.
Assessment / Plan
# Anaerobic GNR bacteremia (1 of 1 set)
# Leukocytosis persists
- Source possibly from colon translocation after resection of multiple polyps with associated GIB
- Repeat blood cx's x 2, then start meropenem 500mg IV q12h.
# NOAM without improvement
- May need HD per renal.
- Adjust abx dosing.
# Diarrha
- C. diff neg
# Intraluminal colon mass
- hx Strep bovis bacteremia 02/11/2023, treated.
- 06/10/23 s/p sigmoidoscopy, removal of several polyps.
- 06/11/23 s/p colonoscopy, removal of multiple polyps, clipping of ulcer in sigmoid
- Biopsis: tubular adenomas with focal high grade dysplasia, and tubulovillous adenomas
# Afib with RVR
# Numerous abx/drug allergies.
-Tolerated meropenem and linezolid in the past.
# s/pLLE cellulitis - resolved
# Lymphedema
-s/p meropenem x 3 d.
-Completed linezolid 600mg po bid through 06/08/2023 am
- Continue BLE compression
# Drug rash resolved off furosemide
# Coag-neg staph bacteremia (1 of 2 sets)
-contaminant
# LUE picc associated DVT
- PICC dc'd
# Left hip incision wound clean without infection
- cx skin [place]
#Additional Past Medical History:
Diabetes mellitus
Class III obesity BMI 49
Lymphedema
Obstructive sleep apnea
A flutter status post ablation
hypertension
cellulitis
Asthma
Dyslipidemia
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
Meningioma s/p resection
Chronic back pain
Cholecystectomy
Bilateral oophorectomy
Left hip fracture s/p gamma nailing 02/16/23
Chief Complaint
-: Cellulitis
Subjective / Review of Systems
Reconsult for bacteremia.
Pt not feeling well today. + nausea. Appetite poor.
Vital Signs / Physical Exam
Vital Signs
Vital Signs
Temp Pulse Resp BP Pulse Ox
98 F 117 23 116/86 97
06/16/23 07:30 06/16/23 06:00 06/16/23 06:00 06/16/23 06:00 06/16/23 06:00
Physical Exam
Constitutional: Acutely Ill and Chronically Ill
Cardiovascular: Irregular Rate and Other (tachycardic)
Pulmonary: Clear (anterior)
Gastrointestinal: Soft, Non Tender and Non Distended
Genito-Urinary: Moore and Other (urine dark)
Extremities: Edema (BLE lymphedema at baseline); Negative Erythema
Skin: Negative Rash
Lines: Other (RUE midline)
Objective Data
Lab Data
Lab Results
06/16/23 04:22
06/16/23 04:22
PT 13.1 Sec (11.4-14.6) 06/02/23 09:23
INR 1.01 06/02/23 09:23
APTT 67.4 Sec (23.4-35.0) H 06/16/23 08:03
Estimated Creat Clear 13 ml/min 06/16/23 04:22
Lactic Acid 0.9 mmol/L (0.7-2.0) 06/13/23 09:53
Total Bilirubin 0.3 mg/dl (0.2-1.3) 06/10/23 05:43
AST 14 U/L (14-36) 06/10/23 05:43
ALT < 10 U/L (0-35) 06/10/23 05:43
Alkaline Phosphatase 58 U/L (38-126) 06/10/23 05:43
Most recent labs reviewed.
Micro Results:
06/16/23 08:49 Blood Culture - Pending
Blood/Venous
06/15/23 18:58 Blood Culture - Preliminary
Blood/Venous Positive culture in progress
Gram Stain - Final
06/16/23 05:11 C. difficile GDH Antigen & Toxins - Final
Feces/Stool Negative for toxigenic C.difficile
06/16/23 05:11 Urine Culture - Pending
Urine
06/16/23 05:11 Stool Leukocytes - Pending
Feces/Stool
06/07/23 23:53 - Final
Feces/Stool Negative for Norovirus GI and GII.
06/03/23 10:41 Blood Culture - Final
Blood/Venous No Growth - Final Report
06/03/23 10:41 Blood Culture - Final
Blood/Venous No Growth - Final Report
06/02/23 05:52 Blood Culture - Final
Blood/Venous Coagulase neg. staphylococcus
Additional testing on request
Gram Stain - Final
06/02/23 05:52 Blood Culture - Final
Blood/Venous No Growth - Final Report
06/02/23 13:24 Wound Culture - Final
Hip - Left Gram Stain - Final
06/02/23 13:23 MRSA Screen - Final
Nose Staph aureus MRSA
06/02/23 13:25 Urine Culture - Final
Urine NO GROWTH
06/02/23 18:34 C. difficile GDH Antigen & Toxins - Final
Feces/Stool Negative for toxigenic C.difficile
06/14/23 CXR: Hypoaerated lungs without consolidation.
06/08/23 CT a/p: MILD ACUTE INFECTIOUS PANCOLITIS with mild fluid distention of the proximal colon and mild wall thickening and mucosal hyperenhancement in the distal colon and rectum. 1.5 cm intraluminal mass in the descending colon-sigmoid colon
junction suspicious for a large colonic polyp (possibly adenocarcinoma). Mild diffuse small bowel distention.
06/02/23 CXR: clear lungs
05/28/23 CT LLE: ORIF of an intertrochanteric/subtrochanteric fracture. The fracture plane remains evident, but there is some callus and heterotopic ossification about the fracture site.
Care Review
Plan reviewed with: Physician (Drs. Garcia and Blake)
--- NOTE | 2023-06-16 09:24 | W.PN.NEPH.PH ---
Today's Communication / Plan
-
sodium bicarbonate pills to be initiated
Assessment/Plan
-
IMP:
Hyponatremia-acute on chronic
NOAM with significant azotemia
suspected septic shock/gram-negative bacilli bacteremia
hypoglycemia
Hypomagnesemia
TME
HX Paroxysmal AF- Not on anticoagulation due to hemorrhagic complications in the past
Chronic anemia
Essential HTN
T2DM
Chronic pain syndrome on chronic opioids
SISI - CPAP
Morbid obesity due to excess calories
PAD
h/o left hip fx s/p ORIF 01/2023
Plan:
NOAM, baseline cr of 0.7 now elevated to 4.5. hoping this is the peak as creatinine 4.4 today, urine output oliguric
Metabolic acidosis exacerbating
specially post contrast on 06/07+diarrhea
Ethacrynic acid last given on 06/13, patient vomited will not take loop diuretic
Explained to her that dialysis will likely be our only option tomorrow as metabolic acidosis is exacerbated
We will attempt sodium bicarbonate tablets but this will likely fail as well she has trouble with pills
HANNAH is on high differential, FeNa not low
Maintain Moore
Recent CT no hydro but concern of GI abnormality colitis, mass?
gapped met acidosis-will hold off on fluids due to hypercapnia and c/f volume overload
hyponatremia -monitor. likely from some hypervolemia due to decreased kidney function. Na 130 (improved after ethacrynic acid)
continues with edema
replace calcium PRN and initiated on vit D supplementation
BP stable but soft
avoid nephrotoxins
discussed with patient
previously reviewed by Dr. Abbott that should her renal function worsens likely need SUPERINTENDENT JOB in next 1-2 days
Discussed again with patient on 06/13 that she would be okay with short term HD
If kidney function continues to worsen, would place HD line and initiate SUPERINTENDENT JOB
hopefully she may escape
monitor h/h s/p C scope 06/10-polypectomies
Amio per cards for afib
labs in am
high risk encounter
-
-
Date of Service: June 16, 2023
CC / HPI / ROS
-
Chief Complaint:
NOAM, hyponatremia
History of Present Illness:
sodium stable at 130, cr up at 4.4
UOP at 200cc yesterday, improving today
developed erythematous red rash on chest post Lasix now improving
k normal, bicarb 14,
BP stable
GIB , Hgb slowly decreasing 7.9 post sigmoidoscopy 06/09, C scope on 06/10 polypectomies
Review of Systems:
now transferred to IMU for hypercapnia and lethargy
insight seem poor
Labs
-
Labs:
WBC 14.5 10^3/uL (4.8-10.8) H 06/16/23 04:22
RBC 2.69 10^6/uL (4.20-5.40) L 06/16/23 04:22
Hgb 7.9 g/dL (12.0-16.0) L 06/16/23 04:22
Hct 22.7 % (37.0-47.0) L 06/16/23 04:22
Plt Count 523 10^3/uL (130-400) H D 06/16/23 04:22
Sodium 130 mmol/L (135-145) L 06/16/23 04:22
Potassium 3.6 mmol/L (3.5-5.1) 06/16/23 04:22
Chloride 103 mmol/L (98-107) 06/16/23 04:22
Carbon Dioxide 14 mmol/L (22-30) L* 06/16/23 04:22
BUN 70 mg/dl (7-17) H 06/16/23 04:22
Creatinine 4.4 mg/dL (0.6-1.0) H* 06/16/23 04:22
eGFR 10.50 06/16/23 04:22
Glucose 124 mg/dl (70-99) H 06/16/23 04:22
Calcium 8.4 mg/dl (8.4-10.2) 06/16/23 04:22
Phosphorus 6.0 mg/dl (2.5-4.5) H 06/02/23 05:09
Nes-U-Ysjwxfpvvjg Pept 633 pg/ml 06/02/23 05:09
Albumin 2.2 g/dl (3.5-5.0) L 06/12/23 05:35
Physical Exam
-
Vital Signs:
Vital Signs
Temp Pulse Resp BP Pulse Ox
98 F 117 23 116/86 97
06/16/23 07:30 06/16/23 06:00 06/16/23 06:00 06/16/23 06:00 06/16/23 06:00
Cardiovascular:: Regular rate and rhythm
Respiratory:: Bilateral: Coarse
Lung Excursion:: Normal
Abdomen:: Nontender and Soft
Extremity Edema:: +1: Bilateral:
Moore Catheter: Yes
--- NOTE | 2023-06-16 09:58 | W.PN.HOSP.TC ---
Today's Communication/Plan
-
Start on meropenem per ID
Repeat blood cultures.
Obtain a CT of the abdomen pelvis with oral contrast.
Assessment / Plan
Assessment / Plan
Assessment and plan:
change in mental status - sec to metabolic encephalopathy
ABG was obtained it shows she has acute hypercapnic hypoxic respiratory failure.
Resolved with BiPAP support.
Acute hypercapnic hypoxic respiratory failure. Patient with chronic hypoxic respiratory insufficiency on 2 L at home. She has history of sleep apnea but was not able to tolerate mask in the past. She is obese. Suspected respiratory distress
secondary to sleep apnea. Avoid sedation.
Repeat chest x-ray 06/12 showed low lung volumes
cw BiPAP at 15/5 on 2 L of oxygen prn sleep
Appt pulm input
Pt refusing BIPAP due to intolerance
Consider nasal CPAP
Aucte GI bleed
No active bleeding.
Had a full colonoscopy 06/10 and multiple polyps removed
Possible related to polyp after initial sigmoidoscopy and polyp resection.
Hemoglobin no major changes but low today at 7.9 ; aim to keep HH >8.0
Bx results noted
Baseline Chronic normocytic anemia-ACD. Hemoglobin at baseline. Aim to keep it more than 8. No iron def.
Acute renal failure: Could be multifactorial including receiving ethacrynic acid, sepsis shock hypotension, IV contrast
Creatinine seems to be peaking
Pt is becoming oliguric
Wt is climbing
Nephrology on board
Continue to monitor
Avoid nephrotoxin
IV Ethacrynic acid per renal
Left arm PICC associated DVT -tx with AC for 1 month. On lovenox which was on hold because of bleeding and and acute renal failure.
started on IV heparin .
hematology input noted regarding this DVT
Her DVT was in axillary vein extending into basilic .
Leukocytosis - afebrile .Nontoxic . stools for C Diff neg ;UA positive ; BCX positive ;CXR couple of days ago no pneumonia.Started on Meropenem . Repeat cultures requested by ID. In view of ongoing abdominal symptoms, recent GI interventions and
anaerobic cultures being positive we will get a CT of the abdomen pelvis today.
Shock on admission -suspected sepsis -resolved .Off of pressors . Normal EF on recent ECHO (01/2023), normal diastolic function, Mild ,mild AR .
Left leg cellulitis with left hip area wound - No drainage from wound - eval by ortho. Completed antibiotic,
# MRSA colonized
-s/p meropenem x 3 d.
-Completed linezolid 600mg po bid x through 06/08/2023 am
- Follow leukocytosis closely
Bilateral lower extremity edema-suspected may be dependent, while protein caloric malnutrition hypoalbuminemia could be another reason, acute renal failure could adding to it.
. Echo in January 2023 shows normal diastolic function and normal EF. Her BNP on admission was within the normal limit. Her weight gain has been higher since her recent discharge. cw compression dressings for fluid management. Pt says she is
allergic to sulfa including lasix .switched to ethacryanic acid -much improved wt ;lowest so far in [employer] system since 06/2021.Raise in Cr slightly noted .Hold Ethacrynic acid. There is concern of N/V sec to ethacrynic acid but pt was also getting
linezolid at same time.
Weight up again -follow daily weights
Drug rash -possible lasix - it is off now. Got 2 doses only . Allergic to sulfa antibiotic drugs . Lasix listed as allergy as well now.
Hyponatremia - management per renal - acute on chronic .
Fluctuating
Nephrology on board
Moderate protein caloric malnutrition, albumin 2.2.
HTN - hold ARB due to hypotension and follow
DM 2 with hyperglycemia. Patient with poor oral intake. Hemoglobin A1c 7.1. Hold glimepiride and alogliptin for now. cortisol is ok .
Recent Left Hip ORIF - OP CT hip noted - cw PT eval; Wound care/abx for left hip wound. Ortho input noted.
Paroxysmal atrial fibrillation-in sinus rhythm. QTc normal now . QTc in March 2023 was within normal limits. DC sotalol due to NOAM and low normal blood pressure
Cardiology following -now on Amio
With oliguric renal failure , inability to tolerate BIPAP, immobilization after hip surgery, and multiple comorbidities prognosis is guarded
DW 06/14 at bedside and went over oliguric nature of renal failure and if no improvement HD need.
Full code
DW RN
DW ID
Total time spent on today's encounter was 52 minutes which included time spent in counseling the patient regarding diagnosis and treatment plan as listed above, goals of care, and symptom management. Case was discussed with nursing staff,
specialists,. All labs and imaging personally reviewed by me. Remainder the time spent in detailed review of previous records, lab data, imaging, and other medical provider documentation.
Anticipated Discharge: > 48 hours
Subjective/Interval History
-
Date of Service: June 16, 2023
Patient states she is still feeling nauseous with the meals. She states she threw after her dinner yesterday. Loose stools in the rectal bag.
Not complaining of abdominal pain per se. Breathing is okay. Denies fever or chills.
Objective Data
-
Labs:
Laboratory Results
06/16/23 06/16/23 06/16/23
02:02 04:22 08:03
WBC 14.5 H
Hgb 7.9 L
Hct 22.7 L
Plt Count 523 H D
APTT 103.4 H 67.4 H
Sodium 130 L
Potassium 3.6
Chloride 103
Carbon Dioxide 14 L*
BUN 70 H
Creatinine 4.4 H*
Glucose 124 H
Calcium 8.4
Vital Signs:
Vital Signs
Temp Pulse Resp BP Pulse Ox
98 F 117 23 116/86 97
06/16/23 07:30 06/16/23 06:00 06/16/23 06:00 06/16/23 06:00 06/16/23 06:00
I&O
06/15/23 06/16/23 06/17/23
06:59 06:59 06:59
Intake Total 175 / 175 1794 / 1794
Output Total 400 / 400 1000 / 1000
Balance -225 / -225 794 / 794
Review of Systems
-
Constitutional: Denies Fever or Chills
EENT: Denies Sore Throat
Respiratory: Denies Cough or Trouble Breathing
Cardiac: Denies Chest Pain
Abdomen/GI: Reports Nausea and Vomiting
Genitourinary: Denies Dysuria
Neuro: Denies Dizzy or Headache
Physical Exam
-
General: No Apparent Distress
HEENT: Moist Mucous Membranes
Respiratory: Clear to Auscultation (anteriorly)
Cardiac: Regular Rhythm and S1/S2
GI: Soft, Nondistended (obese), Normal Bowel Sounds and Tender (noted today in RUQ but no rebound)
Musculoskeletal: Edema, Right Upper Extrem, Edema, Left Upper Extrem, Edema, Right Lower Extrem and Edema, Left Lower Extrem
Neuro: AO x 3
Psych: Calm; Negative Confused
Data Reviewed
-
Labs: Labs Reviewed by me
--- NOTE | 2023-06-16 10:18 | W.PN.PUL3 ---
Today's Communication / Plan
-
Continue attempts with nocturnal BiPAP although patient is refusing
Will try 's nasal pillow mask and I will lower settings from 15/07 to 02/04
Amiodarone therapy per cardiology
Attempts at diuresis noted per nephrology
May require iHD
Poor prognosis
Assessment
-
Patient is a 68-year-old female with history of Aflutter, HTN, IDDM, SISI, anxiety presenting to ER from [facility] with abnormal labs-hyponatremia. Patient has been on fluid restriction due to this hyponatremia for the last 3 days. Sodium on
arrival 123, previously 131 on 04/28/23. She was noted to be hypotensive on arrival, started on levophed and admitted to ICU.
She is noted to be hypoglycemic on arrival as well, given amp Dextrose with minimal improvement.
Acute on chronic hyponatremia
Persistent hypoglycemia, resolved
NOAM, creat now 4.4
Worsening metabolic acidosis due to NOAM
Chronically compensated resp acidosis, suspected OHS
Hx of SISI intolerant to PAP
Lethargy
Oliguria
Hypocalcemia/hypomag
Acute infected pancolitis on CT, neg lactate/c diff
Bacteremia with Klebsiella pneumonia ESBL and Acinetobacter (via BCx from 06/15/2023)
Conditions present prior admission:
Discharged from 01/2023: Lethargy/status post fall status post left hip intertrochanteric fracture with repair
Lower extremity infection with Streptococcus bovis seen by ID and discharged on antibiotics until 02/26/2023-Wound culture left leg 03/18/2023: MRSA and Pseudomonas.
Atrial fibrillation off anticoagulation due to hemorrhagic complication
Peripheral arterial disease
Diabetes mellitus type 2
Morbid obesity with a BMI of 46
Hypertension
Anemia of chronic disease
Dyslipidemia
Obstructive sleep apnea
Chronic pain syndrome on opiates
Plan
Reconsulted on patient for SISI/chronic hypercarbia 06/13/23
History of SISI noted, started on BIPAP
She is otherwise maintained on 4L NC
Repeat ABG 7., prior 7. back in 2023
Chronic CO2 retention noted, she is close to baseline CO2
Suspect she has more concurrent metabolic acidosis - with worsening pH
Unfortunately she refused BiPAP last 2 nights --> she is willing to try tonight with new mask that her brought in (nasal pillows); I will also lower settings from 15/07 to 02/04, bled with 2L/min
CXR/CT reviewed indicating clear lungs/NAD
CT AP reviewed showing cabrera colitis, neg c diff and lactate
She had a repeat CT A/P done today showing no acute pathology of the abdomen or pelvis or intestinal obstruction
Initial Shock has resolved. Likely septic.
Off midodrine sinve 06/04/2023
Patient has normal LVEF on echocardiogram. Mild and mild AR on 01/2023.
s/p antibiotics with mari, teflaro and zyvox per infectious disease, signed off - last dose of zyvix on 06/07
Now blood cultures from 06/14 are growing Klebsiella pneumonia ESBL and Acinetobacter spp --> ID reconsulted and meropenem restarted
MRSA screen + from 06/02/2023
Wound cultures from 05/19/2023 with numerous orgs
She had recent admission for L hip fracture s/p repair 02/16/23; readmitted in March for infected hip, treated with abx
Continue to follow fever curve and leukocytosis
TME noted, likely due to electrolyte abnl-hyponatremia
Patient refusing Lasix due to sulfa allergy --> s/p ethacrynic acid (last given on 06/14)
Increased TSH/low free T3 with normal free T4 --> likely euthyroid sick syndrome --> repeat TFTs in 6-8 weeks
Nephrology following. Reviewed with nephrology
NOAM worsening, at some point may need HD if no improvement
PO Bicarb started today
Cardiac history reviewed--AFlutter maintained on sotalol
Prior ECHO reviewed indicating normal function
Hold home meds, resume when able
On heparin gtt
Avoid narcotics, sedatives
patient on gabapentin 100 mg 3 times a day, Ativan
Hold for sedation
Patient with poor prognosis long-term given multiple comorbidities, severely deconditioned, noncompliance with recommendations
Total time spent today was 35 minutes for this encounter. Time includes reviewing laboratory test/imaging results, reviewing pertinent medical records, obtaining and reviewing medical history, performing an appropriate exam, ordering medications,
tests and procedures. Time also includes documentation of this encounter, coordinating patient care and communicating with other healthcare professionals. Total time does not include separately billed tests performed on this date of service.
Diagnostic Data
Chest X-Ray:
Chest x-ray 03/18/2023: Rotated film. No acute infiltrates.
CT AP 06/08/23- 1. MILD ACUTE INFECTIOUS PANCOLITIS with mild fluid distention of the proximal colon and mild wall thickening and mucosal hyperenhancement in the distal colon and rectum.
2. 1.5 cm intraluminal mass in the descending colon-sigmoid colon junction suspicious for a large colonic polyp (possibly adenocarcinoma).
3. Mild diffuse small bowel distention.
4. Mild hepatomegaly and mild diffuse hepatic steatosis.
5. Small hiatal hernia.
6. Mild pelvic and retroperitoneal lymphadenopathy.
7. Multiple uterine leiomyoma.
8. Mild diffuse thickening and trabeculation of the urinary bladder wall suggesting chronic cystitis.
9. Previous cholecystectomy.
10. Mild cardiomegaly.
11. Osteoporosis with multilevel chronic vertebral body endplate fractures in the lumbar spine.
12. Severe discogenic degenerative disease and facet joint arthrosis in the lower lumbar spine.
13. Severe atrophy of the parapelvic and posterior paraspinal muscles.
CT Scan: AP 02/13/23- Findings suggesting enteritis/ileus. Findings suggesting sequelae of chronic terminal ileitis. Intertrochanteric left femur fracture.
CT A/P 06/16/2023 - No acute pathology of the abdomen or pelvis identified. No evidence of intestinal obstruction.
Echo: 02/17/23- Normal left ventricular size and systolic function. No regional wall motion abnormalities are seen. LV ejection fraction is 65-70% by visual assessment. Mild concentric left ventricular hypertrophy. Normal diastolic function. Mildly
dilated left atrium. Mild aortic stenosis. Peak/mean gradients are 34/18mmHg. The valve area by continuity equation is 1.6cm sq, using a LVOT of 1.9cm.
Mild aortic regurgitation. When compared to prior echocardiogram from June 16, 2021, the left atrium is now mildly enlarged and otherwise there is no significant change.
Echocardiogram 02/17/2023: Normal LVEF. Mild LVH. Mild aortic stenosis. Mild AR
PFT's:
Nocturnal ox 07/27/15: time below 90% 1:22:18 (23.8%); time below 88% 46:20 (13.4%); O2 nicol 67%; ALICIA >10s 31.0
Reports and relevant images were personally reviewed.
Subjective Data
-
Date of Service:
Date of Service: June 16, 2023
Chief Complaint: Pulmonary Follow Up
Subjective:
Patient seen and evaluated today. Refused BiPAP last night. Currently on 4 L/min nasal cannula. brought in different BiPAP mask and patient is willing to try this tonight. Patient appears weak. She currently denies chest pain, headache,
abdominal pain. She does report diarrhea. Denies fever or chills.
Review of Systems
General: Other (Negative unless mentioned above)
Objective Data
Data Reviewed
Vital Signs / I&O / Oxygen:
Vital Signs
Temp Pulse Resp BP Pulse Ox
97.7 F 79 20 132/75 99
06/16/23 11:23 06/16/23 12:00 06/16/23 12:00 06/16/23 12:00 06/16/23 12:00
Intake and Output
06/15/23 06/16/23 06/17/23
06:59 06:59 06:59
Intake Total 175 / 175 1794 / 1794
Output Total 400 / 400 1000 / 1000
Balance -225 / -225 794 / 794
SaO2 99
Nasal Cannula flow liters per 4
minute
Physical Exam
General: Comfortable and Other (chronically ill appearing, morbidly obese)
HEENT: Normocephalic, Anicteric, Moist Mucous Membranes and Other (Thick neck)
Cardiovascular: S1-S2 and Peripheral Edema (+1 LE edema b.l)
Respiratory: Clear (anterior lung dyson b/l), Wheeze (n), Crackles (n), Non-Labored Respirations, Stridor (n) and Other (overall decreased)
GI: Soft, Non Distended (Morbidly obese) and Non Tender
Neurology: Lethargic (able to hold conversation but is slowed with her responses)
Skin: Warm, Dry, Cyanosis (n), Jaundice (n) and Other (mottling)
Labs/Micro/Reports
Lab Data
06/16/23 04:22
06/16/23 04:22
Laboratory Results
06/15/23 06/16/23 06/16/23
17:44 02:02 08:03
APTT 115.7 H 103.4 H 67.4 H
06/16/23
16:14
APTT 94.4 H
Microbiology
06/15/23 18:58 Blood/Venous Blood Culture - Preliminary
Klebsiella pneumoniae-ESBL
Acinetobacter Species
06/15/23 18:58 Blood/Venous Gram Stain - Final
06/16/23 05:11 Feces/Stool Stool Leukocytes - Final
06/16/23 05:11 Feces/Stool C. difficile GDH Antigen & Toxins - Final
Negative for toxigenic C.difficile
[2023-06-16] MEDS: OMNIPAQUE 50 ML PO (10:28)
[2023-06-16] MEDS: MERREM 500 MG IV ×2 (10:29→22:13)
[2023-06-16] MEDS: STERILE WATER FOR INJECTION 10 ML IV ×2 (10:29→22:13)
[2023-06-16 10:40] LABS: ALT (SGPT) < 10 U/L (0-35); AST (SGOT) 13 U/L (14-36); Albumin 2.3 g/dl (3.5-5.0); Alkaline Phosphatase 71 U/L (38-126); Direct Bilirubin 0.3 mg/dl (0.0-0.4); Total Bilirubin 0.3 mg/dl (0.2-1.3); Total Protein 5.2 g/dl (6.3-8.2)
--- NOTE | 2023-06-16 11:17 | W.PN.ONC ---
Today's Communication / Plan
-
follow CBC
Impression
Impression
Large left colon polyp w/ concern for high grade dysplasia
GI bleed
Hypotension
Acute renal failure
LLE cellulitis s/p left hip fracture with repair (01/2023)
Lower extremity edema
Acute change in mental status
Hypercapnic respiratory failure
Hx SISI; noncompliant w/ CPAP
Plan
Plan
s/p flex sig 06/09 and colonoscopy 06/10
pathology report from 06/10 biopsies: adenomas, descending colon polyp with high grade dysplasia, no malignancy
Monitor CBC w/ diff daily
Transfuse as needed to maintain Hgb >7.5, PLT >20
Anticoagulation -on heparin gtt, transition to DOAC once medically stable
Supportive care in IMU
Nephrology, Pulmonary, ID, and GI following
Subjective/Objective
Subjective/Objective
Vital Signs:
Vital Signs
Temp Pulse Resp BP Pulse Ox
98 F 117 23 116/86 97
06/16/23 07:30 06/16/23 06:00 06/16/23 06:00 06/16/23 06:00 06/16/23 06:00
Lab Results:
Laboratory Data
WBC 14.5 10^3/uL (4.8-10.8) H 06/16/23 04:22
Hgb 7.9 g/dL (12.0-16.0) L 06/16/23 04:22
Plt Count 523 10^3/uL (130-400) H D 06/16/23 04:22
PT 13.1 Sec (11.4-14.6) 06/02/23 09:23
INR 1.01 06/02/23 09:23
APTT 67.4 Sec (23.4-35.0) H 06/16/23 08:03
eGFR 10.50 06/16/23 04:22
[2023-06-16 12:35] LABS: Glucose - Point of Care 159 mg/dl (70-99)
--- NOTE | 2023-06-16 13:31 | PTCARENOTE ---
Assumed care of patient at beginning of this shift from previous RN with heparin infusing at 1200 units/hr. Follow up PTT 67.4, so rate was increased to 1400 units/hr as per order. Next PTT for 16:15. Lab notified of positive blood cultures from
blood obtain via midline. Phlebotomy obtained venous stick. Another blood culture order had been entered by ID; this nurse confirmed with Dr Neff that another set is to be drawn. This nurse sent one set of blood cultures from midline and phlebotomy
was contacted to draw venous as patient is a very difficult stick. Phlebotomy paged again as no one was up to draw. Patient reported to Dr Garcia c/o nausea that occurred yesterday; CT abd ordered with po contrast only. Patient just returned from
testing. FMS remains in place with liquid stool. This nurse confirmed with Dr oLzano that esposito catheter is to remain in place with no d/c date; order updated. See worklist for full assessment and vital signs; see MAR for med administration.
--- NOTE | 2023-06-16 14:52 | PTCARENOTE ---
Patient c/o L arm pain, pointing to area of midline. VAT RN up to assess and no changed made.
--- NOTE | 2023-06-16 15:43 | VATNOTE ---
Pt c/o pain in R upper arm. Pt has c/o shoulder pain very frequently in the past. Concern for midline infiltrate. UAC measured and no change from original 47cm. Also ML w/ positive blood return. Will continue to monitor.
--- NOTE | 2023-06-16 16:18 | WOUNDNOTE ---
L CALF (POSTERIOR UPPER LATERAL)
--- NOTE | 2023-06-16 16:19 | WOUNDNOTE ---
R BOYER/DISTAL KNEE
--- NOTE | 2023-06-16 16:19 | WOUNDNOTE ---
L CALF (LOWER LATERAL POSTERIOR)
--- NOTE | 2023-06-16 16:20 | WOUNDNOTE ---
R BUTTOCKS (LOWER MEDIAL)
--- NOTE | 2023-06-16 16:21 | WOUNDNOTE ---
L HIP (ANTERIOR)(shadow at R side of photo)
--- NOTE | 2023-06-16 16:40 | WOUNDNOTE ---
[facility] RN note: JUDE Richards requested evaluate R lower buttocks ulcer. Small scabbed abrasion vs stage 2 pressure injury noted suspect r/t edema/friction. Silicone border foam applied. FMS leaking. Patient has large amount loose brown stool. Posterior
thighs red with some linear red open areas from FMS along with edema and MASD. Cleansed with saline, miconazole powder followed by Calazime ointment applied to sacral MASD, and buttocks/posterior thigh affected areas. L lateral lower calf ulcer
appears larger with some yellow fibrin compared to 06/03 photo. BP cuff on L ankle. BP cuff switched to R ankle after knee high Keshawn wrap applied. Silicone border foam applied L lateral calf ulcers then L knee high Keshawn wrap. L heel appears red.
Silicone border foam applied by JUDE Rasmussen on heels. Geovanna care given, patient turned, linens changed by JUDE Richards, JUDE Rasmussen and MILADIS Pritchett. Heels off bed with pillow. Bariatric air chair cushion left in room (can be used to off load heels and
for recliner chair). Updated Dr. Garcia and Dr. Neff via tiger text. Dr. Gracia approved local wound care. Care plan to be updated. Will follow as needed.
--- NOTE | 2023-06-16 16:44 | VATNOTE ---
Blood cultures obtained from pt's left lower arm. Right arm was missed multiple times. Pressure dressing applied.
[2023-06-16 16:48] LABS: APTT 94.4 Sec (23.4-35.0)
--- NOTE | 2023-06-16 16:58 | CM ---
Patient with Dx altered mental status, Acute hypercapnic hypoxic respiratory failure, GI bleed, ARF, Left leg cellulitis with left hip area wound. O2 4L. Heparin gtt, IV Abx. PT & OT- need new orders to resume. Seen by wound care nurse.
As per prior CM notes, patient has home O2 for HS only.
CM continuing to follow.
Patient will benefit from orders to resume PT/OT when medically appropriate.
Plan follow patient's home O2 needs.
Plan follow up after seen by PT/OT.
[2023-06-16] MEDS: SODIUM BICARBONATE 325 MG PO ×2 (17:01→21:18)
[2023-06-16] MEDS: FLEXERIL 5 MG PO ×2 (17:13→22:52)
[2023-06-16] MEDS: LIPITOR 20 MG PO (17:13)
[2023-06-16 17:23] LABS: Glucose - Point of Care 153 mg/dl (70-99)
--- NOTE | 2023-06-16 17:40 | PTCARENOTE ---
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 VAT RN up and able to obtain [address] Neff made aware that patient had 1 set via midline and one set peripheral.
Patient with R arm edema. +blood return via midline. VAT RN up again to assess; another VAT RN up as well. Recommended US RUE to r/o DVT. Dr Garcia notified via tiger text and entered order for US.
--- NOTE | 2023-06-16 18:39 | PTCARENOTE ---
Per US tech, they will be up in approximately 30mins to do portable US.
--- NOTE | 2023-06-16 19:03 | VATNOTE ---
This VAT RN asked another VAT RN to assess pt's midline site. R arm is more swollen than earlier today. U/S recommended by both of us. U/S ordered and MD made aware. Will continue to monitor.
[2023-06-16] MEDS: ATIVAN 1 MG PO (21:18)
[2023-06-16 21:23] LABS: Glucose - Point of Care 189 mg/dl (70-99)
[2023-06-16 22:37] LABS: APTT 104.1 Sec (23.4-35.0)
--- NOTE | 2023-06-16 22:42 | PTCARENOTE ---
pt rfsuing bipa despite stong encouragement form RN RT and her . she still refuses. Husbands mask does not work with our equipment.
[2023-06-17] VITALS (16 sets, daily range): BP systolic 88–113; BP diastolic 36–75; PULSE 88–117; O2SAT 97–98; BMI 45.7
[2023-06-17 04:47] LABS: Hematocrit 22.8 % (37.0-47.0); Mean Corp Hgb Conc. 35.1 g/dL (33.0-37.0); Mean Corpuscular Hgb 29.6 pg (27.0-31.0); Mean Corpuscular Volume 84.4 fL (81.0-99.0); Mean Platelet Volume 9.4 fL (7.4-10.4); Platelet Count 559 10^3/uL (130-400); Red Cell Dist. Width 14.5 % (11.5-14.5); White Blood Cell Count 19.7 10^3/uL (4.8-10.8)
[2023-06-17 04:59] LABS: APTT 121.2 Sec (23.4-35.0)
[2023-06-17 05:16] LABS: Blood Urea Nitrogen 75 mg/dl (7-17); Calcium 8.4 mg/dl (8.4-10.2); Carbon Dioxide 16 mmol/L (22-30); Chloride 97 mmol/L (98-107); Glucose 160 mg/dl (70-99); Potassium 3.5 mmol/L (3.5-5.1); Sodium 128 mmol/L (135-145)
[2023-06-17 05:28] LABS: Estimated Creatinine Clearance 13 ml/min
[2023-06-17 07:18] LABS: Glucose - Point of Care 176 mg/dl (70-99)
--- NOTE | 2023-06-17 08:06 | W.PN.CARDCBS ---
Addendum entered and electronically signed by Robina Lundberg MD 06/17/23 09:29:
I saw and examined the patient.
The Dye Expert's note was reviewed and I agree with the note.
Comment: Cardiac status is without change. She remains on amiodarone for PAT and has received 2.2 g so far. Rare short-lived episodes of SVT/PAT on the monitor noted.
EKG QT interval stable.
Renal insufficiency noted and being followed by nephrology. Diuretics per nephrology.
Treatment of infection and PICC line related DVT per primary service.
Original Note:
Today's Communication / Plan
-
continue amio. follow QTc. follow on tele
defer diuresis to nephrology given NOAM
prognosis guarded
Impression / Plan
-
Family Physician: Valery Saunders
Primary Electrocardiograph Repairer: Dr. Low, last seen in office 03/2022
Assessment:
Presented 06/02/23 w/ abnormal labs, hyponatremia
Acute on chronic hyponatremia
Clinical sepsis with shock from pancolitits
Acute on chronic hypoxic respiratory insufficiency, chronically on 2L NC
NOAM with azotemia
LLE cellulitis
N/V/D
Pancolitis
Colon polyps s/p flex sigmoidoscopy with snaring/biopsy 06/10/23
Drug rash, felt to be from lasix, improved
LUE PICC associated DVT
Lethargy
Prolonged QTc on sotalol
Paroxysmal SVT with noninducibility during EP study and empiric atrial flutter ablation 2014
Prior rate related LBBB in setting of SVT
Chronic HFpEF
Hyponatremia
HTN
HLD
DM
Diabetic neuropathy
History of RLE DVT
Anemia of chronic disease
Meningioma
Morbid obesity
SISI
Persistent LE wounds/cellulitis/osteomyelitis
Chronic lymphedema/venous stasis
History of L femur fracture s/p ORIF 02/16/2023 with incomplete healing by imaging
Chronic pain syndrome on opioids
History of partial hysterectomy, oophorectomy, salpingectomy
History of NOAM
ECHO 02/17/23: EF 65 to 70%, mild concentric LVH, mildly dilated left atrium, mild with peak/mean gradients 34/18 mmHg, LA NENA 1.6 cm�, mild AR
Plan:
-she remains with altered mental status, felt to be TME
-she continues with paroxysms of SVT/atach by review of tele, for which she was previously maintained on sotalol. sotalol stopped 06/09 due to NOAM and QTc prolongation. transitioned to amiodarone started 06/11, continue 200mg TID
-QTc stable by EKG 06/16, follow
-with evidence of volume overload on exam however also remains with NOAM, Cr 4.2 on 06/16. defer diuretics to nephrology
-wean supp O2 as able
-diagnosed with PICC line associated LUE DVT. remains on IV heparin, hgb 8.0.
-Hematology/oncology involved given colonoscopy findings, await pathology.
-UA abnormal, urine and blood cultures pending. abx per primary service
-remains very ill. Prognosis is guarded. currently a full code
-d/w nursing
Progress Note - Electrocardiograph Repairer
Subjective
Date of Service: June 17, 2023
patient without complaints of palpitations
Objective
Labs:
06/17/23 04:38
06/17/23 04:38
Labs
Hgb 8.0 g/dL (12.0-16.0) L 06/17/23 04:38
Hct 22.8 % (37.0-47.0) L 06/17/23 04:38
Plt Count 559 10^3/uL (130-400) H 06/17/23 04:38
PT 13.1 Sec (11.4-14.6) 06/02/23 09:23
INR 1.01 06/02/23 09:23
APTT 121.2 Sec (23.4-35.0) H 06/17/23 04:38
Sodium 128 mmol/L (135-145) L 06/17/23 04:38
Potassium 3.5 mmol/L (3.5-5.1) 06/17/23 04:38
BUN 75 mg/dl (7-17) H 06/17/23 04:38
Creatinine 4.2 mg/dL (0.6-1.0) H* 06/17/23 04:38
Glucose 160 mg/dl (70-99) H 06/17/23 04:38
Vital Signs and I&O:
Vital Signs
Temp Pulse Resp BP Pulse Ox
97.6 F 94 18 90/50 98
06/17/23 07:40 06/17/23 06:01 06/17/23 06:01 06/17/23 06:01 06/17/23 06:01
Vital Signs
Temp Pulse Resp BP Pulse Ox
97.6 F 94 18 90/50 98
06/17/23 07:40 06/17/23 06:01 06/17/23 06:01 06/17/23 06:01 06/17/23 06:01
Intake & Output
06/15/23 06/16/23 06/17/23 06/18/23
07:59 07:59 07:59 07:59
Intake Total 175 / 175 1794 / 1794 720 / 720
Output Total 400 / 400 1000 / 1000 275 / 275
Balance -225 / -225 794 / 794 445 / 445
Physical Exam
Physical Exam
General: No Apparent Distress. lethargic. obese. on supp O2. chronically ill appearing
HEENT: Normocephalic, Anicteric and Moist Mucous Membranes
Respiratory: Rhonchi and Non Labored Respirations
Cardiac: Regular Rhythm, S1/S2, 1/6 syst LSB
GI: Soft and Normal Bowel Sounds
Musculoskeletal: No Clubbing, No Cyanosis. 2+ edema of B/L upper and lower extremities
Skin: Warm and Dry
Neuro: lethargic. answers some questions when asked
--- NOTE | 2023-06-17 08:50 | W.PN.PUL3 ---
Today's Communication / Plan
-
DC nocturnal BiPAP as pt is refusing - understands risks and still is adamant about refusing
Amiodarone therapy per cardiology
May require iHD, and considering she is hypotensive then she would need CRRT
Follow up UCx and blood Cx that are growing GNR from 06/15
Continue meropenem per ID
Poor prognosis
Pulmonary service will now sign off. Please reconsult if there are any additional questions/concerns, or if patient's respiratory status deteriorates.
Assessment
-
Patient is a 68-year-old female with history of Aflutter, HTN, IDDM, SISI, anxiety presenting to ER from [facility] with abnormal labs-hyponatremia. Patient has been on fluid restriction due to this hyponatremia for the last 3 days. Sodium on
arrival 123, previously 131 on 04/28/23. She was noted to be hypotensive on arrival, started on levophed and admitted to ICU.
She is noted to be hypoglycemic on arrival as well, given amp Dextrose with minimal improvement.
Impression:
Acute on chronic hyponatremia
Persistent hypoglycemia, resolved
NOAM, creat now 4.2
Metabolic acidosis due to NOAM - improved
Chronically compensated resp acidosis, suspected OHS
Hx of SISI intolerant/non-compliant to PAP
TME due to NOAM with sepsis
Oliguria
Hypocalcemia/hypomagnesemia - resolved
Acute infected pancolitis on CT, neg lactate/c diff
Bacteremia with Klebsiella pneumonia ESBL and Acinetobacter (via BCx from 06/15/2023)
Positive urine Cx with suspected UTI - growing GNR
Conditions present prior admission:
Discharged from 01/2023: Lethargy/status post fall status post left hip intertrochanteric fracture with repair
Lower extremity infection with Streptococcus bovis seen by ID and discharged on antibiotics until 02/26/2023-Wound culture left leg 03/18/2023: MRSA and Pseudomonas.
Atrial fibrillation off anticoagulation due to hemorrhagic complication
Peripheral arterial disease
Diabetes mellitus type 2
Morbid obesity with a BMI of 46
Hypertension
Anemia of chronic disease
Dyslipidemia
Obstructive sleep apnea
Chronic pain syndrome on opiates
Plan
Reconsulted on patient for SISI/chronic hypercarbia 06/13/23
History of SISI noted, started on BIPAP
Unfortunately she refused BiPAP last 3 nights
She is adamantly refusing despite changing the mask interfaces and adjusting IPAP/EPAP
She is aware of the risks of PAP noncompliance including uncontrolled hypertension, increased risk of pulm hypertension, excessive sleepiness with worsened quality of life, eventual right-sided heart failure and
She is otherwise maintained on 3-4L NC
Repeat ABG from 06/12 is 7.23/54, prior 7.38/51 back in 2023
Chronic CO2 retention noted, she is close to baseline CO2
She has more concurrent metabolic acidosis
CXR/CT reviewed indicating clear lungs/NAD
CT AP reviewed showing cabrera colitis, neg c diff and lactate
She had a repeat CT A/P done yesterday showing no acute pathology of the abdomen or pelvis or intestinal obstruction
Initial Shock has resolved. Likely septic.
Off midodrine since 06/04/2023
Patient has normal LVEF on echocardiogram. Mild and mild AR on 01/2023.
s/p antibiotics with mari, teflaro and zyvox per infectious disease, signed off - last dose of zyvix on 06/07
Now blood cultures from 06/14 are growing Klebsiella pneumonia ESBL and Acinetobacter spp --> ID reconsulted and meropenem restarted on 06/15
Also urine Cx and repeat blood Cx from 06/15 are both growing GNR --> follow up species and sensitivities
MRSA screen + from 06/02/2023
Wound cultures from 05/19/2023 with numerous orgs
She had recent admission for L hip fracture s/p repair 02/16/23; readmitted in March for infected hip, treated with abx
Trend leukocytosis
TME noted, at this point due to sepsis with severe NOAM
Patient refused lasix due to sulfa allergy --> s/p ethacrynic acid (last given on 06/14)
Increased TSH/low free T3 with normal free T4 --> likely euthyroid sick syndrome --> repeat TFTs in 6-8 weeks
Nephrology following - recs appreciated
NOAM worsening, at some point may need HD if no improvement
PO Bicarb started yesterday
Cardiac history reviewed--AFlutter maintained on sotalol at home
Prior ECHO reviewed indicating normal function
Hold home meds, resume when able
On heparin gtt and PO amio
Avoid narcotics, sedatives
patient on gabapentin 100 mg 3 times a day, Ativan
Hold for sedation
Patient with poor prognosis long-term given multiple comorbidities, severely deconditioned, noncompliance with recommendations
Considering patient is refusing nocturnal PAP, there is little that we can offer. Continue antibiotics per ID, wean supplemental oxygen to maintain SpO2 >90-94%, and if she ends up going home then check ambulatory pulse ox prior. Unfortunately she
has poor prognosis, as stated above, and she has a high risk of deteriorating further with ICU transfer and continued sepsis with multiorgan failure. Will discuss this with the and consider hospice depending how her hospital course goes.
Pulmonary service will now sign off. Thank you for allowing us to be involved in the care of this patient. Please reconsult if there are any additional questions/concerns, or if patient's respiratory status deteriorates.
Total time spent today was 50 minutes for this encounter. Time includes reviewing laboratory test/imaging results, reviewing pertinent medical records, obtaining and reviewing medical history, performing an appropriate exam, ordering medications,
tests and procedures. Time also includes documentation of this encounter, coordinating patient care and communicating with other healthcare professionals. Total time does not include separately billed tests performed on this date of service.
Diagnostic Data
Chest X-Ray:
Chest x-ray 03/18/2023: Rotated film. No acute infiltrates.
CT AP 06/08/23- 1. MILD ACUTE INFECTIOUS PANCOLITIS with mild fluid distention of the proximal colon and mild wall thickening and mucosal hyperenhancement in the distal colon and rectum.
2. 1.5 cm intraluminal mass in the descending colon-sigmoid colon junction suspicious for a large colonic polyp (possibly adenocarcinoma).
3. Mild diffuse small bowel distention.
4. Mild hepatomegaly and mild diffuse hepatic steatosis.
5. Small hiatal hernia.
6. Mild pelvic and retroperitoneal lymphadenopathy.
7. Multiple uterine leiomyoma.
8. Mild diffuse thickening and trabeculation of the urinary bladder wall suggesting chronic cystitis.
9. Previous cholecystectomy.
10. Mild cardiomegaly.
11. Osteoporosis with multilevel chronic vertebral body endplate fractures in the lumbar spine.
12. Severe discogenic degenerative disease and facet joint arthrosis in the lower lumbar spine.
13. Severe atrophy of the parapelvic and posterior paraspinal muscles.
CT Scan: AP 02/13/23- Findings suggesting enteritis/ileus. Findings suggesting sequelae of chronic terminal ileitis. Intertrochanteric left femur fracture.
CT A/P 06/16/2023 - No acute pathology of the abdomen or pelvis identified. No evidence of intestinal obstruction.
Echo: 02/17/23- Normal left ventricular size and systolic function. No regional wall motion abnormalities are seen. LV ejection fraction is 65-70% by visual assessment. Mild concentric left ventricular hypertrophy. Normal diastolic function. Mildly
dilated left atrium. Mild aortic stenosis. Peak/mean gradients are 34/18mmHg. The valve area by continuity equation is 1.6cm sq, using a LVOT of 1.9cm.
Mild aortic regurgitation. When compared to prior echocardiogram from June 16, 2021, the left atrium is now mildly enlarged and otherwise there is no significant change.
Echocardiogram 02/17/2023: Normal LVEF. Mild LVH. Mild aortic stenosis. Mild AR
PFT's:
Nocturnal ox 07/27/15: time below 90% 1:22:18 (23.8%); time below 88% 46:20 (13.4%); O2 nicol 67%; ALICIA >10s 31.0
Reports and relevant images were personally reviewed.
Subjective Data
-
Date of Service:
Date of Service: June 17, 2023
Chief Complaint: Pulmonary Follow Up
Subjective:
Patient refused BiPAP again last night. I discussed this with her today and she will not use the PAP with sleep regardless of what types of mask interfaces that we try. She understands the risks and is okay with it. She currently denies chest
pain, headache, shortness of breath, fevers or chills. She would like to lay down so that she can take a nap. She is currently on 3 L/min nasal cannula, saturating 99%. Heart rate 94 and BP 96/41.
Review of Systems
General: Other (Negative unless mentioned above)
Objective Data
Data Reviewed
Vital Signs / I&O / Oxygen:
Vital Signs
Temp Pulse Resp BP Pulse Ox
97.6 F 94 18 90/50 98
06/17/23 07:40 06/17/23 06:01 06/17/23 06:01 06/17/23 06:01 06/17/23 06:01
Intake and Output
06/16/23 06/17/23 06/18/23
06:59 06:59 06:59
Intake Total 1794 / 1794 720 / 720
Output Total 1000 / 1000 275 / 275
Balance 794 / 794 445 / 445
SaO2 98
Nasal Cannula flow liters per 4
minute
Physical Exam
General: Comfortable and Other (chronically ill appearing, morbidly obese, disheveled appearance; older than stated age)
HEENT: Normocephalic, Anicteric, Moist Mucous Membranes and Other (Thick neck)
Cardiovascular: S1-S2, Murmur (NATI heard best at LUSB) and Peripheral Edema (no LE edema b/l)
Respiratory: Wheeze (n), Crackles (n), Rhonchi (negative), Non-Labored Respirations, Stridor (n) and Other (Coarse breath sounds bilaterally)
GI: Soft, Non Distended (Morbidly obese) and Non Tender
Neurology: Awake, Alert and Other (sleepy at times but answering my questions appropriately)
Skin: Warm, Dry, Cyanosis (n) and Jaundice (n)
Labs/Micro/Reports
Lab Data
06/17/23 04:38
06/17/23 04:38
Laboratory Results
06/16/23 06/16/23 06/17/23
16:14 22:18 04:38
APTT 94.4 H 104.1 H 121.2 H
Microbiology
06/16/23 05:11 Urine Urine Culture - Preliminary
Gram negative bacilli
06/16/23 08:49 Blood/Venous Blood Culture - Preliminary
No Growth in 24 hours- Final report to follow
06/16/23 10:02 Blood/Venous Blood Culture - Preliminary
Gram negative bacilli
06/16/23 10:02 Blood/Venous Gram Stain - Final
06/15/23 18:58 Blood/Venous Blood Culture - Preliminary
Klebsiella pneumoniae-ESBL
Acinetobacter Species
06/15/23 18:58 Blood/Venous Gram Stain - Final
06/16/23 05:11 Feces/Stool Stool Leukocytes - Final
06/16/23 05:11 Feces/Stool C. difficile GDH Antigen & Toxins - Final
Negative for toxigenic C.difficile
--- NOTE | 2023-06-17 08:59 | W.PN.HOSP.TC ---
Today's Communication/Plan
-
Continue with antibiotics. Follow culture data.
Continue with IV heparin. Will switch to oral DOAC's once more medically stable.
Patient's remained sleepy during the day consider VBG
Assessment / Plan
Assessment / Plan
Assessment and plan:
change in mental status - sec to metabolic encephalopathy
ABG was obtained it shows she has acute hypercapnic hypoxic respiratory failure.
Resolved with BiPAP support.
Acute hypercapnic hypoxic respiratory failure. Patient with chronic hypoxic respiratory insufficiency on 2 L at home. She has history of sleep apnea but was not able to tolerate mask in the past. She is obese. Suspected respiratory distress
secondary to sleep apnea. Avoid sedation.
Repeat chest x-ray 06/12 showed low lung volumes
cw BiPAP at 15/5 on 2 L of oxygen prn sleep
Appt pulm input
Pt refusing BIPAP due to intolerance
Pulm Considering nasal CPAP
Aucte GI bleed
No active bleeding.
Had a full colonoscopy 06/10 and multiple polyps removed
Possible related to polyp after initial sigmoidoscopy and polyp resection.
Hemoglobin no major changes but low today at 8.0 ; aim to keep HH >8.0
Bx results noted -no malignancy ; follow colo per GI recs
Baseline Chronic normocytic anemia-ACD. Hemoglobin at baseline. Aim to keep it more than 8. No iron def.
Acute renal failure: Could be multifactorial including receiving ethacrynic acid, sepsis shock hypotension, IV contrast
Creatinine with slight improvement
oliguric
Wt is climbing
Nephrology on board
Continue to monitor
Avoid nephrotoxin
IV Ethacrynic acid per renal
Left arm PICC associated DVT -tx with AC for 1 month. On lovenox which was on hold because of bleeding and and acute renal failure.
started on IV heparin . DOAC when stable
hematology input noted regarding this DVT
Her DVT was in axillary vein extending into basilic .
Leukocytosis - afebrile .Nontoxic . stools for C Diff neg ;UA positive ; BCX positive ;CXR couple of days ago no pneumonia.Started on Meropenem . Repeat cultures requested by ID. In view of ongoing abdominal symptoms, recent GI interventions and
anaerobic cultures being positive a CT of the abdomen pelvis was obtained - no acute pathology identified.
ESBL Kleb pneumonia and Acinetobacter bacteremia - CW Meropenem, follow WBC closely.
Shock on admission -suspected sepsis - Off of pressors . Normal EF on recent ECHO (01/2023), normal diastolic function, Mild ,mild AR .
Left leg cellulitis with left hip area wound - No drainage from wound - eval by ortho. Completed antibiotic,
# MRSA colonized
-s/p meropenem x 3 d.
-Completed linezolid 600mg po bid x through 06/08/2023 am
- Follow leukocytosis closely
Bilateral lower extremity edema-suspected may be dependent, while protein caloric malnutrition hypoalbuminemia could be another reason, acute renal failure could adding to it.
. Echo in January 2023 shows normal diastolic function and normal EF. Her BNP on admission was within the normal limit. Her weight gain has been higher since her recent discharge. cw compression dressings for fluid management. Pt says she is
allergic to sulfa including lasix .switched to ethacryanic acid -much improved wt ;lowest so far in [employer] system since 06/2021.Raise in Cr slightly noted .Hold Ethacrynic acid. There is concern of N/V sec to ethacrynic acid but pt was also getting
linezolid at same time.
Weight up again -follow daily weights
Drug rash -possible lasix - it is off now. Got 2 doses only . Allergic to sulfa antibiotic drugs . Lasix listed as allergy as well now.
Hyponatremia - management per renal - acute on chronic .
Fluctuating
Nephrology on board
Moderate protein caloric malnutrition, albumin 2.2.
HTN - hold ARB due to hypotension and follow
DM 2 with hyperglycemia. Patient with poor oral intake. Hemoglobin A1c 7.1. Hold glimepiride and alogliptin for now. cortisol is ok .
Recent Left Hip ORIF - OP CT hip noted - cw PT eval; Wound care/abx for left hip wound. Ortho input noted.
Paroxysmal atrial fibrillation-in sinus rhythm. QTc normal now . QTc in March 2023 was within normal limits. DC sotalol due to NOAM and low normal blood pressure
Cardiology following -now on Amio
Prognosis is poor
Left message to on his phone.
Full code
DW RN
DW ID
Total time spent on today's encounter was 52 minutes which included time spent in counseling the patient regarding diagnosis and treatment plan as listed above, goals of care, and symptom management. Case was discussed with nursing staff,
specialists,. All labs and imaging personally reviewed by me. Remainder the time spent in detailed review of previous records, lab data, imaging, and other medical provider documentation.
Anticipated Discharge: > 48 hours
Subjective/Interval History
-
Date of Service: June 17, 2023
Patient is bit sleepy today.
Applicable. Oriented.
Denies shortness of breath.
Objective Data
-
Labs:
Laboratory Results
06/16/23 06/17/23 06/17/23
22:18 04:38 11:15
WBC 19.7 H
Hgb 8.0 L
Hct 22.8 L
Plt Count 559 H
APTT 104.1 H 121.2 H Pending
Sodium 128 L
Potassium 3.5
Chloride 97 L
Carbon Dioxide 16 L
BUN 75 H
Creatinine 4.2 H*
Glucose 160 H
Calcium 8.4
Vital Signs:
Vital Signs
Temp Pulse Resp BP Pulse Ox
97.6 F 94 18 90/50 98
06/17/23 07:40 06/17/23 06:01 06/17/23 06:01 06/17/23 06:01 06/17/23 06:01
I&O
06/16/23 06/17/23 06/18/23
06:59 06:59 06:59
Intake Total 1794 / 1794 720 / 720
Output Total 1000 / 1000 275 / 275
Balance 794 / 794 445 / 445
Review of Systems
-
Cardiac: Denies Chest Pain
Abdomen/GI: Denies Abdominal Pain, Nausea or Vomiting
Neuro: Denies Dizzy
Physical Exam
-
General: No Apparent Distress
HEENT: Moist Mucous Membranes
Respiratory: Clear to Auscultation (Anteriorly)
Cardiac: S1/S2 and Irregular Rhythm; Negative Tachycardic
GI: Soft, Nontender, Normal Bowel Sounds and Other (Obese)
Neuro: Awake; Negative Alert (sleepy but awakable)
Psych: Calm
Data Reviewed
-
CT Scan: Report Reviewed by me (ct chest)
Labs: Labs Reviewed by me
[2023-06-17] MEDS: NOVOLOG FLEXPEN-LOW RESISTANCE 1 UNITS SC ×2 (09:09→12:15)
[2023-06-17] MEDS: SODIUM BICARBONATE 325 MG PO ×3 (09:10→21:22)
[2023-06-17] MEDS: PACERONE 200 MG PO ×3 (09:10→21:21)
[2023-06-17] MEDS: OSCAL CAL 500 1000 MG PO ×2 (09:10→21:22)
[2023-06-17] MEDS: PROTONIX 40 MG PO ×2 (09:10→21:22)
[2023-06-17] MEDS: VITAMIN D3 (cholecalciferol) 125 MCG PO (09:11)
[2023-06-17] MEDS: DESENEX/MITRAZOL/ZEASORB 1 APPLIC TOPICAL ×2 (09:11→21:23)
--- NOTE | 2023-06-17 09:45 | W.PN.ID1 ---
Date of Service
Date of Service: June 17, 2023
Today's Communication
Continue meropenem.
Assessment / Plan
# ESBL-Klebsiella, Acinetobacter bacteremia
# Leukocytosis trending up
# Numerous abx/drug allergies. Tolerated meropenem and linezolid in the past.
- Source of bacteremia possibly from colon translocation after recent resection of multiple polyps with associated GIB
- Repeat blood cx's ( 1 of 2 from midline) + GNR (before meropenem)
- Repeat blood cx x 1 today and tomorrow am.
- Continue Meropenem 500mg IV q12h (d2) pending susceptibility.
# NOAM without improvement
- May need HD per renal.
- Adjust abx dosing.
# Diarrhea
- C. diff neg/norovirus negative
# Intraluminal colon mass
- hx Strep bovis bacteremia 02/11/2023, treated.
- 06/10/23 s/p sigmoidoscopy, removal of several polyps.
- 06/11/23 s/p colonoscopy, removal of multiple polyps, clipping of ulcer in sigmoid
- Biopsis: tubular adenomas with focal high grade dysplasia, and tubulovillous adenomas
# Afib
# s/pLLE cellulitis - resolved
# Lymphedema
-Completed linezolid 600mg po bid through 06/08/2023 am
- Continue BLE compression
# Drug rash resolved off furosemide
# LUE picc associated DVT
- PICC dc'd
# Left hip incision wound clean without infection
- cx skin [place]
Overall guarded prognosis. Pt lacks insight to her serious medical conditions.
#Additional Past Medical History:
Diabetes mellitus
Class III obesity BMI 49
Lymphedema
Obstructive sleep apnea
A flutter status post ablation
hypertension
cellulitis
Asthma
Dyslipidemia
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
Meningioma s/p resection
Chronic back pain
Cholecystectomy
Bilateral oophorectomy
Left hip fracture s/p gamma nailing 02/16/23
Chief Complaint
-: Leukocytosis and Bacteremia
Subjective / Review of Systems
She thinks she is going home.
Vital Signs / Physical Exam
Vital Signs
Vital Signs
Temp Pulse Resp BP Pulse Ox
97.6 F 94 18 90/50 98
06/17/23 07:40 06/17/23 06:01 06/17/23 06:01 06/17/23 06:01 06/17/23 06:01
Physical Exam
Constitutional: Acutely Ill
Eyes: Sclera Anicteric
Cardiovascular: Regular Rate and S1/S2
Pulmonary: Clear (anteriorly)
Gastrointestinal: Soft, Non Tender and Non Distended
Genito-Urinary: Moore and Other
Extremities: Edema (chronic BLE lymphdema)
Neurological: Awake
Lines: Other (RUE midline)
Objective Data
Lab Data
Lab Results
06/17/23 04:38
06/17/23 04:38
PT 13.1 Sec (11.4-14.6) 06/02/23 09:23
INR 1.01 06/02/23 09:23
APTT 121.2 Sec (23.4-35.0) H 06/17/23 04:38
Estimated Creat Clear 13 ml/min 06/17/23 04:38
Lactic Acid 0.9 mmol/L (0.7-2.0) 06/13/23 09:53
Total Bilirubin 0.3 mg/dl (0.2-1.3) 06/16/23 04:22
AST 13 U/L (14-36) L 06/16/23 04:22
ALT < 10 U/L (0-35) 06/16/23 04:22
Alkaline Phosphatase 71 U/L (38-126) 06/16/23 04:22
Most recent labs reviewed.
Micro Results:
06/16/23 08:49 Blood Culture - Preliminary
Blood/Venous No Growth in 24 hours- Final report to follow
06/16/23 10:02 Blood Culture - Preliminary
Blood/Venous Gram negative bacilli
Gram Stain - Final
06/15/23 18:58 Blood Culture - Preliminary
Blood/Venous Klebsiella pneumoniae-ESBL
Acinetobacter Species
Gram Stain - Final
06/16/23 16:36 Blood Culture - Pending
Blood/Venous
06/16/23 05:11 Stool Leukocytes - Final
Feces/Stool
06/16/23 05:11 C. difficile GDH Antigen & Toxins - Final
Feces/Stool Negative for toxigenic C.difficile
06/16/23 05:11 Urine Culture - Pending
Urine
06/07/23 23:53 - Final
Feces/Stool Negative for Norovirus GI and GII.
06/03/23 10:41 Blood Culture - Final
Blood/Venous No Growth - Final Report
06/03/23 10:41 Blood Culture - Final
Blood/Venous No Growth - Final Report
06/02/23 05:52 Blood Culture - Final
Blood/Venous Coagulase neg. staphylococcus
Additional testing on request
Gram Stain - Final
06/02/23 05:52 Blood Culture - Final
Blood/Venous No Growth - Final Report
06/02/23 13:24 Wound Culture - Final
Hip - Left Gram Stain - Final
06/02/23 13:23 MRSA Screen - Final
Nose Staph aureus MRSA
06/02/23 13:25 Urine Culture - Final
Urine NO GROWTH
06/02/23 18:34 C. difficile GDH Antigen & Toxins - Final
Feces/Stool Negative for toxigenic C.difficile
06/14/23 CXR: Hypoaerated lungs without consolidation.
06/08/23 CT a/p: MILD ACUTE INFECTIOUS PANCOLITIS with mild fluid distention of the proximal colon and mild wall thickening and mucosal hyperenhancement in the distal colon and rectum. 1.5 cm intraluminal mass in the descending colon-sigmoid colon
junction suspicious for a large colonic polyp (possibly adenocarcinoma). Mild diffuse small bowel distention.
06/02/23 CXR: clear lungs
05/28/23 CT LLE: ORIF of an intertrochanteric/subtrochanteric fracture. The fracture plane remains evident, but there is some callus and heterotopic ossification about the fracture site.
--- NOTE | 2023-06-17 10:09 | W.PN.NEPH.PH ---
Today's Communication / Plan
-
IV ethacrynic acid provided
Maintain sodium bicarbonate pills
follow bmp
Assessment/Plan
-
IMP:
Hyponatremia-acute on chronic
NOAM with significant azotemia
suspected septic shock/gram-negative bacilli bacteremia
hypoglycemia
Hypomagnesemia
TME
HX Paroxysmal AF- Not on anticoagulation due to hemorrhagic complications in the past
Chronic anemia
Essential HTN
T2DM
Chronic pain syndrome on chronic opioids
SISI - CPAP
Morbid obesity due to excess calories
PAD
h/o left hip fx s/p ORIF 01/2023
Plan:
NOAM, baseline cr of 0.7 now elevated to 4.5. hoping this is the peak as creatinine 4.2 today, urine output ~275, weights up
will re implement Ethacrynic acid IV times one
Metabolic acidosis improved with oral sodium bicarbonate
Remains hypotensive,WBC rising to ~19, gram-negative bacilli in blood (on meropenem)
CT of abdomen and pelvis nonrevealing
specially post contrast on 06/07+diarrhea
Explained to her that dialysis still maybe approaching
HANNAH is on high differential, FeNa not low
Maintain Moore
Recent CT no hydro but concern of GI abnormality colitis, mass?
gapped met acidosis-will hold off on fluids due to hypercapnia and c/f volume overload
continues with edema and increased weight gains
replaced calcium PRN and initiated on vit D supplementation
BP stable but soft
avoid nephrotoxins
discussed with patient
previously reviewed by Dr. Abbott that should her renal function worsens likely need RN PRODUCTION in next 1-2 days
Discussed again with patient on 06/13 that she would be okay with short term HD
If kidney function continues to worsen, would place HD line and initiate RN PRODUCTION
hopefully she may escape
monitor h/h s/p C scope 06/10-polypectomies
Amio per cards for afib
labs in am
high risk encounter
-
-
Date of Service: June 17, 2023
CC / HPI / ROS
-
Chief Complaint:
NOAM, hyponatremia
History of Present Illness:
sodium down at 128, cr dwon to 4.2 but BUN up to 75
UOP at 200cc
Hemodynamically labile
developed erythematous red rash on chest post Lasix now improving
Sodium bicarbonate provided for metabolic acidosis
BP stable
GIB , Hgb unchanged at 8 post sigmoidoscopy 06/09, C scope on 06/10 polypectomies
Review of Systems:
now transferred to IMU for hypercapnia and lethargy
insight seem poor
Oliguric via Moore
Labs
-
Labs:
WBC 19.7 10^3/uL (4.8-10.8) H 06/17/23 04:38
RBC 2.70 10^6/uL (4.20-5.40) L 06/17/23 04:38
Hgb 8.0 g/dL (12.0-16.0) L 06/17/23 04:38
Hct 22.8 % (37.0-47.0) L 06/17/23 04:38
Plt Count 559 10^3/uL (130-400) H 06/17/23 04:38
Sodium 128 mmol/L (135-145) L 06/17/23 04:38
Potassium 3.5 mmol/L (3.5-5.1) 06/17/23 04:38
Chloride 97 mmol/L (98-107) L 06/17/23 04:38
Carbon Dioxide 16 mmol/L (22-30) L 06/17/23 04:38
BUN 75 mg/dl (7-17) H 06/17/23 04:38
Creatinine 4.2 mg/dL (0.6-1.0) H* 06/17/23 04:38
eGFR 11.10 06/17/23 04:38
Glucose 160 mg/dl (70-99) H 06/17/23 04:38
Calcium 8.4 mg/dl (8.4-10.2) 06/17/23 04:38
Phosphorus 6.0 mg/dl (2.5-4.5) H 06/02/23 05:09
Yml-R-Alhtstkvkod Pept 633 pg/ml 06/02/23 05:09
Albumin 2.3 g/dl (3.5-5.0) L 06/16/23 04:22
Physical Exam
-
Vital Signs:
Vital Signs
Temp Pulse Resp BP Pulse Ox
97.6 F 94 18 90/50 98
06/17/23 07:40 06/17/23 06:01 06/17/23 06:01 06/17/23 06:01 06/17/23 06:01
Cardiovascular:: Regular rate and rhythm
Respiratory:: Bilateral: Coarse
Lung Excursion:: Normal
Abdomen:: Distended, Nontender and Soft
Bowel Sounds:: Decreased
Extremity Edema:: +2: Bilateral:
Moore Catheter: Yes
[2023-06-17 11:08] LABS: Glucose - Point of Care 188 mg/dl (70-99)
[2023-06-17 11:23] LABS: APTT 121.2 Sec (23.4-35.0)
[2023-06-17] MEDS: EDECRIN 50 MG IV (12:14)
[2023-06-17] MEDS: BENADRYL 25 MG PO (12:15)
[2023-06-17] MEDS: STERILE WATER FOR INJECTION 10 ML IV ×2 (12:15→22:00)
[2023-06-17] MEDS: MERREM 500 MG IV ×2 (12:15→22:00)
[2023-06-17] MEDS: IMODIUM 2 MG PO ×2 (14:51→21:22)
[2023-06-17] MEDS: TIGAN 200 MG IM (15:19)
[2023-06-17 16:26] LABS: Glucose - Point of Care 245 mg/dl (70-99)
--- NOTE | 2023-06-17 16:59 | PTCARENOTE ---
pt vomited mod amt undigested food this afternoon. tigan IM given. no further vomiting at this time. dr borrego made aware. no new orders at this time.
[2023-06-17] MEDS: NOVOLOG FLEXPEN-LOW RESISTANCE 2 UNITS SC (17:34)
[2023-06-17] MEDS: LIPITOR 20 MG PO (17:34)
[2023-06-17 19:37] LABS: APTT 83.8 Sec (23.4-35.0)
[2023-06-17] MEDS: FLEXERIL 5 MG PO (21:21)
[2023-06-17] MEDS: ATIVAN 1 MG PO (21:22)
[2023-06-17 22:13] LABS: Glucose - Point of Care 203 mg/dl (70-99)
[2023-06-18] VITALS (70 sets, daily range): BP systolic 73–135; BP diastolic 31–103; BMI 45.6
--- NOTE | 2023-06-18 04:45 | DOWNTIME ---
There was a [employer] Downtime on 06/18/2023 from 0100 to 06/18/2023 at 0439. Downtime documentation of patient's care, including medication administrations, has been reconciled in the electronic record per guidelines. Refer to the
patient's paper chart under the miscellaneous tab to see printed paper medication records and downtime forms.
[2023-06-18 05:45] LABS: Hematocrit 23.8 % (37.0-47.0); Hemoglobin 8.1 g/dL (12.0-16.0); Mean Corpuscular Hgb 28.9 pg (27.0-31.0); Mean Platelet Volume 9.8 fL (7.4-10.4); Platelet Count 537 10^3/uL (130-400); Red Cell Dist. Width 14.4 % (11.5-14.5); White Blood Cell Count 21.2 10^3/uL (4.8-10.8)
[2023-06-18 06:33] LABS: Blood Urea Nitrogen 79 mg/dl (7-17); Calcium 8.5 mg/dl (8.4-10.2); Carbon Dioxide 12 mmol/L (22-30); Chloride 96 mmol/L (98-107); Estimated Creatinine Clearance 12 ml/min; Glucose 174 mg/dl (70-99); Potassium 3.7 mmol/L (3.5-5.1); Sodium 127 mmol/L (135-145); eGFR 9.95
--- NOTE | 2023-06-18 06:36 | PTCARENOTE ---
no urine output- pt again refused bipap- - bp 94/49. edematous everywhere- seems more lethargic than yesterday but able to be aroused
[2023-06-18 07:40] LABS: Glucose - Point of Care 217 mg/dl (70-99)
--- NOTE | 2023-06-18 08:14 | W.PN.HOSP.TC ---
Addendum entered and electronically signed by Alexis Garcia MD 06/18/23 08:23:
Left a message just now to her Sergo on his phone for call back.
Original Note:
Today's Communication/Plan
-
VBG
Midodrine
Continue antibiotics
Hemodialysis catheter today, dialysis after
Assessment / Plan
Assessment / Plan
Assessment and plan:
change in mental status - sec to metabolic encephalopathy
ABG was obtained it shows she has acute hypercapnic hypoxic respiratory failure.
Resolved with BiPAP support.
Patient today lethargic-check VBG. She has been declining BiPAP.
Acute hypercapnic hypoxic respiratory failure. Patient with chronic hypoxic respiratory insufficiency on 2 L at home. She has history of sleep apnea but was not able to tolerate mask in the past. She is obese. Suspected respiratory distress
secondary to sleep apnea. Avoid sedation.
Repeat chest x-ray 06/12 showed low lung volumes
cw BiPAP at 15/5 on 2 L of oxygen prn sleep
Appt pulm input
Pt refusing BIPAP due to intolerance
Pulm Considering nasal CPAP
Aucte GI bleed
No active bleeding.
Had a full colonoscopy 06/10 and multiple polyps removed
Possible related to polyp after initial sigmoidoscopy and polyp resection.
Hemoglobin no major changes but low today at 8.1 ; aim to keep HH >8.0
Bx results noted -no malignancy ; follow colo per GI recs
Baseline Chronic normocytic anemia-ACD. Hemoglobin at baseline. Aim to keep it more than 8. No iron def.
Acute renal failure: Could be multifactorial including receiving ethacrynic acid, sepsis shock hypotension, IV contrast
Creatinine was again
oliguric
Wt is climbing; she is acidotic
Nephrology on board
Continue to monitor
Avoid nephrotoxin
IV Ethacrynic acid per renal
Left arm PICC associated DVT -tx with AC for 1 month. On lovenox which was on hold because of bleeding and and acute renal failure.
started on IV heparin . DOAC when stable
hematology input noted regarding this DVT
Her DVT was in axillary vein extending into basilic .
Leukocytosis - afebrile .Nontoxic . stools for C Diff neg ;UA positive ; BCX positive ;CXR couple of days ago no pneumonia.Started on Meropenem . Repeat cultures requested by ID. In view of ongoing abdominal symptoms, recent GI interventions and
anaerobic cultures being positive a CT of the abdomen pelvis was obtained - no acute pathology identified.
ESBL Kleb pneumonia and Acinetobacter bacteremia - CW Meropenem, follow WBC closely-continued rise of white count
Shock on admission -suspected sepsis - Off of pressors . Normal EF on recent ECHO (01/2023), normal diastolic function, Mild ,mild AR .
Blood pressure is on the lower side today-will give him midodrine. Might need to consider vasopressors again.
Left leg cellulitis with left hip area wound - No drainage from wound - eval by ortho. Completed antibiotic,
# MRSA colonized
-s/p meropenem x 3 d.
-Completed linezolid 600mg po bid x through 06/08/2023 am
- Follow leukocytosis closely
Bilateral lower extremity edema-suspected may be dependent, while protein caloric malnutrition hypoalbuminemia could be another reason, acute renal failure could adding to it.
. Echo in January 2023 shows normal diastolic function and normal EF. Her BNP on admission was within the normal limit. Her weight gain has been higher since her recent discharge. cw compression dressings for fluid management. Pt says she is
allergic to sulfa including lasix .switched to ethacryanic acid -much improved wt ;lowest so far in [employer] system since 06/2021.Raise in Cr slightly noted .Hold Ethacrynic acid. There is concern of N/V sec to ethacrynic acid but pt was also getting
linezolid at same time.
Weight up again -follow daily weights
Drug rash -possible lasix - it is off now. Got 2 doses only . Allergic to sulfa antibiotic drugs . Lasix listed as allergy as well now.
Hyponatremia - management per renal - acute on chronic .
Nephrology on board
Moderate protein caloric malnutrition, albumin 2.2.
HTN - hold ARB due to hypotension and follow
DM 2 with hyperglycemia. Patient with poor oral intake. Hemoglobin A1c 7.1. Hold glimepiride and alogliptin for now. cortisol is ok .
Recent Left Hip ORIF - OP CT hip noted - cw PT eval; Wound care/abx for left hip wound. Ortho input noted.
Paroxysmal atrial fibrillation-in sinus rhythm. QTc normal now . QTc in March 2023 was within normal limits. DC sotalol due to NOAM and low normal blood pressure
Cardiology following -now on Amio
Prognosis is poor
Full code
DW RN
DW nephrology - wouldl like to start on HD today ;IR consulted by them for line
Total time spent on today's encounter was 52 minutes which included time spent in counseling the patient/family regarding diagnosis and treatment plan as listed above, goals of care, and symptom management. Case was discussed with nursing staff,
specialists,. All labs and imaging personally reviewed by me. Remainder the time spent in detailed review of previous records, lab data, imaging, and other medical provider documentation.
Anticipated Discharge: > 48 hours
Subjective/Interval History
-
Date of Service: June 18, 2023
Patient is lethargic but awake. She is oriented to place, month, the year.
She complains of the blood pressure cuff in the right leg. Denies any pain anywhere else.
Denies shortness of breath. Denying nausea vomiting or abdominal pain.
No chest pain.
Objective Data
-
Labs:
Laboratory Results
06/18/23 06/18/23
00:25 05:24
WBC 21.2 H
Hgb 8.1 L
Hct 23.8 L
Plt Count 537 H
APTT 100.0 H 80.0 H
Sodium 127 L
Potassium 3.7
Chloride 96 L
Carbon Dioxide 12 L*
BUN 79 H
Creatinine 4.6 H*
Glucose 174 H
Calcium 8.5
Vital Signs:
Vital Signs
Temp Pulse Resp BP Pulse Ox
98.1 F 91 17 94/59 97
06/18/23 05:02 06/18/23 06:00 06/18/23 06:00 06/18/23 06:00 06/18/23 06:00
I&O
06/17/23 06/18/23 06/19/23
06:59 06:59 06:59
Intake Total 720 / 720 680 / 680
Output Total 275 / 275
Balance 445 / 445 680 / 680
Review of Systems
-
Unable to obtain full review of systems at this time due to: Other (Lethargic)
Constitutional: Denies Fever
EENT: Denies Sore Throat
Respiratory: Denies Cough or Trouble Breathing
Cardiac: Denies Chest Pain
Abdomen/GI: Denies Abdominal Pain, Nausea or Vomiting
Neuro: Denies Dizzy or Headache
Physical Exam
-
General: No Apparent Distress
HEENT: Moist Mucous Membranes
Respiratory: Clear to Auscultation (Anteriorly) and Non Labored Respirations
Cardiac: S1/S2 and Irregular Rhythm; Negative Tachycardic
GI: Soft and Nontender
Neuro: Awake and Oriented; Negative Alert (Lethargic) or Tremors
Psych: Calm
Data Reviewed
-
Labs: Labs Reviewed by me
[2023-06-18] MEDS: ProAmatine 5 MG PO ×2 (08:35→13:36)
[2023-06-18] MEDS: OSCAL CAL 500 1000 MG PO (08:35)
[2023-06-18] MEDS: PROTONIX 40 MG PO (08:40)
[2023-06-18] MEDS: SODIUM BICARBONATE 325 MG PO (08:40)
[2023-06-18] MEDS: VITAMIN D3 (cholecalciferol) 125 MCG PO (08:41)
[2023-06-18] MEDS: DESENEX/MITRAZOL/ZEASORB 1 APPLIC TOPICAL ×2 (08:41→22:14)
[2023-06-18] MEDS: PACERONE 200 MG PO (08:41)
[2023-06-18] MEDS: NOVOLOG FLEXPEN-LOW RESISTANCE 2 UNITS SC (08:42)
--- NOTE | 2023-06-18 08:51 | W.PN.CARDCBS ---
Today's Communication / Plan
-
Remains in sinus. HR improved
Reduce Amiodarone to once daily starting tomorrow. Remains on amiodarone for PAT. QTc stable.
Being evaluated for HD as per nephrology and primary service with diuresis as per nephrology
Wean O2 as able
Cont IV Heparin for PICC line associated LUE DVT. Monitor H/H
Hematology/oncology following given colonoscopy findings, await pathology.
Outpt cardiac follow up
Please recall if needed.
Impression / Plan
-
.
Family Physician: Valery Saunders
Primary Gymnastics Coach: Dr Sosa
Impression:
Presented 06/02/23 w/ abnormal labs, hyponatremia
Acute on chronic hyponatremia
Clinical sepsis with shock from pancolitits
Acute on chronic hypoxic respiratory insufficiency, chronically on 2L NC
NOAM with azotemia
LLE cellulitis
N/V/D
Pancolitis
Colon polyps s/p flex sigmoidoscopy with snaring/biopsy 06/10/23
Drug rash, felt to be from lasix, improved
LUE PICC associated DVT
Lethargy
Prolonged QTc on sotalol
Paroxysmal SVT with noninducibility during EP study and empiric atrial flutter ablation 2014
Prior rate related LBBB in setting of SVT
Chronic HFpEF
Hyponatremia
HTN
HLD
DM
Diabetic neuropathy
History of RLE DVT
Anemia of chronic disease
Meningioma
Morbid obesity
SISI
Persistent LE wounds/cellulitis/osteomyelitis
Chronic lymphedema/venous stasis
History of L femur fracture s/p ORIF 02/16/2023 with incomplete healing by imaging
Chronic pain syndrome on opioids
History of partial hysterectomy, oophorectomy, salpingectomy
History of NOAM
ECHO 02/17/23: EF 65 to 70%, mild concentric LVH, mildly dilated left atrium, mild with peak/mean gradients 34/18 mmHg, LA NENA 1.6 cm�, mild AR
Plan:
Remains in sinus. HR improved
Reduce Amiodarone to once daily starting tomorrow. Remains on amiodarone for PAT. QTc stable.
Being evaluated for HD as per nephrology and primary service with diuresis as per nephrology
Wean O2 as able
Cont IV Heparin for PICC line associated LUE DVT. Monitor H/H
Hematology/oncology following given colonoscopy findings, await pathology.
Outpt cardiac follow up
Please recall if needed.
Progress Note - Gymnastics Coach
Subjective
Date of Service: June 18, 2023
Pt seen and examined. No complaints. No chest pain or shortness of breath.
Objective
Labs:
06/18/23 05:24
06/18/23 05:24
Labs
Hgb 8.1 g/dL (12.0-16.0) L 06/18/23 05:24
Hct 23.8 % (37.0-47.0) L 06/18/23 05:24
Plt Count 537 10^3/uL (130-400) H 06/18/23 05:24
PT 13.1 Sec (11.4-14.6) 06/02/23 09:23
INR 1.01 06/02/23 09:23
APTT 80.0 Sec (23.4-35.0) H 06/18/23 05:24
Sodium 127 mmol/L (135-145) L 06/18/23 05:24
Potassium 3.7 mmol/L (3.5-5.1) 06/18/23 05:24
BUN 79 mg/dl (7-17) H 06/18/23 05:24
Creatinine 4.6 mg/dL (0.6-1.0) H* 06/18/23 05:24
Glucose 174 mg/dl (70-99) H 06/18/23 05:24
Vital Signs and I&O:
Vital Signs
Temp Pulse Resp BP Pulse Ox
98.1 F 89 17 93/55 97
06/18/23 05:02 06/18/23 08:41 06/18/23 06:00 06/18/23 08:41 06/18/23 06:00
Vital Signs
Temp Pulse Resp BP Pulse Ox
98.1 F 89 17 93/55 97
06/18/23 05:02 06/18/23 08:41 06/18/23 06:00 06/18/23 08:41 06/18/23 06:00
Intake & Output
06/16/23 06/17/23 06/18/23 06/19/23
06:59 06:59 06:59 06:59
Intake Total 1794 / 1794 720 / 720 680 / 680
Output Total 1000 / 1000 275 / 275
Balance 794 / 794 445 / 445 680 / 680
Physical Exam
Physical Exam
General: No acute distress, awake
Neck: Negative JVD
Heart: Regular, Negative S3 positive S1/S2, Negative S4, No murmur
Lungs: CTA b/l, negative wheezes/rales/rhonchi
Abd: Morbid obesity. Positive BS, NT/ND, neg rebound/rigidity/guarding
Ext: Negative cyanosis/clubbing/edema
Neuro: nonfocal
--- NOTE | 2023-06-18 10:18 | W.PN.ID1 ---
Date of Service
Date of Service: June 18, 2023
Today's Communication
Continue meropenem for now.
Prognosis guarded.
Assessment / Plan
# ESBL-Klebsiella, Acinetobacter bacteremia x 2 sets
# Leukocytosis continues to trend up
# Hypotension
# Numerous abx/drug allergies. Tolerated meropenem and linezolid in the past.
- Source of bacteremia possibly from colon translocation after recent resection of multiple polyps with associated GIB vs urine source (only ESBL in urine)
- Repeat blood cx's neg to date
- Continue Meropenem 500mg IV q12h (d2) pending Acinetobacter susceptibility.
- Trend vitals, wbc
- Prognosis guarded
# NOAM
- May need HD per renal.
- Adjust abx dosing as needed
# Diarrhea
- C. diff neg x2 /norovirus negative
# Intraluminal colon mass
- hx Strep bovis bacteremia 02/11/2023, treated.
- 06/10/23 s/p sigmoidoscopy, removal of several polyps.
- 06/11/23 s/p colonoscopy, removal of multiple polyps, clipping of ulcer in sigmoid
- Biopsis: tubular adenomas with focal high grade dysplasia, and tubulovillous adenomas
# Afib
# s/pLLE cellulitis - resolved
# Lymphedema
-Completed linezolid 600mg po bid through 06/08/2023 am
- Continue BLE compression
# Drug rash resolved off furosemide
# LUE picc associated DVT
- PICC dc'd
# Left hip incision wound clean without infection
- cx skin [place]
#Additional Past Medical History:
Diabetes mellitus
Class III obesity BMI 49
Lymphedema
Obstructive sleep apnea
A flutter status post ablation
hypertension
cellulitis
Asthma
Dyslipidemia
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
Meningioma s/p resection
Chronic back pain
Cholecystectomy
Bilateral oophorectomy
Left hip fracture s/p gamma nailing 02/16/23
Chief Complaint
-: Leukocytosis and Bacteremia
Subjective / Review of Systems
Drowsy
Vital Signs / Physical Exam
Vital Signs
Vital Signs
Temp Pulse Resp BP Pulse Ox
97.3 F 89 17 93/55 97
06/18/23 09:02 06/18/23 08:41 06/18/23 06:00 06/18/23 08:41 06/18/23 06:00
Physical Exam
Constitutional: Acutely Ill and Chronically Ill
Eyes: Sclera Anicteric
Gastrointestinal: Soft and Non Tender
Genito-Urinary: Moore and Clear Urine (dark urine)
Extremities: Edema (BLE lymphedema)
Objective Data
Lab Data
Lab Results
06/18/23 05:24
06/18/23 05:24
PT 13.1 Sec (11.4-14.6) 06/02/23 09:23
INR 1.01 06/02/23 09:23
APTT 80.0 Sec (23.4-35.0) H 06/18/23 05:24
Estimated Creat Clear 12 ml/min 06/18/23 05:24
Lactic Acid 0.9 mmol/L (0.7-2.0) 06/13/23 09:53
Total Bilirubin 0.3 mg/dl (0.2-1.3) 06/16/23 04:22
AST 13 U/L (14-36) L 06/16/23 04:22
ALT < 10 U/L (0-35) 06/16/23 04:22
Alkaline Phosphatase 71 U/L (38-126) 06/16/23 04:22
Most recent labs reviewed.
Micro Results:
06/15/23 18:58 Blood Culture - Preliminary
Blood/Venous Klebsiella pneumoniae-ESBL
Acinetobacter Species
Gram Stain - Final
06/16/23 10:02 Blood Culture - Preliminary
Blood/Venous Klebsiella pneumoniae-ESBL
Gram negative bacilli
Gram Stain - Final
06/16/23 05:11 Urine Culture - Final
Urine Klebsiella pneumoniae-ESBL
06/16/23 08:49 Blood Culture - Preliminary
Blood/Venous No Growth in 48 hours- Final report to follow
06/16/23 16:36 Blood Culture - Preliminary
Blood/Venous No Growth in 24 hours- Final report to follow
06/17/23 11:01 Blood Culture - Pending
Blood/Venous
06/16/23 05:11 Stool Leukocytes - Final
Feces/Stool
06/16/23 05:11 C. difficile GDH Antigen & Toxins - Final
Feces/Stool Negative for toxigenic C.difficile
06/07/23 23:53 - Final
Feces/Stool Negative for Norovirus GI and GII.
06/03/23 10:41 Blood Culture - Final
Blood/Venous No Growth - Final Report
06/03/23 10:41 Blood Culture - Final
Blood/Venous No Growth - Final Report
06/02/23 05:52 Blood Culture - Final
Blood/Venous Coagulase neg. staphylococcus
Additional testing on request
Gram Stain - Final
06/02/23 05:52 Blood Culture - Final
Blood/Venous No Growth - Final Report
06/02/23 13:24 Wound Culture - Final
Hip - Left Gram Stain - Final
06/02/23 13:23 MRSA Screen - Final
Nose Staph aureus MRSA
06/02/23 13:25 Urine Culture - Final
Urine NO GROWTH
06/02/23 18:34 C. difficile GDH Antigen & Toxins - Final
Feces/Stool Negative for toxigenic C.difficile
06/14/23 CXR: Hypoaerated lungs without consolidation.
06/08/23 CT a/p: MILD ACUTE INFECTIOUS PANCOLITIS with mild fluid distention of the proximal colon and mild wall thickening and mucosal hyperenhancement in the distal colon and rectum. 1.5 cm intraluminal mass in the descending colon-sigmoid colon
junction suspicious for a large colonic polyp (possibly adenocarcinoma). Mild diffuse small bowel distention.
06/02/23 CXR: clear lungs
05/28/23 CT LLE: ORIF of an intertrochanteric/subtrochanteric fracture. The fracture plane remains evident, but there is some callus and heterotopic ossification about the fracture site.
--- NOTE | 2023-06-18 10:44 | VATNOTE ---
Primary RN called IV Team to bedside. Pt pulled out midline and RN requesting new IV. IR to place Trialysis catheter for HD and Central Line Access.
--- NOTE | 2023-06-18 10:44 | PTCARENOTE ---
Received this am- very drowsy/ lethargic but arousable and oriented. Slurred/garbled non stop speech --but understandable. Took pills with applesauce including midodrine and amiodarone. BPs 80s/60s SR on tele 80s. Dr. Garcia at bedside.
BP showed 75/56 she was sleeping- aroused and BP 86/64. Placed supine and found her IV access (midline) dressing half removed and wet and cath was completely out. IRAD notified coming to bedside to place HD access and will place IV as well. VAT
placed right upper arm INT and heparin restarted there. Dr. Garcia aware.
Currently BP 109/57 laying supine - IRAD here placing access.
[2023-06-18] MEDS: LEVOPHED 250 IV (12:08)
[2023-06-18] MEDS: MERREM 500 MG IV ×2 (12:09→22:16)
[2023-06-18] MEDS: STERILE WATER FOR INJECTION 10 ML IV ×2 (12:10→22:16)
[2023-06-18 12:22] LABS: Venous Blood Gas B.E. -11.7 mmol/L (-4 to +4); Venous Blood Gas HCO3 15.1 mmol/L (22-27); Venous Blood Gas O2 Sat % 98.9 %; Venous Blood Gas pCO2 37 mmHg (35-48); Venous Blood Gas pH 7.22 (7.32-7.43); Venous Blood Gas pO2 160 mmHg (30-50)
[2023-06-18 12:46] LABS: Glucose - Point of Care 183 mg/dl (70-99)
[2023-06-18] MEDS: NOVOLOG FLEXPEN-LOW RESISTANCE 1 UNITS SC (13:36)
--- NOTE | 2023-06-18 14:56 | W.PN.UPDATE ---
Update Note
Progress Note Update
Family discussion in IMU
We met in family conference room in IMU
Sergo and daughter present in person
went over the clinical detail since admission including initial referral for hyponatremia and found to be in septic shock requiring vasopressors and treatment with antibiotics
Went over transient kidney dysfunction which got better with the treatment of sepsis.
Patient later had issues with GI symptoms and found to have polyps which needed resection and they are precancerous.
During the course of the hospitalization states started to have recurrent renal failure and also recurrent bacteremic sepsis.
Currently she is in oliguric renal failure needing hemodialysis but also hypotensive possibly secondary to infection process.
they were told that she is she is seriously ill now with organ dysfunction and recurrence of infection and sepsis.
We went back to the last admission when she came in with recurrent sepsis and septic shock. In January she had a fall needing femur repair but able to walk again since the repair. Mostly in rehab. She had a strep bovis bacteremia then. She
came in March with streptococcal shock. With this background and now currently with serious illness told them that prognosis is poor.
They want to support her with hemodialysis as much as possible if the blood pressure permits. Also if she were to become unstable respiratory robles may be brief ventilatory support but they do not for her to live on machines or prolonged support.
And the says her wishes would be no CPR or chest compression. in the event of cardiac arrest they do not want CPR, chest compressions and electrical cardioversion.
Discussed with RN taking care of the patient as well.
Critical care time including today's visit and discussions with concrete floater and the family 35-minute
--- NOTE | 2023-06-18 15:39 | CM ---
Patient with Dx altered mental status, Acute hypercapnic hypoxic respiratory failure, GI bleed, ARF, Left leg cellulitis with left hip area wound, Bilateral lower extremity edema. Levophed gtt, Heparin gtt, IV Abx. Per nurse notes; drowsy/
lethargic. HD catheter placement today. PT 06/16; dependent, recommend LTC. OT 06/16; dependent, recommend skilled rehab.
Dr Garcia had family meeting with daughter and today.
Spoke with patient's daughter; daughter & had meeting with Dr Garcia today and were made aware that patient's condition is serious. Daughter agrees that d/c plans are on hold - 'we are taking it day to day'. Daughter is unsure if family
would like to be contacted at this time- she was made aware they could also let nurse know who could contact pastoral care/telephone clerk telegraph office's office.
CM continuing to follow.
Plan TBD.
--- NOTE | 2023-06-18 15:44 | W.PN.NEPH.PH ---
Today's Communication / Plan
-
- initiate HD
Assessment/Plan
-
IMP:
Hyponatremia-acute on chronic
NOMA with significant azotemia
suspected septic shock/gram-negative bacilli bacteremia
hypoglycemia
Hypomagnesemia
TME
HX Paroxysmal AF- Not on anticoagulation due to hemorrhagic complications in the past
Chronic anemia
Essential HTN
T2DM
Chronic pain syndrome on chronic opioids
SISI - CPAP
Morbid obesity due to excess calories
PAD
h/o left hip fx s/p ORIF 01/2023
Plan:
NOAM, baseline cr of 0.7 now elevated to 4.6, after dropping to 4.2. basically anuric, even with ethacrynic acid
severe metabolic acidosis today (bicarb 12)
Remains hypotensive now requiring pressors. WBC rising to 21. klebsiella in blood and urine, on meropenem
CT of abdomen and pelvis nonrevealing
specially post contrast on 06/07+diarrhea
temporary HD line placed on 06/17 and plan for initiation of dialysis with pressor support. plan today, tomorrow and Friday for HD sessions
HANNAH is on high differential, FeNa not low
Maintain Moore
Recent CT no hydro but concern of GI abnormality colitis, mass?
gapped met acidosis-will hold off on fluids due to hypercapnia and c/f volume overload
continues with edema and increased weight gains
replaced calcium PRN and initiated on vit D supplementation
BP stable but soft
avoid nephrotoxins
discussed with patient
previously reviewed by Dr. Abbott that should her renal function worsens likely need [employer] in next 1-2 days
Discussed again with patient on 06/13 that she would be okay with short term HD
monitor h/h s/p C scope 06/10-polypectomies
Amio per cards for afib
-
-
Date of Service: June 18, 2023
CC / HPI / ROS
-
Chief Complaint:
NOAM, hyponatremia
History of Present Illness:
Na 127, bicarb 12, Cr up to 4.6
mentation also worsening
hypotensive on pressors
anuric at this point
developed erythematous red rash on chest post Lasix now improving
BP stable
GIB, Hgb unchanged at 8 post sigmoidoscopy 06/09, C scope on 06/10 polypectomies
Review of Systems:
now transferred to IMU for hypercapnia and lethargy
insight seem poor
anuric via Moore
Labs
-
Labs:
WBC 21.2 10^3/uL (4.8-10.8) H 06/18/23 05:24
RBC 2.80 10^6/uL (4.20-5.40) L 06/18/23 05:24
Hgb 8.1 g/dL (12.0-16.0) L 06/18/23 05:24
Hct 23.8 % (37.0-47.0) L 06/18/23 05:24
Plt Count 537 10^3/uL (130-400) H 06/18/23 05:24
Sodium 127 mmol/L (135-145) L 06/18/23 05:24
Potassium 3.7 mmol/L (3.5-5.1) 06/18/23 05:24
Chloride 96 mmol/L (98-107) L 06/18/23 05:24
Carbon Dioxide 12 mmol/L (22-30) L* 06/18/23 05:24
BUN 79 mg/dl (7-17) H 06/18/23 05:24
Creatinine 4.6 mg/dL (0.6-1.0) H* 06/18/23 05:24
eGFR 9.95 06/18/23 05:24
Glucose 174 mg/dl (70-99) H 06/18/23 05:24
Calcium 8.5 mg/dl (8.4-10.2) 06/18/23 05:24
Phosphorus 6.0 mg/dl (2.5-4.5) H 06/02/23 05:09
Ttj-A-[place] Pept 633 pg/ml 06/02/23 05:09
Albumin 2.3 g/dl (3.5-5.0) L 06/16/23 04:22
Physical Exam
-
Vital Signs:
Vital Signs
Temp Pulse Resp BP Pulse Ox
96.6 F L 84 20 110/42 89
06/18/23 13:10 06/18/23 14:15 06/18/23 14:15 06/18/23 14:15 06/18/23 14:15
Cardiovascular:: Regular rate and rhythm
Respiratory:: Bilateral: Coarse
Lung Excursion:: Normal
Abdomen:: Nontender and Soft
Bowel Sounds:: Normal
Extremity Edema:: +2: Bilateral:
Moore Catheter: Yes
--- NOTE | 2023-06-18 16:11 | W.PN.NEPH.HD ---
Assessment
-
- on pressors, titrating for HD
- nauseous and more lethargic than usual
Progress Note - Hemodialysis
-
Date of Service: June 18, 2023
Duration: 30 minutes and 2 hours
Potassium Bath: 3
Calcium Bath: 2.5
Opti-Dialyzer: 160
Ultrafiltration: Other
Blood Flow: 250
Dialysate Flow: Other (400)
[2023-06-18] MEDS: MANNITOL 12.5 GRAMS IV ×2 (17:12→18:53)
[2023-06-18] MEDS: ProAmatine PO (18:14)
[2023-06-18] MEDS: LIPITOR PO (18:14)
[2023-06-18] MEDS: SODIUM BICARBONATE PO ×2 (18:14→22:15)
[2023-06-18] MEDS: PACERONE PO ×2 (18:14→22:15)
--- NOTE | 2023-06-18 18:15 | PTCARENOTE ---
Started on Levophed this afternoon. Infusing via Right IJ (connected to HD cath) started at 2 up 3 mcg initially to maintain map>65. Mentation waxes and wanes, garbled speech some confused conversation- family was present for this. Code status
noted.
Currently on HD map now dropping below 65, titrating Levo per protocol currently at 7 mcg- ICU notified.
[2023-06-18] MEDS: HEPARIN 25000 UNITS/250 ML IV (19:02)
--- NOTE | 2023-06-18 19:20 | PTCARENOTE ---
pt is on HD. bp=87/37 (map54) p=104. Increased Levophed to 8mcg infusing through right IJ (connected to HD cath). pt is aaox1, continues with garbles speech and confusion. pt has +3-4 generalized edema w/ mottles toes and weak pedal pulses. fecal
management system and Moore in place. pt is 93% on room air. informed ICU charge nurse of increase in levo. pt currently continuing with HD.
[2023-06-18 21:58] LABS: Glucose - Point of Care 235 mg/dl (70-99)
[2023-06-18] MEDS: OSCAL CAL 500 PO (22:15)
[2023-06-18] MEDS: PROTONIX PO (22:15)
[2023-06-18] MEDS: ATIVAN PO (22:15)
[2023-06-19] VITALS (72 sets, daily range): BP systolic 66–139; BP diastolic 31–95; BMI 45.6
[2023-06-19] MEDS: LEVOPHED 250 IV ×2 (00:28→07:59)
[2023-06-19] MEDS: TYLENOL/FEVERALL 650 MG RECTAL (04:02)
[2023-06-19 04:23] LABS: Hematocrit 21.9 % (37.0-47.0); Hemoglobin 7.8 g/dL (12.0-16.0); Mean Corp Hgb Conc. 35.6 g/dL (33.0-37.0); Mean Corpuscular Hgb 29.2 pg (27.0-31.0); Mean Platelet Volume 10.8 fL (7.4-10.4); Platelet Count 347 10^3/uL (130-400); Red Blood Cell Count 2.67 10^6/uL (4.20-5.40); Red Cell Dist. Width 14.4 % (11.5-14.5); White Blood Cell Count 23.3 10^3/uL (4.8-10.8)
[2023-06-19 05:08] LABS: Blood Urea Nitrogen 49 mg/dl (7-17); Calcium 7.8 mg/dl (8.4-10.2); Carbon Dioxide 16 mmol/L (22-30); Chloride 100 mmol/L (98-107); Estimated Creatinine Clearance 18 ml/min; Glucose 167 mg/dl (70-99); Potassium 3.2 mmol/L (3.5-5.1); Sodium 129 mmol/L (135-145); eGFR 15.98
--- NOTE | 2023-06-19 06:09 | PTCARENOTE ---
Addendum entered by Cindy Bonilla RN 06/19/23 07:13:
pt MAP<50 x4 BP dropping. TEACHERS' ASSISTANT aware . pt max at Levophed still at 8mcg.
Original Note:
pt had no bm output from the rectal drainage system; however gelantious bm from around tube. rectal shield removed. esposito output only 50ml of milky yellow urine - had HD yesterday. pt is more alert this am. all night BP ranging 80-100/40-60's w/
MAP 60-70's. HR=90-110's. Levophed still at 8mcg infusing through right IJ (connected to HD cath). TEACHERS' ASSISTANT aware.
[2023-06-19] MEDS: NOVOLOG FLEXPEN-LOW RESISTANCE SC ×2 (06:56→07:43)
--- NOTE | 2023-06-19 07:21 | PTCARENOTE ---
Rec'd pt this AM letheargic, hypotensive requiring Levo increased to 10mcg per hour. RN notified via TT of declining condition and possible need for transfer to ICU
[2023-06-19 07:30] LABS: Glucose - Point of Care 232 mg/dl (70-99)
[2023-06-19] MEDS: PACERONE PO (07:30)
[2023-06-19] MEDS: DESENEX/MITRAZOL/ZEASORB 1 APPLIC TOPICAL ×2 (07:30→19:47)
[2023-06-19] MEDS: OSCAL CAL 500 PO (07:30)
[2023-06-19] MEDS: ProAmatine PO (07:31)
[2023-06-19] MEDS: SODIUM BICARBONATE PO (07:31)
[2023-06-19] MEDS: PROTONIX PO (07:31)
[2023-06-19] MEDS: VITAMIN D3 (cholecalciferol) PO (07:32)
--- NOTE | 2023-06-19 07:32 | PTCARENOTE ---
Pt will be transferred to ICU per Dr. Garcia for pressor support.
--- NOTE | 2023-06-19 08:00 | W.PN.HOSP.TC ---
Today's Communication/Plan
-
Transferred to ICU
Assessment / Plan
Assessment / Plan
Assessment and plan:
Acute renal failure-oliguric: Could be multifactorial including recurrent sepsis shock ,hypotension, IV contrast.
Initiated on hemodialysis but difficult clinical scenario with vasopressor dependent shock.
Creatinine down and improved acidosis but weight is much the same.
Nephrology following.
Avoid nephrotoxin
Patient was given trials of ethacrynic acid before hemodialysis.
ESBL Kleb pneumonia and Acinetobacter bacteremia -suspected translocation than urinary source. ESBL Klebsiella pneumonia is isolated in the urine but not Acinetobacter; ESBL Klebsiella pneumonia in the urine could be descending infection. Repeat
cultures are negative so far.
-continued rise of white count despite being on antibiotics. CT of the abdomen pelvis with oral contrast done recently did not show any evidence of collections.
-On meropenem-continue per ID.
Recurrent shock-suspected septic-patient is back on vasopressors . She recently had a septic shock with resolution. Optimize Levophed for MAP of 65. Her systolic murmur is more prominent than before. Echo last year showed mild aortic stenosis.
Could be flow related increased intensity. Check a repeat echocardiogram due to vasopressor dependent hypotension.
Recent cellulitis of left leg
# MRSA colonized
-s/p meropenem x 3 d.
-Completed linezolid 600mg po bid x through 06/08/2023 am
change in mental status - sec to metabolic encephalopathy
ABG was obtained it shows she has acute hypercapnic hypoxic respiratory failure.
Resolved with BiPAP support.
VBG yesterday showed no hypercapnia.
Patient is lethargic today again I suspect secondary to metabolic/toxic encephalopathy. Repeat VBG
Acute hypercapnic hypoxic respiratory failure. Patient with chronic hypoxic respiratory insufficiency on 2 L at home. She has history of sleep apnea but was not able to tolerate mask in the past. She is obese. Suspected respiratory distress
secondary to sleep apnea. Avoid sedation.
Repeat chest x-ray 06/12 showed low lung volumes
cw BiPAP at 15/5 on 2 L of oxygen prn sleep
Pt refusing BIPAP due to intolerance
Pulmonary following.
Paroxysmal atrial fibrillation-in sinus rhythm. QTc normal now . QTc in March 2023 was within normal limits. DC sotalol due to NOAM and low normal blood pressure
Cardiology following -now on Amio
Aucte GI bleed
No active bleeding.
Had a full colonoscopy 06/10 and multiple polyps removed
Possible related to polyp after initial sigmoidoscopy and polyp resection.
Hemoglobin no major changes but low today at 7.8; with no acute cardiac syndromes will keep him hemoglobin more than 7
Bx results noted -no malignancy ; follow colo per GI recs
Baseline Chronic normocytic anemia-ACD. Hemoglobin at baseline. Aim to keep it more than 7. No iron def.
Left arm PICC associated DVT -tx with AC for 1 month. On lovenox which was on hold because of bleeding and and acute renal failure.
started on IV heparin . DOAC when stable
hematology input noted regarding this DVT
Her DVT was in axillary vein extending into basilic .
Anasarca-suspect multifactorial including nutritional, renal failure
Hyponatremia - management per renal - acute on chronic .
Moderate protein caloric malnutrition, albumin 2.2.
HTN - hold ARB due to hypotension and follow
DM 2 with hyperglycemia. Patient with poor oral intake. Hemoglobin A1c 7.1. Hold glimepiride and alogliptin for now. cortisol is ok .
Recent Left Hip ORIF - OP CT hip noted - cw PT eval; Wound care/abx for left hip wound. Ortho input noted.
Patient remains vasopressor dependent and needing increasing doses of Levophed.
See my discussions with family yesterday. Continue with pressor support and antibiotics treatment.
Transfer to ICU.
Discussed with hospitalist about the clinical situation today that is persistent shock requiring vasopressors and lethargy. He is made aware about the critical nature of her illness with organ failure and serious infections. As planned yesterday
we would support her with antibiotic regimen, vasopressors, hemodialysis as blood pressure permits, noninvasive ventilation and if needed brief invasive ventilation.
Remains DNR
Total Critical Care Time__35___ minutes. I was immediately available to the patient and staff. I personally examined, reviewed labs, diagnostic images/reports, interpretations, treatment plans, discussed patient care with other providers and
family or caregivers (if patient is unable to make decisions), entered orders as appropriate and documented the medical record.
Anticipated Discharge: > 48 hours
Subjective/Interval History
-
Date of Service: June 19, 2023
Patient first hemodialysis session yesterday. It was done with vasopressor support.
Today she is lethargic, arousable and oriented to self and place. She is on vasopressors this morning. Blood pressure systolic more than 90. No respiratory distress. Comfortable on 3 L. But again she is very lethargic today. She follows simple
commands like squeezing your fingers moving the limbs closing the eyes.
Objective Data
-
Labs:
Laboratory Results
06/19/23 06/19/23
03:37 13:00
WBC 23.3 H
Hgb 7.8 L
Hct 21.9 L
Plt Count 347 D
APTT 49.0 H Pending
Sodium 129 L
Potassium 3.2 L
Chloride 100
Carbon Dioxide 16 L
BUN 49 H
Creatinine 3.1 H
Glucose 167 H
Calcium 7.8 L
Vital Signs:
Vital Signs
Temp Pulse Resp BP Pulse Ox
100.2 F 98 20 102/47 98
06/19/23 03:22 06/19/23 06:37 06/19/23 06:37 06/19/23 07:30 06/19/23 06:37
I&O
06/18/23 06/19/23 06/20/23
06:59 06:59 06:59
Intake Total 680 / 680 750 / 750
Output Total 125 / 125
Balance 680 / 680 625 / 625
Review of Systems
-
Unable to obtain full review of systems at this time due to: Other (lethargy)
Physical Exam
-
General: No Apparent Distress (but lethargic)
Respiratory: Clear to Auscultation (anteriorly)
Cardiac: S1/S2, Irregular Rhythm and Murmur
GI: Soft and Normal Bowel Sounds
Musculoskeletal: Edema, Right Upper Extrem, Edema, Left Upper Extrem, Edema, Right Lower Extrem, Edema, Left Lower Extrem and Other (anasarca)
Neuro: Awake; Negative Alert
Psych: Calm
Data Reviewed
-
Labs: Labs Reviewed by me
--- NOTE | 2023-06-19 08:55 | TRANSFER ---
Pt transferred to ICU room 3364. Report given to JUDE Rasmussen
--- NOTE | 2023-06-19 09:52 | PTCARENOTE ---
Addendum entered by Alley Taylor RN 06/19/23 12:09:
received from IMU with hair entirely matted, attempted to dematt, unable
Addendum entered by Alley Taylor RN 06/19/23 10:29:
prior unit vital signs captured. unable to verify accuracy
Original Note:
patient received from IMU. assessments per work list. patient lethargic, oriented to self only. right IJ HD cath intact with pigtail port, heparin and Levophed per work list. lungs coarse diminished. +4 generalized anasarca. multiple areas open
excoriation with weeping, draining yellow fluid. multiple wounds, care provided, dressings changed per orders. abdomen distended. Moore draining bebo yellow urine with brown sediment. reviewed plan of care in rounds. spouse at bedside, Levophed
titration per work list
--- NOTE | 2023-06-19 09:54 | W.PN.ONC ---
Today's Communication / Plan
-
Continue to monitor CBC relatively stable 7.9 g/dL
Transfuse as needed to maintain Hgb >7.5, PLT >20
Transferred to ICU for blood pressure support
Nephrology, Pulmonary, ID, and GI following
Will intermittently monitor progress
Impression
Impression
Large left colon polyp w/ concern for high grade dysplasia
GI bleed
Hypotension
Acute renal failure
LLE cellulitis s/p left hip fracture with repair (01/2023)
Lower extremity edema
Acute change in mental status
Hypercapnic respiratory failure
Hx SISI; noncompliant w/ CPAP
Subjective/Objective
Subjective/Objective
Patient arousable somewhat lethargic
Vital Signs:
Vital Signs
Temp Pulse Resp BP Pulse Ox
100.2 F 98 20 102/47 98
06/19/23 03:22 06/19/23 06:37 06/19/23 06:37 06/19/23 07:30 06/19/23 06:37
General: No Apparent Distress (but lethargic)
Respiratory: Clear to Auscultation (anteriorly)
Cardiac: S1/S2, Irregular Rhythm and Murmur
GI: Soft and Normal Bowel Sounds
Musculoskeletal: Diffuse edema anasarca
Neuro: Awake; Negative Alert
Lab Results:
Laboratory Data
WBC 23.3 10^3/uL (4.8-10.8) H 06/19/23 03:37
Hgb 7.8 g/dL (12.0-16.0) L 06/19/23 03:37
Plt Count 347 10^3/uL (130-400) D 06/19/23 03:37
PT 13.1 Sec (11.4-14.6) 06/02/23 09:23
INR 1.01 06/02/23 09:23
APTT 49.0 Sec (23.4-35.0) H 06/19/23 03:37
eGFR 15.98 06/19/23 03:37
--- NOTE | 2023-06-19 10:21 | W.PN.ID1 ---
Date of Service
Date of Service: June 19, 2023
Today's Communication
DC meropenem.
Start Cefiderocol 1.5g IV q12 (dosed for CRRT) to cover for both MDR-Klebsiella/Acinetobacter
Poor prognosis.
Assessment / Plan
# ESBL-Klebsiella, MDR_Acinetobacter bacteremia x 2 sets
# Leukocytosis continues to trend up
# Septic shock, multi-system organ failure
# NOAM on CRRT
# Numerous abx/drug allergies. Tolerated meropenem and linezolid in the past.
- Source of bacteremia possibly from colon translocation after recent resection of multiple polyps with associated GIB less likely urine source (only ESBL in urine)
- Repeat blood cx's neg to date
- Acinetobacter resistant to meropenem.
- Patient decompensating.
- DC meropenem.
-Start Cefiderocol 1.5g IV q12 (dosed for CRRT) to cover for both MDR-Klebsiella/Acinetobacter
Monitor closely for drug reaction.
Appreciate pharmacy's input.
- Trend vitals, wbc
- Overall prognosis poor.
# Diarrhea
- C. diff neg x2 /norovirus negative
# Intraluminal colon mass
- hx Strep bovis bacteremia 02/11/2023, treated.
- 06/10/23 s/p sigmoidoscopy, removal of several polyps.
- 06/11/23 s/p colonoscopy, removal of multiple polyps, clipping of ulcer in sigmoid
- Biopsis: tubular adenomas with focal high grade dysplasia, and tubulovillous adenomas
# Afib
# s/pLLE cellulitis - resolved
# Lymphedema
-Completed linezolid 600mg po bid through 06/08/2023 am
- Continue BLE compression
# Drug rash resolved off furosemide
# LUE picc associated DVT
- PICC dc'd
# Left hip incision wound clean without infection
- cx skin [place]
#Additional Past Medical History:
Diabetes mellitus
Class III obesity BMI 49
Lymphedema
Obstructive sleep apnea
A flutter status post ablation
hypertension
cellulitis
Asthma
Dyslipidemia
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
Meningioma s/p resection
Chronic back pain
Cholecystectomy
Bilateral oophorectomy
Left hip fracture s/p gamma nailing 02/16/23
35 minutes critical care time spent managing case, coordinating with pharmacy regarding appropriate antibiotic choice.
Chief Complaint
-: Leukocytosis and Bacteremia
Subjective / Review of Systems
Pt transferred to ICU. Started HD with vasopressor support.
Pt lethargic.
Vital Signs / Physical Exam
Vital Signs
Vital Signs
Temp Pulse Resp BP Pulse Ox
100.2 F 98 20 102/47 98
06/19/23 03:22 06/19/23 06:37 06/19/23 06:37 06/19/23 07:30 06/19/23 06:37
Physical Exam
Constitutional: Acutely Ill
Cardiovascular: Irregular Rate and S1/S2
Pulmonary: Clear (anterior chest)
Gastrointestinal: Soft, Non Tender and Non Distended
Extremities: Edema
Neurological: Other (lethargic)
Lines: Other (temporary HD catheter intact)
Objective Data
Lab Data
Lab Results
06/19/23 03:37
06/19/23 03:37
PT 13.1 Sec (11.4-14.6) 06/02/23 09:23
INR 1.01 06/02/23 09:23
APTT 49.0 Sec (23.4-35.0) H 06/19/23 03:37
Estimated Creat Clear 18 ml/min 06/19/23 03:37
Lactic Acid 0.9 mmol/L (0.7-2.0) 06/13/23 09:53
Total Bilirubin 0.3 mg/dl (0.2-1.3) 06/16/23 04:22
AST 13 U/L (14-36) L 06/16/23 04:22
ALT < 10 U/L (0-35) 06/16/23 04:22
Alkaline Phosphatase 71 U/L (38-126) 06/16/23 04:22
Most recent labs reviewed.
Micro Results:
06/15/23 18:58 Blood Culture - Preliminary
Blood/Venous Klebsiella pneumoniae-ESBL
Acinet. baumannii/haemolyticus
Gram Stain - Final
06/16/23 10:02 Blood Culture - Final
Blood/Venous Klebsiella pneumoniae-ESBL
Acinet. baumannii/haemolyticus
Gram Stain - Final
06/16/23 08:49 Blood Culture - Preliminary
Blood/Venous No Growth in 72 hours- Final report to follow
06/16/23 16:36 Blood Culture - Preliminary
Blood/Venous No Growth in 48 hours- Final report to follow
06/17/23 11:01 Blood Culture - Preliminary
Blood/Venous No Growth in 24 hours- Final report to follow
06/16/23 05:11 Urine Culture - Final
Urine Klebsiella pneumoniae-ESBL
06/16/23 05:11 Stool Leukocytes - Final
Feces/Stool
06/16/23 05:11 C. difficile GDH Antigen & Toxins - Final
Feces/Stool Negative for toxigenic C.difficile
06/07/23 23:53 - Final
Feces/Stool Negative for Norovirus GI and GII.
06/03/23 10:41 Blood Culture - Final
Blood/Venous No Growth - Final Report
06/03/23 10:41 Blood Culture - Final
Blood/Venous No Growth - Final Report
06/02/23 05:52 Blood Culture - Final
Blood/Venous Coagulase neg. staphylococcus
Additional testing on request
Gram Stain - Final
06/02/23 05:52 Blood Culture - Final
Blood/Venous No Growth - Final Report
06/02/23 13:24 Wound Culture - Final
Hip - Left Gram Stain - Final
06/02/23 13:23 MRSA Screen - Final
Nose Staph aureus MRSA
06/02/23 13:25 Urine Culture - Final
Urine NO GROWTH
06/02/23 18:34 C. difficile GDH Antigen & Toxins - Final
Feces/Stool Negative for toxigenic C.difficile
06/14/23 CXR: Hypoaerated lungs without consolidation.
06/08/23 CT a/p: MILD ACUTE INFECTIOUS PANCOLITIS with mild fluid distention of the proximal colon and mild wall thickening and mucosal hyperenhancement in the distal colon and rectum. 1.5 cm intraluminal mass in the descending colon-sigmoid colon
junction suspicious for a large colonic polyp (possibly adenocarcinoma). Mild diffuse small bowel distention.
06/02/23 CXR: clear lungs
05/28/23 CT LLE: ORIF of an intertrochanteric/subtrochanteric fracture. The fracture plane remains evident, but there is some callus and heterotopic ossification about the fracture site.
[2023-06-19 10:32] LABS: Venous Blood Gas B.E. -2.8 mmol/L (-4 to +4); Venous Blood Gas HCO3 19.2 mmol/L (22-27); Venous Blood Gas O2 Sat % 98.9 %; Venous Blood Gas pCO2 23 mmHg (35-48); Venous Blood Gas pH 7.53 (7.32-7.43); Venous Blood Gas pO2 130 mmHg (30-50)
[2023-06-19] MEDS: LEVOPHED 258 MG IV ×2 (11:27→21:07)
[2023-06-19 11:48] LABS: Ionized Calcium 1.07 mMOL/L (1.15-1.33)
[2023-06-19 11:53] LABS: Glucose - Point of Care 250 mg/dl (70-99)
--- NOTE | 2023-06-19 11:53 | W.PN.NEPH.PH ---
Today's Communication / Plan
-
- initiate CRRT
Assessment/Plan
-
IMP:
Hyponatremia-acute on chronic
NOAM with significant azotemia
suspected septic shock/gram-negative bacilli bacteremia
hypoglycemia
Hypomagnesemia
TME
HX Paroxysmal AF- Not on anticoagulation due to hemorrhagic complications in the past
Chronic anemia
Essential HTN
T2DM
Chronic pain syndrome on chronic opioids
SISI - CPAP
Morbid obesity due to excess calories
PAD
h/o left hip fx s/p ORIF 01/2023
Plan:
NOAM, baseline cr of 0.7, peaked at 4.6
due to severe metabolic acidosis, concern for TME, overload, the patient underwent initiation of HD with pressor support. unfortunately, she remains extremely overloaded today as no fluid was able to removed. we will start CRRT for better volume
management, especially since her pressor requirements are risiing
WBC rising to 23
klebsiella in blood and urine, on meropenem
CT of abdomen and pelvis nonrevealing
specially post contrast on 06/07+diarrhea
temporary HD line placed on 06/17, initiated on HD on 06/17. now transitioned to CRRT on 06/18.
HANNAH is on high differential, FeNa not low
Maintain Moore
Recent CT no hydro but concern of GI abnormality colitis, mass?
gapped met acidosis-improved after one round of HD
continues with edema and increased weight gains
replaced calcium PRN and initiated on vit D supplementation
BP stable but soft
avoid nephrotoxins
discussed with at bedside
discussed by Dr. Abbott and Dr. Montanez that patient would be okay with short term dialysis
discussed with today re: CRRT. feels that this would be appropriate for her.
spent >35 minutes of time on this critcally ill patient (on pressors)
-
-
Date of Service: June 19, 2023
CC / HPI / ROS
-
Chief Complaint:
NOAM, hyponatremia
History of Present Illness:
Na 129, bicarb 16, Cr up to 3.1
mentation also worsening
hypotensive on pressors
anuric at this point
developed erythematous red rash on chest post Lasix now improving
BP stable
GIB, Hgb unchanged at 8 post sigmoidoscopy 06/09, C scope on 06/10 polypectomies
Review of Systems:
now transferred to ICU for pressor support and CRRT
insight seem poor
anuric via Moore
Labs
-
Labs:
WBC 23.3 10^3/uL (4.8-10.8) H 06/19/23 03:37
RBC 2.67 10^6/uL (4.20-5.40) L 06/19/23 03:37
Hgb 7.8 g/dL (12.0-16.0) L 06/19/23 03:37
Hct 21.9 % (37.0-47.0) L 06/19/23 03:37
Plt Count 347 10^3/uL (130-400) D 06/19/23 03:37
eGFR 15.98 06/19/23 03:37
Nvz-E-Shkwmvgstiu Pept 633 pg/ml 06/02/23 05:09
Albumin 2.3 g/dl (3.5-5.0) L 06/16/23 04:22
Physical Exam
-
Vital Signs:
Vital Signs
Temp Pulse Resp BP Pulse Ox
98.8 F 96 20 109/53 99
06/19/23 09:15 06/19/23 10:15 06/19/23 10:15 06/19/23 10:15 06/19/23 10:15
Cardiovascular:: Regular rate and rhythm
Respiratory:: Bilateral: Coarse
Lung Excursion:: Normal
Abdomen:: Nontender and Soft
Bowel Sounds:: Normal
Extremity Edema:: +3: Bilateral:
Moore Catheter: Yes
[2023-06-19] MEDS: NOVOLOG FLEXPEN-LOW RESISTANCE 3 UNITS SC (11:59)
[2023-06-19] MEDS: ProAmatine 5 MG PO ×2 (12:07→17:18)
[2023-06-19 12:13] LABS: Cortisol, Random 42.7 ug/dl
--- NOTE | 2023-06-19 12:17 | CM ---
Patient moved to ICU this am from ICU. per chart review, patient is DNR and family participated in family meeting 06/18/23 with physician. CM will continue to follow for discharge planning needs.
Plan; TBD
[2023-06-19] MEDS: TYLENOL 650 MG PO (12:22)
[2023-06-19 12:23] LABS: Blood Urea Nitrogen 50 mg/dl (7-17); Calcium 7.5 mg/dl (8.4-10.2); Carbon Dioxide 18 mmol/L (22-30); Chloride 99 mmol/L (98-107); Estimated Creatinine Clearance 17 ml/min; Glucose 213 mg/dl (70-99); Magnesium 1.3 mg/dl (1.6-2.3); Phosphorus 4.5 mg/dl (2.5-4.5); Sodium 127 mmol/L (135-145); eGFR 14.83
[2023-06-19] MEDS: MAGNESIUM SULFATE 100 IV (12:39)
[2023-06-19] MEDS: KCL 100 IV (12:40)
[2023-06-19] MEDS: CALCIUM GLUCONATE 130 MG IV ×2 (12:40→19:47)
--- NOTE | 2023-06-19 12:54 | PTCARENOTE ---
reassessed. labs sent. patient more awake but confused. labs sent. k, mag and calcium rider initiated. medicated with Tylenol for pain, VAT team at bedside, attempting to insert additional IV access. preparing to initiated CRRT
[2023-06-19 13:03] LABS: APTT 161.2 Sec (23.4-35.0)
[2023-06-19] MEDS: RFP-401 Hemodialysis Solution (K+ 4 mEq/L) 20000 ML CRRT-IRR (13:12)
--- NOTE | 2023-06-19 13:28 | W.PN.INTV ---
Today's Communication / Plan
Recommendations
O2
Pressor
Atbs
CRRT
Assessment
-
Patient is a 68-year-old female with history of Aflutter, HTN, IDDM, SISI, anxiety presenting to ER 06-01 from [place] with abnormal labs-hyponatremia. Sodium on arrival 123, previously 131 on 04/28/23. She was noted to be hypotensive on arrival,
started on levophed and admitted to ICU. She is noted to be hypoglycemic on arrival as well, given amp Dextrose with minimal improvement. Brief ICU adm for JAMA cellulitis, transferred to [facility]. Pulm consulted 06-12 for SISI, chronic hypercapnia,
started BPAP which she refused in spite of explation of risk, kept on O2 NC 3-4L. Prolonged hospital stay, presented Kleb pn ESBL and Acin sp bacteriemia and GNR UTI, new onset HD started 06-17 (on NE), LUE PICC associated DVT, multiple consultation
services following the case. Transferred to ICU 06-18 for increasing requirement of NE and initiation of CRRT
Shock state, recurrent
ESBL kleb pn and MDR Acin bacteriemia 06-14
ESBL Kleb pn UTI 06-15
NOAM, initiating CRRT
LUE PICC associated DVT, line removed
S/p LLE cellulitis
Large L colonic polyp suspicious for high grade dysplasia (colonoscopy 06-10)
Prolonged hospital adm
Conditions present prior admission:
Discharged from 01/2023: Lethargy/status post fall status post left hip intertrochanteric fracture with repair
Lower extremity infection with Streptococcus bovis seen by ID and discharged on antibiotics until 02/26/2023-Wound culture left leg 03/18/2023: MRSA and Pseudomonas.
Atrial fibrillation off anticoagulation due to hemorrhagic complication
Peripheral arterial disease
Diabetes mellitus type 2
Morbid obesity with a BMI of 46
Hypertension
Anemia of chronic disease
Dyslipidemia
Obstructive sleep apnea
Chronic pain syndrome on opiates
Plan
Septic shock
ESBL kleb pn and MDR Acin bacteriemia 06-14
ESBL Kleb pn UTI 06-15
S/p LLE cellulitis (treated this adm)
ID following: cefepime changed to cefiderocol 06-18 to cover both MDR Kleb and Acinetobacter
NOAM
RIJ HD cath
Started HD with assistance of NE 06-17
Increasing NE requirement
Transferred to ICU 06-18
Start CRRT 06-18
SISI, chronic hypercapnia
Refused BPAP
Kept on O2 NC
POx 97% on NC 3L
PICC associated LUE DVT, line removed
On IV heparin
Cardiac history reviewed--AFlutter maintained on sotalol
Prior ECHO reviewed indicating normal function
Cards following, started amiodarone for PAT
Updated CXR 06-17 with no infiltrate but pulm vasc congestion
Advance diet as tolerated
H/o diabetes, presented hypoglycemia upon adm, currently hyperglycemic
Aspart insulin SS
DNR status
Prognosis guarded
Critical care time: 35 min
Diagnostic Data
Chest x-ray 03/18/2023: Rotated film. No acute infiltrates.
CT Scan: AP 02/13/23- Findings suggesting enteritis/ileus. Findings suggesting sequelae of chronic terminal ileitis. Intertrochanteric left femur fracture.
Echo: 02/17/23- Normal left ventricular size and systolic function. No regional wall motion abnormalities are seen. LV ejection fraction is 65-70% by visual assessment. Mild concentric left ventricular hypertrophy. Normal diastolic function. Mildly
dilated left atrium. Mild aortic stenosis. Peak/mean gradients are 34/18mmHg. The valve area by continuity equation is 1.6cm sq, using a LVOT of 1.9cm.
Mild aortic regurgitation. When compared to prior echocardiogram from June 16, 2021, the left atrium is now mildly enlarged and otherwise there is no significant change.
Echocardiogram 02/17/2023: Normal LVEF. Mild LVH. Mild aortic stenosis. Mild AR
Nocturnal ox 07/27/15: time below 90% 1:22:18 (23.8%); time below 88% 46:20 (13.4%); O2 nicol 67%; ALICIA >10s 31.0
Subjective Dataa
Subjective Data
Date of Service:
Date of Service: June 19, 2023
Chief Complaint: [place] Nurse Follow Up (Shock, hyponatremia.)
Subjective:
Known to our service
Prolonged adm since 06-01
Transferred to ICU for increasing NE requirement in setting of sepsis/bacteriemia and new onset HD
Review of Systems
General: Other (limited historian due to acuity)
Objective Data
Data Reviewed
Vital Signs / I&O / Oxygen:
Vital Signs
Temp Pulse Resp BP Pulse Ox
98.8 F 101 24 126/83 97
06/19/23 12:02 06/19/23 12:30 06/19/23 12:30 06/19/23 12:30 06/19/23 12:30
Intake and Output
06/18/23 06/19/23 06/20/23
06:59 06:59 06:59
Intake Total 680 / 680 750 / 750 292.6 / 292.6
Output Total 125 / 125 40 / 40
Balance 680 / 680 625 / 625 252.6 / 252.6
SaO2 97
Nasal Cannula flow liters per 3
minute
Physical Exam
General: Respiratory Distress (n)
HEENT: Normocephalic and Moist Mucous Membranes
Cardiovascular: S1-S2, Regular Rhythm and Peripheral Edema
Respiratory: Clear, Non-Labored Respirations and Stridor (n)
GI: Soft, Non Distended and Non Tender
Neurology: Awake and Other (weak)
Skin: Warm and Other
Labs/Micro/Reports
Lab Data
06/19/23 03:37
06/19/23 11:41
Laboratory Results
06/19/23 06/19/23
03:37 12:36
APTT 49.0 H 161.2 H*
Microbiology
06/17/23 11:01 Blood/Venous Blood Culture - Preliminary
No Growth in 48 hours- Final report to follow
06/15/23 18:58 Blood/Venous Blood Culture - Preliminary
Klebsiella pneumoniae-ESBL
Acinet. baumannii/haemolyticus
06/15/23 18:58 Blood/Venous Gram Stain - Final
06/16/23 10:02 Blood/Venous Blood Culture - Final
Klebsiella pneumoniae-ESBL
Acinet. baumannii/haemolyticus
06/16/23 10:02 Blood/Venous Gram Stain - Final
06/16/23 08:49 Blood/Venous Blood Culture - Preliminary
No Growth in 72 hours- Final report to follow
06/16/23 16:36 Blood/Venous Blood Culture - Preliminary
No Growth in 48 hours- Final report to follow
06/16/23 05:11 Urine Urine Culture - Final
Klebsiella pneumoniae-ESBL
06/16/23 05:11 Feces/Stool Stool Leukocytes - Final
[2023-06-19] MEDS: FETROJA 116.799999999999997 MG IV (14:17)
--- NOTE | 2023-06-19 14:40 | PTCARENOTE ---
CRRT initiated per orders with assist of Marychuy Angela. access pressures initially 0 to -2. blood pressures dropped when therapy initiated. right IJ dressing changed in an attempt to optimize access pressures. levophed titration per work list. right
midline inserted by VAT team. see MAR, potassium, magnesium and calcium repleted. heparin on hold for an hour, resumed@1100 per orders. nursing home manager updated by jay text regarding above.
--- NOTE | 2023-06-19 15:55 | CHAP ---
Request for [facility] as [facility] family [facility]. He will come today as soon as he can.
--- NOTE | 2023-06-19 16:20 | W.PN.ANS.LIN ---
Anesthesia IV & A-Line Note
- IV/Arterial Line
Right Radial Arrow 20 (05/04)
Diagnosis: hypotension
Allens test completed pre-procedure: Yes
A-Line Comments: Sterile technique as per standard protocol, Uneventful procedure, Seldinger technique used, Ultrasound guided insertion, Biopatch applied
Funtioning A-line in situ: No
A-line Insertion Start Time: 16:01
A-line Insertion Stop Time: 16:14
--- NOTE | 2023-06-19 16:22 | PTCARENOTE ---
Addendum entered by Alley Taylor RN 06/19/23 16:56:
attempting to increase flow rates
Original Note:
SOCIAL MEDIA MARKETER at bedside, right radial arterial line inserted without issue. blood flow rate decreased to 200 due to venous access alarms. family at bedside. reassessed, expiratory whezes noted. maintaining pulse oximeter 93 on 1 liter
[2023-06-19] MEDS: SODIUM BICARBONATE 325 MG PO ×2 (16:24→21:07)
[2023-06-19] MEDS: LIPITOR 20 MG PO (17:18)
[2023-06-19] MEDS: HEPARIN 25000 UNITS/250 ML IV (17:28)
[2023-06-19] MEDS: NOVOLOG FLEXPEN-LOW RESISTANCE 2 UNITS SC (17:55)
[2023-06-19 18:01] LABS: Glucose - Point of Care 229 mg/dl (70-99)
[2023-06-19 18:05] LABS: Ionized Calcium 1.16 mMOL/L (1.15-1.33)
[2023-06-19] MEDS: FLEXERIL 5 MG PO (18:24)
--- NOTE | 2023-06-19 18:28 | PTCARENOTE ---
Addendum entered by Alley Taylor RN 06/19/23 18:39:
labs resulted. pharmacist updated with need for calcium rider. drive shaft and steering post repairer order takers supervisor updated with patient continued pain and anxiety. orders received
Original Note:
medicated with flexeril pe prn order for c/o pain per patient request
[2023-06-19 18:32] LABS: Blood Urea Nitrogen 39 mg/dl (7-17); Calcium 8.5 mg/dl (8.4-10.2); Carbon Dioxide 16 mmol/L (22-30); Chloride 99 mmol/L (98-107); Estimated Creatinine Clearance 22 ml/min; Glucose 196 mg/dl (70-99); Magnesium 2.4 mg/dl (1.6-2.3); Phosphorus 3.3 mg/dl (2.5-4.5); Potassium 3.6 mmol/L (3.5-5.1); Sodium 129 mmol/L (135-145); eGFR 20.69
[2023-06-19 18:38] LABS: Hepatitis B Surface Antigen Negative (Negative)
[2023-06-19 18:56] LABS: Hepatitis B Surface Antibody Negative
--- NOTE | 2023-06-19 19:22 | PTCARENOTE ---
filter clotted, blood returned to patient. report to oncoming JUDE Chambers to change CRRT circuit
--- NOTE | 2023-06-19 19:40 | PTCARENOTE ---
Rec'd care of patient at 1900. CRRT running. Alarming for high venous pressure. Cartridge assessed to be nearly clotted off. Blood returned. Family at bedside and updated on plan of care.
[2023-06-19] MEDS: OSCAL CAL 500 1000 MG PO (19:47)
[2023-06-19] MEDS: PROTONIX 40 MG PO (19:47)
[2023-06-19 20:27] LABS: APTT 115.9 Sec (23.4-35.0)
[2023-06-19] MEDS: RFP-401 Hemodialysis Solution (K+ 4 mEq/L) 15000 ML CRRT-IRR (20:44)
[2023-06-19] MEDS: ATIVAN 1 MG PO (21:07)
--- NOTE | 2023-06-19 21:34 | PTCARENOTE ---
CRRT restarted at 2129. Vitals stable.
[2023-06-19] MEDS: LANTUS 0.100000000000000006 UNITS SC (21:48)
[2023-06-19 21:59] LABS: Glucose - Point of Care 227 mg/dl (70-99)
[2023-06-19] MEDS: BENADRYL 25 MG PO (22:58)
--- NOTE | 2023-06-20 00:11 | PTCARENOTE ---
Systems reviewed. No changes. Patient remains alert and oriented to self/place. Intermittently confused and forgetful. Requiring frequent reminders and reassurance. Anxiety slightly improved s/p administration of scheduled Ativan. NSR/ST with PACs
on tele monitor. Levophed gtt infusing for MAP >65 through right HD catheter piggytail. Heparin gtt infusing as well. Next PTT due at 0245. +Murmur. +4 anasarca. Pulses palpable. Pulse ox 94-97% on 1L nc. Lung sounds diminished throughout. +BS.
Abdomen round and distended. Stool cx pending. Moore in place for nephrology determination. Oliguric. 20 cc's of output this shift. CRRT running as ordered. VSS. Right radial arterial line leveled and zeroed. Full assessment and care as charted on
worklist.
[2023-06-20] MEDS: DILAUDID 0.25 MG IV ×5 (01:07→22:07)
[2023-06-20] MEDS: FETROJA 116.799999999999997 MG IV ×2 (01:53→13:08)
[2023-06-20 03:17] LABS: Ionized Calcium 1.25 mMOL/L (1.15-1.33)
[2023-06-20 03:19] LABS: Mean Corpuscular Hgb 29.4 pg (27.0-31.0); Mean Corpuscular Volume 81.8 fL (81.0-99.0); Mean Platelet Volume 9.6 fL (7.4-10.4); Platelet Count 194 10^3/uL (130-400); Red Blood Cell Count 2.31 10^6/uL (4.20-5.40); Red Cell Dist. Width 14.4 % (11.5-14.5); White Blood Cell Count 24.7 10^3/uL (4.8-10.8)
[2023-06-20] MEDS: RFP-401 Hemodialysis Solution (K+ 4 mEq/L) 15000 ML CRRT-IRR (03:23)
--- NOTE | 2023-06-20 03:33 | PTCARENOTE ---
Patient resting comfortably. CRRT remains on. Vitals stable. Weaning levo as tolerated. AM labs sent.
[2023-06-20 03:48] LABS: Hematocrit 18.9 % (37.0-47.0); Hemoglobin 6.8 g/dL (12.0-16.0)
[2023-06-20 03:52] LABS: ALT (SGPT) 11 U/L (0-35); AST (SGOT) 19 U/L (14-36); Albumin 1.9 g/dl (3.5-5.0); Alkaline Phosphatase 122 U/L (38-126); Blood Urea Nitrogen 29 mg/dl (7-17); Calcium 8.5 mg/dl (8.4-10.2); Carbon Dioxide 21 mmol/L (22-30); Chloride 103 mmol/L (98-107); Estimated Creatinine Clearance 33 ml/min; Glucose 183 mg/dl (70-99); Magnesium 2.1 mg/dl (1.6-2.3); Phosphorus 2.6 mg/dl (2.5-4.5); Potassium 3.4 mmol/L (3.5-5.1); Sodium 128 mmol/L (135-145); Total Bilirubin 0.4 mg/dl (0.2-1.3); Total Protein 4.8 g/dl (6.3-8.2); eGFR 32.87
--- NOTE | 2023-06-20 04:04 | W.PN.UPDATE ---
Update Note
Progress Note Update
Anemia noted for Am blood work hgb 6.8. Called patient's Sergo Nance to give consent, witnessed by RN, discussed risk/benefit of blood transfusion and answered all questions. Consent given by Sergo for blood transfusion. Will order type
and screen and PRBC x1.
--- NOTE | 2023-06-20 04:06 | PTCARENOTE ---
Hgb 6.8, Hct 18.9. RUG CLEANER notified. Blood consent obtained. Type and screen drawn.
[2023-06-20 04:31] VITALS: BMI 46.1
[2023-06-20] MEDS: POTASSIUM PHOSPHATE 259.090899999999976 MEQ IV (04:40)
--- NOTE | 2023-06-20 05:56 | PTCARENOTE ---
Addendum entered by Trish Bryant RN 06/20/23 05:58:
LUE US placed to assess prior clot.
Original Note:
Patient with limited IV access. VAT RN at bedside to attempt to place additional INT. Unsuccessful. Discussed with TOP PRINTING PRESS OPERATOR. Potassium Phosphate to be placed on hold temporarily in order to transfuse 1 unit PRBCs.
[2023-06-20 06:06] VITALS: BP 93/59
--- NOTE | 2023-06-20 06:13 | PTCARENOTE ---
PRBCs transfusing. Vitals stable.
[2023-06-20 06:23] VITALS: BP 102/54
--- NOTE | 2023-06-20 06:41 | PTCARENOTE ---
CRRT cartridge clotted off at 0630. Blood returned. US tech at bedside for ZEYAD PECK.
[2023-06-20] MEDS: FLEXERIL 5 MG PO ×2 (07:32→15:53)
[2023-06-20] MEDS: OSCAL CAL 500 1000 MG PO ×2 (07:33→21:16)
[2023-06-20] MEDS: SODIUM BICARBONATE 325 MG PO ×3 (07:33→21:16)
[2023-06-20] MEDS: VITAMIN D3 (cholecalciferol) 125 MCG PO (07:34)
[2023-06-20] MEDS: PROTONIX 40 MG PO ×2 (07:34→21:16)
[2023-06-20] MEDS: PACERONE 200 MG PO (07:34)
[2023-06-20] MEDS: ProAmatine 5 MG PO ×3 (07:34→15:52)
[2023-06-20] MEDS: DESENEX/MITRAZOL/ZEASORB 1 APPLIC TOPICAL ×2 (07:35→21:15)
--- NOTE | 2023-06-20 07:38 | W.PN.UPDATE ---
Update Note
Progress Note Update
Path reviewed. Will follow up as outpatient as appropriate. We will sign off.
--- NOTE | 2023-06-20 07:41 | W.PN.INTV ---
Today's Communication / Plan
Recommendations
O2
Asp precs
Atb
CRRT
Pressor
IV hep
Follow LUE doppler
Assessment
-
Patient is a 68-year-old female with history of Aflutter, HTN, IDDM, SISI, anxiety presenting to ER 06-01 from [place] with abnormal labs-hyponatremia. Sodium on arrival 123, previously 131 on 04/28/23. She was noted to be hypotensive on arrival,
started on levophed and admitted to ICU. She is noted to be hypoglycemic on arrival as well, given amp Dextrose with minimal improvement. Brief ICU adm for JAMA cellulitis, transferred to [facility]. Pulm consulted 06-12 for SISI, chronic hypercapnia,
started BPAP which she refused in spite of explation of risk, kept on O2 NC 3-4L. Prolonged hospital stay, presented Kleb pn ESBL and Acin sp bacteriemia and GNR UTI, new onset HD started 06-17 (on NE), LUE PICC associated DVT, multiple consultation
services following the case. Transferred to ICU 06-18 for increasing requirement of NE and initiation of CRRT
Shock state, recurrent
ESBL kleb pn and MDR Acin bacteriemia 06-14
ESBL Kleb pn UTI 06-15
NOAM, initiating CRRT
LUE PICC associated DVT 06-04 line removed, AC dose enoxaparin since 06-04 to , started IV hep 06-13
S/p LLE cellulitis
Large L colonic polyp suspicious for high grade dysplasia (colonoscopy 06-10, clotted blood in rectum, sigmoid and desc colon)
Acute/chronic anemia, Hgb 6.8 on 06-19
Prolonged hospital adm
Conditions present prior admission:
Discharged from 01/2023: Lethargy/status post fall status post left hip intertrochanteric fracture with repair
Lower extremity infection with Streptococcus bovis seen by ID and discharged on antibiotics until 02/26/2023-Wound culture left leg 03/18/2023: MRSA and Pseudomonas.
Atrial fibrillation off anticoagulation due to hemorrhagic complication
Peripheral arterial disease
Diabetes mellitus type 2
Morbid obesity with a BMI of 46
Hypertension
Anemia of chronic disease
Dyslipidemia
Obstructive sleep apnea
Chronic pain syndrome on opiates
Plan
Septic shock
ESBL kleb pn and MDR Acin bacteriemia
Blood cx 06/16 NTD
ESBL Kleb pn UTI 06-15
S/p LLE cellulitis (treated this adm)
ID following: cefepime changed to cefiderocol 06-18 to cover both MDR Kleb and Acinetobacter
NOAM
RIJ HD cath 06-17
Started HD with assistance of NE 06-17
Increasing NE requirement on 06-18 leading to transfer to ICU
Started CRRT 06-18
Currently NE down from 15 to 4 mcg/min
Acute on chronic anemia, multifactorial, down to 6.8, no clear source of blood loss except for blood draws
For 1 U PRBCs 06-19
SISI, chronic hypercapnia
Refused BPAP
Kept on O2 NC
POx 97% on NC 3L
PICC associated LUE DVT on US 06-04, line removed
On IV heparin since 06-13
LUE doppler 06-19 pending results
Difficult scenario given UEE DVT, ESRD and acute on chronic anemia, suspected GIB during this adm
May consider to discontinue AC altogether
Cardiac history reviewed--AFlutter maintained on sotalol as outpatient
Prior ECHO reviewed indicating normal function
Cards following, started amiodarone for PAT
Updated CXR 06-17 with no infiltrate but pulm vasc congestion
Advance diet as tolerated
H/o diabetes, presented hypoglycemia upon adm, currently hyperglycemic
Aspart insulin SS
DNR status
Prognosis remains guarded
Critical care time: 35 min
Diagnostic Data
Chest x-ray 03/18/2023: Rotated film. No acute infiltrates.
CT Scan: AP 02/13/23- Findings suggesting enteritis/ileus. Findings suggesting sequelae of chronic terminal ileitis. Intertrochanteric left femur fracture.
Echo: 02/17/23- Normal left ventricular size and systolic function. No regional wall motion abnormalities are seen. LV ejection fraction is 65-70% by visual assessment. Mild concentric left ventricular hypertrophy. Normal diastolic function. Mildly
dilated left atrium. Mild aortic stenosis. Peak/mean gradients are 34/18mmHg. The valve area by continuity equation is 1.6cm sq, using a LVOT of 1.9cm.
Mild aortic regurgitation. When compared to prior echocardiogram from June 16, 2021, the left atrium is now mildly enlarged and otherwise there is no significant change.
Echocardiogram 02/17/2023: Normal LVEF. Mild LVH. Mild aortic stenosis. Mild AR
Nocturnal ox 07/27/15: time below 90% 1:22:18 (23.8%); time below 88% 46:20 (13.4%); O2 nicol 67%; ALICIA >10s 31.0
Subjective Dataa
Subjective Data
Date of Service:
Date of Service: June 20, 2023
Chief Complaint: Case Consultant Follow Up (Shock, hyponatremia.)
Subjective:
Continues on CRRT
Continues on norepinephrine, rate decreased down to 4 g/min
Review of Systems
General: Other (poor historian)
Objective Data
Data Reviewed
Vital Signs / I&O / Oxygen:
Vital Signs
Temp Pulse Resp BP Pulse Ox
97.6 F 93 15 128/52 95
06/20/23 07:21 06/20/23 07:34 06/20/23 06:23 06/20/23 07:34 06/20/23 06:23
Intake and Output
06/19/23 06/20/23 06/21/23
06:59 06:59 06:59
Intake Total 750 / 750 2001.7 / 2001.7
Output Total 125 / 125 1400 / 1400
Balance 625 / 625 602.7 / 602.7
SaO2 95
Nasal Cannula flow liters per 1
minute
Physical Exam
General: Respiratory Distress (n)
HEENT: Normocephalic and Moist Mucous Membranes
Cardiovascular: S1-S2, Regular Rhythm, Peripheral Edema and Other (RIJ HD cath)
Respiratory: Clear, Non-Labored Respirations and Stridor (n)
GI: Soft, Non Distended and Non Tender
Neurology: Awake and Other (weak)
Skin: Warm and Other
Labs/Micro/Reports
Lab Data
06/20/23 03:10
06/20/23 03:10
Laboratory Results
06/19/23 06/19/23 06/20/23
12:36 20:06 03:10
APTT 161.2 H* 115.9 H 133.0 H
Microbiology
06/16/23 16:36 Blood/Venous Blood Culture - Preliminary
No Growth in 72 hours- Final report to follow
06/17/23 11:01 Blood/Venous Blood Culture - Preliminary
No Growth in 48 hours- Final report to follow
06/15/23 18:58 Blood/Venous Blood Culture - Preliminary
Klebsiella pneumoniae-ESBL
Acinet. baumannii/haemolyticus
06/15/23 18:58 Blood/Venous Gram Stain - Final
06/16/23 10:02 Blood/Venous Blood Culture - Final
Klebsiella pneumoniae-ESBL
Acinet. baumannii/haemolyticus
06/16/23 10:02 Blood/Venous Gram Stain - Final
06/16/23 08:49 Blood/Venous Blood Culture - Preliminary
No Growth in 72 hours- Final report to follow
06/16/23 05:11 Urine Urine Culture - Final
Klebsiella pneumoniae-ESBL
[2023-06-20] MEDS: NOVOLOG FLEXPEN-HIGH RESISTANCE 2 UNITS SC ×2 (08:04→12:13)
[2023-06-20 08:06] VITALS: BP 129/52
[2023-06-20 08:15] LABS: Glucose - Point of Care 199 mg/dl (70-99)
--- NOTE | 2023-06-20 08:16 | PTCARENOTE ---
report received, assessments per work list. patient oriented to person and place, poor short term memory. increased verbal and non verbal pain cues. medicated with prn medications per work list. monitor nsr, unit prbc completed without signs
reaction. right radial arterial line with positional waveform. + blood returns. right IJ hd cath capped with pigtail, gtt infusing. kphos resumed after blood completed. lungs with diminished breath sounds. heart tones distant. +4 generalized
anasarca. esposito draining scant bebo urine with brown sediment. abdomen distended. no stools noted. multiple dressings in place, dry and intact. 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 awaiting new CRRT orders prior to resumption of treatment
--- NOTE | 2023-06-20 08:16 | W.PN.NEPH.PH ---
Today's Communication / Plan
-
CRRT to continue
50 cc/hr u/f
Assessment/Plan
-
IMP:
Hyponatremia-acute on chronic
NOAM with significant azotemia
suspected septic shock/gram-negative bacilli bacteremia
hypoglycemia
Hypomagnesemia
TME
HX Paroxysmal AF- Not on anticoagulation due to hemorrhagic complications in the past
Chronic anemia
Essential HTN
T2DM
Chronic pain syndrome on chronic opioids
SISI - CPAP
Morbid obesity due to excess calories
PAD
h/o left hip fx s/p ORIF 01/2023
Plan:
NOAM, baseline cr of 0.7, peaked at 4.6
maintain CRRT, orders provided
will add u/f 50cc/hr given hypervolemia and pressor with some wean in progress
WBC rising to 24
klebsiella in blood and urine, on meropenem
CT of abdomen and pelvis nonrevealing
specially post contrast on 06/07+diarrhea
temporary HD line placed on 06/17, initiated on HD on 06/17. now transitioned to CRRT on 06/18.
HANNAH is on high differential, FeNa not low
Recent CT no hydro but concern of GI abnormality colitis, mass?
gapped met acidosis-improved after one round of HD
continues with edema and increased weight gains
replaced calcium PRN and initiated on vit D supplementation
BP stable but soft
avoid nephrotoxins
spent 31 minutes of time on this critically ill patient (on pressors)
Total Time Spent with Patient (in minutes): 31
-
-
Date of Service: June 20, 2023
CC / HPI / ROS
-
Chief Complaint:
NOAM, hyponatremia
History of Present Illness:
now on CRRT
mentation also worsening
hypotensive on pressors
anuric at this point
developed erythematous red rash on chest post Lasix now improving
GIB, Hgb worsening to 6.8 post sigmoidoscopy 06/09, C scope on 06/10 polypectomies
Review of Systems:
now transferred to ICU for pressor support and CRRT
insight seem poor
anuric via Moore
Labs
-
Labs:
WBC 24.7 10^3/uL (4.8-10.8) H 06/20/23 03:10
RBC 2.31 10^6/uL (4.20-5.40) L 06/20/23 03:10
Hgb 6.8 g/dL (12.0-16.0) L* 06/20/23 03:10
Hct 18.9 % (37.0-47.0) L* 06/20/23 03:10
Plt Count 194 10^3/uL (130-400) D 06/20/23 03:10
Sodium 128 mmol/L (135-145) L 06/20/23 03:10
Sodium Cancelled 06/20/23 03:10
Potassium 3.4 mmol/L (3.5-5.1) L 06/20/23 03:10
Potassium Cancelled 06/20/23 03:10
Chloride 103 mmol/L (98-107) 06/20/23 03:10
Chloride Cancelled 06/20/23 03:10
Carbon Dioxide 21 mmol/L (22-30) L 06/20/23 03:10
Carbon Dioxide Cancelled 06/20/23 03:10
BUN 29 mg/dl (7-17) H 06/20/23 03:10
BUN Cancelled 06/20/23 03:10
Creatinine 1.7 mg/dL (0.6-1.0) H 06/20/23 03:10
Creatinine Cancelled 06/20/23 03:10
eGFR 32.87 06/20/23 03:10
eGFR Cancelled 06/20/23 03:10
Glucose 183 mg/dl (70-99) H 06/20/23 03:10
Glucose Cancelled 06/20/23 03:10
Calcium 8.5 mg/dl (8.4-10.2) 06/20/23 03:10
Calcium Cancelled 06/20/23 03:10
Phosphorus 2.6 mg/dl (2.5-4.5) 06/20/23 03:10
Phosphorus Cancelled 06/20/23 03:10
Bkl-F-Vixkwbxqvlb Pept 633 pg/ml 06/02/23 05:09
Albumin 1.9 g/dl (3.5-5.0) L 06/20/23 03:10
Physical Exam
-
Vital Signs:
Vital Signs
Temp Pulse Resp BP Pulse Ox
97.6 F 98 15 129/52 94
06/20/23 08:06 06/20/23 08:06 06/20/23 08:06 06/20/23 08:06 06/20/23 08:06
Cardiovascular:: Regular rate and rhythm
Respiratory:: Bilateral: Coarse
Lung Excursion:: Normal
Abdomen:: Nontender
Bowel Sounds:: Decreased
Extremity Edema:: +2: Bilateral:
Moore Catheter: Yes
[2023-06-20] MEDS: RFP-401 Hemodialysis Solution (K+ 4 mEq/L) 20000 ML CRRT-IRR ×2 (08:54→19:01)
--- NOTE | 2023-06-20 09:11 | W.PN.HOSP.TC ---
Today's Communication/Plan
-
cont CRRT
cont ABX
prognosis poor
Assessment / Plan
Assessment / Plan
pt is a 68 year old female
Acute renal failure--oliguric--multifactorial including recurrent sepsis shock, hypotension, IV contrast--apprec renal--on CRRT, levophed--Avoid nephrotoxin--Patient was given trials of ethacrynic acid before hemodialysis.
ESBL Kleb pneumonia and Acinetobacter bacteremia--suspected translocation than urinary source--ESBL Klebsiella pneumonia is isolated in the urine but not Acinetobacter; ESBL Klebsiella pneumonia in the urine could be descending infection--Repeat
cultures are negative so far--WBC remains elevated--CT of the abdomen pelvis with oral contrast done recently did not show any evidence of collections--On meropenem-continue per ID.
Recurrent shock--suspected septic--patient is back on vasopressors --Optimize Levophed for MAP of 65--Her systolic murmur is more prominent than before--ECHO 06/18 shows EF 65-70% with mild aortic stenosis--no vegetations seen
Recent cellulitis of left leg--MRSA colonized--s/p meropenem x 3 d--Completed linezolid 600mg po bid x through 06/08/2023 am
change in mental status - sec to metabolic encephalopathy --ABG was obtained it shows she has acute hypercapnic hypoxic respiratory failure--Resolved with BiPAP support--nursing tells me, pt doesn't wear her CPAP/BIPAP at home
Acute hypercapnic hypoxic respiratory failure--Patient with chronic hypoxic respiratory insufficiency on 2 L at home. She has history of sleep apnea but was not able to tolerate mask in the past. She is obese. Suspected respiratory distress
secondary to sleep apnea. 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
Paroxysmal atrial fibrillation-in sinus rhythm. QTc normal now. QTc in March 2023 was within normal limits. DC sotalol due to NOAM and low normal blood pressure--apprec cards/renal
Acute GI bleed--No active bleeding--Had a full colonoscopy 06/10 and multiple polyps removed--Possible related to polyp after initial sigmoidoscopy and polyp resection--Hemoglobin no major changes but low today at 6.8;transfused 1 unit pRBC--keep
hemoglobin more than 7--Bx results noted -no malignancy ; follow colo per GI recs
Baseline Chronic normocytic anemia--ACD. Hemoglobin at baseline. Aim to keep it more than 7. No iron def.
Left arm PICC associated DVT --tx with AC for 1 month. On lovenox which was on hold because of previous bleeding and and acute renal failure--started on IV heparin . DOAC when stable--hematology input noted regarding this DVT--Her DVT was in
axillary vein extending into basilic--repeat US 06/19
Anasarca--suspect multifactorial including nutritional, renal failure
Hyponatremia--management per renal - acute on chronic .
Moderate protein caloric malnutrition, albumin 2.2.
Essential HTN - hold ARB due to hypotension and follow
DM 2 with hyperglycemia. Patient with poor oral intake. Hemoglobin A1c 7.1. Hold glimepiride and alogliptin--cortisol is ok .
Recent Left Hip ORIF - OP CT hip noted - cw PT eval; Wound care/abx for left hip wound. Ortho input noted.
Patient remains vasopressor dependent and needing increasing doses of Levophed--See Dr. Garcia discussions with family 06/17. Continue with pressor support and antibiotics treatment.
Remains DNR
Total Critical Care Time 31 minutes. I was immediately available to the patient and staff. I personally examined, reviewed labs, diagnostic images/reports, interpretations, treatment plans, discussed patient care with other providers and family
or caregivers (if patient is unable to make decisions), entered orders as appropriate and documented the medical record.
Anticipated Discharge: > 48 hours
Subjective/Interval History
-
Date of Service: June 20, 2023
pt sleepy but arousable--just received pain meds and muscle relaxers
Objective Data
-
Labs:
Laboratory Results
04/19/24 04/19/24 04/19/24
03:10 03:10 03:10
WBC 24.7 H
Hgb 6.8 L*
Hct 18.9 L*
Plt Count 194 D
APTT 133.0 H
Sodium Cancelled 128 L
Potassium Cancelled 3.4 L
Chloride Cancelled
Carbon Dioxide
BUN
Creatinine
Glucose
Calcium
Total Bilirubin
AST
ALT
Alkaline Phosphatase
06/20/23 06/20/23 06/20/23
03:10 03:10 03:10
WBC
Hgb
Hct
Plt Count
APTT
Sodium
Potassium
Chloride 103
Carbon Dioxide Cancelled 21 L
BUN Cancelled 29 H
Creatinine Cancelled
Glucose
Calcium
Total Bilirubin
AST
ALT
Alkaline Phosphatase
06/20/23 06/20/23 06/20/23
03:10 03:10 03:10
WBC
Hgb
Hct
Plt Count
APTT
Sodium
Potassium
Chloride
Carbon Dioxide
BUN
Creatinine 1.7 H
Glucose Cancelled 183 H
Calcium Cancelled 8.5
Total Bilirubin 0.4
AST 19
ALT 11
Alkaline Phosphatase 122
06/20/23
11:00
WBC
Hgb
Hct
Plt Count
APTT Pending
Sodium
Potassium
Chloride
Carbon Dioxide
BUN
Creatinine
Glucose
Calcium
Total Bilirubin
AST
ALT
Alkaline Phosphatase
Vital Signs:
max temp for 24 hours
06/19/23
12:02
Temp 98.8 F
Vital Signs
Temp Pulse Resp BP Pulse Ox
97.6 F 98 15 129/52 94
06/20/23 08:06 06/20/23 08:06 06/20/23 08:06 06/20/23 08:06 06/20/23 08:06
I&O
06/19/23 06/20/23 06/21/23
06:59 06:59 06:59
Intake Total 750 / 750 2001. / 2015.2 427.0 / 427.0
Output Total 125 / 125 1400 / 1400 0 / 0
Balance 625 / 625 602.7 / 616.2 427.0 / 427.0
Review of Systems
-
Unable to obtain full review of systems at this time due to: Acuity
Physical Exam
-
General: Well Developed, Well Nourished and No Apparent Distress
HEENT: Normocephalic, Atraumatic and Oxygen
Respiratory: Clear to Auscultation (anteriorly); Negative Wheezes, Rales or Rhonchi
Cardiac: Regular Rhythm, S1/S2 and Murmur
GI: Soft, Nondistended, Normal Bowel Sounds and Tender (to palpation)
Musculoskeletal: No Clubbing, No Cyanosis and Other (left UE swollen, bruised)
Skin: Warm
Neuro: Awake
--- NOTE | 2023-06-20 09:36 | W.PN.ID1 ---
Date of Service
Date of Service: June 20, 2023
Today's Communication
Continue cefiderocol
Poor prognosis.
Assessment / Plan
# ESBL-Klebsiella, MDR-Acinetobacter bacteremia x 2 sets
# Leukocytosis continues to trend up
# Septic shock, multi-system organ failure
# NOAM on CRRT
# Acute on chronic anemia
# Numerous abx/drug allergies. Tolerated meropenem and linezolid in the past.
- Source of bacteremia possibly from colon translocation after recent resection of multiple polyps with associated GIB less likely urine source (only ESBL in urine)
- Repeat blood cx's neg to date
-Cefiderocol 1.5g IV q12 (dosed for CRRT) to cover for both MDR-Klebsiella/Acinetobacter
Tolerating abx so far.
Appreciate pharmacy's input.
- Trend vitals, wbc
- Overall prognosis poor.
# Diarrhea
- C. diff neg x2 /norovirus negative
# Intraluminal colon mass
- hx Strep bovis bacteremia 02/11/2023, treated.
- 06/10/23 s/p sigmoidoscopy, removal of several polyps.
- 06/11/23 s/p colonoscopy, removal of multiple polyps, clipping of ulcer in sigmoid
- Biopsies: tubular adenomas with focal high grade dysplasia, and tubulovillous adenomas
# s/pLLE cellulitis - resolved
# Lymphedema
-Completed linezolid 600mg po bid through 06/08/2023 am
- Continue BLE compression
# s/p Drug rash resolved off furosemide
# LUE picc associated DVT
- PICC dc'd
# Left hip incision wound clean without infection
- cx skin [place]
#Additional Past Medical History:
Diabetes mellitus
Class III obesity BMI 49
Lymphedema
Obstructive sleep apnea
A flutter status post ablation
hypertension
cellulitis
Asthma
Dyslipidemia
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
Meningioma s/p resection
Chronic back pain
Cholecystectomy
Bilateral oophorectomy
Left hip fracture s/p gamma nailing 02/16/23
Chief Complaint
-: Leukocytosis and Bacteremia
Subjective / Review of Systems
Remains lethargic.
Vital Signs / Physical Exam
Vital Signs
Vital Signs
Temp Pulse Resp BP Pulse Ox
97.6 F 98 15 129/52 94
06/20/23 08:06 06/20/23 08:06 06/20/23 08:06 06/20/23 08:06 06/20/23 08:06
Physical Exam
Constitutional: Acutely Ill
Eyes: Sclera Anicteric
Cardiovascular: Regular Rate and S1/S2
Pulmonary: Clear (anteriorly)
Gastrointestinal: Soft, Non Tender and Non Distended
Genito-Urinary: Moore (minimal urine)
Extremities: Edema (BLE lymphedema)
Skin: Other (Dry flaking skin on bilateral groin, Bilateral upper arms)
Neurological: Other (Lethargic)
Lines: Other (Temp HD cath no erythema)
Objective Data
Lab Data
Lab Results
06/20/23 03:10
06/20/23 03:10
PT 13.1 Sec (11.4-14.6) 06/02/23 09:23
INR 1.01 06/02/23 09:23
APTT 133.0 Sec (23.4-35.0) H 06/20/23 03:10
Estimated Creat Clear 33 ml/min 06/20/23 03:10
Estimated Creat Clear Cancelled 06/20/23 03:10
Lactic Acid 0.9 mmol/L (0.7-2.0) 06/13/23 09:53
Total Bilirubin 0.4 mg/dl (0.2-1.3) 06/20/23 03:10
AST 19 U/L (14-36) 06/20/23 03:10
ALT 11 U/L (0-35) 06/20/23 03:10
Alkaline Phosphatase 122 U/L (38-126) 06/20/23 03:10
Most recent labs reviewed.
Micro Results:
06/16/23 08:49 Blood Culture - Preliminary
Blood/Venous No Growth in 4 days- Final report to follow
06/16/23 16:36 Blood Culture - Preliminary
Blood/Venous No Growth in 72 hours- Final report to follow
06/17/23 11:01 Blood Culture - Preliminary
Blood/Venous No Growth in 48 hours- Final report to follow
06/15/23 18:58 Blood Culture - Preliminary
Blood/Venous Klebsiella pneumoniae-ESBL
Acinet. baumannii/haemolyticus
Gram Stain - Final
06/16/23 10:02 Blood Culture - Final
Blood/Venous Klebsiella pneumoniae-ESBL
Acinet. baumannii/haemolyticus
Gram Stain - Final
06/16/23 05:11 Urine Culture - Final
Urine Klebsiella pneumoniae-ESBL
06/16/23 05:11 Stool Leukocytes - Final
Feces/Stool
06/16/23 05:11 C. difficile GDH Antigen & Toxins - Final
Feces/Stool Negative for toxigenic C.difficile
06/07/23 23:53 - Final
Feces/Stool Negative for Norovirus GI and GII.
06/03/23 10:41 Blood Culture - Final
Blood/Venous No Growth - Final Report
06/03/23 10:41 Blood Culture - Final
Blood/Venous No Growth - Final Report
06/02/23 05:52 Blood Culture - Final
Blood/Venous Coagulase neg. staphylococcus
Additional testing on request
Gram Stain - Final
06/02/23 05:52 Blood Culture - Final
Blood/Venous No Growth - Final Report
06/02/23 13:24 Wound Culture - Final
Hip - Left Gram Stain - Final
06/02/23 13:23 MRSA Screen - Final
Nose Staph aureus MRSA
06/02/23 13:25 Urine Culture - Final
Urine NO GROWTH
06/02/23 18:34 C. difficile GDH Antigen & Toxins - Final
Feces/Stool Negative for toxigenic C.difficile
06/18/23 CXR: no active disease
06/14/23 CXR: Hypo-aerated lungs without consolidation.
06/08/23 CT a/p: MILD ACUTE INFECTIOUS PANCOLITIS with mild fluid distention of the proximal colon and mild wall thickening and mucosal hyperenhancement in the distal colon and rectum. 1.5 cm intraluminal mass in the descending colon-sigmoid colon
junction suspicious for a large colonic polyp (possibly adenocarcinoma). Mild diffuse small bowel distention.
06/02/23 CXR: clear lungs
05/28/23 CT LLE: ORIF of an intertrochanteric/subtrochanteric fracture. The fracture plane remains evident, but there is some callus and heterotopic ossification about the fracture site.
--- NOTE | 2023-06-20 11:16 | PTCARENOTE ---
CVVHD initiated without issues, complete care given, wound care provided. labs sent. patient remains confused, c/o pain, anxious frequently. poor oral intake for am meal.
[2023-06-20] MEDS: LEVOPHED 258 MG IV (11:19)
[2023-06-20 11:31] LABS: APTT 78.3 Sec (23.4-35.0)
[2023-06-20 12:15] LABS: Glucose - Point of Care 179 mg/dl (70-99)
[2023-06-20 12:19] LABS: Ionized Calcium 1.19 mMOL/L (1.15-1.33)
--- NOTE | 2023-06-20 12:21 | PTCARENOTE ---
patient reassessed, less verbal and non verbal pain cues post dilaudid. CRRT continues. levophed titration per work list. labs sent, pending
[2023-06-20 12:42] LABS: Blood Urea Nitrogen 21 mg/dl (7-17); Calcium 8.1 mg/dl (8.4-10.2); Carbon Dioxide 22 mmol/L (22-30); Chloride 104 mmol/L (98-107); Estimated Creatinine Clearance 40 ml/min; Glucose 158 mg/dl (70-99); Magnesium 1.8 mg/dl (1.6-2.3); Potassium 3.8 mmol/L (3.5-5.1); Sodium 130 mmol/L (135-145); eGFR 41.49
[2023-06-20] MEDS: CALCIUM GLUCONATE 130 MG IV (12:52)
[2023-06-20] MEDS: MAGNESIUM SULFATE 100 IV (12:52)
--- NOTE | 2023-06-20 13:31 | CM ---
CM following re: discharge planning.
Discussed in Rounds, reviewed pt's chart, met with pt. Per Rounds meeting, continue CRRT, continue antibiotics, continue supportive care, prognosis poor.
D/C plan: uncertain at this time and will dep[end on pt's progress.
CM will follow with discharge plan updates as hospitalization progresses
[2023-06-20] MEDS: BENADRYL 25 MG PO (15:53)
[2023-06-20] MEDS: LIPITOR 20 MG PO (15:54)
--- NOTE | 2023-06-20 16:00 | W.PN.UPDATE ---
Update Note
Progress Note Update
CRRT note:
qb: 300cc/minute
replacement rate:2liters per hr
Bath:4K
u/f: 50cc/hr
--- NOTE | 2023-06-20 16:09 | PTCARENOTE ---
reassessed, repositioned. c/o muscle spasms and itching. see MAR. CRRT continues without issues. levophed/heparin per work list.
[2023-06-20] MEDS: NOVOLOG FLEXPEN-HIGH RESISTANCE 4 UNITS SC (17:02)
[2023-06-20 17:06] LABS: Ionized Calcium 1.31 mMOL/L (1.15-1.33)
[2023-06-20 17:09] LABS: Glucose - Point of Care 213 mg/dl (70-99)
[2023-06-20 17:18] LABS: APTT 85.5 Sec (23.4-35.0)
[2023-06-20 17:22] LABS: Blood Urea Nitrogen 17 mg/dl (7-17); Calcium 8.9 mg/dl (8.4-10.2); Carbon Dioxide 21 mmol/L (22-30); Chloride 102 mmol/L (98-107); Estimated Creatinine Clearance 51 ml/min; Glucose 190 mg/dl (70-99); Magnesium 2.8 mg/dl (1.6-2.3); Potassium 3.7 mmol/L (3.5-5.1); Sodium 130 mmol/L (135-145); eGFR 55.42
--- NOTE | 2023-06-20 18:10 | PTCARENOTE ---
Rabbi Cook at bedside. post visit patient medicated with dilaudid for c/o pain
[2023-06-20] MEDS: LANTUS 0.149999999999999994 UNITS SC (21:17)
[2023-06-20 21:26] LABS: Glucose - Point of Care 175 mg/dl (70-99)
--- NOTE | 2023-06-20 22:33 | PTCARENOTE ---
Assumed care of pt at 1900. Pt is A/O x2-[address], able to state it was June, thought the year was 2022. Speech is somewhat garbled/slurred and raspy, pt difficult to understand at times. Pt is drowsy but easily arouses, able to hold a
conversation, forgetful and repeats the same questions frequently. Reporting pain throughout body, medicated with PRN Dilaudid, see EMAR. CRRT ongoing, goal UF -50mL. Pt currently on double concentrated Levophed and Heparin. Levophed titrated to
keep MAP >65. BP from right radial arterial line. Difficult to get a temperature on patient, unable to get oral, axillary was in the 93 range, obtained rectal temp and pt was only 94.3. Ekta hugger applied, pt keeps inadvertently pushing out rectal
probe from rectum, new temp probe placed in left axilla to get a continuous temp reading. SR 80s on monitor. SpO2 96% on 1LNC. Physical assessment completed, see nursing shift assessment flowsheet for full assessment details.
[2023-06-20] MEDS: ATIVAN PO (23:04)
[2023-06-21] VITALS (11 sets, daily range): BP systolic 75–107; BP diastolic 50–64; BMI 46.5
[2023-06-21 00:14] LABS: Ionized Calcium 1.17 mMOL/L (1.15-1.33)
[2023-06-21] MEDS: CALCIUM GLUCONATE 130 MG IV (01:08)
--- NOTE | 2023-06-21 01:17 | PTCARENOTE ---
Assessment unchanged. SR 80s-90s on monitor, SpO2 95-97% on 1LNC. Continues on CRRT. Continues on Levophed and Heparin drips. Calcium repleted for ionized calcium 1.17.
[2023-06-21 01:27] LABS: Blood Urea Nitrogen 12 mg/dl (7-17); Calcium 8.4 mg/dl (8.4-10.2); Carbon Dioxide 23 mmol/L (22-30); Chloride 104 mmol/L (98-107); Estimated Creatinine Clearance 71 ml/min; Glucose 156 mg/dl (70-99); Magnesium 2.2 mg/dl (1.6-2.3); Phosphorus 2.2 mg/dl (2.5-4.5); Potassium 3.7 mmol/L (3.5-5.1); Sodium 130 mmol/L (135-145); eGFR > 60.00
[2023-06-21] MEDS: FETROJA 116.799999999999997 MG IV ×2 (02:10→13:12)
[2023-06-21] MEDS: SODIUM PHOSPHATE 260 MEQ IV (03:17)
[2023-06-21] MEDS: DILAUDID 0.25 MG IV ×4 (03:34→22:10)
[2023-06-21] MEDS: RFP-401 Hemodialysis Solution (K+ 4 mEq/L) 20000 ML CRRT-IRR (04:33)
[2023-06-21 05:59] LABS: Ionized Calcium 1.21 mMOL/L (1.15-1.33)
[2023-06-21 06:01] LABS: Mean Corp Hgb Conc. 35.7 g/dL (33.0-37.0); Mean Corpuscular Hgb 29.5 pg (27.0-31.0); Mean Corpuscular Volume 82.7 fL (81.0-99.0); Mean Platelet Volume 9.6 fL (7.4-10.4); Platelet Count 149 10^3/uL (130-400); Red Blood Cell Count 2.78 10^6/uL (4.20-5.40); Red Cell Dist. Width 14.6 % (11.5-14.5); White Blood Cell Count 32.1 10^3/uL (4.8-10.8)
[2023-06-21 06:14] LABS: ALT (SGPT) 13 U/L (0-35); AST (SGOT) 28 U/L (14-36); Albumin 1.9 g/dl (3.5-5.0); Alkaline Phosphatase 141 U/L (38-126); Blood Urea Nitrogen 9 mg/dl (7-17); Calcium 8.7 mg/dl (8.4-10.2); Carbon Dioxide 24 mmol/L (22-30); Chloride 102 mmol/L (98-107); Estimated Creatinine Clearance 81 ml/min; Glucose 166 mg/dl (70-99); Hemoglobin 8.2 g/dL (12.0-16.0); Phosphorus 3.8 mg/dl (2.5-4.5); Potassium 3.8 mmol/L (3.5-5.1); Sodium 130 mmol/L (135-145); Total Bilirubin 0.6 mg/dl (0.2-1.3); Total Protein 4.8 g/dl (6.3-8.2); eGFR > 60.00
[2023-06-21 06:34] LABS: APTT 84.2 Sec (23.4-35.0)
--- NOTE | 2023-06-21 07:30 | W.PN.HOSP.TC ---
Today's Communication/Plan
-
trial of IV albumin
cont supportive care
renew drips
GOC discussions ongoing
Assessment / Plan
Assessment / Plan
pt is a 68 year old female
Acute renal failure--oliguric--multifactorial including recurrent sepsis shock, hypotension, IV contrast--apprec renal--on CRRT, levophed--Avoid nephrotoxin--Patient was given trials of ethacrynic acid before hemodialysis--creat normal however
remains on CRRT
ESBL Kleb pneumonia and Acinetobacter bacteremia--suspected translocation than urinary source--ESBL Klebsiella pneumonia is isolated in the urine but not Acinetobacter; ESBL Klebsiella pneumonia in the urine could be descending infection--Repeat
cultures are negative so far--WBC remains elevated and climbing, consider cabrera culture, d/c lines and culture tips but will defer to ID--CT of the abdomen pelvis with oral contrast done recently did not show any evidence of collections--On
Cefiderocol--pt also hypothermic on bear hugger
Recurrent shock--suspected septic--patient is back on vasopressors, 8 mcg of levophed double concentrated --Optimize Levophed for MAP of 65--ECHO 06/18 shows EF 65-70% with mild aortic stenosis--no vegetations seen
Recent cellulitis of left leg--MRSA colonized--s/p meropenem x 3 d--Completed inezolid 600mg po bid x through 06/08/2023 am
change in mental status - sec to metabolic encephalopathy --ABG was obtained it shows she has acute hypercapnic hypoxic respiratory failure--Resolved with BiPAP support--nursing tells me, pt doesn't wear her CPAP/BIPAP at home
Acute hypercapnic hypoxic respiratory failure--Patient with chronic hypoxic respiratory insufficiency on 2 L at home. She has history of sleep apnea but was not able to tolerate mask in the past. She is obese. Suspected respiratory distress
secondary to sleep apnea. 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
Paroxysmal atrial fibrillation-in sinus rhythm. QTc normal now. QTc in March 2023 was within normal limits. DC sotalol due to NOAM and low normal blood pressure--apprec cards/renal
Acute GI bleed--No active bleeding--Had a full colonoscopy 06/10 and multiple polyps removed--Possible related to polyp after initial sigmoidoscopy and polyp resection--Hemoglobin no major changes but low today at 6.8;transfused 1 unit pRBC--keep
hemoglobin more than 7--Bx results noted -no malignancy ; follow per GI recs
Baseline Chronic normocytic anemia--ACD. Hemoglobin at baseline. Aim to keep it more than 7. No iron def.
Left arm PICC associated DVT --tx with AC for 1 month. On lovenox which was on hold because of previous bleeding and and acute renal failure--started on IV heparin--DOAC when stable--hematology input noted regarding this DVT--Her DVT was in axillary
vein extending into basilic--repeat US 06/19 negative for clot--consideration to replace PICC
Anasarca--suspect multifactorial including nutritional, renal failure
Hyponatremia--management per renal - acute on chronic .
Moderate protein caloric malnutrition, albumin 2.2--consider albumin infusion to help oncotic pressure--may be able to wean levophed? in that case
Essential HTN - hold ARB due to hypotension and follow
DM 2 with hyperglycemia. Patient with poor oral intake. Hemoglobin A1c 7.1. Hold glimepiride and alogliptin--cortisol is ok .
Recent Left Hip ORIF - OP CT hip noted - cw PT eval when able; Wound care/abx for left hip wound. Ortho input noted.
Patient remains vasopressor dependent and needing increasing doses of Levophed--See Dr. Garcia discussions with family 06/17. Continue with pressor support and antibiotics treatment.
Remains DNR
prognosis poor
Total Critical Care Time 33 minutes. I was immediately available to the patient and staff. I personally examined, reviewed labs, diagnostic images/reports, interpretations, treatment plans, discussed patient care with other providers and family
or caregivers (if patient is unable to make decisions), entered orders as appropriate and documented the medical record.
Anticipated Discharge: > 48 hours
Subjective/Interval History
-
Date of Service: June 21, 2023
pt asking for ice chips
Objective Data
-
Labs:
Laboratory Results
06/21/23 06/21/23 06/21/23
00:03 01:02 05:52
WBC 32.1 H
Hgb 8.2 L D
Hct 23.0 L
Plt Count 149 D
APTT 84.2 H
Sodium Cancelled 130 L 130 L
Potassium Cancelled 3.7 3.8
Chloride Cancelled 104 102
Carbon Dioxide Cancelled 23 24
BUN Cancelled 12 9
Creatinine Cancelled 0.8 0.7
Glucose Cancelled 156 H 166 H
Calcium Cancelled 8.4 8.7
Total Bilirubin 0.6
AST 28
ALT 13
Alkaline Phosphatase 141 H
Vital Signs:
max temp for 24 hours
06/21/23
07:00
Temp 96.7 F L
Vital Signs
Temp Pulse Resp BP Pulse Ox
96.7 F L 104 17 127/55 96
06/21/23 07:00 06/21/23 06:15 06/21/23 06:15 06/20/23 15:52 06/21/23 06:15
I&O
06/20/23 06/21/23 06/22/23
06:59 06:59 06:59
Intake Total 2001. / 2015.2 2221.2 / 2308.3 87.1 / 87.1
Output Total 1400 / 1400 2558.5 / 2718.5 160 / 160
Balance 602.7 / 616.2 -337.3 / -410.2 -72.9 / -72.9
Review of Systems
-
Unable to obtain full review of systems at this time due to: Acuity
Physical Exam
-
General: Well Developed, Well Nourished and No Apparent Distress
HEENT: Normocephalic and Atraumatic
Respiratory: Clear to Auscultation; Negative Wheezes or Rhonchi
Cardiac: Regular Rhythm, S1/S2 and Tachycardic
GI: Soft and Tender (to palpation--diffusely)
Genito-urinary: Moore
Musculoskeletal: Other (right arm ecchymotic and swollen)
Neuro: Awake; Negative Alert
Psych: Calm
--- NOTE | 2023-06-21 07:31 | W.PN.INTV ---
Today's Communication / Plan
Recommendations
Antibiotics
CRRT
Aspiration precautions
Considering discontinuing anticoagulation
Assessment
-
Patient is a 68-year-old female with history of Aflutter, HTN, IDDM, SISI, anxiety presenting to ER 06-01 from [place] with abnormal labs-hyponatremia. Sodium on arrival 123, previously 131 on 04/28/23. She was noted to be hypotensive on arrival,
started on levophed and admitted to ICU. She is noted to be hypoglycemic on arrival as well, given amp Dextrose with minimal improvement. Brief ICU adm for JAMA cellulitis, transferred to [facility]. Pulm consulted 06-12 for SISI, chronic hypercapnia,
started BPAP which she refused in spite of explation of risk, kept on O2 NC 3-4L. Prolonged hospital stay, presented Kleb pn ESBL and Acin sp bacteriemia and GNR UTI, new onset HD started 06-17 (on NE), LUE PICC associated DVT, multiple consultation
services following the case. Transferred to ICU 06-18 for increasing requirement of NE and initiation of CRRT
Shock state, recurrent
ESBL kleb pn and MDR Acin bacteriemia 06-14
ESBL Kleb pn UTI 06-15
NOAM, initiating CRRT
LUE PICC associated DVT 06-04 line removed, AC dose enoxaparin since 06-04 to , started IV hep 06-13
S/p LLE cellulitis
Large L colonic polyp suspicious for high grade dysplasia (colonoscopy 06-10, clotted blood in rectum, sigmoid and desc colon)
Acute/chronic anemia, Hgb 6.8 on 06-19
Prolonged hospital adm
Conditions present prior admission:
Discharged from 01/2023: Lethargy/status post fall status post left hip intertrochanteric fracture with repair
Lower extremity infection with Streptococcus bovis seen by ID and discharged on antibiotics until 02/26/2023-Wound culture left leg 03/18/2023: MRSA and Pseudomonas.
Atrial fibrillation off anticoagulation due to hemorrhagic complication
Peripheral arterial disease
Diabetes mellitus type 2
Morbid obesity with a BMI of 46
Hypertension
Anemia of chronic disease
Dyslipidemia
Obstructive sleep apnea
Chronic pain syndrome on opiates
Plan
Septic shock
ESBL kleb pn and MDR Acin bacteriemia , deemed secondary to colon translocation after polyp resection with associated GIB
Blood cx 06/16 NTD
ESBL Kleb pn UTI 06-15
C diff negative diarrhea
S/p LLE cellulitis (treated this adm)
ID following: cefepime changed to cefiderocol 06-18 to cover both MDR Kleb and Acinetobacter
NOAM
RIJ HD cath 06-17
Started HD with assistance of NE 06-17
Increasing NE requirement on 06-18 leading to transfer to ICU
Started CRRT 06-18
TTE 06-18: LVEF 65-70%, mild without other valvular abnormalities, RV not well visualized
Acute on chronic anemia, multifactorial, down to 6.8, no clear source of blood loss except for blood draws
For 1 U PRBCs 06-19, Hgb up to 8.2
SISI, chronic hypercapnia
Refused BPAP
Kept on O2 NC
POx 97% on NC 3L
PICC associated LUE DVT on US 06-04, line removed
On IV heparin since 06-13
LUE doppler 06-19, c/w 06-04, previously seen L axillary DVT no longer seen, no LUE DVT
Difficult scenario given UEE DVT, ESRD and acute on chronic anemia, suspected GIB during this adm
May consider to discontinue AC altogether
Cardiac history reviewed--AFlutter maintained on sotalol as outpatient
Prior ECHO reviewed indicating normal function
Cards following, started amiodarone for PAT
Updated CXR 06-17 with no infiltrate but pulm vasc congestion
Advance diet as tolerated
H/o diabetes, presented hypoglycemia upon adm, currently hyperglycemic
Aspart insulin SS
DNR status
Prognosis remains guarded
Discussed with daughter at bedside on 06/20, she recognize the difficult clinical scenario
Critical care time: 35 min
Diagnostic Data
Chest x-ray 03/18/2023: Rotated film. No acute infiltrates.
CT Scan: AP 02/13/23- Findings suggesting enteritis/ileus. Findings suggesting sequelae of chronic terminal ileitis. Intertrochanteric left femur fracture.
Echo: 02/17/23- Normal left ventricular size and systolic function. No regional wall motion abnormalities are seen. LV ejection fraction is 65-70% by visual assessment. Mild concentric left ventricular hypertrophy. Normal diastolic function. Mildly
dilated left atrium. Mild aortic stenosis. Peak/mean gradients are 34/18mmHg. The valve area by continuity equation is 1.6cm sq, using a LVOT of 1.9cm.
Mild aortic regurgitation. When compared to prior echocardiogram from June 16, 2021, the left atrium is now mildly enlarged and otherwise there is no significant change.
Echocardiogram 02/17/2023: Normal LVEF. Mild LVH. Mild aortic stenosis. Mild AR
Nocturnal ox 07/27/15: time below 90% 1:22:18 (23.8%); time below 88% 46:20 (13.4%); O2 nicol 67%; ALICIA >10s 31.0
Subjective Dataa
Subjective Data
Date of Service:
Date of Service: June 21, 2023
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
Subjective:
Continues on CRRT
Intermittently confused
Daughter visiting at bedside, case discussed with her
Review of Systems
General: Other (Confused, critically ill)
Objective Data
Data Reviewed
Vital Signs / I&O / Oxygen:
Vital Signs
Temp Pulse Resp BP Pulse Ox
96.7 F L 104 17 127/55 96
06/21/23 07:00 06/21/23 06:15 06/21/23 06:15 06/20/23 15:52 06/21/23 06:15
Intake and Output
06/20/23 06/21/23 06/22/23
06:59 06:59 06:59
Intake Total 2001.2015.2 2221.2 / 2308.3 87.1 / 87.1
Output Total 1400 / 1400 2558.5 / 2718.5 160 / 160
Balance 602.7 / 616.2 -337.3 / -410.2 -72.9 / -72.9
SaO2 96
Nasal Cannula flow liters per 1
minute
Physical Exam
General: Respiratory Distress (n)
HEENT: Normocephalic and Moist Mucous Membranes
Cardiovascular: S1-S2, Regular Rhythm, Peripheral Edema and Other (RIJ HD cath)
Respiratory: Clear, Non-Labored Respirations and Stridor (n)
GI: Soft, Non Distended and Non Tender
Neurology: Awake, Other (weak) and Other (Intermittently confused)
Skin: Warm and Other
Labs/Micro/Reports
Lab Data
06/21/23 05:52
06/21/23 05:52
Laboratory Results
06/20/23 06/20/23 06/21/23
11:00 16:58 05:52
APTT 78.3 H 85.5 H 84.2 H
Microbiology
06/16/23 16:36 Blood/Venous Blood Culture - Preliminary
No Growth in 4 days- Final report to follow
06/17/23 11:01 Blood/Venous Blood Culture - Preliminary
No Growth in 72 hours- Final report to follow
06/16/23 08:49 Blood/Venous Blood Culture - Preliminary
No Growth in 4 days- Final report to follow
06/15/23 18:58 Blood/Venous Blood Culture - Preliminary
Klebsiella pneumoniae-ESBL
Acinet. baumannii/haemolyticus
06/15/23 18:58 Blood/Venous Gram Stain - Final
06/16/23 10:02 Blood/Venous Blood Culture - Final
Klebsiella pneumoniae-ESBL
Acinet. baumannii/haemolyticus
06/16/23 10:02 Blood/Venous Gram Stain - Final
06/16/23 05:11 Urine Urine Culture - Final
Klebsiella pneumoniae-ESBL
--- NOTE | 2023-06-21 08:02 | W.PN.NEPH.PH ---
Today's Communication / Plan
-
CRRT to continue
maintain 50cc/hr negative u/f
Assessment/Plan
-
IMP:
Hyponatremia-acute on chronic
NOAM with significant azotemia
suspected septic shock/gram-negative bacilli bacteremia
hypoglycemia
Hypomagnesemia
TME
HX Paroxysmal AF- Not on anticoagulation due to hemorrhagic complications in the past
Chronic anemia
Essential HTN
T2DM
Chronic pain syndrome on chronic opioids
SISI - CPAP
Morbid obesity due to excess calories
PAD
h/o left hip fx s/p ORIF 01/2023
Plan:
NOAM, baseline cr of 0.7, peaked at 4.6
maintain CRRT, orders provided
remains anuric
maintain u/f 50cc/hr given hypervolemia and pressor with some wean in progress, but still requires pressors support
WBC rising to 32
klebsiella in blood and urine, on meropenem
CT of abdomen and pelvis nonrevealing
specially post contrast on 06/07+diarrhea
temporary HD line placed on 06/17, initiated on HD on 06/17. now transitioned to CRRT on 06/18.
HANNAH is on high differential and or contrast nephropathy, FeNa not low
Recent CT no hydro but concern of GI abnormality colitis, mass?
gapped met acidosis-improved after one round of HD
continues with edema and increased weight gains
replaced calcium PRN and initiated on vit D supplementation
BP stable but soft
avoid nephrotoxins
spent 31 minutes of time on this critically ill patient (on pressors)
Total Time Spent with Patient (in minutes): 31
-
-
Date of Service: June 21, 2023
CC / HPI / ROS
-
Chief Complaint:
NOAM, hyponatremia
History of Present Illness:
now on CRRT
mentation also worsening
hypotensive on pressor
anuric at this point
developed erythematous red rash on chest post Lasix now improving
GIB, Hgb worsening to 6.8 post sigmoidoscopy 06/09, C scope on 06/10 polypectomies
Review of Systems:
now transferred to ICU for pressor support and CRRT
insight seem poor
anuric via Moore
Labs
-
Labs:
WBC 32.1 10^3/uL (4.8-10.8) H 06/21/23 05:52
RBC 2.78 10^6/uL (4.20-5.40) L 06/21/23 05:52
Hgb 8.2 g/dL (12.0-16.0) L D 06/21/23 05:52
Hct 23.0 % (37.0-47.0) L 06/21/23 05:52
Plt Count 149 10^3/uL (130-400) D 06/21/23 05:52
Sodium 130 mmol/L (135-145) L 06/21/23 05:52
Potassium 3.8 mmol/L (3.5-5.1) 06/21/23 05:52
Chloride 102 mmol/L (98-107) 06/21/23 05:52
Carbon Dioxide 24 mmol/L (22-30) 06/21/23 05:52
BUN 9 mg/dl (7-17) 06/21/23 05:52
Creatinine 0.7 mg/dL (0.6-1.0) 06/21/23 05:52
eGFR > 60.00 06/21/23 05:52
Glucose 166 mg/dl (70-99) H 06/21/23 05:52
Calcium 8.7 mg/dl (8.4-10.2) 06/21/23 05:52
Phosphorus 3.8 mg/dl (2.5-4.5) 06/21/23 05:52
Bjn-P-Ixkfbvbcrgv Pept 633 pg/ml 06/02/23 05:09
Albumin 1.9 g/dl (3.5-5.0) L 06/21/23 05:52
Physical Exam
-
Vital Signs:
Vital Signs
Temp Pulse Resp BP Pulse Ox
96.7 F L 104 17 127/55 96
06/21/23 07:37 06/21/23 06:15 06/21/23 06:15 06/20/23 15:52 06/21/23 06:15
Cardiovascular:: Regular rate and rhythm
Respiratory:: Bilateral: Coarse
Lung Excursion:: Normal
Abdomen:: Nontender and Soft
Bowel Sounds:: Decreased
Extremity Edema:: +2: Bilateral:
Moore Catheter: Yes
[2023-06-21] MEDS: ProAmatine 5 MG PO ×3 (08:20→17:45)
[2023-06-21] MEDS: PROTONIX 40 MG PO ×2 (08:20→21:23)
[2023-06-21] MEDS: OSCAL CAL 500 1000 MG PO ×2 (08:21→21:23)
[2023-06-21] MEDS: SODIUM BICARBONATE 325 MG PO ×3 (08:21→21:23)
[2023-06-21] MEDS: VITAMIN D3 (cholecalciferol) 125 MCG PO (08:21)
--- NOTE | 2023-06-21 08:22 | W.PN.UPDATE ---
Update Note
Progress Note Update
CRRT:
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
spb ~110 on pressor support
u/f 50cc/hr
4K bath
qb 300 per minute
dd 2liter/hr
[2023-06-21] MEDS: DESENEX/MITRAZOL/ZEASORB 1 APPLIC TOPICAL ×2 (08:28→21:23)
--- NOTE | 2023-06-21 08:37 | W.PN.ID1 ---
Date of Service
Date of Service: June 21, 2023
Today's Communication
Continue abx.
Assessment / Plan
# ESBL-Klebsiella, MDR-Acinetobacter bacteremia x 2 sets
# Leukocytosis
- continues to trend up
# Septic shock, multi-system organ failure
# NOAM on CRRT
# Acute on chronic anemia
# Extensive abx/drug allergies. Tolerated meropenem and linezolid in the past.
- Source of bacteremia possibly from colon translocation after recent resection of multiple polyps with associated GIB less likely urine source (only ESBL in urine)
- Repeat blood cx's neg to date
--> Continue cefiderocol 1.5g IV q12 (dosed for CRRT) to cover for both MDR-Klebsiella/Acinetobacter
- Tolerating abx so far.
Appreciate pharmacy's input.
- Trend vitals, wbc
- Overall prognosis appears extremely poor.
# Diarrhea
- C. diff neg x2 /norovirus negative
# Intraluminal colon mass
- hx Strep bovis bacteremia 02/11/2023, treated.
- 06/10/23 s/p sigmoidoscopy, removal of several polyps.
- 06/11/23 s/p colonoscopy, removal of multiple polyps, clipping of ulcer in sigmoid
- Biopsies: tubular adenomas with focal high grade dysplasia, and tubulovillous adenomas
# s/pLLE cellulitis - resolved
# Lymphedema
-Completed linezolid 600mg po bid through 06/08/2023 am
- Continue BLE compression
# s/p Drug rash resolved off furosemide
# LUE picc associated DVT
- PICC dc'd
# Left hip incision wound clean without infection
- cx skin [place]
#Additional Past Medical History:
Diabetes mellitus
Class III obesity BMI 49
Lymphedema
Obstructive sleep apnea
A flutter status post ablation
hypertension
cellulitis
Asthma
Dyslipidemia
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
Meningioma s/p resection
Chronic back pain
Cholecystectomy
Bilateral oophorectomy
Left hip fracture s/p gamma nailing 02/16/23
Chief Complaint
-: Leukocytosis, Clinical Sepsis and Bacteremia
Vital Signs / Physical Exam
Vital Signs
Vital Signs
Temp Pulse Resp BP Pulse Ox
96.7 F L 100 17 95/49 96
06/21/23 07:37 06/21/23 08:20 06/21/23 06:15 06/21/23 08:20 06/21/23 06:15
Physical Exam
Constitutional: Acutely Ill, Toxic and Obese
Eyes: No Conjunctival Hemorrhage
Cardiovascular: S1/S2; Negative S3/S4
Pulmonary: Coarse and Non Labored
Gastrointestinal: Soft and Non Distended
Neurological: Other (Arousable and responsive, but very somnolent.)
Psychological: Calm
Lines: HD Cath
Objective Data
Lab Data
Lab Results
06/21/23 05:52
06/21/23 05:52
PT 13.1 Sec (11.4-14.6) 06/02/23 09:23
INR 1.01 06/02/23 09:23
APTT 84.2 Sec (23.4-35.0) H 06/21/23 05:52
Estimated Creat Clear 81 ml/min 06/21/23 05:52
Lactic Acid 0.9 mmol/L (0.7-2.0) 06/13/23 09:53
Total Bilirubin 0.6 mg/dl (0.2-1.3) 06/21/23 05:52
AST 28 U/L (14-36) 06/21/23 05:52
ALT 13 U/L (0-35) 06/21/23 05:52
Alkaline Phosphatase 141 U/L (38-126) H 06/21/23 05:52
Most recent labs reviewed.
Micro Results:
06/16/23 16:36 Blood Culture - Preliminary
Blood/Venous No Growth in 4 days- Final report to follow
06/17/23 11:01 Blood Culture - Preliminary
Blood/Venous No Growth in 72 hours- Final report to follow
06/16/23 08:49 Blood Culture - Preliminary
Blood/Venous No Growth in 4 days- Final report to follow
06/15/23 18:58 Blood Culture - Preliminary
Blood/Venous Klebsiella pneumoniae-ESBL
Acinet. baumannii/haemolyticus
Gram Stain - Final
06/16/23 10:02 Blood Culture - Final
Blood/Venous Klebsiella pneumoniae-ESBL
Acinet. baumannii/haemolyticus
Gram Stain - Final
06/16/23 05:11 Urine Culture - Final
Urine Klebsiella pneumoniae-ESBL
06/16/23 05:11 Stool Leukocytes - Final
Feces/Stool
06/16/23 05:11 C. difficile GDH Antigen & Toxins - Final
Feces/Stool Negative for toxigenic C.difficile
06/07/23 23:53 - Final
Feces/Stool Negative for Norovirus GI and GII.
06/03/23 10:41 Blood Culture - Final
Blood/Venous No Growth - Final Report
06/03/23 10:41 Blood Culture - Final
Blood/Venous No Growth - Final Report
06/02/23 05:52 Blood Culture - Final
Blood/Venous Coagulase neg. staphylococcus
Additional testing on request
Gram Stain - Final
06/02/23 05:52 Blood Culture - Final
Blood/Venous No Growth - Final Report
06/02/23 13:24 Wound Culture - Final
Hip - Left Gram Stain - Final
06/02/23 13:23 MRSA Screen - Final
Nose Staph aureus MRSA
06/02/23 13:25 Urine Culture - Final
Urine NO GROWTH
06/02/23 18:34 C. difficile GDH Antigen & Toxins - Final
Feces/Stool Negative for toxigenic C.difficile
06/18/23 CXR: no active disease
06/14/23 CXR: Hypo-aerated lungs without consolidation.
06/08/23 CT a/p: MILD ACUTE INFECTIOUS PANCOLITIS with mild fluid distention of the proximal colon and mild wall thickening and mucosal hyperenhancement in the distal colon and rectum. 1.5 cm intraluminal mass in the descending colon-sigmoid colon
junction suspicious for a large colonic polyp (possibly adenocarcinoma). Mild diffuse small bowel distention.
06/02/23 CXR: clear lungs
05/28/23 CT LLE: ORIF of an intertrochanteric/subtrochanteric fracture. The fracture plane remains evident, but there is some callus and heterotopic ossification about the fracture site.
Care Review
Plan reviewed with: Physician (Nephrology)
[2023-06-21] MEDS: NOVOLOG FLEXPEN-HIGH RESISTANCE 7 UNITS SC (08:41)
[2023-06-21 08:51] LABS: Glucose - Point of Care 261 mg/dl (70-99)
[2023-06-21] MEDS: PACERONE 200 MG PO (09:10)
[2023-06-21] MEDS: TYLENOL 650 MG PO (09:11)
[2023-06-21] MEDS: FLEXBUMIN 100 IV ×3 (09:12→23:47)
--- NOTE | 2023-06-21 10:30 | PTCARENOTE ---
pt drowsy , garbled speech , ST on monitor , on Levophed for BP control goal for map of 65, she is currently in 8mcg , lungs diminished with crackles throughout , on 2L NC with sats of 97% , on heparin gtt for anticoagulation, she is therapeutic ,
urine output very low , pt was on CRRT this am and at 10:00 unable to keep flow of fluids , multiple attempts of flushing HD cath did have blood clot and was able to remove , beginning CRRT now as previous
[2023-06-21] MEDS: LEVOPHED 258 MG IV (11:24)
[2023-06-21] MEDS: HEPARIN 25000 UNITS/250 ML IV (12:29)
[2023-06-21] MEDS: NOVOLOG FLEXPEN-HIGH RESISTANCE 1 UNITS SC ×2 (13:22→16:49)
[2023-06-21 13:33] LABS: Glucose - Point of Care 137 mg/dl (70-99)
--- NOTE | 2023-06-21 14:00 | PTCARENOTE ---
continuing to have difficulty with the HD cath and CRRT , multiple attempts to restart CRRT and unable to have success, Dr Lozano aware pt has not had CRRT since 10:00 , plan to have picc line inserted in L arm and use HD cath only for CRRT . IV
team to place picc
--- NOTE | 2023-06-21 15:15 | VATNOTE ---
Catheter tip is in the L subclavian vein, another VAT RN to attempt PICC redirection.
--- NOTE | 2023-06-21 15:50 | CHAP ---
Sonam was unable to communicate much; her gaze was unfocused. Emotional and spiritual support provided, including words of comfort and reassurance, readings from the Psalms, and prayer.
--- NOTE | 2023-06-21 16:14 | VATNOTE ---
Attempted to exchange a picc tip in subclavian by another VAT RN. Attempted to redirect x 2 and still not in good position
--- NOTE | 2023-06-21 16:20 | VATNOTE ---
Attempted to exchange the picc placed by another VAT RN. Tip @ the subclavian. Redirected x2 and xray shows not in the proper position. Primary RN made aware. will consult IR to redirect under fluoroscopy .
[2023-06-21 16:56] LABS: Glucose - Point of Care 143 mg/dl (70-99)
--- NOTE | 2023-06-21 17:23 | PTCARENOTE ---
IV team had x2 attempts to insert picc line in L arm both xray showing not in proper position, Dr Zaman aware , and pt to have picc line inserted tomorrow in IR , Dr Lozano aware of difficulty with IV sites and CRRT , plan for pt to have new
HD cath placed tomorrow in IR , pt assessments unchanged , labs noted from this am , is at bedside and updated on current plan of care and condition
[2023-06-21] MEDS: LIPITOR 20 MG PO (17:45)
[2023-06-21] MEDS: ATIVAN 1 MG PO (21:24)
[2023-06-21] MEDS: LANTUS 0.149999999999999994 UNITS SC (21:24)
[2023-06-21 21:43] LABS: Glucose - Point of Care 163 mg/dl (70-99)
[2023-06-22] MEDS: FETROJA 108.400000000000006 MG IV (01:24)
[2023-06-22 04:19] LABS: Mean Corp Hgb Conc. 34.6 g/dL (33.0-37.0); Mean Corpuscular Hgb 29.5 pg (27.0-31.0); Mean Corpuscular Volume 85.2 fL (81.0-99.0); Mean Platelet Volume 10.5 fL (7.4-10.4); Platelet Count 94 10^3/uL (130-400); White Blood Cell Count 24.6 10^3/uL (4.8-10.8)
[2023-06-22 04:32] LABS: APTT 109.4 Sec (23.4-35.0)
[2023-06-22] MEDS: LEVOPHED 258 MG IV (04:41)
[2023-06-22 04:46] LABS: ALT (SGPT) 11 U/L (0-35); AST (SGOT) 24 U/L (14-36); Albumin 2.4 g/dl (3.5-5.0); Alkaline Phosphatase 127 U/L (38-126); Blood Urea Nitrogen 8 mg/dl (7-17); Calcium 8.4 mg/dl (8.4-10.2); Carbon Dioxide 23 mmol/L (22-30); Chloride 105 mmol/L (98-107); Estimated Creatinine Clearance 63 ml/min; Glucose 130 mg/dl (70-99); Magnesium 1.8 mg/dl (1.6-2.3); Potassium 3.3 mmol/L (3.5-5.1); Sodium 132 mmol/L (135-145); Total Protein 4.9 g/dl (6.3-8.2); eGFR > 60.00
[2023-06-22 04:47] LABS: Hematocrit 17.9 % (37.0-47.0); Hemoglobin 6.2 g/dL (12.0-16.0)
--- NOTE | 2023-06-22 05:04 | PTCARENOTE ---
06/22/23 - received pt from RN, assessments completed and charted. pt is very lethargic, garbled speech, and not making any sense, very confused and shouting out peoples names, pt thinks she is at home or at school.
labs drawn at 2200 and Na was 118, fluids stopped per GIS CONSULTANT and renal. patient has 2 BM loose/mucus (tested negative for cdiff) pt is off CRRT until new dialysis cath is placed today. Levo remains on and is titrated per protocol. heparin remains
therapeutic so no changes.
patient has excorated buttocks, cream applied, powder under breasts and folds.
labs drawn and hgb 6.2, blood ordered, per GIS CONSULTANT will not start blood until new dialysis port is placed.
[2023-06-22 05:14] LABS: Cortisol, Random 15.3 ug/dl
[2023-06-22] MEDS: KCL ELIXIR 40 MEQ PO (05:27)
[2023-06-22 05:35] VITALS: BMI 47.7
[2023-06-22] MEDS: DILAUDID 0.25 MG IV ×4 (07:00→21:09)
[2023-06-22] MEDS: PROTONIX 40 MG PO ×2 (07:06→21:06)
[2023-06-22] MEDS: ProAmatine 5 MG PO ×2 (07:06→16:32)
[2023-06-22] MEDS: SODIUM BICARBONATE 325 MG PO ×2 (07:06→16:31)
[2023-06-22] MEDS: VITAMIN D3 (cholecalciferol) 125 MCG PO (07:07)
[2023-06-22] MEDS: OSCAL CAL 500 1000 MG PO ×2 (07:07→21:06)
[2023-06-22] MEDS: PACERONE 200 MG PO (07:07)
[2023-06-22] MEDS: DESENEX/MITRAZOL/ZEASORB 1 APPLIC TOPICAL ×2 (07:08→21:06)
--- NOTE | 2023-06-22 07:18 | W.PN.INTV ---
Addendum entered and electronically signed by Ammon Cordon MD 06/22/23 11:15:
D/w Dr Lozano, will need to continue IV heparin for now as CRRT circuits clots in this patient. Hopefully change in HD cath could allow to d/c heparin then
Heme stool negative: clarified with RN (test was not positive as incorrectly entered in my note)
Original Note:
Today's Communication / Plan
Recommendations
O2
Asp precs
PRBC
NE
CRRT
D/c IV hep
Assessment
-
Patient is a 68-year-old female with history of Aflutter, HTN, IDDM, SISI, anxiety presenting to ER 06-01 from [facility] with abnormal labs-hyponatremia. Sodium on arrival 123, previously 131 on 04/28/23. She was noted to be hypotensive on arrival,
started on levophed and admitted to ICU. She is noted to be hypoglycemic on arrival as well, given amp Dextrose with minimal improvement. Brief ICU adm for JAMA cellulitis, transferred to [facility]. Pulm consulted 06-12 for SISI, chronic hypercapnia,
started BPAP which she refused in spite of explation of risk, kept on O2 NC 3-4L. Prolonged hospital stay, presented Kleb pn ESBL and Acin sp bacteriemia and GNR UTI, new onset HD started 06-17 (on NE), LUE PICC associated DVT, multiple consultation
services following the case. Transferred to ICU 06-18 for increasing requirement of NE and initiation of CRRT
Shock state, recurrent
ESBL kleb pn and MDR Acin bacteriemia 06-14
ESBL Kleb pn UTI 06-15
NOAM, initiating CRRT
LUE PICC associated DVT 06-04 line removed, AC dose enoxaparin since 06-04 to , started IV hep 06-13
S/p LLE cellulitis
Large L colonic polyp suspicious for high grade dysplasia (colonoscopy 06-10, clotted blood in rectum, sigmoid and desc colon)
Acute/chronic anemia, Hgb 6.8 on 06-19
Prolonged hospital adm
Conditions present prior admission:
Discharged from 01/2023: Lethargy/status post fall status post left hip intertrochanteric fracture with repair
Lower extremity infection with Streptococcus bovis seen by ID and discharged on antibiotics until 02/26/2023-Wound culture left leg 03/18/2023: MRSA and Pseudomonas.
Atrial fibrillation off anticoagulation due to hemorrhagic complication
Peripheral arterial disease
Diabetes mellitus type 2
Morbid obesity with a BMI of 46
Hypertension
Anemia of chronic disease
Dyslipidemia
Obstructive sleep apnea
Chronic pain syndrome on opiates
Plan
Septic shock
ESBL kleb pn and MDR Acin bacteriemia , deemed secondary to colon translocation after polyp resection with associated GIB
Blood cx 06/16 NTD
ESBL Kleb pn UTI 06-15
C diff negative diarrhea
S/p LLE cellulitis (treated this adm)
ID following: cefepime changed to cefiderocol 06-18 to cover both MDR Kleb and Acinetobacter, continue atb
NOAM
RIJ HD cath 06-17
Started HD with assistance of NE 06-17
Increasing NE requirement on 06-18 leading to transfer to ICU, continue NE
Started CRRT 06-18
TTE 06-18: LVEF 65-70%, mild without other valvular abnormalities, RV not well visualized
IRad to replace RIJ HD cath and replace LUE PICC 06-21
Acute on chronic anemia, multifactorial, down to 6.8 on 06-19, no clear source of blood loss except for blood draws
1 U PRBCs 06-19, Hgb up to 8.2
Hgb dropped again to 6.2 on 06-21, 1U PRBCs to be transfused once CRRT resumed. Reportedly heme positive stools
GIB was suspected earlier this adm: colonoscopy found clotted blood in rectum
IV hep discontinued 06-21
SISI, chronic hypercapnia
Refused BPAP
Kept on O2 NC
POx 95% on NC 3L
PICC associated LUE DVT on US 06-04, line removed
On IV heparin since 06-13
LUE doppler 06-19, c/w 06-04, previously seen L axillary DVT no longer seen, no LUE DVT
Difficult scenario given UEE DVT, ESRD and acute on chronic anemia, GIB during this adm (colonoscopy 06-10)
Discontinue IV hep 06-21
Ongoing vascular access problems
RIJ HD cath to be replaced 06-21
LUE PICC attempted, could not advance completely, IRad to replace 06-21
Cardiac history reviewed--AFlutter maintained on sotalol as outpatient
Prior ECHO reviewed indicating normal function
Cards following, started amiodarone for PAT
Updated CXR 06-17 with no infiltrate but pulm vasc congestion
Advance diet as tolerated
H/o diabetes, presented hypoglycemia upon adm, currently hyperglycemic
Aspart insulin SS
DNR status
Prognosis remains poor
Discussed with daughter at bedside on 06/20, she recognizes the difficult clinical scenario
GOC discussions ongoing
Critical care time: 35 min
Diagnostic Data
Chest x-ray 03/18/2023: Rotated film. No acute infiltrates.
CT Scan: AP 02/13/23- Findings suggesting enteritis/ileus. Findings suggesting sequelae of chronic terminal ileitis. Intertrochanteric left femur fracture.
Echo: 02/17/23- Normal left ventricular size and systolic function. No regional wall motion abnormalities are seen. LV ejection fraction is 65-70% by visual assessment. Mild concentric left ventricular hypertrophy. Normal diastolic function. Mildly
dilated left atrium. Mild aortic stenosis. Peak/mean gradients are 34/18mmHg. The valve area by continuity equation is 1.6cm sq, using a LVOT of 1.9cm.
Mild aortic regurgitation. When compared to prior echocardiogram from June 16, 2021, the left atrium is now mildly enlarged and otherwise there is no significant change.
Echocardiogram 02/17/2023: Normal LVEF. Mild LVH. Mild aortic stenosis. Mild AR
Nocturnal ox 07/27/15: time below 90% 1:22:18 (23.8%); time below 88% 46:20 (13.4%); O2 nicol 67%; ALICIA >10s 31.0
Subjective Dataa
Subjective Data
Date of Service:
Date of Service: June 22, 2023
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
Subjective:
Remains in critical condition
Per RN report, as long as still having a hard time understanding the poor prognosis of this patient
CRRT temporarily discontinued due to dysfunction of hemodialysis catheter, tube replaced today by IR
Left upper extremity PICC line attempted yesterday, unfortunately could not advance lying completely in, IR to review
Review of Systems
General: Other (encephalopathic)
Objective Data
Data Reviewed
Vital Signs / I&O / Oxygen:
Vital Signs
Temp Pulse Resp BP Pulse Ox
98.6 F 98 20 125/63 97
06/22/23 03:22 06/22/23 07:07 06/22/23 06:30 06/22/23 07:07 06/22/23 06:30
Intake and Output
06/21/23 06/22/23 06/23/23
06:59 06:59 06:59
Intake Total 2221.2 / 2308.3 1104.2 / 1104.2
Output Total 2558.5 / 2718.5 533.5 / 533.5
Balance -337.3 / -410.2 570.7 / 570.7
SaO2 97
Nasal Cannula flow liters per 2
minute
Physical Exam
General: Respiratory Distress (n)
HEENT: Normocephalic and Moist Mucous Membranes
Cardiovascular: S1-S2, Regular Rhythm, Peripheral Edema and Other (RIJ HD cath)
Respiratory: Clear, Non-Labored Respirations and Stridor (n)
GI: Soft, Non Distended and Non Tender
Neurology: Other (weak) and Other (confused)
Skin: Warm and Other
Labs/Micro/Reports
Lab Data
06/22/23 04:03
06/22/23 04:03
Laboratory Results
06/22/23
04:03
APTT 109.4 H
Microbiology
06/16/23 16:36 Blood/Venous Blood Culture - Final
No Growth - Final Report
06/17/23 11:01 Blood/Venous Blood Culture - Preliminary
No Growth in 4 days- Final report to follow
06/16/23 08:49 Blood/Venous Blood Culture - Final
No Growth - Final Report
06/15/23 18:58 Blood/Venous Blood Culture - Preliminary
Klebsiella pneumoniae-ESBL
Acinet. baumannii/haemolyticus
06/15/23 18:58 Blood/Venous Gram Stain - Final
06/16/23 10:02 Blood/Venous Blood Culture - Final
Klebsiella pneumoniae-ESBL
Acinet. baumannii/haemolyticus
06/16/23 10:02 Blood/Venous Gram Stain - Final
--- NOTE | 2023-06-22 07:26 | W.PN.HOSP.TC ---
Today's Communication/Plan
-
prognosis poor
need GOC discussion with family
Assessment / Plan
Assessment / Plan
pt is a 68 year old female
pt calling out in pain, in obvious distress, not aware of her surroundings, asking to be carried up to bed....HGB dropping but no signs of active bleeding--off CRRT due to clogged HD cath, plan to replace today by IR--remains pressor
dependent--prognosis extremely poor--candidate for comfort measures/hospice--need goals of care discussion with family
Acute renal failure--oliguric--multifactorial including recurrent sepsis shock, hypotension, IV contrast--apprec renal--on CRRT, levophed--Avoid nephrotoxin--Patient was given trials of ethacrynic acid before hemodialysis--creat normal however
remains on CRRT--HD cath clogged and needs to be replaced today
ESBL Kleb pneumonia and Acinetobacter bacteremia--suspected translocation than urinary source--ESBL Klebsiella pneumonia is isolated in the urine but not Acinetobacter; ESBL Klebsiella pneumonia in the urine could be descending infection--Repeat
cultures are negative so far--WBC remains elevated and climbing, consider cabrera culture, d/c lines and culture tips but will defer to ID--CT of the abdomen pelvis with oral contrast done recently did not show any evidence of collections--On
Cefiderocol--pt also hypothermic on bear hugger
Recurrent shock--suspected septic--patient is back on vasopressors, 8 mcg of levophed double concentrated --Optimize Levophed for MAP of 65--ECHO 06/18 shows EF 65-70% with mild aortic stenosis--no vegetations seen
Recent cellulitis of left leg--MRSA colonized--s/p meropenem x 3 d--Completed linezolid 600mg po bid x through 06/08/2023 am
change in mental status - sec to metabolic encephalopathy --ABG was obtained it shows she has acute hypercapnic hypoxic respiratory failure--Resolved with BiPAP support--nursing tells me, pt doesn't wear her CPAP/BIPAP at home
Acute hypercapnic hypoxic respiratory failure--Patient with chronic hypoxic respiratory insufficiency on 2 L at home. She has history of sleep apnea but was not able to tolerate mask in the past. She is obese. Suspected respiratory distress
secondary to sleep apnea. 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
Paroxysmal atrial fibrillation-in sinus rhythm. QTc normal now. QTc in March 2023 was within normal limits. DC sotalol due to NOAM and low normal blood pressure--apprec cards/renal
Acute GI bleed with acute blood loss anemia earlier in stay--No active bleeding currently--Had a full colonoscopy 06/10 and multiple polyps removed--Possible related to polyp after initial sigmoidoscopy and polyp resection--Hemoglobin no major
changes but low today at 6.8;transfused 1 unit pRBC--keep hemoglobin more than 7--Bx results noted -no malignancy ; follow per GI recs--HGB DROPPING, plans for transfusion again today
Baseline Chronic normocytic anemia--ACD. Hemoglobin at baseline. Aim to keep it more than 7. No iron def.
Left arm PICC associated DVT --tx with AC for 1 month. On lovenox which was on hold because of previous bleeding and and acute renal failure--started on IV heparin--DOAC when stable--hematology input noted regarding this DVT--Her DVT was in axillary
vein extending into basilic--repeat US 06/19 negative for clot
Anasarca--suspect multifactorial including nutritional, renal failure
Hyponatremia--management per renal - acute on chronic .
Moderate protein caloric malnutrition, albumin 2.2-- albumin infusion to help oncotic pressure--did not help, remains on levophed
Essential HTN - hold ARB due to hypotension and follow
DM 2 with hyperglycemia. Patient with poor oral intake. Hemoglobin A1c 7.1. Hold glimepiride and alogliptin--cortisol is ok .
Recent Left Hip ORIF - OP CT hip noted - cw PT eval when able; Wound care/abx for left hip wound. Ortho input noted.
Patient remains vasopressor dependent and needing increasing doses of Levophed--See Dr. Garcia discussions with family 06/17. Continue with pressor support and antibiotics treatment.
Code status--DNR
Total Critical Care Time 31 minutes. I was immediately available to the patient and staff. I personally examined, reviewed labs, diagnostic images/reports, interpretations, treatment plans, discussed patient care with other providers and family
or caregivers (if patient is unable to make decisions), entered orders as appropriate and documented the medical record.
Anticipated Discharge: > 48 hours
Subjective/Interval History
-
Date of Service: June 22, 2023
pt calling out for her to be 'carried to her bed upstairs'
Objective Data
-
Labs:
Laboratory Results
06/22/23
04:03
WBC 24.6 H
Hgb 6.2 L* D
Hct 17.9 L*
Plt Count 94 L D
APTT 109.4 H
Sodium 132 L
Potassium 3.3 L
Chloride 105
Carbon Dioxide 23
BUN 8
Creatinine 0.9
Glucose 130 H
Calcium 8.4
Total Bilirubin 1.0
AST 24
ALT 11
Alkaline Phosphatase 127 H
Vital Signs:
max temp for 24 hours
06/22/23
03:22
Temp 98.6 F
Vital Signs
Temp Pulse Resp BP Pulse Ox
98.6 F 98 20 125/63 97
06/22/23 03:22 06/22/23 07:07 06/22/23 06:30 06/22/23 07:07 06/22/23 06:30
I&O
06/21/23 06/22/23 06/23/23
06:59 06:59 06:59
Intake Total 2221.2 / 2308.3 1104.2 / 1104.2
Output Total 2558.5 / 2718.5 533.5 / 533.5
Balance -337.3 / -410.2 570.7 / 570.7
Review of Systems
-
Unable to obtain full review of systems at this time due to: Acuity
Physical Exam
-
General: Well Developed, Well Nourished, Appears in Distress and Morbidly Obese
HEENT: Normocephalic, Atraumatic and Oxygen
Respiratory: Clear to Auscultation; Negative Wheezes, Rales, Rhonchi or Crackles
Cardiac: Regular Rhythm, S1/S2 and Murmur
GI: Soft, Nondistended and Tender (diffusely to palpation); Negative Normal Bowel Sounds (hypoactive)
Musculoskeletal: No Clubbing, No Cyanosis and Other (diffuse anasarca everywhere with skin weeping)
Neuro: Awake; Negative Alert or Oriented
--- NOTE | 2023-06-22 07:49 | W.PN.ID1 ---
Date of Service
Date of Service: June 22, 2023
Today's Communication
Continue current antibiotics.
Assessment / Plan
# ESBL-Klebsiella, MDR-Acinetobacter bacteremia x 2 sets
# Leukocytosis
# Septic shock, multi-system organ failure
# NOAM on CRRT
# Acute on chronic anemia
# Extensive abx/drug allergies. Tolerated meropenem and linezolid in the past.
- Source of bacteremia possibly from colon translocation after recent resection of multiple polyps with associated GIB; less likely urine source (only ESBL in urine)
- Repeat blood cx's neg to date
--> Continue cefiderocol 1.5g IV q12 (dosed for CRRT) to cover for both MDR-Klebsiella/Acinetobacter
- Tolerating abx so far.
Appreciate pharmacy's input.
- Trend vitals, wbc
- Overall prognosis appears extremely poor. Patient remains critically ill in intensive care unit.
# Diarrhea
- C. diff neg x2 /norovirus negative
# Intraluminal colon mass
- hx Strep bovis bacteremia 02/11/2023, treated.
- 06/10/23 s/p sigmoidoscopy, removal of several polyps.
- 06/11/23 s/p colonoscopy, removal of multiple polyps, clipping of ulcer in sigmoid
- Biopsies: tubular adenomas with focal high grade dysplasia, and tubulovillous adenomas
# s/pLLE cellulitis - resolved
# Lymphedema
-Completed linezolid 600mg po bid through 06/08/2023 am
- Continue BLE compression
# s/p Drug rash resolved off furosemide
# LUE picc associated DVT
- PICC dc'd
# Left hip incision wound clean without infection
- cx skin [place]
#Additional Past Medical History:
Diabetes mellitus
Class III obesity BMI 49
Lymphedema
Obstructive sleep apnea
A flutter status post ablation
hypertension
cellulitis
Asthma
Dyslipidemia
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
Meningioma s/p resection
Chronic back pain
Cholecystectomy
Bilateral oophorectomy
Left hip fracture s/p gamma nailing 02/16/23
Chief Complaint
-: Leukocytosis, Clinical Sepsis and Bacteremia
Vital Signs / Physical Exam
Vital Signs
Vital Signs
Temp Pulse Resp BP Pulse Ox
98.6 F 98 20 125/63 97
06/22/23 03:22 06/22/23 07:07 06/22/23 06:30 06/22/23 07:07 06/22/23 06:30
Physical Exam
Constitutional: Acutely Ill, Toxic and Obese
Eyes: No Conjunctival Hemorrhage and Sclera Anicteric
Cardiovascular: S1/S2; Negative S3/S4
Pulmonary: Coarse and Non Labored; Negative Wheezes
Gastrointestinal: Soft, Distended and Decreased Bowel Sounds
Extremities: Edema; Negative Cyanosis or Erythema
Neurological: Awake; Negative Meningeal Signs
Psychological: Confused
Objective Data
Lab Data
Lab Results
06/22/23 04:03
06/22/23 04:03
PT 13.1 Sec (11.4-14.6) 06/02/23 09:23
INR 1.01 06/02/23 09:23
APTT 109.4 Sec (23.4-35.0) H 06/22/23 04:03
Estimated Creat Clear 63 ml/min 06/22/23 04:03
Lactic Acid 0.9 mmol/L (0.7-2.0) 06/13/23 09:53
Total Bilirubin 1.0 mg/dl (0.2-1.3) 06/22/23 04:03
AST 24 U/L (14-36) 06/22/23 04:03
ALT 11 U/L (0-35) 06/22/23 04:03
Alkaline Phosphatase 127 U/L (38-126) H 06/22/23 04:03
Most recent labs reviewed.
Micro Results:
06/16/23 16:36 Blood Culture - Final
Blood/Venous No Growth - Final Report
06/17/23 11:01 Blood Culture - Preliminary
Blood/Venous No Growth in 4 days- Final report to follow
06/16/23 08:49 Blood Culture - Final
Blood/Venous No Growth - Final Report
06/15/23 18:58 Blood Culture - Preliminary
Blood/Venous Klebsiella pneumoniae-ESBL
Acinet. baumannii/haemolyticus
Gram Stain - Final
06/16/23 10:02 Blood Culture - Final
Blood/Venous Klebsiella pneumoniae-ESBL
Acinet. baumannii/haemolyticus
Gram Stain - Final
06/16/23 05:11 Urine Culture - Final
Urine Klebsiella pneumoniae-ESBL
06/16/23 05:11 Stool Leukocytes - Final
Feces/Stool
06/16/23 05:11 C. difficile GDH Antigen & Toxins - Final
Feces/Stool Negative for toxigenic C.difficile
06/07/23 23:53 - Final
Feces/Stool Negative for Norovirus GI and GII.
06/03/23 10:41 Blood Culture - Final
Blood/Venous No Growth - Final Report
06/03/23 10:41 Blood Culture - Final
Blood/Venous No Growth - Final Report
06/02/23 05:52 Blood Culture - Final
Blood/Venous Coagulase neg. staphylococcus
Additional testing on request
Gram Stain - Final
06/02/23 05:52 Blood Culture - Final
Blood/Venous No Growth - Final Report
06/02/23 13:24 Wound Culture - Final
Hip - Left Gram Stain - Final
06/02/23 13:23 MRSA Screen - Final
Nose Staph aureus MRSA
06/02/23 13:25 Urine Culture - Final
Urine NO GROWTH
06/02/23 18:34 C. difficile GDH Antigen & Toxins - Final
Feces/Stool Negative for toxigenic C.difficile
Imaging:
06/18/23 CXR: no active disease
06/14/23 CXR: Hypo-aerated lungs without consolidation.
06/08/23 CT a/p: MILD ACUTE INFECTIOUS PANCOLITIS with mild fluid distention of the proximal colon and mild wall thickening and mucosal hyperenhancement in the distal colon and rectum. 1.5 cm intraluminal mass in the descending colon-sigmoid colon
junction suspicious for a large colonic polyp (possibly adenocarcinoma). Mild diffuse small bowel distention.
06/02/23 CXR: clear lungs
05/28/23 CT LLE: ORIF of an intertrochanteric/subtrochanteric fracture. The fracture plane remains evident, but there is some callus and heterotopic ossification about the fracture site.
[2023-06-22] MEDS: NOVOLOG FLEXPEN-HIGH RESISTANCE 2 UNITS SC ×2 (08:13→17:35)
[2023-06-22 08:14] LABS: Glucose - Point of Care 161 mg/dl (70-99)
--- NOTE | 2023-06-22 08:27 | PTCARENOTE ---
report received, assessments per work list. patient received crying out, yelling, stating 'help me I hurt'. increased non verbal pain cues. oriented to self only, calling out for her mother. medicated with Dilaudid for comfort. hospitalist, CONSTANTINE at
bedside for rounds. reviewed plan of care. assessments per work list. incontinent large amount mucoid brown yellow stool, complete care given, all wound care provided. stool heme test negative. rectal trumpet placed. gtts per work list. Hospitalist
updated by tiger text regarding platelet assessments and heme test result. right radial arterial line with good blood return and waveform. right IJ HD cath with pigtail cath with gtts infusing through without issue. right midline capped, patent.
left picc in place. awaiting IRAD for HD cath and PICC adjustment
--- NOTE | 2023-06-22 08:54 | W.PN.NEPH.PH ---
Today's Communication / Plan
-
CRRT
Pressors support
Catheter change by IR
Assessment/Plan
-
IMP:
Hyponatremia-acute on chronic
NOAM with significant azotemia
suspected septic shock/gram-negative bacilli bacteremia
hypoglycemia
Hypomagnesemia
TME
HX Paroxysmal AF- Not on anticoagulation due to hemorrhagic complications in the past
Chronic anemia
Essential HTN
T2DM
Chronic pain syndrome on chronic opioids
SISI - CPAP
Morbid obesity due to excess calories
PAD
h/o left hip fx s/p ORIF 01/2023
Plan:
NOAM, baseline cr of 0.7, peaked at 4.6
maintain CRRT, orders provided , to be started up again once temp HD catheter replaced
Urine output with noted modest increase
maintain u/f 50cc/hr given hypervolemia and rising weight, remains pressor dependent
klebsiella in blood and urine, on cefiderocol
CT of abdomen and pelvis nonrevealing
specially post contrast on 06/07+diarrhea
temporary HD line placed on 06/17, initiated on HD on 06/17. now transitioned to CRRT on 06/18.
HANNAH is on high differential and or contrast nephropathy, FeNa not low
Recent CT no hydro but concern of GI abnormality colitis, mass?
continues with edema and increased weight gains
Patient becoming more encephalopathic
spent 31 minutes of time on this critically ill patient (on pressors)
Total Time Spent with Patient (in minutes): 31 minutes critical care time spent with patient
-
-
Date of Service: June 22, 2023
CC / HPI / ROS
-
Chief Complaint:
NOAM, hyponatremia
History of Present Illness:
Currently off CRRT due to dysfunctional catheter
mentation also worsening
hypotensive on pressor
developed erythematous red rash on chest post Lasix now improving
GIB, Hgb worsening to 6.2 post sigmoidoscopy 06/09, C scope on 06/10 polypectomies
Review of Systems:
now transferred to ICU for pressor support and CRRT
insight seem poor , encephalopathic
Oliguric via Moore
Labs
-
Labs:
WBC 24.6 10^3/uL (4.8-10.8) H 06/22/23 04:03
RBC 2.10 10^6/uL (4.20-5.40) L 06/22/23 04:03
Hgb 6.2 g/dL (12.0-16.0) L* D 06/22/23 04:03
Hct 17.9 % (37.0-47.0) L* 06/22/23 04:03
Plt Count 94 10^3/uL (130-400) L D 06/22/23 04:03
Sodium 132 mmol/L (135-145) L 06/22/23 04:03
Potassium 3.3 mmol/L (3.5-5.1) L 06/22/23 04:03
Chloride 105 mmol/L (98-107) 06/22/23 04:03
Carbon Dioxide 23 mmol/L (22-30) 06/22/23 04:03
BUN 8 mg/dl (7-17) 06/22/23 04:03
Creatinine 0.9 mg/dL (0.6-1.0) 06/22/23 04:03
eGFR > 60.00 06/22/23 04:03
Glucose 130 mg/dl (70-99) H 06/22/23 04:03
Calcium 8.4 mg/dl (8.4-10.2) 06/22/23 04:03
Phosphorus 3.8 mg/dl (2.5-4.5) 06/21/23 05:52
Muy-K-Yhcosmwknng Pept 633 pg/ml 06/02/23 05:09
Albumin 2.4 g/dl (3.5-5.0) L 06/22/23 04:03
Physical Exam
-
Vital Signs:
Vital Signs
Temp Pulse Resp BP Pulse Ox
99.0 F 95 19 125/63 94
06/22/23 07:25 06/22/23 08:30 06/22/23 08:30 06/22/23 07:07 06/22/23 08:30
Cardiovascular:: Regular rate and rhythm
Respiratory:: Bilateral: Coarse
Lung Excursion:: Normal
Abdomen:: Nontender and Soft
Bowel Sounds:: Decreased
Extremity Edema:: +2: Bilateral:
Moore Catheter: Yes
--- NOTE | 2023-06-22 10:26 | VATNOTE ---
Spoke with PCN, pt to go to IR today to have HD catheter and PICC changed. Dressings left at this time to avoid skin injury associated with removal and change.
[2023-06-22] MEDS: FLEXERIL 5 MG PO (10:30)
[2023-06-22] MEDS: NOVOLOG FLEXPEN-HIGH RESISTANCE 1 UNITS SC (13:17)
[2023-06-22 13:19] LABS: Ionized Calcium 1.18 mMOL/L (1.15-1.33)
[2023-06-22 13:20] LABS: Glucose - Point of Care 124 mg/dl (70-99)
[2023-06-22] MEDS: RFP-401 Hemodialysis Solution (K+ 4 mEq/L) 20000 ML CRRT-IRR ×2 (13:33→23:18)
[2023-06-22 13:38] LABS: Blood Urea Nitrogen 8 mg/dl (7-17); Calcium 8.2 mg/dl (8.4-10.2); Carbon Dioxide 23 mmol/L (22-30); Chloride 106 mmol/L (98-107); Estimated Creatinine Clearance 64 ml/min; Glucose 137 mg/dl (70-99); Magnesium 1.7 mg/dl (1.6-2.3); Phosphorus 2.6 mg/dl (2.5-4.5); Potassium 3.7 mmol/L (3.5-5.1); Sodium 132 mmol/L (135-145); eGFR > 60.00
[2023-06-22] MEDS: ProAmatine PO ×2 (13:57→15:37)
[2023-06-22] MEDS: MAGNESIUM SULFATE 100 IV (14:00)
--- NOTE | 2023-06-22 14:43 | PTCARENOTE ---
patient taken to IRAD and returned without issue. 2 lumen PICC placed, new HD cath inserted. patient now agitated, yelling and paranoid. updates to hospitalist. CRRT initiated
[2023-06-22 14:50] VITALS: BP 135/54
[2023-06-22] MEDS: FETROJA IV (14:54)
[2023-06-22] MEDS: CALCIUM GLUCONATE 130 MG IV (14:54)
[2023-06-22 14:57] VITALS: BP 133/52
[2023-06-22 15:13] VITALS: BP 154/60
--- NOTE | 2023-06-22 15:22 | PTCARENOTE ---
medicated with dilaudid for increased verbal and nonverbal pain cues. first unit PRBC inititated per orders without signs reaction. calcium and magnesium riders infusing, will administer phosphate when calcium rider completed due to compatibility
issues
[2023-06-22] MEDS: SODIUM PHOSPHATE 260 MEQ IV (16:00)
--- NOTE | 2023-06-22 16:11 | PTCARENOTE ---
patient now sleeping post dilaudid. turning deferred at this time as patient now sedate and no longer agitated. PRBC transfusing without signs reaction.
[2023-06-22] MEDS: LIPITOR 20 MG PO (16:32)
[2023-06-22] MEDS: FETROJA 116.799999999999997 MG IV (16:34)
[2023-06-22 17:03] VITALS: BP 163/67
[2023-06-22] MEDS: BENADRYL 25 MG PO (17:25)
[2023-06-22] MEDS: ATIVAN 0.5 MG IV ×2 (17:41→23:04)
[2023-06-22] MEDS: NSS (PRESERVATIVE FREE) 0.25 ML IV (17:42)
[2023-06-22 17:46] LABS: Glucose - Point of Care 173 mg/dl (70-99)
--- NOTE | 2023-06-22 17:50 | PTCARENOTE ---
Addendum entered by Alley Taylor RN 06/22/23 17:59:
levophed resumed post ativan administration. patient sleeping. resumed to keep map>[id number]
Original Note:
patient agitated, calling out, yelling. care provided. patient medicated with benadryl for itch. requesting her lorazepam. oriented to person and hospital.more cooperative, taking medications but remains agitated. tiger text to cross coverage
hospitalist. updated. orders received. patient medicated with ativan per order. levophed weaned to off.
[2023-06-22] MEDS: HEPARIN 25000 UNITS/250 ML IV (21:09)
[2023-06-22] MEDS: BENADRYL 25 MG IV (22:23)
--- NOTE | 2023-06-22 22:31 | PTCARENOTE ---
Pt received at 19:00. Pt continues on CRRT--CVVHD, -100ml/hr. Pt oriented to self. Confused with periods of agitation/paranoia. Pt given 20:00 PO meds in applesauce--chewed/spit out PO meds. Pt c/o generalized itching, PRN IVP benadryl ordered and
given. Pt with intermittent yelling out in pain, unable to describe pain, PRN dilaudid given as ordered. SR, weak but palpable pulses. Levophed titrated off, MAP goal of >65. MAP 90s-100s with the levophed gtt off. R radial A-line zeroed and
transduced. 4L NC, with pulse ox 95-99%, breath sounds diminished/fine crackles t/o. Loose stools, rectal trumpet in place, draining brown loose stools. Moore remains in place, oliguric. 8-12ml/hr so far this shift.
Approx 22:00, CRRT began alarming that venous pressures were decreasing. At this time it was noted that the access pressure had increased. Both ports on HD cath flushed with no resistance, no clots noted. Access and venous line switched, pressures
improved.
[2023-06-22 22:35] LABS: Ionized Calcium 1.24 mMOL/L (1.15-1.33)
[2023-06-22 22:57] LABS: Blood Urea Nitrogen 5 mg/dl (7-17); Calcium 8.4 mg/dl (8.4-10.2); Carbon Dioxide 25 mmol/L (22-30); Chloride 105 mmol/L (98-107); Estimated Creatinine Clearance 96 ml/min; Glucose 123 mg/dl (70-99); Magnesium 2.2 mg/dl (1.6-2.3); Phosphorus 3.3 mg/dl (2.5-4.5); Potassium 3.5 mmol/L (3.5-5.1); Sodium 132 mmol/L (135-145); eGFR > 60.00
[2023-06-22] MEDS: SODIUM BICARBONATE PO (23:05)
[2023-06-22] MEDS: LANTUS 0.149999999999999994 UNITS SC (23:06)
[2023-06-22] MEDS: ATIVAN PO (23:06)
[2023-06-22] MEDS: KCL 100 IV (23:15)
[2023-06-23] MEDS: DILAUDID 0.25 MG IV (01:12)
[2023-06-23 04:20] LABS: Ionized Calcium 1.25 mMOL/L (1.15-1.33)
[2023-06-23] MEDS: FETROJA 116.799999999999997 MG IV (04:27)
[2023-06-23] MEDS: BENADRYL 25 MG IV (04:27)
[2023-06-23 04:28] LABS: Hematocrit 21.8 % (37.0-47.0); Mean Corp Hgb Conc. 34.4 g/dL (33.0-37.0); Mean Corpuscular Hgb 28.8 pg (27.0-31.0); Mean Corpuscular Volume 83.8 fL (81.0-99.0); Mean Platelet Volume 10.8 fL (7.4-10.4); Platelet Count 69 10^3/uL (130-400); Red Cell Dist. Width 15.8 % (11.5-14.5); White Blood Cell Count 19.8 10^3/uL (4.8-10.8)
[2023-06-23 04:43] LABS: APTT 109.7 Sec (23.4-35.0)
[2023-06-23 04:46] LABS: Hemoglobin 7.5 g/dL (12.0-16.0)
[2023-06-23 04:50] LABS: ALT (SGPT) 12 U/L (0-35); AST (SGOT) 25 U/L (14-36); Alkaline Phosphatase 132 U/L (38-126); Blood Urea Nitrogen 3 mg/dl (7-17); Calcium 8.3 mg/dl (8.4-10.2); Carbon Dioxide 26 mmol/L (22-30); Chloride 106 mmol/L (98-107); Estimated Creatinine Clearance 96 ml/min; Glucose 103 mg/dl (70-99); Magnesium 2.1 mg/dl (1.6-2.3); Sodium 133 mmol/L (135-145); Total Bilirubin 1.1 mg/dl (0.2-1.3); Total Protein 4.6 g/dl (6.3-8.2); eGFR > 60.00
[2023-06-23] MEDS: ATIVAN 0.5 MG IV (04:50)
[2023-06-23 04:51] LABS: Blood Urea Nitrogen 3 mg/dl (7-17); Calcium 8.4 mg/dl (8.4-10.2); Carbon Dioxide 26 mmol/L (22-30); Chloride 107 mmol/L (98-107); Estimated Creatinine Clearance 96 ml/min; Glucose 103 mg/dl (70-99); Magnesium 2.1 mg/dl (1.6-2.3); Phosphorus 2.4 mg/dl (2.5-4.5); Potassium 4.1 mmol/L (3.5-5.1); Sodium 132 mmol/L (135-145); eGFR > 60.00
[2023-06-23 05:13] VITALS: BMI 46.8
[2023-06-23] MEDS: SODIUM PHOSPHATE 260 MEQ IV (06:01)
--- NOTE | 2023-06-23 06:29 | PTCARENOTE ---
CRRT cartridge clotted, emergency rinse back completed at 05:50. CRRT remains off at this time per Dr. Lozano.
[2023-06-23] MEDS: PROTONIX 40 MG PO ×2 (07:41→19:44)
[2023-06-23] MEDS: ProAmatine 5 MG PO ×2 (07:41→18:50)
[2023-06-23] MEDS: VITAMIN D3 (cholecalciferol) 125 MCG PO (07:41)
[2023-06-23] MEDS: DESENEX/MITRAZOL/ZEASORB 1 APPLIC TOPICAL ×2 (07:42→19:44)
[2023-06-23] MEDS: SODIUM BICARBONATE 325 MG PO ×3 (07:42→22:04)
[2023-06-23] MEDS: PACERONE 200 MG PO (07:42)
[2023-06-23] MEDS: OSCAL CAL 500 1000 MG PO ×2 (07:42→19:44)
--- NOTE | 2023-06-23 08:00 | PTCARENOTE ---
Received pt @ change of shift. Pt lethargic, opens eyes spontaneously, able to follow simple commands. Oriented to self only, required reorientation tome time/place. Garbled/slow speech. Anxious/agitated @ x's, occasionally yelling out 'help me.'
Attempted to assist pt. to optimal comfort. SR on monitor. +4 anasarca. SpO2 98% on 2LNC. Hypo BS, abd firm/round/distended/tender. Rectal trumpet in place for liq stools. Admin PO meds crushed in small amt of applesauce, unable to feed
breakfast d/t lethargy/ asp risk. Moore in place draining bebo/brown/sediment urine; oliguric. Mx wound dressings intact, LE compression applied per orders. R midline, patent, dressing c/d/i. L DL PICC w IV abx, electrolyte repletion, and heparin
gtt- see MAR/ flow sheet. R CW HR cath in place, dressing c/d/i. R rad A-line transduced, monitored, and calibrated; all ports patent and secured. CRRT off on nightshift, plan to leave off currently per nephrology. Pt. repositioned per protocol.
Safe environment maintained.
--- NOTE | 2023-06-23 08:31 | W.PN.INTV ---
Today's Communication / Plan
Recommendations
O2
Asp precs
Keep Hb>7, plt>20k
MAP>65
CRRT
Guarded prognosis
Assessment
-
Assessment: 68-year-old female with history of Aflutter, HTN, IDDM, SISI, anxiety presenting to ER 06-01 from [place] with abnormal labs-hyponatremia. Sodium on arrival 123, previously 131 on 04/28/23. She was noted to be hypotensive on arrival,
started on levophed and admitted to ICU. She is noted to be hypoglycemic on arrival as well, given amp Dextrose with minimal improvement. Brief ICU adm for JAMA cellulitis, transferred to [facility]. Pulm consulted 06-12 for SISI, chronic hypercapnia,
started BPAP which she refused in spite of explation of risk, kept on O2 NC 3-4L. Prolonged hospital stay, presented Kleb pn ESBL and Acin sp bacteriemia and GNR UTI, new onset HD started 06-17 (on NE), LUE PICC associated DVT, multiple consultation
services following the case. Transferred to ICU 06-18 for increasing requirement of NE and initiation of CRRT
Impression:
Shock state, - no longer on pressors as of evening of 06/21
ESBL kleb pn and MDR Acin bacteriemia 06-14
ESBL Kleb pn UTI 06-15
NOAM on CRRT
LUE PICC associated DVT 06-04 line removed, AC dose enoxaparin since 06-04 to , started IV hep 06-13 --> now off due to TCP
TCP likely due to CRRT; intermediate risk for DOUG (4T score: 4)
s/p LLE cellulitis
Large L colonic polyp suspicious for high grade dysplasia (colonoscopy 06-10, clotted blood in rectum, sigmoid and desc colon)
Acute/chronic anemia, Hgb 6.8 on 06-19
Prolonged hospital adm
Conditions present prior admission:
Discharged from 01/2023: Lethargy/status post fall status post left hip intertrochanteric fracture with repair
Lower extremity infection with Streptococcus bovis seen by ID and discharged on antibiotics until 02/26/2023-Wound culture left leg 03/18/2023: MRSA and Pseudomonas.
Atrial fibrillation off anticoagulation due to hemorrhagic complication
Peripheral arterial disease
Diabetes mellitus type 2
Morbid obesity with a BMI of 46
Hypertension
Anemia of chronic disease
Dyslipidemia
Obstructive sleep apnea
Chronic pain syndrome on opiates
Plan
Septic shock
ESBL kleb pn and MDR Acin bacteriemia , deemed secondary to colon translocation after polyp resection via colonoscopy on 06/11/2023 with associated GIB
Blood cx 06/16 NTD
ESBL Kleb pn UTI 06-15
C diff negative diarrhea
S/p LLE cellulitis (treated this adm)
ID following: cefepime changed to cefiderocol 06-18 to cover both MDR Kleb and Acinetobacter, continue atb
Maintain MAP>65
NOAM
RIJ HD cath 06-17
Started HD with assistance of NE 06-17
Increasing NE requirement on 06-18 leading to transfer to ICU, continue NE --> she now is off vasopressors; keep MAP>65
Started CRRT 06-18
TTE 06-18: LVEF 65-70%, mild without other valvular abnormalities, RV not well visualized
IRad replaced RIJ HD cath and replaced LUE PICC both on 06-21
Acute on chronic anemia, multifactorial, down to 6.8 on 06-19, no clear source of blood loss except for blood draws and CRRT; also suspected BM suppression
Thrombocytopenia (4T score: intermediate); it is likely due to CRRT
Transfuse as needed to keep Hb>7g/dL
Goal plt>20k
Hgb dropped again to 6.2 on 06-21, 1U PRBCs transfused once CRRT resumed. Reportedly heme positive stools
GIB was suspected earlier this adm: colonoscopy found clotted blood in rectum
IV hep discontinued 06-21
SISI, chronic hypercapnia
Refused BPAP
Kept on O2 NC
POx 95% on NC 2-3L
PICC associated LUE DVT on US 06-04, line removed
On IV heparin since 06-13
LUE doppler 06-19, c/w 06-04, previously seen L axillary DVT no longer seen, no LUE DVT
Difficult scenario given UEE DVT, ESRD and acute on chronic anemia/TCP, GIB during this adm (colonoscopy 06-10)
Discontinue IV hep 06-21
Ongoing vascular access problems
RIJ HD cath replaced 06-21
LUE PICC attempted, could not advance completely, IRad replaced on 06-21
Cardiac history reviewed--AFlutter maintained on sotalol as outpatient
Prior ECHO reviewed indicating normal function
Cards following, started amiodarone for PAT
Rash - ?due to lasix
Continue desenex
Updated CXR 06-17 with no infiltrate but pulm vasc congestion
Advance diet as tolerated
H/o diabetes, presented hypoglycemia upon adm
Aspart insulin SS
Lantus
Adjust basal-bolus as needed to keep BG 140-180
DNR status
Prognosis remains poor
Discussed with daughter + at bedside on 06/20, she recognizes the difficult clinical scenario --> they wish to keep pt comfortable but are still interested in full medical treatment as there is a 'chance' that the pt will survice and make it
'out of this'
GOC discussions ongoing
Critical care statement: A total of 40 minutes of critical care time was provided for this patient today. This includes management of unstable vital signs, evaluation of the patient at bedside, reviewing the patient's pertinent medical records
including radiographs, microbiology, laboratory evaluations, and discussion with primary team, consultants, pharmacy, nutrition, physical therapy, case management, charge nurse, critical care nursing, and respiratory therapy.
Diagnostic Data
Chest x-ray 03/18/2023: Rotated film. No acute infiltrates.
CT Scan: AP 02/13/23- Findings suggesting enteritis/ileus. Findings suggesting sequelae of chronic terminal ileitis. Intertrochanteric left femur fracture.
Echo: 02/17/23- Normal left ventricular size and systolic function. No regional wall motion abnormalities are seen. LV ejection fraction is 65-70% by visual assessment. Mild concentric left ventricular hypertrophy. Normal diastolic function. Mildly
dilated left atrium. Mild aortic stenosis. Peak/mean gradients are 34/18mmHg. The valve area by continuity equation is 1.6cm sq, using a LVOT of 1.9cm.
Mild aortic regurgitation. When compared to prior echocardiogram from June 16, 2021, the left atrium is now mildly enlarged and otherwise there is no significant change.
Echocardiogram 02/17/2023: Normal LVEF. Mild LVH. Mild aortic stenosis. Mild AR
Nocturnal ox 07/27/15: time below 90% 1:22:18 (23.8%); time below 88% 46:20 (13.4%); O2 nicol 67%; ALICIA >10s 31.0
Subjective Dataa
Subjective Data
Date of Service:
Date of Service: June 23, 2023
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
Subjective:
Pt seen this AM. CRRT clotted off this AM. On 2L/min NC. She is lethargic, but arousable. No acute events reported overnight.
Review of Systems
General: Other (Unable to obtain due to patient's acute clinical status (lethargic/AMS))
Objective Data
Data Reviewed
Vital Signs / I&O / Oxygen:
Vital Signs
Temp Pulse Resp BP Pulse Ox
97.1 F 79 17 163/67 100
06/22/23 23:42 06/23/23 10:00 06/23/23 10:00 06/22/23 17:03 06/23/23 10:00
Intake and Output
06/22/23 06/23/23 06/24/23
06:59 06:59 06:59
Intake Total 1104.2 / 1125.2 1665.3 / 1736.3 142 / 142
Output Total 533.5 / 533.5 3084 / 3094
Balance 570.7 / 591.7 -1418.7 / -1357.7 122 / 122
SaO2 100
Nasal Cannula flow liters per 2
minute
Physical Exam
General: Respiratory Distress (n)
HEENT: Normocephalic and Anicteric
Cardiovascular: S1-S2, Peripheral Edema (+3 LE edema b/l) and Other (RIJ HD cath)
Respiratory: Wheeze (Negative), Accessory Resp Muscle Use, Stridor (n) and Other (Coarse breath sounds bilaterally)
GI: Soft, Non Distended and Non Tender
Neurology: Other (weak) and Other (confused)
Skin: Warm, Dry and Other (Skin flaking with erythema seen on chest, lower abdomen, arms and legs; negative Nikolsky sign)
Labs/Micro/Reports
Lab Data
06/23/23 04:14
06/23/23 04:13
Laboratory Results
06/23/23
04:13
APTT 109.7 H
Microbiology
06/17/23 11:01 Blood/Venous Blood Culture - Final
No Growth - Final Report
06/15/23 18:58 Blood/Venous Blood Culture - Final
Klebsiella pneumoniae-ESBL
Acinet. baumannii/haemolyticus
06/15/23 18:58 Blood/Venous Gram Stain - Final
06/16/23 16:36 Blood/Venous Blood Culture - Final
No Growth - Final Report
06/16/23 08:49 Blood/Venous Blood Culture - Final
No Growth - Final Report
[2023-06-23] MEDS: NOVOLOG FLEXPEN-HIGH RESISTANCE SC ×3 (08:56→18:50)
[2023-06-23 08:58] LABS: Glucose - Point of Care 92 mg/dl (70-99)
--- NOTE | 2023-06-23 09:14 | W.PN.NEPH.PH ---
Today's Communication / Plan
-
stop heparin
Assessment/Plan
-
IMP:
Hyponatremia-acute on chronic
NOAM with significant azotemia
suspected septic shock/gram-negative bacilli bacteremia
hypoglycemia
Hypomagnesemia
TME
HX Paroxysmal AF- Not on anticoagulation due to hemorrhagic complications in the past
Chronic anemia
Essential HTN
T2DM
Chronic pain syndrome on chronic opioids
SISI - CPAP
Morbid obesity due to excess calories
PAD
h/o left hip fx s/p ORIF 01/2023
Plan:
-will hold off on restarting CRRT this morning
-check HIT
-stop heparin gtt, will need to determine anticoagulation needs, given that DVT not seen on last US
-follow O2 requirements
-can try edecrine again at some point.
-critical care time 35 minutes
-
-
Date of Service: June 23, 2023
CC / HPI / ROS
-
Chief Complaint:
NOAM, hyponatremia
History of Present Illness:
Currently off CRRT due to filter clotting
Platelets falling to 69
hgb remains low
off pressors last night, BP stable on marques
phos low
rash still present on chest
oliguric with esposito
GIB, Hgb worsening to 6.2 post sigmoidoscopy 06/09, C scope on 06/10 polypectomies
critically ill in ICU
Review of Systems:
confused
on 2L NC
Labs
-
Labs:
WBC 19.8 10^3/uL (4.8-10.8) H 06/23/23 04:14
RBC 2.60 10^6/uL (4.20-5.40) L 06/23/23 04:14
Hgb 7.5 g/dL (12.0-16.0) L D 06/23/23 04:14
Hct 21.8 % (37.0-47.0) L 06/23/23 04:14
Plt Count 69 10^3/uL (130-400) L D 06/23/23 04:14
Sodium 132 mmol/L (135-145) L 06/23/23 04:13
Sodium 133 mmol/L (135-145) L 06/23/23 04:13
Potassium 4.0 mmol/L (3.5-5.1) 06/23/23 04:13
Potassium 4.1 mmol/L (3.5-5.1) 06/23/23 04:13
Chloride 106 mmol/L (98-107) 06/23/23 04:13
Chloride 107 mmol/L (98-107) 06/23/23 04:13
Carbon Dioxide 26 mmol/L (22-30) 06/23/23 04:13
Carbon Dioxide 26 mmol/L (22-30) 06/23/23 04:13
BUN 3 mg/dl (7-17) L 06/23/23 04:13
BUN 3 mg/dl (7-17) L 06/23/23 04:13
Creatinine 0.5 mg/dL (0.6-1.0) L 06/23/23 04:13
Creatinine 0.5 mg/dL (0.6-1.0) L 06/23/23 04:13
eGFR > 60.00 06/23/23 04:13
eGFR > 60.00 06/23/23 04:13
Glucose 103 mg/dl (70-99) H 06/23/23 04:13
Glucose 103 mg/dl (70-99) H 06/23/23 04:13
Calcium 8.3 mg/dl (8.4-10.2) L 06/23/23 04:13
Calcium 8.4 mg/dl (8.4-10.2) 06/23/23 04:13
Phosphorus 2.4 mg/dl (2.5-4.5) L 06/23/23 04:13
Pwi-L-Seexkdsrzvq Pept 633 pg/ml 06/02/23 05:09
Albumin 2.0 g/dl (3.5-5.0) L 06/23/23 04:13
Physical Exam
-
Vital Signs:
Vital Signs
Temp Pulse Resp BP Pulse Ox
97.1 F 80 15 163/67 99
06/22/23 23:42 06/23/23 06:45 06/23/23 06:45 06/22/23 17:03 06/23/23 08:04
Cardiovascular:: Regular rate and rhythm
Respiratory:: Bilateral: Coarse
Lung Excursion:: Normal
Abdomen:: Nontender and Soft
Bowel Sounds:: None
Extremity Edema:: +2: Bilateral:
--- NOTE | 2023-06-23 10:11 | W.PN.ID1 ---
Date of Service
Date of Service: June 23, 2023
Today's Communication
Continue cefiderocol 1.5g IV q12 (dosed for CRRT) (day 5 of 7).
Extremely poor prognosis.
Assessment / Plan
# ESBL-Klebsiella, MDR-Acinetobacter bacteremia x 2 sets
# Leukocytosis, persists
# Worsening thrombocytopenia
# Septic shock, multi-system organ failure
# NOAM on CRRT
# Acute on chronic anemia
# Extensive abx/drug allergies. Tolerated meropenem and linezolid in the past.
- Source of bacteremia possibly from colon translocation after recent resection of multiple polyps with associated GIB; less likely urine source (only ESBL in urine)
- Repeat blood cx's neg
--> Continue cefiderocol 1.5g IV q12 (dosed for CRRT) (day 5 of 7) to cover for both MDR-Klebsiella/Acinetobacter
- Tolerating abx so far.
- Trend vitals, wbc, plt
- Overall extremely poor prognosis. Patient remains critically ill in intensive care unit.
# Diarrhea
- C. diff neg x2 /norovirus negative
# Intraluminal colon mass
- hx Strep bovis bacteremia 02/11/2023, treated.
- 06/10/23 s/p sigmoidoscopy, removal of several polyps.
- 06/11/23 s/p colonoscopy, removal of multiple polyps, clipping of ulcer in sigmoid
- Biopsies: tubular adenomas with focal high grade dysplasia, and tubulovillous adenomas
# s/pLLE cellulitis - resolved
# Lymphedema
-Completed linezolid 600mg po bid through 06/08/2023 am
- Continue BLE compression
# s/p Drug rash resolved off furosemide
# LUE picc associated DVT
- PICC dc'd
# Left hip incision wound clean without infection
- cx skin [place]
#Additional Past Medical History:
Diabetes mellitus
Class III obesity BMI 49
Lymphedema
Obstructive sleep apnea
A flutter status post ablation
hypertension
cellulitis
Asthma
Dyslipidemia
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
Meningioma s/p resection
Chronic back pain
Cholecystectomy
Bilateral oophorectomy
Left hip fracture s/p gamma nailing 02/16/23
Chief Complaint
-: Leukocytosis, Clinical Sepsis and Bacteremia
Subjective / Review of Systems
Lethargic. Arousable.
Vital Signs / Physical Exam
Vital Signs
Vital Signs
Temp Pulse Resp BP Pulse Ox
97.1 F 80 15 163/67 99
06/22/23 23:42 06/23/23 06:45 06/23/23 06:45 06/22/23 17:03 06/23/23 08:04
Physical Exam
Constitutional: Acutely Ill
Eyes: No Conjunctival Hemorrhage and Sclera Anicteric
Pulmonary: Clear
Gastrointestinal: Soft, Non Tender, Non Distended and Other (FMS: light brown loose stool)
Extremities: Edema
Neurological: Other (Lethargic)
Objective Data
Lab Data
Lab Results
06/23/23 04:14
06/23/23 04:13
PT 13.1 Sec (11.4-14.6) 06/02/23 09:23
INR 1.01 06/02/23 09:23
APTT 109.7 Sec (23.4-35.0) H 06/23/23 04:13
Estimated Creat Clear 96 ml/min 06/23/23 04:13
Estimated Creat Clear 96 ml/min 06/23/23 04:13
Lactic Acid 0.9 mmol/L (0.7-2.0) 06/13/23 09:53
Total Bilirubin 1.1 mg/dl (0.2-1.3) 06/23/23 04:13
AST 25 U/L (14-36) 06/23/23 04:13
ALT 12 U/L (0-35) 06/23/23 04:13
Alkaline Phosphatase 132 U/L (38-126) H 06/23/23 04:13
Most recent labs reviewed.
Micro Results:
06/17/23 11:01 Blood Culture - Final
Blood/Venous No Growth - Final Report
06/15/23 18:58 Blood Culture - Final
Blood/Venous Klebsiella pneumoniae-ESBL
Acinet. baumannii/haemolyticus
Gram Stain - Final
06/16/23 16:36 Blood Culture - Final
Blood/Venous No Growth - Final Report
06/16/23 08:49 Blood Culture - Final
Blood/Venous No Growth - Final Report
06/16/23 10:02 Blood Culture - Final
Blood/Venous Klebsiella pneumoniae-ESBL
Acinet. baumannii/haemolyticus
Gram Stain - Final
06/16/23 05:11 Urine Culture - Final
Urine Klebsiella pneumoniae-ESBL
06/16/23 05:11 Stool Leukocytes - Final
Feces/Stool
06/16/23 05:11 C. difficile GDH Antigen & Toxins - Final
Feces/Stool Negative for toxigenic C.difficile
06/07/23 23:53 - Final
Feces/Stool Negative for Norovirus GI and GII.
06/03/23 10:41 Blood Culture - Final
Blood/Venous No Growth - Final Report
06/03/23 10:41 Blood Culture - Final
Blood/Venous No Growth - Final Report
06/02/23 05:52 Blood Culture - Final
Blood/Venous Coagulase neg. staphylococcus
Additional testing on request
Gram Stain - Final
06/02/23 05:52 Blood Culture - Final
Blood/Venous No Growth - Final Report
06/02/23 13:24 Wound Culture - Final
Hip - Left Gram Stain - Final
06/02/23 13:23 MRSA Screen - Final
Nose Staph aureus MRSA
06/02/23 13:25 Urine Culture - Final
Urine NO GROWTH
06/02/23 18:34 C. difficile GDH Antigen & Toxins - Final
Feces/Stool Negative for toxigenic C.difficile
Imaging:
06/18/23 CXR: no active disease
06/14/23 CXR: Hypo-aerated lungs without consolidation.
06/08/23 CT a/p: MILD ACUTE INFECTIOUS PANCOLITIS with mild fluid distention of the proximal colon and mild wall thickening and mucosal hyperenhancement in the distal colon and rectum. 1.5 cm intraluminal mass in the descending colon-sigmoid colon
junction suspicious for a large colonic polyp (possibly adenocarcinoma). Mild diffuse small bowel distention.
06/02/23 CXR: clear lungs
05/28/23 CT LLE: ORIF of an intertrochanteric/subtrochanteric fracture. The fracture plane remains evident, but there is some callus and heterotopic ossification about the fracture site.
[2023-06-23] MEDS: ProAmatine PO (12:15)
--- NOTE | 2023-06-23 12:29 | PTCARENOTE ---
CRRT remains off per nephrology. Family @ bedside. Goals of care discussion in progress with engineering geologist @ this time.
[2023-06-23 12:48] LABS: Glucose - Point of Care 95 mg/dl (70-99)
[2023-06-23 13:25] LABS: Triglycerides 147 mg/dl (10-149)
--- NOTE | 2023-06-23 14:25 | CM ---
CM reviewed chart- ADC >48 hours
Pt remains in ICU and poor prognosis noted
Ongoing GOC
Nephro continues to follow for CRRT as well as ID for abx
Dependent on outcome of GOC, pt may need bew PT/OT orders once medically appropriate to determine dc needs
CM will remain available for dc planning
Discharge Disposition- TBD
--- NOTE | 2023-06-23 15:23 | W.PN.HOSP.TC ---
Today's Communication/Plan
-
Start on pur�ed diet
Continue with CRRT per nephrology
Hold further IV heparin
Follow H&H closely
Continue with antibiotics.
Assessment / Plan
Assessment / Plan
pt is a 68 year old female
Acute renal failure--oliguric--multifactorial including recurrent sepsis shock, hypotension, IV contrast--apprec renal--on CRRT;off levophed now--Avoid nephrotoxin--Patient was given trials of ethacrynic acid before hemodialysis--creat normal
however remains on CRRT--HD cath clogged and needs to be replaced
ESBL Kleb pneumonia and Acinetobacter bacteremia--suspected translocation than urinary source--ESBL Klebsiella pneumonia is isolated in the urine but not Acinetobacter; ESBL Klebsiella pneumonia in the urine could be descending infection--Repeat
cultures are negative so far--WBC remains elevated and slowly trending down --CT of the abdomen pelvis with oral contrast done recently did not show any evidence of collections--On Cefiderocol--pt also hypothermic on bear hugger
Recurrent shock--suspected septic--currently Levophed is off ;aim for MAP of 65--ECHO 06/18 shows EF 65-70% with mild aortic stenosis--no vegetations seen
Recent cellulitis of left leg--MRSA colonized--s/p meropenem x 3 d--Completed linezolid 600mg po bid x through 06/08/2023 am
change in mental status - sec to metabolic encephalopathy --ABG was obtained it shows she has acute hypercapnic hypoxic respiratory failure--Resolved with BiPAP support-- pt doesn't tolerate CPAP/BIPAP
Acute hypercapnic hypoxic respiratory failure--Patient with chronic hypoxic respiratory insufficiency on 2 L at home. She has history of sleep apnea but was not able to tolerate mask in the past. She is obese. Suspected respiratory distress
secondary to sleep apnea. 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
Paroxysmal atrial fibrillation- QTc normal now. QTc in March 2023 was within normal limits. DC sotalol due to NOAM and low normal blood pressure--apprec cards/renal
Acute GI bleed with acute blood loss anemia earlier in stay--No active bleeding currently--Had a full colonoscopy 06/10 and multiple polyps removed--Possible related to polyp after initial sigmoidoscopy and polyp resection-- -Bx results noted -no
malignancy .
Heme neg stools now 06/21
Needing transfusion support again - off of IV heparin now
Follow HH
Baseline Chronic normocytic anemia--ACD. Hemoglobin at baseline. Aim to keep it more than 7. No iron def.
Left arm PICC associated DVT --tx with AC for 1 month. On lovenox which was on hold because of previous bleeding and and acute renal failure--started on IV heparin--DOAC when stable--hematology input noted regarding this DVT--Her DVT was in axillary
vein extending into basilic--repeat US 06/19 negative for clot.Hold on AC.
Anasarca--suspect multifactorial including nutritional, renal failure
Hyponatremia--management per renal - acute on chronic .
Moderate protein caloric malnutrition, albumin 2.2-- albumin infusion to help oncotic pressure--did not help
Essential HTN - hold ARB due to hypotension and follow
DM 2 with hyperglycemia. Patient with poor oral intake. Hemoglobin A1c 7.1. Hold glimepiride and alogliptin--cortisol is ok . CW Lantus and SSI.
Recent Left Hip ORIF - OP CT hip noted - cw PT eval when able; Wound care/abx for left hip wound. Ortho input noted.
Prognosis remain poor with recurrent septic shock, bacteremia and renal failure needing support.
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
Nutrition - speech recs noted - IDDSI 4 diet but at risk for aspiration
ISAAC - Ok with diet recommendations. He understands the critical nature of her illness currently. He wants to make sure she is comfortable during her treatments. He wants us to make sure her pain is addressd ; does not want her to suffer .
He is taking day by day her progress and response to treatment and keep addressing goals of care depending on that. He does not think that she would tolerate any NG tubes. She did not tolerate her BiPAP. She does not like anybody to put anything
on her face or touch her hair! He doesnt think she would have wanted PEG either.
Code status--DNR
Total Critical Care Time__35___ minutes. I was immediately available to the patient and staff. I personally examined, reviewed labs, diagnostic images/reports, interpretations, treatment plans, discussed patient care with other providers and
family or caregivers (if patient is unable to make decisions), entered orders as appropriate and documented the medical record.
Anticipated Discharge: > 48 hours
Subjective/Interval History
-
Date of Service: June 23, 2023
Hard to understand patient due to her incomprehensible words.
Oriented to place but at the same time she says' get me out of this table!'
She was noted to have hallucinations.
Objective Data
-
Labs:
Laboratory Results
06/23/23 06/23/23 06/23/23
04:13 04:13 04:13
WBC
Hgb
Hct
Plt Count
APTT 109.7 H
Sodium 133 L 132 L
Potassium 4.0 4.1
Chloride 106
Carbon Dioxide
BUN
Creatinine
Glucose
Calcium
Total Bilirubin
AST
ALT
Alkaline Phosphatase
06/23/23 06/23/23 06/23/23
04:13 04:13 04:13
WBC
Hgb
Hct
Plt Count
APTT
Sodium
Potassium
Chloride 107
Carbon Dioxide 26 26
BUN 3 L 3 L
Creatinine 0.5 L
Glucose
Calcium
Total Bilirubin
AST
ALT
Alkaline Phosphatase
06/23/23 06/23/23 06/23/23
04:13 04:13 04:13
WBC
Hgb
Hct
Plt Count
APTT
Sodium
Potassium
Chloride
Carbon Dioxide
BUN
Creatinine 0.5 L
Glucose 103 H 103 H
Calcium 8.3 L 8.4
Total Bilirubin 1.1
AST 25
ALT 12
Alkaline Phosphatase 132 H
06/23/23 06/23/23
04:14 18:00
WBC 19.8 H Pending
Hgb 7.5 L D Pending
Hct 21.8 L Pending
Plt Count 69 L D Pending
APTT
Sodium
Potassium
Chloride
Carbon Dioxide
BUN
Creatinine
Glucose
Calcium
Total Bilirubin
AST
ALT
Alkaline Phosphatase
Vital Signs:
Vital Signs
Temp Pulse Resp BP Pulse Ox
98.2 F 85 21 163/67 99
06/23/23 15:21 06/23/23 11:15 06/23/23 11:15 06/22/23 17:03 06/23/23 11:15
I&O
06/22/23 06/23/23 06/24/23
06:59 06:59 06:59
Intake Total 1104.2 / 1125.2 1665.3 / 1736.3 272 / 272
Output Total 533.5 / 533.5 3084 / 3094 60 / 60
Balance 570.7 / 591.7 -1418.7 / -1357.7 212 / 212
Review of Systems
-
Unable to obtain full review of systems at this time due to: Other (due to cognitive impairment and speech issue)
Physical Exam
-
Respiratory: Clear to Auscultation (anteriorly) and Non Labored Respirations (on 2l O2); Negative Accessory Resp Muscle Use
Cardiac: S1/S2, Irregular Rhythm and Tachycardic (low 100's)
Musculoskeletal: Negative No Edema (anasarca)
Neuro: Awake and Oriented (oriented to place and person ;hard to communicate due to incomprehensible words); Negative Alert
Data Reviewed
-
Labs: Labs Reviewed by me
--- NOTE | 2023-06-23 15:41 | PTOTSP ---
Dysphagia Evaluation
Patient is at an elevated risk for dysphagia/aspiration given encephalopathy and periods of lethargy related to her acute illness. Patient awake but confused throughout this evaluation. She had signs concerning for moderate oral dysphagia and
signs concerning for mild pharyngeal dysphagia. Per discussion with medical team, family would not want tube feeding at this time. Consider cautious diet as outlined below:
1. IDDSI Level 4 Puree, IDDSI Level 0 Thin Liquids
2. Medications - crushed in puree
3. Strategies: upright to 90 degrees, small single sips/bites, ensure patient swallows before next sip/bite
4. Oral care 3x daily
5. Will continue to follow for dysphagia therapy at the acute care level.
[2023-06-23] MEDS: FETROJA 108.400000000000006 MG IV (16:23)
--- NOTE | 2023-06-23 16:24 | W.PN.UPDATE ---
Update Note
Progress Note Update
RTSP and spoke with family at length. We discussed the acute kidney injury. I am uncertain whether or not this will recover. Her creatinine is currently normal although she has been on CRRT. Unfortunately she has no significant urine output.
She currently has no excessive oxygen requirements and so we will wait 24 hours to see what her renal function may do. She may need to restart CRRT. We discussed her various other issues including her sepsis as well as thrombocytopenia as well as
her immobility and her mental status change. We discussed the overall clinical outlook. The and the daughter did state that she did not wish to be in a assisted and they do not wish her to be on long-term dialysis. They did mention
that she did not wish to at home. It would appear that her immobility status will be the greatest factor in their decision making regarding aggressivity of care. Certainly, it would be incompatible with long-term dialysis as he will require
her to be in a assisted which they do not wish upon her. We discussed options including hospice. They do understand that that would be another option as well. They also decided that they would not want a Dobbhoff tube. I also recommended
against this given the thrombocytopenia.
35 minutes of critical care time spent
[2023-06-23] MEDS: LIPITOR 20 MG PO (18:50)
[2023-06-23 18:59] LABS: Glucose - Point of Care 99 mg/dl (70-99)
[2023-06-23 19:40] LABS: Hematocrit 23.8 % (37.0-47.0); Hemoglobin 8.3 g/dL (12.0-16.0); Mean Corp Hgb Conc. 34.9 g/dL (33.0-37.0); Mean Corpuscular Hgb 29.2 pg (27.0-31.0); Mean Corpuscular Volume 83.8 fL (81.0-99.0); Mean Platelet Volume 10.9 fL (7.4-10.4); Nucleated Red Blood Cells % 0.2 %; Platelet Count 80 10^3/uL (130-400); Red Blood Cell Count 2.84 10^6/uL (4.20-5.40); Red Cell Dist. Width 15.9 % (11.5-14.5); Reticulocyte Count 3.4 % (0.4-2.8); White Blood Cell Count 18.3 10^3/uL (4.8-10.8)
[2023-06-23 19:53] LABS: Absolute Neutrophils -Man Diff 14.4 10^3/uL (1.4-6.5); Band Neutrophils 5 % (0-3); Eosinophils 3 % (0-6); Lymphocytes 13 % (20-51); Metamyelocytes 1 % (-); Monocytes 2 % (2-9); Myelocytes 2 % (-); Platelets Checked Yes; Segmented Neutrophils 74 % (42-75)
[2023-06-23 19:54] LABS: Anisocytosis 1+; Hypochromasia Slight; Normal RBC Morphology No; Poikilocytosis Occasional; Target Cells Occasional; Total Cells Counted 100
--- NOTE | 2023-06-23 20:15 | PTCARENOTE ---
Pt received in bed @ 1900. Oriented to person and able to answer year '2023.' States she is in her 'sister's house.' Confused. Yelling out 'Sergo! Let me sit down!' Unable to orient to hospital. Denying pain. CPOT 2 for yelling out. SaO2 96% on 2L
NC. Lungs diminished with crackles to auscultation. Occasional nonproductive cough. Sinus rhythm on hand hardener. +4 generalized anasarca. (R) radial arterial line transduced, zeroed, and flushed. Pedal pulses obtained by Doppler. ISAAC
compression wraps in place; to be removed @ HS. Abdomen large, distended, tender. Pt with small bites of dinner. Rectal trumpet in place draining liquid brown stool. Moore catheter draining small bebo urine. Skin dressings C/D/I. (L) DL PICC with
Cefiderocol 750mg infusing. (R) IJ HD cath in place.
[2023-06-23 21:55] LABS: Glucose - Point of Care 112 mg/dl (70-99)
[2023-06-23] MEDS: LANTUS 0.100000000000000006 UNITS SC (22:02)
[2023-06-23] MEDS: ATIVAN 1 MG PO (22:04)
--- NOTE | 2023-06-24 | PTCARENOTE ---
Assumed care of patient. Patient laying in bed, disoriented and yelling out at times. Patient assessed, see worklist. Patient has Right arterial a-line,right PICC, esposito with brown/sludgy urine output and a rectal trumpet in place. Pt also has right
chest well hemodialysis catheter present. Patient has multiple wounds over her back/sacrum, plus dry,flaky skin. Will continue to maintain safety, call frances within reach
[2023-06-24] MEDS: FETROJA 108.400000000000006 MG IV (03:57)
[2023-06-24 04:49] LABS: Hemoglobin 7.4 g/dL (12.0-16.0); Mean Corp Hgb Conc. 33.6 g/dL (33.0-37.0); Mean Corpuscular Volume 86.3 fL (81.0-99.0); Mean Platelet Volume 11.3 fL (7.4-10.4); Platelet Count 74 10^3/uL (130-400); Red Blood Cell Count 2.55 10^6/uL (4.20-5.40); Red Cell Dist. Width 15.7 % (11.5-14.5); White Blood Cell Count 18.3 10^3/uL (4.8-10.8)
[2023-06-24 05:01] LABS: Blood Urea Nitrogen 5 mg/dl (7-17); Calcium 7.8 mg/dl (8.4-10.2); Carbon Dioxide 24 mmol/L (22-30); Chloride 108 mmol/L (98-107); Estimated Creatinine Clearance 81 ml/min; Glucose 92 mg/dl (70-99); Potassium 4.2 mmol/L (3.5-5.1); Sodium 136 mmol/L (135-145); eGFR > 60.00
[2023-06-24 05:46] VITALS: BMI 46.5
[2023-06-24 06:23] LABS: APTT 45.5 Sec (23.4-35.0)
--- NOTE | 2023-06-24 06:30 | PTCARENOTE ---
No changes in assessment. vital signs stable. rectal trumpet removed due to excessive leakage around tube with thicker stool.
--- NOTE | 2023-06-24 08:08 | W.PN.INTV ---
Today's Communication / Plan
Recommendations
O2
Asp precs
Keep Hb>7, plt>20k
MAP>65
Start bumex intermittent dosing - may need gtt if inadequate UOP response
Re-check CXR tomorrow AM
Wean off O2 as tolerated
Diet as per PROJECT DEVELOPER
Guarded prognosis
Assessment
-
Assessment: 68-year-old female with history of Aflutter, HTN, IDDM, SISI, anxiety presenting to ER 06-01 from [facility] with abnormal labs-hyponatremia. Sodium on arrival 123, previously 131 on 04/28/23. She was noted to be hypotensive on arrival,
started on levophed and admitted to ICU. She is noted to be hypoglycemic on arrival as well, given amp Dextrose with minimal improvement. Brief ICU adm for JAMA cellulitis, transferred to [facility]. Pulm consulted 06-12 for SISI, chronic hypercapnia,
started BPAP which she refused in spite of explation of risk, kept on O2 NC 3-4L. Prolonged hospital stay, presented Kleb pn ESBL and Acin sp bacteriemia and GNR UTI, new onset HD started 06-17 (on NE), LUE PICC associated DVT, multiple consultation
services following the case. Transferred to ICU 06-18 for increasing requirement of NE and initiation of CRRT
Impression:
Shock state, - no longer on pressors as of evening of 06/21
ESBL kleb pn and MDR Acin bacteriemia 06-14
ESBL Kleb pn UTI 06-15
NOAM requiring CRRT
LUE PICC associated DVT 06-04 line removed, AC dose enoxaparin since 06-04 to , started IV hep 06-13 --> now off due to TCP
TCP likely due to CRRT; intermediate risk for DOUG (4T score: 4)
s/p LLE cellulitis
Large L colonic polyp suspicious for high grade dysplasia (colonoscopy 06-10, clotted blood in rectum, sigmoid and desc colon)
Acute/chronic anemia, Hgb 6.8 on 06-19
Prolonged hospital adm
Conditions present prior admission:
Discharged from 01/2023: Lethargy/status post fall status post left hip intertrochanteric fracture with repair
Lower extremity infection with Streptococcus bovis seen by ID and discharged on antibiotics until 02/26/2023-Wound culture left leg 03/18/2023: MRSA and Pseudomonas.
Atrial fibrillation off anticoagulation due to hemorrhagic complication
Peripheral arterial disease
Diabetes mellitus type 2
Morbid obesity with a BMI of 46
Hypertension
Anemia of chronic disease
Dyslipidemia
Obstructive sleep apnea
Chronic pain syndrome on opiates
Plan
Sepsis
ESBL kleb pn and MDR Acin bacteriemia , deemed secondary to colon translocation after polyp resection via colonoscopy on 06/11/2023 with associated GIB
Blood cx 06/16 NTD
ESBL Kleb pn UTI 06-15
C diff negative diarrhea
S/p LLE cellulitis (treated this adm)
ID following: cefepime changed to cefiderocol 06-18 to cover both MDR Kleb and Acinetobacter, continue atb
Maintain MAP>65
NOAM
RIJ HD cath 06-17
Started HD with assistance of NE 06-17
Increasing NE requirement on 06-18 leading to transfer to ICU, continue NE --> she now is off vasopressors; keep MAP>65
Started CRRT 06-18 --> off as of 06/22 as circuit clotted. Resume CRRT vs iHD as per nephrology; will start intermittent dosing of bumex for now & trend UOP
TTE 06-18: LVEF 65-70%, mild without other valvular abnormalities, RV not well visualized
IRad replaced RIJ HD cath and replaced LUE PICC both on 06-21
Acute on chronic anemia, multifactorial, down to 6.8 on 06-19, no clear source of blood loss except for blood draws and CRRT; also suspected BM suppression
Thrombocytopenia (4T score: intermediate); it is likely due to CRRT
Transfuse as needed to keep Hb>7g/dL
Goal plt>20k
Hgb dropped again to 6.2 on 06-21, 1U PRBCs transfused once CRRT resumed. Reportedly heme positive stools
GIB was suspected earlier this adm: colonoscopy found clotted blood in rectum
IV hep discontinued 06-21
SISI, chronic hypercapnia
Refused BPAP
POx 95% on NC 2-3L --> wean off as tolerated
PICC associated LUE DVT on US 06-04, line removed
On IV heparin since 06-13
LUE doppler 06-19, c/w 06-04, previously seen L axillary DVT no longer seen, no LUE DVT
Difficult scenario given UEE DVT, ESRD and acute on chronic anemia/TCP, GIB during this adm (colonoscopy 06-10)
Discontinue IV hep 06-21
Ongoing vascular access problems
RIJ HD cath replaced 06-21
LUE PICC attempted, could not advance completely, IRad replaced on 06-21
Cardiac history reviewed--AFlutter maintained on sotalol as outpatient
Prior ECHO reviewed indicating normal function
Cards following, started amiodarone for PAT
Rash - ?due to lasix
Continue desenex
Tolerated bumex this AM without adverse reaction --> will start 2mg IV q8hr and if still insufficient UOP then will start bumex gtt - this was confirmed with nephrology
Updated CXR 06-17 with no infiltrate but pulm vasc congestion
Re-check CXR again tomorrow to re-eval lung parenchyma
Advance diet as tolerated
Continue diet as per PROJECT DEVELOPER
H/o diabetes, presented hypoglycemia upon adm
Adjust basal-bolus as needed to keep BG 140-180
DNR status
Prognosis remains poor
Discussed with daughter + at bedside on 06/22, she recognizes the difficult clinical scenario --> they wish to keep pt comfortable but are still interested in full medical treatment as there is a 'chance' that the pt will survice and make it
'out of this'
GOC discussions ongoing
Total time spent today was 75 minutes for this encounter. Time includes reviewing laboratory test/imaging results, reviewing pertinent medical records, obtaining and reviewing medical history, performing an appropriate exam, ordering medications,
tests and procedures. Time also includes documentation of this encounter, coordinating patient care and communicating with other healthcare professionals. Total time does not include separately billed tests performed on this date of service.
Diagnostic Data
Chest x-ray 03/18/2023: Rotated film. No acute infiltrates.
CT Scan: AP 02/13/23- Findings suggesting enteritis/ileus. Findings suggesting sequelae of chronic terminal ileitis. Intertrochanteric left femur fracture.
Echo: 02/17/23- Normal left ventricular size and systolic function. No regional wall motion abnormalities are seen. LV ejection fraction is 65-70% by visual assessment. Mild concentric left ventricular hypertrophy. Normal diastolic function. Mildly
dilated left atrium. Mild aortic stenosis. Peak/mean gradients are 34/18mmHg. The valve area by continuity equation is 1.6cm sq, using a LVOT of 1.9cm.
Mild aortic regurgitation. When compared to prior echocardiogram from June 16, 2021, the left atrium is now mildly enlarged and otherwise there is no significant change.
Echocardiogram 02/17/2023: Normal LVEF. Mild LVH. Mild aortic stenosis. Mild AR
Nocturnal ox 07/27/15: time below 90% 1:22:18 (23.8%); time below 88% 46:20 (13.4%); O2 nicol 67%; ALICIA >10s 31.0
Subjective Dataa
Subjective Data
Date of Service:
Date of Service: June 24, 2023
Chief Complaint: Float Tender Follow Up (Shock, hyponatremia.)
Subjective:
Patient seen this morning. Pt much more awake and alert today - confused at times. Saturating 97% on nasal cannula at 2 L/min. Heart rate 99 and BP 120/57 via A-line. Urine output still poor at about 10 mL/h. Receiving Bumex this morning 1 mg
with about 100 mL urine produced.
Review of Systems
General: Other (Negative unless mentioned above)
Objective Data
Data Reviewed
Vital Signs / I&O / Oxygen:
Vital Signs
Temp Pulse Resp BP Pulse Ox
98.7 F 100 24 106/54 97
06/24/23 08:12 06/24/23 10:30 06/24/23 10:30 06/24/23 08:38 06/24/23 10:52
Intake and Output
06/23/23 06/24/23 06/25/23
06:59 06:59 06:59
Intake Total 1665.3 / 1736.3 720 / 720 480 / 480
Output Total 3084 / 3094 240 / 250 140 / 140
Balance -1418.7 / -1357.7 480 / 470 340 / 340
SaO2 97
Nasal Cannula flow liters per 2
minute
Physical Exam
General: Respiratory Distress (n) and Comfortable
HEENT: Normocephalic and Anicteric
Cardiovascular: S1-S2, Peripheral Edema (+3 LE edema b/l) and Other (RIJ HD cath)
Respiratory: Wheeze (Negative), Crackles (Negative), Stridor (n) and Other (Coarse breath sounds bilaterally)
GI: Soft, Non Distended and Non Tender
Neurology: Awake, Alert, Other (weak) and Other (confused at times)
Skin: Warm, Dry and Other (Skin flaking with erythema seen on chest, lower abdomen, arms and legs; negative Nikolsky sign)
Labs/Micro/Reports
Lab Data
06/24/23 04:04
06/24/23 04:04
Laboratory Results
06/24/23 06/24/23
04:04 05:42
APTT Cancelled 45.5 H
Microbiology
06/17/23 11:01 Blood/Venous Blood Culture - Final
No Growth - Final Report
06/15/23 18:58 Blood/Venous Blood Culture - Final
Klebsiella pneumoniae-ESBL
Acinet. baumannii/haemolyticus
06/15/23 18:58 Blood/Venous Gram Stain - Final
06/16/23 16:36 Blood/Venous Blood Culture - Final
No Growth - Final Report
06/16/23 08:49 Blood/Venous Blood Culture - Final
No Growth - Final Report
[2023-06-24 08:13] LABS: Glucose - Point of Care 77 mg/dl (70-99)
[2023-06-24] MEDS: OSCAL CAL 500 1000 MG PO ×2 (08:38→19:54)
[2023-06-24] MEDS: ProAmatine 5 MG PO ×3 (08:38→18:18)
[2023-06-24] MEDS: PACERONE 200 MG PO (08:38)
[2023-06-24] MEDS: PROTONIX 40 MG PO ×2 (08:38→19:54)
[2023-06-24] MEDS: NOVOLOG FLEXPEN-HIGH RESISTANCE SC ×2 (08:38→12:25)
[2023-06-24] MEDS: DESENEX/MITRAZOL/ZEASORB 1 APPLIC TOPICAL ×2 (08:39→20:08)
[2023-06-24] MEDS: SODIUM BICARBONATE 325 MG PO ×3 (08:39→21:45)
[2023-06-24] MEDS: VITAMIN D3 (cholecalciferol) 125 MCG PO (08:39)
--- NOTE | 2023-06-24 09:03 | W.PN.ID1 ---
Date of Service
Date of Service: June 24, 2023
Today's Communication
Continue cefiderocol 1.5g IV q12 (dosed for renal function) (day 6 of 7)
Assessment / Plan
# ESBL-Klebsiella, MDR-Acinetobacter bacteremia x 2 sets
# Leukocytosis, persists
# Worsening thrombocytopenia
# Septic shock, multi-system organ failure
# NOAM, CRRT on hold
# Acute on chronic anemia
# Extensive abx/drug allergies. Tolerated meropenem and linezolid in the past.
- Source of bacteremia likely from colon translocation after recent resection of multiple polyps with associated GIB; less likely urine source (only ESBL in urine)
- Repeat blood cx's neg
--> Continue cefiderocol 1.5g IV q12 (dosed for renal function) (day 6 of 7) to cover for both MDR-Klebsiella/Acinetobacter
- Trend vitals, wbc, plt
- Overall poor prognosis. Patient remains critically ill in intensive care unit.
# Diarrhea
- C. diff neg x2 /norovirus negative
# Intraluminal colon mass
- hx Strep bovis bacteremia 02/11/2023, treated.
- 06/10/23 s/p sigmoidoscopy, removal of several polyps.
- 06/11/23 s/p colonoscopy, removal of multiple polyps, clipping of ulcer in sigmoid
- Biopsies: tubular adenomas with focal high grade dysplasia, and tubulovillous adenomas
# s/pLLE cellulitis - resolved
# Lymphedema
-Completed linezolid 600mg po bid through 06/08/2023 am
- Continue BLE compression
# s/p Drug rash resolved off furosemide
# LUE picc associated DVT
- PICC dc'd
# Left hip incision wound clean without infection
- cx skin [place]
#Additional Past Medical History:
Diabetes mellitus
Class III obesity BMI 49
Lymphedema
Obstructive sleep apnea
A flutter status post ablation
hypertension
cellulitis
Asthma
Dyslipidemia
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
Meningioma s/p resection
Chronic back pain
Cholecystectomy
Bilateral oophorectomy
Left hip fracture s/p gamma nailing 02/16/23
Chief Complaint
-: Leukocytosis, Clinical Sepsis and Bacteremia
Subjective / Review of Systems
Thirsty. Weak
Vital Signs / Physical Exam
Vital Signs
Vital Signs
Temp Pulse Resp BP Pulse Ox
98.7 F 91 24 106/54 98
06/24/23 08:12 06/24/23 08:38 06/24/23 05:00 06/24/23 08:38 06/24/23 05:00
Physical Exam
Constitutional: Acutely Ill
Eyes: Sclera Anicteric
Cardiovascular: Regular Rate and S1/S2
Pulmonary: Clear
Gastrointestinal: Soft, Non Tender and Non Distended
Genito-Urinary: Moore; Negative CVA Tenderness
Extremities: Edema
Skin: Other (dry skin Bilateral UE/thighs)
Lines: PICC (no erythema)
Objective Data
Lab Data
Lab Results
06/24/23 04:04
06/24/23 04:04
PT 13.1 Sec (11.4-14.6) 06/02/23 09:23
INR 1.01 06/02/23 09:23
APTT 45.5 Sec (23.4-35.0) H 06/24/23 05:42
Estimated Creat Clear 81 ml/min 06/24/23 04:04
Lactic Acid 0.9 mmol/L (0.7-2.0) 06/13/23 09:53
Total Bilirubin 1.1 mg/dl (0.2-1.3) 06/23/23 04:13
AST 25 U/L (14-36) 06/23/23 04:13
ALT 12 U/L (0-35) 06/23/23 04:13
Alkaline Phosphatase 132 U/L (38-126) H 06/23/23 04:13
Most recent labs reviewed.
Micro Results:
06/17/23 11:01 Blood Culture - Final
Blood/Venous No Growth - Final Report
06/15/23 18:58 Blood Culture - Final
Blood/Venous Klebsiella pneumoniae-ESBL
Acinet. baumannii/haemolyticus
Gram Stain - Final
06/16/23 16:36 Blood Culture - Final
Blood/Venous No Growth - Final Report
06/16/23 08:49 Blood Culture - Final
Blood/Venous No Growth - Final Report
06/16/23 10:02 Blood Culture - Final
Blood/Venous Klebsiella pneumoniae-ESBL
Acinet. baumannii/haemolyticus
Gram Stain - Final
06/16/23 05:11 Urine Culture - Final
Urine Klebsiella pneumoniae-ESBL
06/16/23 05:11 Stool Leukocytes - Final
Feces/Stool
06/16/23 05:11 C. difficile GDH Antigen & Toxins - Final
Feces/Stool Negative for toxigenic C.difficile
06/07/23 23:53 - Final
Feces/Stool Negative for Norovirus GI and GII.
06/03/23 10:41 Blood Culture - Final
Blood/Venous No Growth - Final Report
06/03/23 10:41 Blood Culture - Final
Blood/Venous No Growth - Final Report
06/02/23 05:52 Blood Culture - Final
Blood/Venous Coagulase neg. staphylococcus
Additional testing on request
Gram Stain - Final
06/02/23 05:52 Blood Culture - Final
Blood/Venous No Growth - Final Report
06/02/23 13:24 Wound Culture - Final
Hip - Left Gram Stain - Final
06/02/23 13:23 MRSA Screen - Final
Nose Staph aureus MRSA
06/02/23 13:25 Urine Culture - Final
Urine NO GROWTH
06/02/23 18:34 C. difficile GDH Antigen & Toxins - Final
Feces/Stool Negative for toxigenic C.difficile
Imaging:
06/18/23 CXR: no active disease
06/14/23 CXR: Hypo-aerated lungs without consolidation.
06/08/23 CT a/p: MILD ACUTE INFECTIOUS PANCOLITIS with mild fluid distention of the proximal colon and mild wall thickening and mucosal hyperenhancement in the distal colon and rectum. 1.5 cm intraluminal mass in the descending colon-sigmoid colon
junction suspicious for a large colonic polyp (possibly adenocarcinoma). Mild diffuse small bowel distention.
06/02/23 CXR: clear lungs
05/28/23 CT LLE: ORIF of an intertrochanteric/subtrochanteric fracture. The fracture plane remains evident, but there is some callus and heterotopic ossification about the fracture site.
--- NOTE | 2023-06-24 09:16 | W.PN.NEPH.PH ---
Today's Communication / Plan
-
Bumex
Assessment/Plan
-
IMP:
Hyponatremia-acute on chronic
NOAM with significant azotemia
suspected septic shock/gram-negative bacilli bacteremia
hypoglycemia
Hypomagnesemia
TME
HX Paroxysmal AF- Not on anticoagulation due to hemorrhagic complications in the past
Chronic anemia
Essential HTN
T2DM
Chronic pain syndrome on chronic opioids
SISI - CPAP
Morbid obesity due to excess calories
PAD
h/o left hip fx s/p ORIF 01/2023
Plan:
-will hold off on restarting CRRT this morning given steady Cr
-await HIT
-try bumex. I am not convinced that lasix was the cause of the rash vs abx. I discussed with . There are significant terminal worker implications of lasix allergy, especially given difficulty with access to edecrine as outpatient. He agrees with
retrial of loop diuretic
-abx continue
-If we are unable to remove volume she may need to return to dialysis, however at that point family will need to decide if terminal worker dialysis is acceptable
-critical care time 31 minutes
-
-
Date of Service: June 24, 2023
CC / HPI / ROS
-
Chief Complaint:
NOAM, hyponatremia
History of Present Illness:
Currently off CRRT
Platelets low but stable now
hgb remains low
BP stable
rash improving
oligoanuric with esposito
critically ill in ICU
Review of Systems:
confused
on 2L NC
Labs
-
Labs:
WBC 18.3 10^3/uL (4.8-10.8) H 06/24/23 04:04
RBC 2.55 10^6/uL (4.20-5.40) L 06/24/23 04:04
Hgb 7.4 g/dL (12.0-16.0) L 06/24/23 04:04
Hct 22.0 % (37.0-47.0) L 06/24/23 04:04
Plt Count 74 10^3/uL (130-400) L 06/24/23 04:04
Sodium 136 mmol/L (135-145) 06/24/23 04:04
Potassium 4.2 mmol/L (3.5-5.1) 06/24/23 04:04
Chloride 108 mmol/L (98-107) H 06/24/23 04:04
Carbon Dioxide 24 mmol/L (22-30) 06/24/23 04:04
BUN 5 mg/dl (7-17) L 06/24/23 04:04
Creatinine 0.7 mg/dL (0.6-1.0) 06/24/23 04:04
eGFR > 60.00 06/24/23 04:04
Glucose 92 mg/dl (70-99) 06/24/23 04:04
Calcium 7.8 mg/dl (8.4-10.2) L 06/24/23 04:04
Phosphorus 2.4 mg/dl (2.5-4.5) L 06/23/23 04:13
Oei-J-Zzoddudoprk Pept 633 pg/ml 06/02/23 05:09
Albumin 2.0 g/dl (3.5-5.0) L 06/23/23 04:13
Physical Exam
-
Vital Signs:
Vital Signs
Temp Pulse Resp BP Pulse Ox
98.7 F 91 24 106/54 98
06/24/23 08:12 06/24/23 08:38 06/24/23 05:00 06/24/23 08:38 06/24/23 05:00
Cardiovascular:: Regular rate and rhythm
Respiratory:: Bilateral: Coarse
Lung Excursion:: Normal
Abdomen:: Nontender and Soft
Bowel Sounds:: Normal
Extremity Edema:: +3: Bilateral:
[2023-06-24] MEDS: BUMEX 1 MG IV (09:55)
[2023-06-24] MEDS: ATIVAN 0.5 MG IV (09:57)
--- NOTE | 2023-06-24 10:07 | PTCARENOTE ---
Pt received from night manager RN, pt awake and responsive. Ox3 but very forgetful and confused. Pt getting agitated with turns, calling out frequently. NSR on tele, R radial A line in place, very positional. + 4 anasarca, wounds on arms and legs
weeping, covidien in place to catch drainage. + pedal pulses via doppler. Currently on 2L NC with a 97% sat, breath sounds coarse throughout. Obese round ABD, pt having large amounts of liquid stool, rectal trumpet placed. Moore in place draining
cloudy brown urine ~10mls/hr. Sacral foam replaced. Leg drressings changed and ISAAC wrap placed. IV sites intact. Pt currently yelling out, very confused. PRN Ativan given.
[2023-06-24 11:49] VITALS: BMI 46.5
[2023-06-24 12:00] LABS: Glucose - Point of Care 126 mg/dl (70-99)
--- NOTE | 2023-06-24 12:00 | PTCARENOTE ---
Pt's family visiting, pt more awake but still very confused and forgetful. 1 mg of Bumex given with 200ml diuresis over 2 hours. Urine now more clear and yellow, putting out ~30mls/hr. Assisted with lunch, she ate ~30%, no signs of aspiration,
appetite is much improved.
--- NOTE | 2023-06-24 14:40 | CM ---
CM following re: discharge planning.
Discussed in Rounds, reviewed pt's chart, et with pt and pt's Sergo at bedside. Per Rounds meeting, pt is awake and responsive, very forgetful and confused, getting agitated with turns, calling out frequently, continue supportive care,
nephrology following.
Pt's stated he wants to make sure his is comfortable and he feels that pt is suffering. Pt's asked information regarding comfort care and at the same time he stated: 'I do not want to kill her. We have been living together for
more than 40 years'. Information regarding comfort care/hospice care provided and CM provided pt's with emotional support. Pt's stated he will talk to kayak maker again to discuss the next level of care, prognosis and the way to
keep the pt comfortable.
D/C plan: uncertain at this time and will depend on pt's progress.
CM will follow with discharge plan updates as hospitalization processes
[2023-06-24] MEDS: BUMEX 2 MG IV (15:00)
[2023-06-24] MEDS: FETROJA 116.799999999999997 MG IV ×2 (15:01→21:46)
--- NOTE | 2023-06-24 15:37 | W.PN.ONC ---
Today's Communication / Plan
-
06/23 WBC 18.3, Hgb 7.4, Hct 22, PLT 74
Continue to monitor CBC w/ diff daily
s/p 2units PRBCs
Transfuse as needed to maintain Hgb >7.5, PLT >20
Nephrology, Pulmonary, ID, and GI following
Holding heparin
HIT pending
GOC discussions ongoing
We will sign off.
Impression
Impression
LLE cellulitis s/p left hip fracture with repair (01/2023)
Large left colon polyp w/ concern for high grade dysplasia
GI bleed
Hypotension
Tachycardia
Sepsis
Acute renal failure
Lower extremity edema
Leukocytosis
Thrombocytopenia
Acute change in mental status
Hypercapnic respiratory failure
Hx SISI; noncompliant w/ CPAP
Subjective/Objective
Subjective/Objective
patient is asking for water repeatedly. denies pain
Vital Signs:
Vital Signs
Temp Pulse Resp BP Pulse Ox
98.1 F 100 24 106/54 97
06/24/23 11:43 06/24/23 10:30 06/24/23 10:30 06/24/23 08:38 06/24/23 10:52
physical exam:
aaox3, anxious/confused at times
lungs diminished/coarse
+3 edema b/l LE, LUE weeping
obese
Lab Results:
Laboratory Data
WBC 18.3 10^3/uL (4.8-10.8) H 06/24/23 04:04
Hgb 7.4 g/dL (12.0-16.0) L 06/24/23 04:04
Plt Count 74 10^3/uL (130-400) L 06/24/23 04:04
PT 13.1 Sec (11.4-14.6) 06/02/23 09:23
INR 1.01 06/02/23 09:23
APTT 45.5 Sec (23.4-35.0) H 06/24/23 05:42
eGFR > 60.00 06/24/23 04:04
--- NOTE | 2023-06-24 15:57 | W.PN.HOSP.TC ---
Today's Communication/Plan
-
CRRT on hold. Continue to follow the response of IV antibiotics.
Continue with antibiotics
Follow H&H closely.
Assessment / Plan
Assessment / Plan
pt is a 68 year old female
Acute renal failure--oliguric--multifactorial including recurrent sepsis shock, hypotension, IV contrast--apprec renal--on CRRT;off levophed now--Avoid nephrotoxin--Patient was given trials of ethacrynic acid before hemodialysis--creat normal and
making some urine but still with significant third spacing --HD cath was clogged and needs to be replaced .
CRRT on hold today . Renal trying loop diuretics . Follow Wt and UOP.
ESBL Kleb pneumonia and Acinetobacter bacteremia--suspected translocation than urinary source--ESBL Klebsiella pneumonia is isolated in the urine but not Acinetobacter; ESBL Klebsiella pneumonia in the urine could be descending infection--Repeat
cultures are negative so far--WBC remains elevated and slowly trending down --CT of the abdomen pelvis with oral contrast done recently did not show any evidence of collections--On Cefiderocol-- CW ABX per ID.
Recurrent shock--suspected septic--currently Levophed is off ;aim for MAP of 65--ECHO 06/18 shows EF 65-70% with mild aortic stenosis--no vegetations seen
Recent cellulitis of left leg--MRSA colonized--s/p meropenem x 3 d--Completed linezolid 600mg po bid x through 06/08/2023 am
change in mental status - sec to metabolic encephalopathy --ABG was obtained it shows she has acute hypercapnic hypoxic respiratory failure--Resolved with BiPAP support -- pt doesn't tolerate CPAP/BIPAP -watch out for recurrence
Acute hypercapnic hypoxic respiratory failure--Patient with chronic hypoxic respiratory insufficiency on 2 L at home. She has history of sleep apnea but was not able to tolerate mask in the past. She is obese. Suspected respiratory distress
secondary to sleep apnea. Avoid sedation--BiPAP at 15/5 on 2 L of oxygen prn sleep--pt refusing--pulm following
Back on 2l with adequate oxygenation
Paroxysmal atrial fibrillation- QTc normal now. QTc in March 2023 was within normal limits. DC sotalol due to NOAM and low normal blood pressure--cards following
Acute GI bleed with acute blood loss anemia earlier in stay--No active bleeding currently--Had a full colonoscopy 06/10 and multiple polyps removed--Possible related to polyp after initial sigmoidoscopy and polyp resection-- -Bx results noted -no
malignancy .
Heme neg stools now 06/21
Needing transfusion support again - off of IV heparin now
Follow HH
aim to keep HH>7.0
Baseline Chronic normocytic anemia--ACD. Hemoglobin at baseline. Aim to keep it more than 7. No iron def.
Left arm PICC associated DVT --tx with AC for 1 month. On lovenox which was on hold because of previous bleeding and and acute renal failure--started on IV heparin--DOAC when stable--hematology input noted regarding this DVT--Her DVT was in axillary
vein extending into basilic--repeat US 06/19 negative for clot.Hold on AC.
Anasarca--suspect multifactorial including nutritional, renal failure
Hyponatremia--management per renal - acute on chronic .
Moderate protein caloric malnutrition, albumin 2.2-- albumin infusion to help oncotic pressure--did not help
Essential HTN - hold ARB due to hypotension and follow
DM 2 with hyperglycemia. Patient with poor oral intake. Hemoglobin A1c 7.1. Hold glimepiride and alogliptin--cortisol is ok . CW Lantus and SSI.
Recent Left Hip ORIF - OP CT hip noted - cw PT eval when able; Wound care/abx for left hip wound. Ortho input noted.
Prognosis remain poor with recurrent septic shock, bacteremia and renal failure needing support.
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
Nutrition - speech recs noted - CW IDDSI 4 diet but at risk for aspiration
ISAAC 06/22 - Ok with diet recommendations. He understands the critical nature of her illness currently. He wants to make sure she is comfortable during her treatments. He wants us to make sure her pain is addressd ; does not want her to
suffer . He is taking day by day her progress and response to treatment and keep addressing goals of care depending on that. He does not think that she would tolerate any NG tubes. She did not tolerate her BiPAP. She does not like anybody to put
anything on her face or touch her hair! He doesnt think she would have wanted PEG either.
Code status--DNR
Total time spent on today's encounter was 52 minutes which included time spent in counseling the patient regarding diagnosis and treatment plan as listed above, goals of care, and symptom management. Case was discussed with nursing staff . All labs
and imaging personally reviewed by me. Remainder the time spent in detailed review of previous records, lab data, imaging, and other medical provider documentation.
Anticipated Discharge: > 48 hours
Subjective/Interval History
-
Date of Service: June 24, 2023
Seen this afternoon. Patient was alert and awake. Was having her lunch fed by RN.
No overnight events. Tolerating diet. Stable on 2 L of oxygen overnight.
Today she recognized me unlikely yesterday.
Still not usual self cognitively compared to earlier part of her stay.
Objective Data
-
Labs:
Laboratory Results
06/24/23 06/24/23
04:04 05:42
WBC 18.3 H
Hgb 7.4 L
Hct 22.0 L
Plt Count 74 L
APTT Cancelled 45.5 H
Sodium 136
Potassium 4.2
Chloride 108 H
Carbon Dioxide 24
BUN 5 L
Creatinine 0.7
Glucose 92
Calcium 7.8 L
Vital Signs:
Vital Signs
Temp Pulse Resp BP Pulse Ox
99.0 F 100 24 106/54 97
06/24/23 15:44 06/24/23 10:30 06/24/23 10:30 06/24/23 08:38 06/24/23 10:52
I&O
06/23/23 06/24/23 06/25/23
06:59 06:59 06:59
Intake Total 1665.3 / 1736.3 720 / 720 940 / 940
Output Total 3084 / 3094 240 / 250 470 / 470
Balance -1418.7 / -1357.7 480 / 470 470 / 470
Review of Systems
-
Unable to obtain full review of systems at this time due to: Other (cognitively impaired.No oriented to date,month,year.)
Respiratory: Denies Trouble Breathing
Cardiac: Denies Chest Pain
Abdomen/GI: Denies Nausea or Vomiting
Neuro: Denies Dizzy or Headache
Physical Exam
-
General: No Apparent Distress
HEENT: Moist Mucous Membranes
Respiratory: Clear to Auscultation (anterioly) and Non Labored Respirations; Negative Accessory Resp Muscle Use
Cardiac: S1/S2, Irregular Rhythm and Tachycardic
GI: Soft and Nontender (?)
Musculoskeletal: Negative No Edema (anasarca)
Neuro: Awake, Alert and Oriented (place and self)
Psych: Calm and Confused
Data Reviewed
-
Labs: Labs Reviewed by me
[2023-06-24 17:06] LABS: Glucose - Point of Care 166 mg/dl (70-99)
--- NOTE | 2023-06-24 17:18 | PTCARENOTE ---
Pt reassessed. 2 mg Bumex given with 220 mls urine diuresed. 94% on RA. Pt had large liquid BM leak around rectal trumpet, pt cleaned and rectal trumpet replaced. Pt yelling with turns, still very confused.
[2023-06-24] MEDS: NOVOLOG FLEXPEN-HIGH RESISTANCE 1 UNITS SC (18:18)
[2023-06-24] MEDS: LIPITOR 20 MG PO (18:18)
--- NOTE | 2023-06-24 20:00 | PTCARENOTE ---
rec`d pt at 1900. AAOx2-3, can be forgetful. calls out frequently. left double luman picc and rt midline, flushed and patent. NSR to ST, R radial A line in place. + pedal pulses via doppler. + 4 edema, wounds on arms and legs. Room air satting
95%, bs coarse. Rectal trumpet in place. Moore in place draining clear, yellow urine. Sacral foam on. call frances in reach, safe environment maintained.
[2023-06-24 21:43] LABS: Glucose - Point of Care 228 mg/dl (70-99)
[2023-06-24] MEDS: ATIVAN 1 MG PO (21:45)
[2023-06-24] MEDS: LANTUS 0.100000000000000006 UNITS SC (21:45)
[2023-06-25] VITALS (18 sets, daily range): BP systolic 93–130; BP diastolic 52–89; BMI 45.6
--- NOTE | 2023-06-25 | PTCARENOTE ---
pt reassessed. no changes in pt assessment. call frances in reach.
[2023-06-25] MEDS: BUMEX 2 MG IV ×3 (00:01→16:09)
[2023-06-25] MEDS: DILAUDID 0.25 MG IV (01:35)
[2023-06-25 04:05] LABS: Hematocrit 22.8 % (37.0-47.0); Hemoglobin 7.7 g/dL (12.0-16.0); Mean Corp Hgb Conc. 33.8 g/dL (33.0-37.0); Mean Corpuscular Hgb 28.8 pg (27.0-31.0); Mean Corpuscular Volume 85.4 fL (81.0-99.0); Mean Platelet Volume 11.3 fL (7.4-10.4); Platelet Count 81 10^3/uL (130-400); Red Blood Cell Count 2.67 10^6/uL (4.20-5.40); Red Cell Dist. Width 15.7 % (11.5-14.5); White Blood Cell Count 16.7 10^3/uL (4.8-10.8)
--- NOTE | 2023-06-25 04:07 | PTCARENOTE ---
pt reassessed. no changes in pt assessment.
[2023-06-25 05:08] LABS: Blood Urea Nitrogen 10 mg/dl (7-17); Calcium 7.7 mg/dl (8.4-10.2); Carbon Dioxide 22 mmol/L (22-30); Chloride 105 mmol/L (98-107); Estimated Creatinine Clearance 63 ml/min; Glucose 137 mg/dl (70-99); Potassium 3.8 mmol/L (3.5-5.1); Sodium 135 mmol/L (135-145); eGFR > 60.00
[2023-06-25] MEDS: FETROJA 116.799999999999997 MG IV ×3 (05:25→21:29)
[2023-06-25] MEDS: PACERONE 200 MG PO (07:46)
[2023-06-25] MEDS: ProAmatine 5 MG PO ×3 (07:46→19:19)
[2023-06-25] MEDS: SODIUM BICARBONATE 325 MG PO ×3 (07:47→21:17)
[2023-06-25] MEDS: PROTONIX 40 MG PO ×2 (07:47→19:19)
[2023-06-25] MEDS: OSCAL CAL 500 1000 MG PO ×2 (07:47→19:20)
[2023-06-25] MEDS: DESENEX/MITRAZOL/ZEASORB 1 APPLIC TOPICAL ×2 (07:47→21:16)
[2023-06-25] MEDS: VITAMIN D3 (cholecalciferol) 125 MCG PO (07:47)
--- NOTE | 2023-06-25 08:00 | W.PN.NEPH.PH ---
Today's Communication / Plan
-
Maintain IV Bumex
Assessment/Plan
-
IMP:
Hyponatremia-acute on chronic
NOAM with significant azotemia
suspected septic shock/gram-negative bacilli bacteremia
hypoglycemia
Hypomagnesemia
TME
HX Paroxysmal AF- Not on anticoagulation due to hemorrhagic complications in the past
Chronic anemia
Essential HTN
T2DM
Chronic pain syndrome on chronic opioids
SISI - CPAP
Morbid obesity due to excess calories
PAD
h/o left hip fx s/p ORIF 01/2023
Plan:
-Creatinine at 09, urine output 2 L, weights down
-await HIT
-Maintain Bumex 2 mg IV every 8
-abx continue
-If we are unable to remove volume she may need to return to dialysis, however at that point family will need to decide if care home dialysis is acceptable
-
-
Date of Service: June 25, 2023
CC / HPI / ROS
-
Chief Complaint:
NOAM, hyponatremia
History of Present Illness:
Currently off CRRT
Platelets low but stable now
hgb remains low
BP stable
rash improving
critically ill in ICU
Review of Systems:
confused
on 2L NC
Nonoliguric via Moore
Labs
-
Labs:
WBC 16.7 10^3/uL (4.8-10.8) H 06/25/23 03:55
RBC 2.67 10^6/uL (4.20-5.40) L 06/25/23 03:55
Hgb 7.7 g/dL (12.0-16.0) L 06/25/23 03:55
Hct 22.8 % (37.0-47.0) L 06/25/23 03:55
Plt Count 81 10^3/uL (130-400) L 06/25/23 03:55
Sodium 135 mmol/L (135-145) 06/25/23 03:55
Potassium 3.8 mmol/L (3.5-5.1) 06/25/23 03:55
Chloride 105 mmol/L (98-107) 06/25/23 03:55
Carbon Dioxide 22 mmol/L (22-30) 06/25/23 03:55
BUN 10 mg/dl (7-17) 06/25/23 03:55
Creatinine 0.9 mg/dL (0.6-1.0) 06/25/23 03:55
eGFR > 60.00 06/25/23 03:55
Glucose 137 mg/dl (70-99) H 06/25/23 03:55
Calcium 7.7 mg/dl (8.4-10.2) L 06/25/23 03:55
Phosphorus 2.4 mg/dl (2.5-4.5) L 06/23/23 04:13
Ahi-N-Kpyjpqswxms Pept 633 pg/ml 06/02/23 05:09
Albumin 2.0 g/dl (3.5-5.0) L 06/23/23 04:13
Physical Exam
-
Vital Signs:
Vital Signs
Temp Pulse Resp BP Pulse Ox
97.6 F 107 17 110/71 99
06/25/23 08:00 06/25/23 07:46 06/25/23 07:00 06/25/23 07:46 06/25/23 07:00
Cardiovascular:: Regular rate and rhythm
Respiratory:: Bilateral: Coarse
Lung Excursion:: Normal
Abdomen:: Nontender and Soft
Bowel Sounds:: Decreased
Extremity Edema:: +2: Bilateral:
Moore Catheter: Yes
[2023-06-25 08:21] LABS: Glucose - Point of Care 143 mg/dl (70-99)
[2023-06-25] MEDS: NOVOLOG FLEXPEN-HIGH RESISTANCE SC (08:32)
--- NOTE | 2023-06-25 08:38 | W.PN.INTV ---
Today's Communication / Plan
Recommendations
Check LUE US to rule out thrombus
O2
Asp precs
Keep Hb>7, plt>20k
MAP>65
Continue bumex intermittent dosing - may need gtt if inadequate UOP response - defer to nephrology
Maintain SpO2 >90-94% and check walking/exertional pulse ox prior to discharge
Diet as per [employer]
Guarded prognosis
Patient stable for downgrade out of ICU to telemetry. Lead Front Desk Agent/pulmonary service will now sign off. Please reconsult if there are any additional questions/concerns, or if patient's respiratory status deteriorates.
Assessment
-
Assessment: 68-year-old female with history of Aflutter, HTN, IDDM, SISI, anxiety presenting to ER 06-01 from [facility] with abnormal labs-hyponatremia. Sodium on arrival 123, previously 131 on 04/28/23. She was noted to be hypotensive on arrival,
started on levophed and admitted to ICU. She is noted to be hypoglycemic on arrival as well, given amp Dextrose with minimal improvement. Brief ICU adm for JAMA cellulitis, transferred to [facility]. Pulm consulted 06-12 for SISI, chronic hypercapnia,
started BPAP which she refused in spite of explation of risk, kept on O2 NC 3-4L. Prolonged hospital stay, presented Kleb pn ESBL and Acin sp bacteriemia and GNR UTI, new onset HD started 06-17 (on NE), LUE PICC associated DVT, multiple consultation
services following the case. Transferred to ICU 06-18 for increasing requirement of NE and initiation of CRRT
Impression:
Shock state, - no longer on pressors as of evening of 06/21
ESBL kleb pn and MDR Acin bacteriemia 06-14
ESBL Kleb pn UTI 06-15
NOAM requiring CRRT --> now off CRRT and making urine
Acute respiratory failure with hypoxia -improved, and now patient on room air
LUE PICC associated DVT 06-04 line removed, AC dose enoxaparin since 06-04 to , started IV hep 06-13 --> now off due to TCP
TCP likely due to CRRT; intermediate risk for DOUG (4T score: 4)
s/p LLE cellulitis
Large L colonic polyp suspicious for high grade dysplasia (colonoscopy 06-10, clotted blood in rectum, sigmoid and desc colon)
Acute/chronic anemia, Hgb 6.8 on 06-19
Prolonged hospital adm
Conditions present prior admission:
Discharged from 01/2023: Lethargy/status post fall status post left hip intertrochanteric fracture with repair
Lower extremity infection with Streptococcus bovis seen by ID and discharged on antibiotics until 02/26/2023-Wound culture left leg 03/18/2023: MRSA and Pseudomonas.
Atrial fibrillation off anticoagulation due to hemorrhagic complication
Peripheral arterial disease
Diabetes mellitus type 2
Morbid obesity with a BMI of 46
Hypertension
Anemia of chronic disease
Dyslipidemia
Obstructive sleep apnea
Chronic pain syndrome on opiates
Plan
Sepsis
ESBL kleb pn and MDR Acin bacteriemia , deemed secondary to colon translocation after polyp resection via colonoscopy on 06/11/2023 with associated GIB
Blood cx 06/16 NTD
ESBL Kleb pn UTI 06-15
C diff negative diarrhea
S/p LLE cellulitis (treated this adm)
ID following: cefepime changed to cefiderocol 06-18 to cover both MDR Kleb and Acinetobacter, continue atb
Maintain MAP>65
Blood cultures have been negative since 06/16/2023
NOAM
RIJ HD cath 06-17
Started HD with assistance of NE 06-17
Increasing NE requirement on 06-18 leading to transfer to ICU, continue NE --> she now is off vasopressors for >48 hrs; keep MAP>65
Started CRRT 06-18 --> off as of 06/22 as circuit clotted. No need for CRRT or iHD as pt making adequate UOP on intermittent bumex. Continue to trend UOP
TTE 06-18: LVEF 65-70%, mild without other valvular abnormalities, RV not well visualized
IRad replaced RIJ HD cath and replaced LUE PICC both on 06-21
Acute on chronic anemia, multifactorial, down to 6.8 on 06-19, no clear source of blood loss except for blood draws and CRRT; also suspected BM suppression (retic index: 1.12 on 06/23/2023)
Thrombocytopenia (4T score: intermediate); it is likely due to CRRT
Transfuse as needed to keep Hb>7g/dL
Goal plt>20k
Hgb dropped again to 6.2 on 06-21, 1U PRBCs transfused once CRRT resumed. Reportedly heme positive stools
GIB was suspected earlier this adm: colonoscopy found clotted blood in rectum
IV hep discontinued 06-21 --> Hb and plt stable --> HSQ restarted for DVT ppx
SISI, chronic hypercapnia
Refused BPAP
POx 95% on NC 2-3L --> oxygen has been weaned off as of 06/25/2023, and she is breathing comfortably
Maintain SpO2 >90-94% and check walking pulse ox prior to discharge
PICC associated LUE DVT on US 06-04, line removed
On IV heparin since 06-13
LUE doppler 06-19, c/w 06-04, previously seen L axillary DVT no longer seen, no LUE DVT
Difficult scenario given UEE DVT, ESRD and acute on chronic anemia/TCP, GIB during this adm (colonoscopy 06-10)
Discontinue IV hep 06-21
Platelet count is stable, so is Hb. Will resume chemical prophylaxis today
Ongoing vascular access problems
RIJ HD cath replaced 06-21
LUE PICC attempted, could not advance completely, IRad replaced on 06-21
Cardiac history reviewed--AFlutter maintained on sotalol as outpatient
Prior ECHO reviewed indicating normal function
Cards following, started amiodarone for PAT
Rash - ?due to lasix
Continue desenex
Tolerated bumex on AM without adverse reaction --> started 2mg IV q8hr on 06/23
Updated CXR 06-17 with no infiltrate but pulm vasc congestion
Re-checked CXR again today and there is no acute cardiopulmonary pathology
Advance diet as tolerated
Continue diet as per [employer]
H/o diabetes, presented hypoglycemia upon adm
Adjust basal-bolus as needed to keep BG 140-180
DNR status
Prognosis remains poor
Dr. Blanca discussed with daughter + at bedside on 06/22, she recognizes the difficult clinical scenario --> they wish to keep pt comfortable but are still interested in full medical treatment as there is a 'chance' that the pt will
survive and make it 'out of this'
GOC discussions ongoing
Patient stable for downgrade out of ICU to telemetry. Lead Front Desk Agent/pulmonary service will now sign off. Thank you for allowing us to be involved in the care of this patient. Please reconsult if there are any additional questions/concerns, or if
patient's respiratory status deteriorates.
Total time spent today was 35 minutes for this encounter. Time includes reviewing laboratory test/imaging results, reviewing pertinent medical records, obtaining and reviewing medical history, performing an appropriate exam, ordering medications,
tests and procedures. Time also includes documentation of this encounter, coordinating patient care and communicating with other healthcare professionals. Total time does not include separately billed tests performed on this date of service.
Diagnostic Data
Chest x-ray 03/18/2023: Rotated film. No acute infiltrates.
CXR 06-25-2023: No active cardiopulmonary disease.
CT Scan: AP 02/13/23- Findings suggesting enteritis/ileus. Findings suggesting sequelae of chronic terminal ileitis. Intertrochanteric left femur fracture.
Echo: 02/17/23- Normal left ventricular size and systolic function. No regional wall motion abnormalities are seen. LV ejection fraction is 65-70% by visual assessment. Mild concentric left ventricular hypertrophy. Normal diastolic function. Mildly
dilated left atrium. Mild aortic stenosis. Peak/mean gradients are 34/18mmHg. The valve area by continuity equation is 1.6cm sq, using a LVOT of 1.9cm.
Mild aortic regurgitation. When compared to prior echocardiogram from June 16, 2021, the left atrium is now mildly enlarged and otherwise there is no significant change.
Echocardiogram 02/17/2023: Normal LVEF. Mild LVH. Mild aortic stenosis. Mild AR
Nocturnal ox 07/27/15: time below 90% 1:22:18 (23.8%); time below 88% 46:20 (13.4%); O2 nicol 67%; ALICIA >10s 31.0
Subjective Dataa
Subjective Data
Date of Service:
Date of Service: June 25, 2023
Chief Complaint: Lead Front Desk Agent Follow Up (Shock, hyponatremia.)
Subjective:
Seen this AM. Remains awake and alert. Appetite is good. UOP 1.7L last 24 hrs with I/O last 24 hrs of -520cc. She endorses back pain today. She is on room air breathing comfortably.
Review of Systems
General: Other (Negative unless mentioned above)
Objective Data
Data Reviewed
Vital Signs / I&O / Oxygen:
Vital Signs
Temp Pulse Resp BP Pulse Ox
97.6 F 99 25 105/81 94
06/25/23 08:00 06/25/23 09:30 06/25/23 09:30 06/25/23 09:00 06/25/23 09:30
Intake and Output
06/24/23 06/25/23 06/26/23
06:59 06:59 06:59
Intake Total 720 / 720 1180 / 1295 355 / 355
Output Total 240 / 250 1700 / 2075 500 / 500
Balance 480 / 470 -520 / -780 -145 / -145
SaO2 94
Nasal Cannula flow liters per 2
minute
Physical Exam
General: Respiratory Distress (n) and Comfortable
HEENT: Normocephalic and Anicteric
Cardiovascular: S1-S2, Peripheral Edema (+2 LE edema b/l) and Other (RIJ HD cath)
Respiratory: Wheeze (Negative), Crackles (Negative), Non-Labored Respirations, Stridor (n) and Other (Coarse breath sounds bilaterally)
GI: Soft, Non Distended and Non Tender
Neurology: Awake, Alert, Other (weak) and Other (confused at times)
Skin: Warm, Dry and Other (Skin flaking with erythema seen on chest, lower abdomen, arms and legs; negative Nikolsky sign)
Labs/Micro/Reports
Lab Data
06/25/23 03:55
06/25/23 03:55
Microbiology
06/17/23 11:01 Blood/Venous Blood Culture - Final
No Growth - Final Report
06/15/23 18:58 Blood/Venous Blood Culture - Final
Klebsiella pneumoniae-ESBL
Acinet. baumannii/haemolyticus
06/15/23 18:58 Blood/Venous Gram Stain - Final
--- NOTE | 2023-06-25 10:13 | PTCARENOTE ---
Received from assistant casino shift manager RN, pt had a good night, was able to get some sleep after receiving dilaudid for pain. Pt currently not complaining of any acute pain, she states she feels stiff and her arms are heavy. Ox3, confused and forgetful. R radial
A line removed. Sinus tach (104) on tele, + 4 anasarca with + pulses. 96% on RA, breath sounds coarse and diminished. Round, obese ABD. Pt continues to have brown liquid stool. Rectal trumpet flushed with no leakage. Moore in place draining dark
yellow urine. MASD in groin, ABD folds, BL breasts. Pt turned, cleaned, moisturized and dressings changed. L PICC and R MIDLINE maintained. Pt makes needs known. Updated pt's dtr, Pia.
--- NOTE | 2023-06-25 11:26 | W.PN.HOSP.TC ---
Today's Communication/Plan
-
Bumex.
Midodrine.
Wound care per
IV antibiotics.
Reintroduce preadmission analgesic regimen with oxycodone/gabapentin.
Monitor for oversedation.
Assessment / Plan
Assessment / Plan
Impression:
Sepsis secondary to ESBL Klebsiella/Acinetobacter bacteremia.
Septic shock
Acute kidney failure requiring hemodialysis.
Acute on chronic bilateral lower extremity cellulitis
Toxic metabolic encephalopathy.
Acute on chronic hypoxic/hypercarbic respiratory failure.
Acute gastrointestinal hemorrhage
Acute blood loss anemia.
Hyponatremia.
Conditions prior to admission:
Prior history of streptococcal bacteremia strep bovis
Left hip intertrochanteric fracture status post ORIF 03/26.
Paroxysmal atrial flutter/SVT
� Not on anticoagulation due to hemorrhagic complications.
PAD with chronic lower extremity wounds
Diabetes type 2.
Morbid obesity with BMI of 46
Essential hypertension.
Anemia of chronic disease
History of right lower extremity deep venous thrombosis.
Dyslipidemia.
Obstructive sleep apnea, intolerant on CPAP on home O2 2 L.
Asthma
Chronic pain syndrome with opiate dependence.
Benzodiazepine dependence.
Meningioma removed.
Plan
Acute renal failure--oliguric--multifactorial including recurrent sepsis shock, hypotension, IV contrast--apprec renal--on CRRT;off levophed now--Avoid nephrotoxin--Patient was given trials of ethacrynic acid before hemodialysis--creat normal and
making some urine but still with significant third spacing --HD cath was clogged and needs to be replaced .
CRRT has been on hold with normal renal function. Initiated on Bumex. Continue diuresis. Continue midodrine monitor for worsening of hypotension.
ESBL Kleb pneumonia and Acinetobacter bacteremia--suspected translocation than urinary source--ESBL Klebsiella pneumonia is isolated in the urine but not Acinetobacter; ESBL Klebsiella pneumonia in the urine could be descending infection--Repeat
cultures are negative so far--WBC remains elevated and slowly trending down --CT of the abdomen pelvis with oral contrast done recently did not show any evidence of collections--On Cefiderocol-- CW ABX per ID.
Recurrent shock--suspected septic--currently Levophed is off ;aim for MAP of 65--ECHO 06/18 shows EF 65-70% with mild aortic stenosis--no vegetations seen
Recent cellulitis of left leg--MRSA colonized--s/p meropenem x 3 d--Completed linezolid 600mg po bid x through 06/08/2023 am
change in mental status - sec to metabolic encephalopathy --ABG was obtained it shows she has acute hypercapnic hypoxic respiratory failure--Resolved with BiPAP support -- pt doesn't tolerate CPAP/BIPAP -watch out for recurrence
Acute hypercapnic hypoxic respiratory failure--Patient with chronic hypoxic respiratory insufficiency on 2 L at home. She has history of sleep apnea but was not able to tolerate mask in the past. She is obese. Suspected respiratory distress
secondary to sleep apnea. Avoid sedation--BiPAP at 15/5 on 2 L of oxygen prn sleep--pt refusing--pulm following
Back on 2l with adequate oxygenation
Paroxysmal atrial fibrillation- QTc normal now. QTc in March 2023 was within normal limits. DC sotalol due to NOAM and low normal blood pressure--cards following
Acute GI bleed with acute blood loss anemia earlier in stay--No active bleeding currently--Had a full colonoscopy 06/10 and multiple polyps removed--Possible related to polyp after initial sigmoidoscopy and polyp resection-- -Bx results noted -no
malignancy .
Heme neg stools now 06/21
Needing transfusion support again - off of IV heparin now
Follow HH
aim to keep HH>7.0
Baseline Chronic normocytic anemia--ACD. Hemoglobin at baseline. Aim to keep it more than 7. No iron def.
Left arm PICC associated DVT --tx with AC for 1 month. On lovenox which was on hold because of previous bleeding and and acute renal failure--started on IV heparin--DOAC when stable--hematology input noted regarding this DVT--Her DVT was in axillary
vein extending into basilic--repeat US 06/19 negative for clot.Hold on AC.
Anasarca--suspect multifactorial including nutritional, renal failure
Hyponatremia--management per renal - acute on chronic .
Moderate protein caloric malnutrition, albumin 2.2-- albumin infusion to help oncotic pressure--did not help
Essential HTN - hold ARB due to hypotension and follow
DM 2 with hyperglycemia. Patient with poor oral intake. Hemoglobin A1c 7.1. Hold glimepiride and alogliptin--cortisol is ok . CW Lantus and SSI.
Recent Left Hip ORIF - OP CT hip noted - cw PT eval when able; Wound care/abx for left hip wound. Ortho input noted.
Prognosis remain poor with recurrent septic shock, bacteremia and renal failure needing support.
DW COMMUNICATIONS SUPERVISOR
Nutrition - speech recs noted - CW IDDSI 4 diet but at risk for aspiration
ISAAC 06/22 - Ok with diet recommendations. He understands the critical nature of her illness currently. He wants to make sure she is comfortable during her treatments. He wants us to make sure her pain is addressd ; does not want her to
suffer . He is taking day by day her progress and response to treatment and keep addressing goals of care depending on that. He does not think that she would tolerate any NG tubes. She did not tolerate her BiPAP. She does not like anybody to put
anything on her face or touch her hair! He doesnt think she would have wanted PEG either.
Code status--DNR
Total time spent on today's encounter was 52 minutes which included time spent in counseling the patient regarding diagnosis and treatment plan as listed above, goals of care, and symptom management. Case was discussed with nursing staff . All labs
and imaging personally reviewed by me. Remainder the time spent in detailed review of previous records, lab data, imaging, and other medical provider documentation.
Anticipated Discharge: > 48 hours
Subjective/Interval History
-
Date of Service: June 25, 2023
Objective Data
-
Labs:
Laboratory Results
06/25/23 06/25/23
03:55 18:00
WBC 16.7 H
Hgb 7.7 L
Hct 22.8 L
Plt Count 81 L
Sodium 135 Pending
Potassium 3.8 Pending
Chloride 105 Pending
Carbon Dioxide 22 Pending
BUN 10 Pending
Creatinine 0.9 Pending
Glucose 137 H Pending
Calcium 7.7 L Pending
Vital Signs:
Vital Signs
Temp Pulse Resp BP Pulse Ox
96.7 F L 105 17 103/66 95
06/25/23 11:01 06/25/23 11:00 06/25/23 11:00 06/25/23 11:00 06/25/23 11:00
I&O
06/24/23 06/25/23 06/26/23
06:59 06:59 06:59
Intake Total 720 / 720 1180 / 1295 595 / 595
Output Total 240 / 250 1700 / 2075 575 / 575
Balance 480 / 470 -520 / -780 20 / 20
Physical Exam
-
General: Well Developed and No Apparent Distress
HEENT: Normocephalic, Atraumatic and Moist Mucous Membranes
Respiratory: Clear to Auscultation
Cardiac: Regular Rhythm and S1/S2; Negative Murmur, Rub or Gallop
GI: Soft, Nontender, Nondistended and Normal Bowel Sounds; Negative Organomegaly
Rectal: Deferred by Provider
Musculoskeletal: No Clubbing, No Cyanosis and No Edema
Skin: Negative Rash
Neuro: Awake, Alert, Oriented and Nonfocal/Grossly Intact
[2023-06-25 12:40] LABS: Glucose - Point of Care 181 mg/dl (70-99)
[2023-06-25] MEDS: NOVOLOG FLEXPEN-HIGH RESISTANCE 1 UNITS SC (12:46)
--- NOTE | 2023-06-25 13:06 | W.PN.ID1 ---
Date of Service
Date of Service: June 25, 2023
Today's Communication
Continue cefiderocol through tomorrow am.
Assessment / Plan
# ESBL-Klebsiella, MDR-Acinetobacter bacteremia x 2 sets
# Leukocytosis trending down
# Thrombocytopenia improved today
# s/p Septic shock off pressors
# NOAM, s/p CRRT. Now making urine
# Extensive abx/drug allergies. Tolerated meropenem and linezolid in the past.
- Source of bacteremia likely from colon translocation after recent resection of multiple polyps with associated GIB; less likely urine source (only ESBL in urine)
- Repeat blood cx's neg
--> Continue cefiderocol (dosed for renal function) (day 7 of 7) to cover for both MDR-Klebsiella/Acinetobacter
- Trend vitals, wbc, plt
# s/p Diarrhea
- C. diff neg x2 /norovirus negative
# Intraluminal colon mass
- hx Strep bovis bacteremia 02/11/2023, treated.
- 06/10/23 s/p sigmoidoscopy, removal of several polyps.
- 06/11/23 s/p colonoscopy, removal of multiple polyps, clipping of ulcer in sigmoid
- Biopsies: tubular adenomas with focal high grade dysplasia, and tubulovillous adenomas
# s/pLLE cellulitis - resolved
# Lymphedema
-Completed linezolid 600mg po bid through 06/08/2023 am
- Continue BLE compression
# s/p Drug rash resolved off furosemide
# LUE picc associated DVT
- PICC dc'd
# Left hip incision wound clean without infection
- cx skin [place]
#Additional Past Medical History:
Diabetes mellitus
Class III obesity BMI 49
Lymphedema
Obstructive sleep apnea
A flutter status post ablation
hypertension
cellulitis
Asthma
Dyslipidemia
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
Meningioma s/p resection
Chronic back pain
Cholecystectomy
Bilateral oophorectomy
Left hip fracture s/p gamma nailing 02/16/23
Chief Complaint
-: Leukocytosis, Clinical Sepsis and Bacteremia
Subjective / Review of Systems
More alert today. Does not know where she is.
Vital Signs / Physical Exam
Vital Signs
Vital Signs
Temp Pulse Resp BP Pulse Ox
96.7 F L 107 20 128/82 96
06/25/23 11:01 06/25/23 13:02 06/25/23 13:02 06/25/23 13:02 06/25/23 13:02
Physical Exam
Constitutional: Acutely Ill
Cardiovascular: Regular Rate and S1/S2
Pulmonary: Clear
Gastrointestinal: Soft, Non Tender and Non Distended
Genito-Urinary: Moore
Skin: Rash (Dry peeling skin on arms/thighs)
Objective Data
Lab Data
Lab Results
06/25/23 03:55
PT 13.1 Sec (11.4-14.6) 06/02/23 09:23
INR 1.01 06/02/23 09:23
APTT 45.5 Sec (23.4-35.0) H 06/24/23 05:42
Estimated Creat Clear 63 ml/min 06/25/23 03:55
Lactic Acid 0.9 mmol/L (0.7-2.0) 06/13/23 09:53
Total Bilirubin 1.1 mg/dl (0.2-1.3) 06/23/23 04:13
AST 25 U/L (14-36) 06/23/23 04:13
ALT 12 U/L (0-35) 06/23/23 04:13
Alkaline Phosphatase 132 U/L (38-126) H 06/23/23 04:13
Most recent labs reviewed.
Micro Results:
06/17/23 11:01 Blood Culture - Final
Blood/Venous No Growth - Final Report
06/15/23 18:58 Blood Culture - Final
Blood/Venous Klebsiella pneumoniae-ESBL
Acinet. baumannii/haemolyticus
Gram Stain - Final
06/16/23 16:36 Blood Culture - Final
Blood/Venous No Growth - Final Report
06/16/23 08:49 Blood Culture - Final
Blood/Venous No Growth - Final Report
06/16/23 10:02 Blood Culture - Final
Blood/Venous Klebsiella pneumoniae-ESBL
Acinet. baumannii/haemolyticus
Gram Stain - Final
06/16/23 05:11 Urine Culture - Final
Urine Klebsiella pneumoniae-ESBL
06/16/23 05:11 Stool Leukocytes - Final
Feces/Stool
06/16/23 05:11 C. difficile GDH Antigen & Toxins - Final
Feces/Stool Negative for toxigenic C.difficile
06/07/23 23:53 - Final
Feces/Stool Negative for Norovirus GI and GII.
06/03/23 10:41 Blood Culture - Final
Blood/Venous No Growth - Final Report
06/03/23 10:41 Blood Culture - Final
Blood/Venous No Growth - Final Report
06/02/23 05:52 Blood Culture - Final
Blood/Venous Coagulase neg. staphylococcus
Additional testing on request
Gram Stain - Final
06/02/23 05:52 Blood Culture - Final
Blood/Venous No Growth - Final Report
06/02/23 13:24 Wound Culture - Final
Hip - Left Gram Stain - Final
06/02/23 13:23 MRSA Screen - Final
Nose Staph aureus MRSA
06/02/23 13:25 Urine Culture - Final
Urine NO GROWTH
06/02/23 18:34 C. difficile GDH Antigen & Toxins - Final
Feces/Stool Negative for toxigenic C.difficile
Imaging:
06/25/23 CXR: no active disease
06/18/23 CXR: no active disease
06/14/23 CXR: Hypo-aerated lungs without consolidation.
06/08/23 CT a/p: MILD ACUTE INFECTIOUS PANCOLITIS with mild fluid distention of the proximal colon and mild wall thickening and mucosal hyperenhancement in the distal colon and rectum. 1.5 cm intraluminal mass in the descending colon-sigmoid colon
junction suspicious for a large colonic polyp (possibly adenocarcinoma). Mild diffuse small bowel distention.
06/02/23 CXR: clear lungs
05/28/23 CT LLE: ORIF of an intertrochanteric/subtrochanteric fracture. The fracture plane remains evident, but there is some callus and heterotopic ossification about the fracture site.
[2023-06-25] MEDS: ROXICODONE 5 MG PO ×2 (16:09→21:32)
[2023-06-25] MEDS: NEURONTIN 100 MG PO ×2 (16:09→21:17)
[2023-06-25] MEDS: HEPARIN 5000 UNITS SC (16:09)
[2023-06-25 16:42] LABS: Glucose - Point of Care 214 mg/dl (70-99)
[2023-06-25 18:25] LABS: Blood Urea Nitrogen 13 mg/dl (7-17); Calcium 7.4 mg/dl (8.4-10.2); Carbon Dioxide 23 mmol/L (22-30); Chloride 101 mmol/L (98-107); Estimated Creatinine Clearance 56 ml/min; Glucose 182 mg/dl (70-99); Potassium 3.6 mmol/L (3.5-5.1); Sodium 133 mmol/L (135-145); eGFR > 60.00
[2023-06-25] MEDS: NOVOLOG FLEXPEN-HIGH RESISTANCE 4 UNITS SC (19:20)
[2023-06-25] MEDS: LIPITOR 20 MG PO (19:20)
[2023-06-25] MEDS: FLEXERIL 5 MG PO (21:17)
[2023-06-25] MEDS: ATIVAN 1 MG PO (21:17)
[2023-06-25 21:59] LABS: Glucose - Point of Care 187 mg/dl (70-99)
[2023-06-25] MEDS: LANTUS 0.100000000000000006 UNITS SC (22:46)
[2023-06-26] VITALS (13 sets, daily range): BP systolic 72–111; BP diastolic 29–91; BMI 45.8
[2023-06-26] MEDS: BUMEX 2 MG IV (00:22)
[2023-06-26] MEDS: HEPARIN 5000 UNITS SC ×4 (00:22→23:02)
--- NOTE | 2023-06-26 02:01 | PTCARENOTE ---
ax2 with confusion at times- sinus bp wnl- good urine output in esposito- will tally at the end of shift. rectal trumpet without leakage-
[2023-06-26 04:49] LABS: Hematocrit 23.8 % (37.0-47.0); Hemoglobin 7.8 g/dL (12.0-16.0); Mean Corp Hgb Conc. 32.8 g/dL (33.0-37.0); Mean Corpuscular Hgb 29.1 pg (27.0-31.0); Mean Corpuscular Volume 88.8 fL (81.0-99.0); Mean Platelet Volume 11.8 fL (7.4-10.4); Nucleated Red Blood Cells % 0.3 %; Platelet Count 85 10^3/uL (130-400); Red Blood Cell Count 2.68 10^6/uL (4.20-5.40); Red Cell Dist. Width 15.7 % (11.5-14.5); White Blood Cell Count 16.7 10^3/uL (4.8-10.8)
[2023-06-26 05:29] LABS: Blood Urea Nitrogen 15 mg/dl (7-17); Calcium 7.4 mg/dl (8.4-10.2); Carbon Dioxide 26 mmol/L (22-30); Chloride 102 mmol/L (98-107); Estimated Creatinine Clearance 51 ml/min; Glucose 74 mg/dl (70-99); Potassium 3.4 mmol/L (3.5-5.1); Sodium 136 mmol/L (135-145); eGFR 55.42
[2023-06-26] MEDS: FETROJA 116.799999999999997 MG IV ×2 (05:53→15:02)
--- NOTE | 2023-06-26 05:59 | PTCARENOTE ---
Moore with 900 ml out- bp wnl- afebrile- sinus tach. remains ax2 with confusion. rash unchanged
--- NOTE | 2023-06-26 06:22 | PTCARENOTE ---
k 3.4- waiter waitress ordered rider- see out in vaibhav
[2023-06-26] MEDS: KCL 270 MEQ IV (06:36)
[2023-06-26 07:37] LABS: Glucose - Point of Care 82 mg/dl (70-99)
[2023-06-26 07:39] LABS: Lymphocytes 28 % (20-51)
[2023-06-26 07:40] LABS: Band Neutrophils 6 % (0-3); Metamyelocytes 1 % (-); Monocytes 2 % (2-9); Myelocytes 3 % (-); Platelets Checked Yes; Segmented Neutrophils 60 % (42-75)
[2023-06-26 07:41] LABS: Anisocytosis 1+; Hypochromasia 1+; Normal RBC Morphology No; Total Cells Counted 100
--- NOTE | 2023-06-26 08:00 | PTCARENOTE ---
received patient from maintenance technician 2nd shift, patient is AAO to self, speaking fast, keeps asking for water, tea, any beverage. explained to patient that we are starting Bumex gtt and will be trying to diurese her. Patient is on room air 97%. Patient is in
a sinus tach, low BP, MAP is 60, patient has generalized edema, +4 throughout, skin is actively weeping from various areas, to be documented in focused shift assessment. Moore and rectal trumpet in place and draining. ISAAC wraps to bilateral lower
extremities. Patient is unable to lift arms, PICC line to left upper extremitiy, midline to right upper extremity and right HD cath. Will review orders, call frances within reach.
--- NOTE | 2023-06-26 08:03 | W.PN.NEPH.PH ---
Today's Communication / Plan
-
Will change to Bumex drip 1 mg/h to augment diuresis
Repleted K
Assessment/Plan
-
IMP:
Hyponatremia-acute on chronic
NOAM with significant azotemia
suspected septic shock/gram-negative bacilli bacteremia
hypoglycemia
Hypomagnesemia
TME
HX Paroxysmal AF- Not on anticoagulation due to hemorrhagic complications in the past
Chronic anemia
Essential HTN
T2DM
Chronic pain syndrome on chronic opioids
SISI - CPAP
Morbid obesity due to excess calories
PAD
h/o left hip fx s/p ORIF 01/2023
Plan:
-Creatinine up to 1.1 but grossly nonoliguric ~ 2 liters
-Replete K earlier this am
-Reviewed chest x-ray from 06/25/2023 no congestive heart failure
-Patient remains hypotensive maintaining midodrine
-Maintain sodium bicarbonate for metabolic acidosis
-await HIT
-Changed to Bumex drip 1 mg/h to augment diuresis as patient remains grossly volume overloaded
-abx continue
-If we are unable to remove volume she may need to return to dialysis, however at that point family will need to decide if usp dialysis is acceptable
-
-
Date of Service: June 26, 2023
CC / HPI / ROS
-
Chief Complaint:
NOAM, hyponatremia
History of Present Illness:
Currently off CRRT
Platelets low but stable now
hgb remains low
Remains hypotensive on midodrine
rash improving
Creatinine up to 1.1
critically ill in ICU
Review of Systems:
on 2L NC
Nonoliguric via Moore ~ 2 liters
Labs
-
Labs:
WBC 16.7 10^3/uL (4.8-10.8) H 06/26/23 04:33
RBC 2.68 10^6/uL (4.20-5.40) L 06/26/23 04:33
Hgb 7.8 g/dL (12.0-16.0) L 06/26/23 04:33
Hct 23.8 % (37.0-47.0) L 06/26/23 04:33
Plt Count 85 10^3/uL (130-400) L 06/26/23 04:33
Sodium 136 mmol/L (135-145) 06/26/23 04:33
Potassium 3.4 mmol/L (3.5-5.1) L 06/26/23 04:33
Chloride 102 mmol/L (98-107) 06/26/23 04:33
Carbon Dioxide 26 mmol/L (22-30) 06/26/23 04:33
BUN 15 mg/dl (7-17) 06/26/23 04:33
Creatinine 1.1 mg/dL (0.6-1.0) H 06/26/23 04:33
eGFR 55.42 06/26/23 04:33
Glucose 74 mg/dl (70-99) 06/26/23 04:33
Calcium 7.4 mg/dl (8.4-10.2) L 06/26/23 04:33
Phosphorus 2.4 mg/dl (2.5-4.5) L 06/23/23 04:13
Nyz-Q-Frfsquvzjap Pept 633 pg/ml 06/02/23 05:09
Albumin 2.0 g/dl (3.5-5.0) L 06/23/23 04:13
Physical Exam
-
Vital Signs:
Vital Signs
Temp Pulse Resp BP Pulse Ox
98.4 F 111 15 100/50 92
06/26/23 07:54 06/26/23 06:01 06/26/23 06:01 06/26/23 06:01 06/26/23 06:01
Cardiovascular:: Regular rate and rhythm
Respiratory:: Bilateral: Coarse
Lung Excursion:: Normal
Abdomen:: Nontender
Bowel Sounds:: Decreased
Extremity Edema:: +3: Bilateral:
Moore Catheter: Yes
[2023-06-26] MEDS: DESENEX/MITRAZOL/ZEASORB 1 APPLIC TOPICAL ×2 (09:11→21:04)
[2023-06-26] MEDS: NOVOLOG FLEXPEN-HIGH RESISTANCE SC (09:11)
[2023-06-26] MEDS: PROTONIX 40 MG PO ×2 (09:12→21:05)
[2023-06-26] MEDS: PACERONE 200 MG PO (09:12)
[2023-06-26] MEDS: VITAMIN D3 (cholecalciferol) 125 MCG PO (09:12)
[2023-06-26] MEDS: ROXICODONE 5 MG PO ×3 (09:12→21:05)
[2023-06-26] MEDS: SODIUM BICARBONATE 325 MG PO ×3 (09:12→21:05)
[2023-06-26] MEDS: NEURONTIN 100 MG PO ×3 (09:12→21:05)
[2023-06-26] MEDS: ProAmatine 5 MG PO ×2 (09:13→12:54)
[2023-06-26] MEDS: OSCAL CAL 500 1000 MG PO ×2 (09:13→21:05)
[2023-06-26] MEDS: BUMEX IV (09:20)
[2023-06-26] MEDS: BUMEX 50 IV (09:28)
--- NOTE | 2023-06-26 11:05 | PTCARENOTE ---
extensive bed bath and linen change completed with WOC nurse. Entire body is red, inflamed, warm, sloughing, Dr. Gaines and Dr. Lozano at bedside. Bumex gtt has been discontinued.
--- NOTE | 2023-06-26 11:44 | W.PN.UPDATE ---
Update Note
Progress Note Update
Patient with red rash accompanied by skin peeling of torso and proximal upper and lower extremities
Concern for drug-induced reaction
We will immediately discontinue Bumex
Unfortunately she is now intolerant of every diuretic
She remains hypervolemic and our only options are to push forward with dialysis modalities
Unfortunately she is hemodynamically unstable and will likely not tolerate conventional dialysis
Unfortunately long-term CRRT is not an option especially as the patient has repeatedly clotted her filters on CRRT and cannot be treated with heparin due to thrombocytopenia
--- NOTE | 2023-06-26 11:45 | PTCARENOTE ---
Assisted WOC nurse in full bed bath and skin assessment/care. Hair on bilateral sides of back of head was noted to be matted, attempted to brush and comb out unsuccessfully. Hair pulling at skin, deemed a risk for further pressure sores. Took
picture of patient's hair at patient's request and asked her if it would be ok to remove/cut. Patient agreed, two areas of hair cut off, remaining hair brushed and cleansed.
--- NOTE | 2023-06-26 11:48 | WOUNDNOTE ---
LEFT LATERAL LEG
--- NOTE | 2023-06-26 11:52 | WOUNDNOTE ---
RIGHT POSTERIOR ARM
--- NOTE | 2023-06-26 11:54 | WOUNDNOTE ---
RIGHT ARM/ABDOMEN
[2023-06-26] MEDS: NOVOLOG FLEXPEN-HIGH RESISTANCE 1 UNITS SC (12:52)
[2023-06-26 13:07] LABS: Glucose - Point of Care 117 mg/dl (70-99)
[2023-06-26] MEDS: ATIVAN 0.5 MG PO (13:34)
[2023-06-26] MEDS: FLEXERIL 5 MG PO (13:34)
--- NOTE | 2023-06-26 14:11 | WOUNDNOTE ---
[facility] RN NOTE: Patient visited to follow up on skin/wounds. RN's Abida Ríos and Jack present during assessment and provided extensive bed bath, care of skin and linen change. Patient awake, alert, c/o of skin feeling 'sore.' Patient has bright red
skin with skin sloughing of legs, abdomen, shoulders and back. Hospitalist aware and assessed skin at bedside. Patient continues with small stage 2 PI vs abrasion of right lower buttock, Calazime and silicone foam applied. Sacrum is reddened/purple
but blanchable. Continue with use of barrier ointment or silicone foam. FMS and esposito intact for moisture management. Left lateral leg wound with pink wound base and scant drainage, may continue care as ordered. Patient has multiple areas of MASD
between groin, breast and abdominal folds. Continue to keep areas clean and apply Calazime and anti-fungal powder. Right posterior arms with MASD due to edema vs friction/shearing. The arm was cleaned and covered with clear barrier ointment, ABD and
spandage. Heels intact. Patient was positioned on left side with heels off-loaded on pillows. Will continue to follow as needed.
--- NOTE | 2023-06-26 15:12 | CM ---
CM following re: discharger planning.
Discussed in Rounds, reviewed pt's chart, mt with pt and spoke to pt's Sergo. Per MD pt is hemodynamically unstable and will likely not tolerate conventional dialysis and long-term CRRT is not an option.
D/C plan: uncertain at this time and will depend on pt's progress.
CM will follow with discharge plan updates as hospitalization progresses.
--- NOTE | 2023-06-26 15:25 | W.PN.ID1 ---
Date of Service
Date of Service: June 26, 2023
Today's Communication
Completed cefiderocol today.
Observe off abx.
Assessment / Plan
# ESBL-Klebsiella, MDR-Acinetobacter bacteremia x 2 sets
- Source of bacteremia likely from colon translocation after recent resection of multiple polyps with associated GIB; less likely urine source (only ESBL in urine)
- Repeat blood cx's neg
Completed 7 days cefiderocol 06/26/23
# Leukocytosis stable
# Thrombocytopenia improving off CRRT
# s/p Septic shock off pressors
# NOAM, s/p CRRT.
# Extensive abx/drug allergies. Tolerated meropenem and linezolid in the past.
# Drug rash from bumetanide.
# s/p Diarrhea
- C. diff neg x2 /norovirus negative
# Intraluminal colon mass
- hx Strep bovis bacteremia 02/11/2023, treated.
- 06/10/23 s/p sigmoidoscopy, removal of several polyps.
- 06/11/23 s/p colonoscopy, removal of multiple polyps, clipping of ulcer in sigmoid
- Biopsies: tubular adenomas with focal high grade dysplasia, and tubulovillous adenomas
# s/pLLE cellulitis - resolved
# Lymphedema
-Completed linezolid 600mg po bid through 06/08/2023 am
- Continue BLE compression
# s/p recent drug rash resolved off furosemide
# LUE picc associated DVT
- PICC dc'd
# Left hip incision wound clean without infection
- cx skin [place]
#Additional Past Medical History:
Diabetes mellitus
Class III obesity BMI 49
Lymphedema
Obstructive sleep apnea
A flutter status post ablation
hypertension
cellulitis
Asthma
Dyslipidemia
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
Meningioma s/p resection
Chronic back pain
Cholecystectomy
Bilateral oophorectomy
Left hip fracture s/p gamma nailing 02/16/23
Chief Complaint
-: Leukocytosis, Clinical Sepsis and Bacteremia
Subjective / Review of Systems
Events noted. Patient developed significant diffuse rash on bumetanide.
Vital Signs / Physical Exam
Vital Signs
Vital Signs
Temp Pulse Resp BP Pulse Ox
98.8 F 107 18 77/49 95
06/26/23 15:23 06/26/23 12:00 06/26/23 12:00 06/26/23 12:54 06/26/23 12:00
Physical Exam
Constitutional: Acutely Ill
Eyes: Sclera Anicteric
Cardiovascular: Other (Tachycardic)
Pulmonary: Clear
Gastrointestinal: Soft and Non Tender
Extremities: Edema (anasarca)
Skin: Rash (Reviewed today's wound photos: Diffuse bright erythema, peeling skin on back, thighs, arms)
Neurological: Awake
Lines: PICC
Objective Data
Lab Data
Lab Results
06/26/23 04:33
PT 13.1 Sec (11.4-14.6) 06/02/23 09:23
INR 1.01 06/02/23 09:23
APTT 45.5 Sec (23.4-35.0) H 06/24/23 05:42
Estimated Creat Clear 51 ml/min 06/26/23 04:33
Lactic Acid 0.9 mmol/L (0.7-2.0) 06/13/23 09:53
Total Bilirubin 1.1 mg/dl (0.2-1.3) 06/23/23 04:13
AST 25 U/L (14-36) 06/23/23 04:13
ALT 12 U/L (0-35) 06/23/23 04:13
Alkaline Phosphatase 132 U/L (38-126) H 06/23/23 04:13
Most recent labs reviewed.
Micro Results:
06/17/23 11:01 Blood Culture - Final
Blood/Venous No Growth - Final Report
06/15/23 18:58 Blood Culture - Final
Blood/Venous Klebsiella pneumoniae-ESBL
Acinet. baumannii/haemolyticus
Gram Stain - Final
06/16/23 16:36 Blood Culture - Final
Blood/Venous No Growth - Final Report
06/16/23 08:49 Blood Culture - Final
Blood/Venous No Growth - Final Report
06/16/23 10:02 Blood Culture - Final
Blood/Venous Klebsiella pneumoniae-ESBL
Acinet. baumannii/haemolyticus
Gram Stain - Final
06/16/23 05:11 Urine Culture - Final
Urine Klebsiella pneumoniae-ESBL
06/16/23 05:11 Stool Leukocytes - Final
Feces/Stool
06/16/23 05:11 C. difficile GDH Antigen & Toxins - Final
Feces/Stool Negative for toxigenic C.difficile
06/07/23 23:53 - Final
Feces/Stool Negative for Norovirus GI and GII.
06/03/23 10:41 Blood Culture - Final
Blood/Venous No Growth - Final Report
06/03/23 10:41 Blood Culture - Final
Blood/Venous No Growth - Final Report
06/02/23 05:52 Blood Culture - Final
Blood/Venous Coagulase neg. staphylococcus
Additional testing on request
Gram Stain - Final
06/02/23 05:52 Blood Culture - Final
Blood/Venous No Growth - Final Report
06/02/23 13:24 Wound Culture - Final
Hip - Left Gram Stain - Final
06/02/23 13:23 MRSA Screen - Final
Nose Staph aureus MRSA
06/02/23 13:25 Urine Culture - Final
Urine NO GROWTH
06/02/23 18:34 C. difficile GDH Antigen & Toxins - Final
Feces/Stool Negative for toxigenic C.difficile
Imaging:
06/25/23 CXR: no active disease
06/18/23 CXR: no active disease
06/14/23 CXR: Hypo-aerated lungs without consolidation.
06/08/23 CT a/p: MILD ACUTE INFECTIOUS PANCOLITIS with mild fluid distention of the proximal colon and mild wall thickening and mucosal hyperenhancement in the distal colon and rectum. 1.5 cm intraluminal mass in the descending colon-sigmoid colon
junction suspicious for a large colonic polyp (possibly adenocarcinoma). Mild diffuse small bowel distention.
06/02/23 CXR: clear lungs
05/28/23 CT LLE: ORIF of an intertrochanteric/subtrochanteric fracture. The fracture plane remains evident, but there is some callus and heterotopic ossification about the fracture site.
--- NOTE | 2023-06-26 15:39 | PTCARENOTE ---
Patient oriented to self, place, oriented patient to situation when at bedside. Patient's became very upset with this RN. Explained to patient and family that I have continued to explain patient's plan of care as day has gone on.
was upset and does not want his knowing about specific details of her illness. Offered supportive care.
--- NOTE | 2023-06-26 16:03 | W.PN.HOSP.TC ---
Today's Communication/Plan
-
Hold Bumex given drug reaction.
Ongoing goals of care discussion.
Assessment / Plan
Assessment / Plan
Impression:
Sepsis secondary to ESBL Klebsiella/Acinetobacter bacteremia.
Septic shock
Acute kidney failure requiring hemodialysis.
Acute on chronic bilateral lower extremity cellulitis
Toxic metabolic encephalopathy.
Acute on chronic hypoxic/hypercarbic respiratory failure.
Acute gastrointestinal hemorrhage
Acute blood loss anemia.
Hyponatremia.
Left upper extremity DVT related to PICC line.
Conditions prior to admission:
Prior history of streptococcal bacteremia strep bovis
Left hip intertrochanteric fracture status post ORIF 03/26.
Paroxysmal atrial flutter/SVT
� Not on anticoagulation due to hemorrhagic complications.
PAD with chronic lower extremity wounds
Diabetes type 2.
Morbid obesity with BMI of 46
Essential hypertension.
Anemia of chronic disease
History of right lower extremity deep venous thrombosis.
Dyslipidemia.
Obstructive sleep apnea, intolerant on CPAP on home O2 2 L.
Asthma
Chronic pain syndrome with opiate dependence.
Benzodiazepine dependence.
Meningioma removed.
Plan
Acute renal failure--oliguric--multifactorial including recurrent sepsis shock, hypotension, IV contrast--apprec renal--on CRRT;off levophed now--Avoid nephrotoxin--Patient was given trials of ethacrynic acid before hemodialysis--creat normal and
making some urine but still with significant third spacing --HD cath was clogged and needs to be replaced .
CRRT has been on hold with normal renal function. Initiated on Bumex. Developed body rash with concern for severe drug reaction, Bumex had been discontinued. Patient with allergy to sulfa drug had similar allergic reaction while on furosemide.
ESBL Kleb pneumonia and Acinetobacter bacteremia--suspected translocation than urinary source--ESBL Klebsiella pneumonia is isolated in the urine but not Acinetobacter; ESBL Klebsiella pneumonia in the urine could be descending infection--Repeat
cultures are negative so far--WBC remains elevated and slowly trending down --CT of the abdomen pelvis with oral contrast done recently did not show any evidence of collections--On Cefiderocol--
Completed antibiotics on 06/25
Diffuse peeling skin rash with concern for drug reaction. Possibly due to loop diuretics given the patient with history of sulfa allergies. She did had similar reaction about the furosemide improved after medication discontinued. She developed
similar reaction while on Bumex and latest had been discontinued on 06/25. Continue skin care. Monitor closely.
Left upper extremity DVT related to PICC line. Difficult IV access. Monitor closely.
Recurrent shock--suspected septic--currently Levophed is off ;aim for MAP of 65--ECHO 06/18 shows EF 65-70% with mild aortic stenosis--no vegetations seen
Recent cellulitis of left leg--MRSA colonized--s/p meropenem x 3 d--Completed linezolid 600mg po bid x through 06/08/2023 am
change in mental status - sec to metabolic encephalopathy --ABG was obtained it shows she has acute hypercapnic hypoxic respiratory failure--Resolved with BiPAP support -- pt doesn't tolerate CPAP/BIPAP -watch out for recurrence
Acute hypercapnic hypoxic respiratory failure--Patient with chronic hypoxic respiratory insufficiency on 2 L at home. She has history of sleep apnea but was not able to tolerate mask in the past. She is obese. Suspected respiratory distress
secondary to sleep apnea. Avoid sedation--BiPAP at 15/5 on 2 L of oxygen prn sleep--pt refusing--pulm following
Back on 2l with adequate oxygenation
Paroxysmal atrial fibrillation- QTc normal now. QTc in March 2023 was within normal limits. DC sotalol due to NOAM and low normal blood pressure--cards following
Acute GI bleed with acute blood loss anemia earlier in stay--No active bleeding currently--Had a full colonoscopy 06/10 and multiple polyps removed--Possible related to polyp after initial sigmoidoscopy and polyp resection-- -Bx results noted -no
malignancy .
Heme neg stools now 06/21
Needing transfusion support again - off of IV heparin now
Follow HH
aim to keep HH>7.0
Baseline Chronic normocytic anemia--ACD. Hemoglobin at baseline. Aim to keep it more than 7. No iron def.
Left arm PICC associated DVT --tx with AC for 1 month. On lovenox which was on hold because of previous bleeding and and acute renal failure--started on IV heparin--DOAC when stable--hematology input noted regarding this DVT--Her DVT was in axillary
vein extending into basilic--repeat US 06/19 negative for clot.Hold on AC.
Anasarca--suspect multifactorial including nutritional, renal failure
Hyponatremia--management per renal - acute on chronic .
Moderate protein caloric malnutrition, albumin 2.2-- albumin infusion to help oncotic pressure--did not help
Essential HTN - hold ARB due to hypotension and follow
DM 2 with hyperglycemia. Patient with poor oral intake. Hemoglobin A1c 7.1. Hold glimepiride and alogliptin--cortisol is ok . CW Lantus and SSI.
Recent Left Hip ORIF - OP CT hip noted - cw PT eval when able; Wound care/abx for left hip wound. Ortho input noted.
Prognosis remain poor with recurrent septic shock, bacteremia and renal failure needing support.
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
Nutrition - speech recs noted - CW IDDSI 4 diet but at risk for aspiration
ISAAC 06/22 - Ok with diet recommendations. He understands the critical nature of her illness currently. He wants to make sure she is comfortable during her treatments. He wants us to make sure her pain is addressd ; does not want her to
suffer . He is taking day by day her progress and response to treatment and keep addressing goals of care depending on that. He does not think that she would tolerate any NG tubes. She did not tolerate her BiPAP. She does not like anybody to put
anything on her face or touch her hair! He doesnt think she would have wanted PEG either.
Long discussion with patient's in presence of nephrology on 06/25. Patient with multiple comorbidities, bedbound prior to admission multiple hospitalizations, not recovering well after hip fracture in March. This prolonged hospitalization
with severe sepsis, gram-negative bacteremia, acute kidney injury requiring hemodialysis, profound anasarca in addition with cognitive overall performance status. Limited options to treat including hemodialysis given profound hypotension. With
idea of not to harm them as per wishes to keep patient comfortable hospice option has been discussed. Further goals of care discussion to follow.
Code status--DNR
Total time spent on today's encounter was 52 minutes which included time spent in counseling the patient regarding diagnosis and treatment plan as listed above, goals of care, and symptom management. Case was discussed with nursing staff . All labs
and imaging personally reviewed by me. Remainder the time spent in detailed review of previous records, lab data, imaging, and other medical provider documentation.
Anticipated Discharge: > 48 hours
Subjective/Interval History
-
Date of Service: June 26, 2023
Objective Data
-
Labs:
Laboratory Results
06/26/23 06/26/23
04:33 15:00
WBC 16.7 H
Hgb 7.8 L
Hct 23.8 L
Plt Count 85 L
Sodium 136 Pending
Potassium 3.4 L Pending
Chloride 102 Pending
Carbon Dioxide 26 Pending
BUN 15
Creatinine 1.1 H
Glucose 74
Calcium 7.4 L
Vital Signs:
Vital Signs
Temp Pulse Resp BP Pulse Ox
98.8 F 107 18 77/49 95
06/26/23 15:23 06/26/23 12:00 06/26/23 12:00 06/26/23 12:54 06/26/23 12:00
I&O
06/25/23 06/26/23 06/27/23
06:59 06:59 06:59
Intake Total 1180 / 1295 1431 / 1431
Output Total 1700 / 2075 2450 / 2450
Balance -520 / -780 -1019 / -1019
Physical Exam
-
General: Well Developed and No Apparent Distress
HEENT: Normocephalic, Atraumatic and Moist Mucous Membranes
Respiratory: Clear to Auscultation
Cardiac: Regular Rhythm and S1/S2; Negative Murmur, Rub or Gallop
GI: Soft, Nontender, Nondistended and Normal Bowel Sounds; Negative Organomegaly
Rectal: Deferred by Provider
Musculoskeletal: No Clubbing, No Cyanosis and No Edema
Skin: Rash (Diffuse peeling erythema involving trunk and extremities.)
Neuro: Awake, Alert and Nonfocal/Grossly Intact
[2023-06-26 16:29] LABS: Glucose - Point of Care 218 mg/dl (70-99)
[2023-06-26] MEDS: NOVOLOG FLEXPEN-HIGH RESISTANCE 4 UNITS SC (16:32)
[2023-06-26] MEDS: LIPITOR 20 MG PO (17:43)
[2023-06-26] MEDS: ProAmatine 10 MG PO (17:43)
--- NOTE | 2023-06-26 17:49 | PTCARENOTE ---
Addendum entered by Therese Pimentel RN 06/26/23 17:49:
Eder is aware of the Ultrasound with PICC. Due to access and patient's condition, PICC to remain in. Vascular team made aware. Midodrine dose up to 10TID>
Original Note:
Patient is written for telemetry status. Ongoing goals of care discussions had with family and physician.
[2023-06-26] MEDS: ATIVAN 1 MG PO (21:05)
[2023-06-26] MEDS: LANTUS 0.100000000000000006 UNITS SC (21:18)
[2023-06-26 21:27] LABS: Glucose - Point of Care 198 mg/dl (70-99)
[2023-06-27] VITALS (7 sets, daily range): BP systolic 60–109; BP diastolic 37–77; BMI 45.8
[2023-06-27 05:53] LABS: Blood Urea Nitrogen 20 mg/dl (7-17); Calcium 6.8 mg/dl (8.4-10.2); Carbon Dioxide 27 mmol/L (22-30); Chloride 104 mmol/L (98-107); Estimated Creatinine Clearance 47 ml/min; Glucose 113 mg/dl (70-99); Potassium 3.7 mmol/L (3.5-5.1); Sodium 134 mmol/L (135-145); eGFR 49.92
[2023-06-27] MEDS: CALCIUM GLUCONATE 100 IV (06:40)
[2023-06-27] MEDS: NEURONTIN 100 MG PO ×3 (07:49→21:22)
[2023-06-27] MEDS: SODIUM BICARBONATE 325 MG PO ×3 (07:49→21:21)
[2023-06-27] MEDS: PROTONIX 40 MG PO (07:49)
[2023-06-27] MEDS: HEPARIN 5000 UNITS SC (07:49)
[2023-06-27] MEDS: ROXICODONE 5 MG PO ×3 (07:49→21:21)
[2023-06-27] MEDS: OSCAL CAL 500 1000 MG PO (07:49)
[2023-06-27 07:50] LABS: Glucose - Point of Care 122 mg/dl (70-99)
[2023-06-27] MEDS: VITAMIN D3 (cholecalciferol) 125 MCG PO (07:50)
[2023-06-27] MEDS: ProAmatine 10 MG PO (07:51)
[2023-06-27] MEDS: PACERONE 200 MG PO (07:51)
[2023-06-27] MEDS: DESENEX/MITRAZOL/ZEASORB 1 APPLIC TOPICAL (07:52)
[2023-06-27] MEDS: FLEXERIL 5 MG PO (08:05)
[2023-06-27] MEDS: NOVOLOG FLEXPEN-HIGH RESISTANCE 1 UNITS SC (08:08)
--- NOTE | 2023-06-27 08:13 | PTCARENOTE ---
0700 patient in bed. awake and alert time and person. General pain. Schedule Oxycodone 5 mg schedule and Flexeril adm per prn order. Accu check 122/1 unit per high sliding scale administered. pt on contact isolation. on RA . BP 97/77 MAP 88 sT 109;
RR 20 POX [id number]. Indwelling Moore draing cloudy dark urine. Rectal tube draining .
--- NOTE | 2023-06-27 09:07 | W.PN.ID1 ---
Date of Service
Date of Service: June 27, 2023
Today's Communication
Completed abx and observe.
Please reconsult ID if needed.
Assessment / Plan
# ESBL-Klebsiella, MDR-Acinetobacter bacteremia x 2 sets
- Source of bacteremia likely from colon translocation after recent resection of multiple polyps with associated GIB; less likely urine source (only ESBL in urine)
- Repeat blood cx's neg
Completed 7 days cefiderocol 06/26/23
-ID will sign off. Call prn.
# Leukocytosis stable
# Thrombocytopenia improving off CRRT
# s/p Septic shock off pressors
# NOAM, s/p CRRT.
# Extensive abx/drug allergies. Tolerated meropenem and linezolid in the past.
# Drug rash from bumetanide -> dc'd 06/26/23
# s/p Diarrhea
- C. diff neg x2 /norovirus negative
# Intraluminal colon mass
- hx Strep bovis bacteremia 02/11/2023, treated.
- 06/10/23 s/p sigmoidoscopy, removal of several polyps.
- 06/11/23 s/p colonoscopy, removal of multiple polyps, clipping of ulcer in sigmoid
- Biopsies: tubular adenomas with focal high grade dysplasia, and tubulovillous adenomas
# s/pLLE cellulitis - resolved
# Lymphedema
-Completed linezolid 600mg po bid through 06/08/2023 am
- Continue BLE compression
# s/p recent drug rash resolved off furosemide
# LUE picc associated DVT
- PICC dc'd
# Left hip incision wound clean without infection
- cx skin [place]
#Additional Past Medical History:
Diabetes mellitus
Class III obesity BMI 49
Lymphedema
Obstructive sleep apnea
A flutter status post ablation
hypertension
cellulitis
Asthma
Dyslipidemia
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
Meningioma s/p resection
Chronic back pain
Cholecystectomy
Bilateral oophorectomy
Left hip fracture s/p gamma nailing 02/16/23
Chief Complaint
-: Leukocytosis and Bacteremia
Subjective / Review of Systems
Awake, alert, and conversant.
Vital Signs / Physical Exam
Vital Signs
Vital Signs
Temp Pulse Resp BP Pulse Ox
98.2 F 110 16 109/76 95
06/27/23 07:55 06/27/23 07:51 06/27/23 06:08 06/27/23 07:51 06/27/23 06:08
Physical Exam
Constitutional: Chronically Ill
Eyes: Sclera Anicteric
Cardiovascular: Other (tachycardic)
Pulmonary: Clear (anteriorly)
Gastrointestinal: Soft, Non Tender, Non Distended and Other
Skin: Rash (diffuse erythema with peeling dry skin)
Neurological: AO x 3
Lines: HD Cath (intact)
Objective Data
Lab Data
Lab Results
06/26/23 04:33
06/27/23 04:54
PT 13.1 Sec (11.4-14.6) 06/02/23 09:23
INR 1.01 06/02/23 09:23
APTT 45.5 Sec (23.4-35.0) H 06/24/23 05:42
Estimated Creat Clear 47 ml/min 06/27/23 04:54
Lactic Acid 0.9 mmol/L (0.7-2.0) 06/13/23 09:53
Total Bilirubin 1.1 mg/dl (0.2-1.3) 06/23/23 04:13
AST 25 U/L (14-36) 06/23/23 04:13
ALT 12 U/L (0-35) 06/23/23 04:13
Alkaline Phosphatase 132 U/L (38-126) H 06/23/23 04:13
Most recent labs reviewed.
Micro Results:
06/17/23 11:01 Blood Culture - Final
Blood/Venous No Growth - Final Report
06/15/23 18:58 Blood Culture - Final
Blood/Venous Klebsiella pneumoniae-ESBL
Acinet. baumannii/haemolyticus
Gram Stain - Final
06/16/23 16:36 Blood Culture - Final
Blood/Venous No Growth - Final Report
06/16/23 08:49 Blood Culture - Final
Blood/Venous No Growth - Final Report
06/16/23 10:02 Blood Culture - Final
Blood/Venous Klebsiella pneumoniae-ESBL
Acinet. baumannii/haemolyticus
Gram Stain - Final
06/16/23 05:11 Urine Culture - Final
Urine Klebsiella pneumoniae-ESBL
06/16/23 05:11 Stool Leukocytes - Final
Feces/Stool
06/16/23 05:11 C. difficile GDH Antigen & Toxins - Final
Feces/Stool Negative for toxigenic C.difficile
06/07/23 23:53 - Final
Feces/Stool Negative for Norovirus GI and GII.
06/03/23 10:41 Blood Culture - Final
Blood/Venous No Growth - Final Report
06/03/23 10:41 Blood Culture - Final
Blood/Venous No Growth - Final Report
06/02/23 05:52 Blood Culture - Final
Blood/Venous Coagulase neg. staphylococcus
Additional testing on request
Gram Stain - Final
06/02/23 05:52 Blood Culture - Final
Blood/Venous No Growth - Final Report
06/02/23 13:24 Wound Culture - Final
Hip - Left Gram Stain - Final
06/02/23 13:23 MRSA Screen - Final
Nose Staph aureus MRSA
06/02/23 13:25 Urine Culture - Final
Urine NO GROWTH
06/02/23 18:34 C. difficile GDH Antigen & Toxins - Final
Feces/Stool Negative for toxigenic C.difficile
Imaging:
06/25/23 CXR: no active disease
06/18/23 CXR: no active disease
06/14/23 CXR: Hypo-aerated lungs without consolidation.
06/08/23 CT a/p: MILD ACUTE INFECTIOUS PANCOLITIS with mild fluid distention of the proximal colon and mild wall thickening and mucosal hyperenhancement in the distal colon and rectum. 1.5 cm intraluminal mass in the descending colon-sigmoid colon
junction suspicious for a large colonic polyp (possibly adenocarcinoma). Mild diffuse small bowel distention.
06/02/23 CXR: clear lungs
05/28/23 CT LLE: ORIF of an intertrochanteric/subtrochanteric fracture. The fracture plane remains evident, but there is some callus and heterotopic ossification about the fracture site.
--- NOTE | 2023-06-27 09:32 | W.PN.NEPH.PH ---
Today's Communication / Plan
-
comfort
Assessment/Plan
-
IMP:
Hyponatremia-acute on chronic
NOAM with significant azotemia
suspected septic shock/gram-negative bacilli bacteremia
hypoglycemia
Hypomagnesemia
TME
HX Paroxysmal AF- Not on anticoagulation due to hemorrhagic complications in the past
Chronic anemia
Essential HTN
T2DM
Chronic pain syndrome on chronic opioids
SISI - CPAP
Morbid obesity due to excess calories
PAD
h/o left hip fx s/p ORIF 01/2023
Plan:
-long discussion with and daughter with hospitalist
-she remains hypotense on high dose midodrine
-while cr remains good, UOP is minimal.
-We cannot use diuretics given allergy now. (rash with lasix/bumex, NV with edecrine)
-the only way to reasonably remove volume would be dialysis which is not an absolute indication and family does not want terminal superintendent dialysis
-They also do not want [facility] terminal superintendent. They are in agreement for comfort care with no aggressive measures.
-will remove HD catheter
-total time spent 80 minutes
-
-
Date of Service: June 27, 2023
CC / HPI / ROS
-
Chief Complaint:
NOAM, hyponatremia
History of Present Illness:
Platelets low but stable now 85
hgb remains low 7.8
Remains hypotensive despite midodrine
rash/desquamation improving
Creatinine up to 1.2
critically ill in ICU
Review of Systems:
on 2L NC
Nonoliguric
no CP
Labs
-
Labs:
WBC 16.7 10^3/uL (4.8-10.8) H 06/26/23 04:33
RBC 2.68 10^6/uL (4.20-5.40) L 06/26/23 04:33
Hgb 7.8 g/dL (12.0-16.0) L 06/26/23 04:33
Hct 23.8 % (37.0-47.0) L 06/26/23 04:33
Plt Count 85 10^3/uL (130-400) L 06/26/23 04:33
Sodium 134 mmol/L (135-145) L 06/27/23 04:54
Potassium 3.7 mmol/L (3.5-5.1) 06/27/23 04:54
Chloride 104 mmol/L (98-107) 06/27/23 04:54
Carbon Dioxide 27 mmol/L (22-30) 06/27/23 04:54
BUN 20 mg/dl (7-17) H 06/27/23 04:54
Creatinine 1.2 mg/dL (0.6-1.0) H 06/27/23 04:54
eGFR 49.92 06/27/23 04:54
Glucose 113 mg/dl (70-99) H 06/27/23 04:54
Calcium 6.8 mg/dl (8.4-10.2) L* 06/27/23 04:54
Phosphorus 2.4 mg/dl (2.5-4.5) L 06/23/23 04:13
Qzx-F-Bynppepjgkt Pept 633 pg/ml 06/02/23 05:09
Albumin 2.0 g/dl (3.5-5.0) L 06/23/23 04:13
Physical Exam
-
Vital Signs:
Vital Signs
Temp Pulse Resp BP Pulse Ox
98.2 F 110 16 109/76 95
06/27/23 07:55 06/27/23 07:51 06/27/23 06:08 06/27/23 07:51 06/27/23 06:08
Cardiovascular:: Regular rate and rhythm
Respiratory:: Bilateral: Coarse
Lung Excursion:: Normal
Abdomen:: Nontender and Soft
Bowel Sounds:: Normal
Extremity Edema:: +3: Bilateral:
--- NOTE | 2023-06-27 11:24 | PTCARENOTE ---
10:30 patient transfer to room 2123 Transfer via bed. All personal belonging collected and transfer with patient. patient at the bedside and aware of pt's transfer. Detail nurse to nurse report given to Odalys prior to transfer including pt
PMH; chief complain of time of admission, and course of stay in ICU. pt currently DNR. family considering hospice care. Hospice consult in place. Hospice nurse : Salome Smith aware of hospice consult.
At time of transfer pt awake and alert. patient was washed head to toe; All foam on a back area applied, calazine applied to sacrum. General Anasarca, skin red, very dry and pealing off.
[2023-06-27] MEDS: NOVOLOG FLEXPEN-HIGH RESISTANCE SC (12:55)
--- NOTE | 2023-06-27 13:31 | CM ---
CM following re: discharge planning.
Discussed in Rounds, reviewed pt's chart, met with pt and pt's . Per Rounds meeting pt is comfort care.
CM consult for hospice care noted. Pt referred to hospice.
D/C plan: comfort care.
CM is available for emotional support.
--- NOTE | 2023-06-27 14:37 | W.PN.HOSP.TC ---
Today's Communication/Plan
-
Comfort care
Assessment / Plan
Assessment / Plan
Impression:
Sepsis secondary to ESBL Klebsiella/Acinetobacter bacteremia.
Septic shock
Acute kidney failure requiring hemodialysis.
Acute on chronic bilateral lower extremity cellulitis
Toxic metabolic encephalopathy.
Acute on chronic hypoxic/hypercarbic respiratory failure.
Acute gastrointestinal hemorrhage
Acute blood loss anemia.
Hyponatremia.
Left upper extremity DVT related to PICC line.
Conditions prior to admission:
Prior history of streptococcal bacteremia strep bovis
Left hip intertrochanteric fracture status post ORIF 03/26.
Paroxysmal atrial flutter/SVT
� Not on anticoagulation due to hemorrhagic complications.
PAD with chronic lower extremity wounds
Diabetes type 2.
Morbid obesity with BMI of 46
Essential hypertension.
Anemia of chronic disease
History of right lower extremity deep venous thrombosis.
Dyslipidemia.
Obstructive sleep apnea, intolerant on CPAP on home O2 2 L.
Asthma
Chronic pain syndrome with opiate dependence.
Benzodiazepine dependence.
Meningioma removed.
Plan
Long discussion with patient's in presence of nephrology on 06/25. Patient with multiple comorbidities, bedbound prior to admission multiple hospitalizations, not recovering well after hip fracture in March. This prolonged hospitalization
with severe sepsis, gram-negative bacteremia, acute kidney injury requiring hemodialysis, profound anasarca in addition with cognitive overall performance status. Limited options to treat including hemodialysis given profound hypotension. With
idea of not to harm them as per wishes to keep patient comfortable hospice option has been discussed. Further goals of care discussion to follow.
Long discussion with patient's , daughter, email manager. Clinically declining with poor performance status, persistent hypotension on increased dose of midodrine, oliguric renal failure. At this point patient is not a candidate for renal
replacement therapy. Patient's family understands that comfort is the priority.
Transition to comfort care
Liberalize diet.
Has been off antibiotics
Discontinue Accu-Cheks and insulin.
She is currently on oral analgesic regimen.
Initiate IV hydromorphone with option of continuous infusion titration if required
Continue oral with addition of IV lorazepam for anxiety and agitation.
Supportive care for
Discussed with nursing, hospice nurse.
Anticipated Discharge: > 48 hours
Subjective/Interval History
-
Date of Service: June 27, 2023
Objective Data
-
Labs:
Laboratory Results
06/27/23
04:54
Sodium 134 L
Potassium 3.7
Chloride 104
Carbon Dioxide 27
BUN 20 H
Creatinine 1.2 H
Glucose 113 H
Calcium 6.8 L*
Vital Signs:
Vital Signs
Temp Pulse Resp BP Pulse Ox
98.6 F 106 12 89/62 100
06/27/23 11:00 06/27/23 11:00 06/27/23 11:00 06/27/23 11:00 06/27/23 11:00
I&O
06/26/23 06/27/23 06/28/23
06:59 06:59 06:59
Intake Total 1431 / 1431 240 / 240 240 / 240
Output Total 2450 / 2450 600 / 600 350 / 350
Balance -1019 / -1019 -360 / -360 -110 / -110
Physical Exam
-
General: Well Developed and No Apparent Distress
HEENT: Normocephalic, Atraumatic and Moist Mucous Membranes
Respiratory: Clear to Auscultation
Cardiac: Regular Rhythm and S1/S2; Negative Murmur, Rub or Gallop
GI: Soft, Nontender, Nondistended and Normal Bowel Sounds; Negative Organomegaly
Rectal: Deferred by Provider
Musculoskeletal: No Clubbing, No Cyanosis and No Edema
Skin: Negative Rash
Neuro: Nonfocal/Grossly Intact
[2023-06-27] MEDS: MORPHINE SULFATE 1 MG IV (15:47)
[2023-06-27] MEDS: ATIVAN 1 MG PO (21:21)
[2023-06-28 07:15] VITALS: BP 112/75
[2023-06-28] MEDS: ATIVAN IV (08:31)
[2023-06-28] MEDS: NEURONTIN 100 MG PO ×3 (08:33→21:23)
[2023-06-28] MEDS: SODIUM BICARBONATE 325 MG PO ×3 (08:33→21:23)
[2023-06-28] MEDS: ROXICODONE 5 MG PO ×3 (08:33→21:23)
[2023-06-28] MEDS: IMODIUM 2 MG PO ×2 (08:33→23:36)
[2023-06-28] MEDS: FLEXERIL 5 MG PO ×3 (08:36→23:35)
--- NOTE | 2023-06-28 11:05 | VATNOTE ---
Right IJ non-tunn HD catheter removed per policy, direct pressure held x 5minutes no bleeding. Occlusive dressing applied.
[2023-06-28] MEDS: MORPHINE SULFATE 1 MG IV ×2 (11:30→16:46)
[2023-06-28] MEDS: BENADRYL 25 MG IV ×3 (11:34→23:26)
--- NOTE | 2023-06-28 11:41 | W.PN.HOSP.TC ---
Today's Communication/Plan
-
cw comfort measures
Assessment / Plan
Assessment / Plan
Impression:
Sepsis secondary to ESBL Klebsiella/Acinetobacter bacteremia.
Septic shock
Acute kidney failure requiring hemodialysis.
Acute on chronic bilateral lower extremity cellulitis
Toxic metabolic encephalopathy.
Acute on chronic hypoxic/hypercarbic respiratory failure.
Acute gastrointestinal hemorrhage
Acute blood loss anemia.
Hyponatremia.
Left upper extremity DVT related to PICC line.
Conditions prior to admission:
Prior history of streptococcal bacteremia strep bovis
Left hip intertrochanteric fracture status post ORIF 03/26.
Paroxysmal atrial flutter/SVT
� Not on anticoagulation due to hemorrhagic complications.
PAD with chronic lower extremity wounds
Diabetes type 2.
Morbid obesity with BMI of 46
Essential hypertension.
Anemia of chronic disease
History of right lower extremity deep venous thrombosis.
Dyslipidemia.
Obstructive sleep apnea, intolerant on CPAP on home O2 2 L.
Asthma
Chronic pain syndrome with opiate dependence.
Benzodiazepine dependence.
Meningioma removed.
Plan
Dr Gaines had Long discussion with patient's in presence of nephrology on 06/25. Patient with multiple comorbidities, bedbound prior to admission multiple hospitalizations, not recovering well after hip fracture in March. This prolonged
hospitalization with severe sepsis, gram-negative bacteremia, acute kidney injury requiring hemodialysis, profound anasarca in addition with cognitive overall performance status. Limited options to treat including hemodialysis given profound
hypotension. With idea of not to harm them as per wishes to keep patient comfortable hospice option has been discussed. Further goals of care discussion to follow.
Long discussion with patient's , daughter, technical communicator. Clinically declining with poor performance status, persistent hypotension on increased dose of midodrine, oliguric renal failure. At this point patient is not a candidate for renal
replacement therapy. Patient's family understands that comfort is the priority.
Transition to comfort care
cw diet.
Has been off antibiotics
Discontinue Accu-Cheks and insulin.
She is currently on oral analgesic regimen.
Initiate IV hydromorphone with option of continuous infusion titration if required
Continue oral with addition of IV lorazepam for anxiety and agitation.
Supportive care for
Discussed with nursing .
Anticipated Discharge: > 48 hours
Subjective/Interval History
-
Date of Service: June 28, 2023
Patient now on comfort measures.
Objective Data
-
Vital Signs:
Vital Signs
Temp Pulse Resp BP Pulse Ox
98.5 F 109 18 112/75 96
06/28/23 07:15 06/28/23 07:15 06/28/23 07:15 06/28/23 07:15 06/28/23 07:15
I&O
06/27/23 06/28/23 06/29/23
06:59 06:59 06:59
Intake Total 240 / 240 1380 / 1380
Output Total 600 / 600 350 / 350
Balance -360 / -360 1030 / 1030
Review of Systems
-
EENT: Reports Other (Dry throat)
Respiratory: Denies Trouble Breathing
Cardiac: Denies Chest Pain
Abdomen/GI: Denies Abdominal Pain, Nausea or Vomiting
Musculoskeletal: Reports Joint Pain (Feels stiff in all her joints ; painful with mobility)
Physical Exam
-
General: No Apparent Distress
HEENT: Moist Mucous Membranes
Respiratory: Non Labored Respirations; Negative Accessory Resp Muscle Use
Neuro: AO x 3
--- NOTE | 2023-06-28 14:14 | HOSPNOTE ---
Met with patient and her spouse Sergo. Hospice services and philosophy explained in length, questions answered. Spouse is in agreement with possibility of hospice services. However patient is very clear and strong in her wish not to sign up with
Hospice. At the end, patient wanted dry cell assembly machine tender to leave. [facility] information and phone number are left with the spouse. Report is given to facility RN Hollie.
--- NOTE | 2023-06-28 16:04 | CHAP ---
Sonam was alert and conversational today. Nurse was called during visit, to address discomfort. Sonam shared thoughts and feelings; emotional and spiritual support provided.
[2023-06-28] MEDS: ATIVAN 1 MG PO (21:23)
[2023-06-28 23:35] VITALS: BP 84/47
[2023-06-29 07:45] VITALS: BP 89/43
[2023-06-29] MEDS: SODIUM BICARBONATE 325 MG PO ×2 (08:54→15:47)
[2023-06-29] MEDS: ROXICODONE 5 MG PO ×2 (08:54→15:47)
[2023-06-29] MEDS: NEURONTIN 100 MG PO ×2 (08:55→15:47)
[2023-06-29] MEDS: FLEXERIL 5 MG PO (10:33)
[2023-06-29] MEDS: ATIVAN 0.5 MG PO (10:33)
--- NOTE | 2023-06-29 13:18 | CHAP ---
Continued conversation with Sonam. She finds comfort in talking about her [employer] no and traditions. Read from the Old Testament and prayed together. Sonam appreciates company and a listening ear.
--- NOTE | 2023-06-29 15:18 | W.PN.HOSP.TC ---
Today's Communication/Plan
-
cw comfort measures
Assessment / Plan
Assessment / Plan
Impression:
Sepsis secondary to ESBL Klebsiella/Acinetobacter bacteremia.
Septic shock
Acute kidney failure requiring hemodialysis.
Acute on chronic bilateral lower extremity cellulitis
Toxic metabolic encephalopathy.
Acute on chronic hypoxic/hypercarbic respiratory failure.
Acute gastrointestinal hemorrhage
Acute blood loss anemia.
Hyponatremia.
Left upper extremity DVT related to PICC line.
Conditions prior to admission:
Prior history of streptococcal bacteremia strep bovis
Left hip intertrochanteric fracture status post ORIF 03/26.
Paroxysmal atrial flutter/SVT
� Not on anticoagulation due to hemorrhagic complications.
PAD with chronic lower extremity wounds
Diabetes type 2.
Morbid obesity with BMI of 46
Essential hypertension.
Anemia of chronic disease
History of right lower extremity deep venous thrombosis.
Dyslipidemia.
Obstructive sleep apnea, intolerant on CPAP on home O2 2 L.
Asthma
Chronic pain syndrome with opiate dependence.
Benzodiazepine dependence.
Meningioma removed.
Plan
Dr Gaines had Long discussion with patient's in presence of nephrology on 06/25. Patient with multiple comorbidities, bedbound prior to admission multiple hospitalizations, not recovering well after hip fracture in March. This prolonged
hospitalization with severe sepsis, gram-negative bacteremia, acute kidney injury requiring hemodialysis, profound anasarca in addition with cognitive overall performance status. Limited options to treat including hemodialysis given profound
hypotension. With idea of not to harm them as per wishes to keep patient comfortable hospice option has been discussed. Further goals of care discussion to follow.
Long discussion with patient's , daughter, other spatial scientist. Clinically declining with poor performance status, persistent hypotension on increased dose of midodrine, oliguric renal failure. At this point patient is not a candidate for renal
replacement therapy. Patient's family understands that comfort is the priority.
Transition to comfort care
cw diet.
Has been off antibiotics; HD cath removed.
She is currently on oral analgesic regimen.
cw IV hydromorphone with option of continuous infusion titration if required
Continue oral with addition of IV lorazepam for anxiety and agitation.
Supportive care
Discussed with nursing .
A
Anticipated Discharge: > 48 hours
Subjective/Interval History
-
Date of Service: June 29, 2023
pt sleeping so did not wake her up
Pt on comfort measures.
DW RN - gave her ativan as she was feeling anxious
Objective Data
-
Vital Signs:
Vital Signs
Temp Pulse Resp BP Pulse Ox
97.3 F 105 20 89/43 99
06/29/23 07:45 06/29/23 07:45 06/29/23 07:45 06/29/23 07:45 06/29/23 13:36
I&O
06/28/23 06/29/23 06/30/23
06:59 06:59 06:59
Intake Total 1380 / 1380 1440 / 1440
Output Total 350 / 350 375 / 375
Balance 1030 / 1030 1065 / 1065
Review of Systems
-
Unable to obtain full review of systems at this time due to: Other (sleeping)
Physical Exam
-
General: Comfortable
Respiratory: Non Labored Respirations; Negative Accessory Resp Muscle Use
[2023-06-29] MEDS: ATIVAN PO (22:14)
[2023-06-29] MEDS: SODIUM BICARBONATE PO (22:15)
[2023-06-29] MEDS: ROXICODONE PO (22:15)
[2023-06-29] MEDS: NEURONTIN PO (22:15)
--- NOTE | 2023-06-29 22:18 | PTCARENOTE ---
Pt very lethargic, arouses to loud verbal stimuli, but only remains awake for a few seconds at a time before falling back asleep. Pt unable to take scheduled PO medication. Pt states no pain at this time; informed pt other PRN pain medication is
available should she need it, pt updated on POC. Pt without complaints at this time, resting comfortably in bed.
[2023-06-29] MEDS: ATIVAN 2 MG IV (23:07)
[2023-06-29] MEDS: NSS (PRESERVATIVE FREE) 1 ML IV (23:07)
[2023-06-29] MEDS: MORPHINE SULFATE 1 MG IV (23:07)
[2023-06-29 23:23] VITALS: BP 94/70
[2023-06-30] MEDS: MORPHINE SULFATE 1 MG IV ×2 (05:45→09:33)
[2023-06-30] MEDS: ATIVAN 2 MG IV (05:46)
[2023-06-30] MEDS: NSS (PRESERVATIVE FREE) 1 ML IV (05:46)
[2023-06-30 08:00] VITALS: BP 92/54
[2023-06-30] MEDS: ROXICODONE PO ×2 (09:25→23:26)
[2023-06-30] MEDS: NEURONTIN PO ×3 (09:25→23:25)
[2023-06-30] MEDS: SODIUM BICARBONATE PO ×2 (09:25→23:26)
--- NOTE | 2023-06-30 11:30 | WOUNDNOTE ---
WON RN NOTE: Patient is on comfort measures confirmed nurse Meera. On Accumax bed, asked nurse to apply an air overlay to bed if patient is not getting discharged back to [facility] soon. Brought air overlay to and placed near door sink to
apply when able, nurse aware.
--- NOTE | 2023-06-30 14:51 | W.PN.HOSP.TC ---
Today's Communication/Plan
-
Continue with comfort measures
Assessment / Plan
Assessment / Plan
Impression:
Sepsis secondary to ESBL Klebsiella/Acinetobacter bacteremia.
Septic shock
Acute kidney failure requiring hemodialysis.
Acute on chronic bilateral lower extremity cellulitis
Toxic metabolic encephalopathy.
Acute on chronic hypoxic/hypercarbic respiratory failure.
Acute gastrointestinal hemorrhage
Acute blood loss anemia.
Hyponatremia.
Left upper extremity DVT related to PICC line.
Conditions prior to admission:
Prior history of streptococcal bacteremia strep bovis
Left hip intertrochanteric fracture status post ORIF 03/26.
Paroxysmal atrial flutter/SVT
� Not on anticoagulation due to hemorrhagic complications.
PAD with chronic lower extremity wounds
Diabetes type 2.
Morbid obesity with BMI of 46
Essential hypertension.
Anemia of chronic disease
History of right lower extremity deep venous thrombosis.
Dyslipidemia.
Obstructive sleep apnea, intolerant on CPAP on home O2 2 L.
Asthma
Chronic pain syndrome with opiate dependence.
Benzodiazepine dependence.
Meningioma removed.
Plan
Dr Gaines had Long discussion with patient's in presence of nephrology on 06/25. Patient with multiple comorbidities, bedbound prior to admission multiple hospitalizations, not recovering well after hip fracture in March. This prolonged
hospitalization with severe sepsis, gram-negative bacteremia, acute kidney injury requiring hemodialysis, profound anasarca in addition with cognitive overall performance status. Limited options to treat including hemodialysis given profound
hypotension. With idea of not to harm them as per wishes to keep patient comfortable hospice option has been discussed. Further goals of care discussion to follow.
Long discussion with patient's , daughter, load tallier. Clinically declining with poor performance status, persistent hypotension on increased dose of midodrine, oliguric renal failure. At this point patient is not a candidate for renal
replacement therapy. Patient's family understands that comfort is the priority.
Transition to comfort care
06/29
not eating much. Did not take her medication. Low-grade fever today. More lethargic today. Comfortable after Dilaudid.
Has been off antibiotics; HD cath removed. Remains oliguric.
She is currently on oral analgesic regimen.
cw IV hydromorphone with option of continuous infusion titration if required
Continue oral with addition of IV lorazepam for anxiety and agitation.
Supportive care
Discussed with nursing and at bedside.
reiterates the importance of comfort as a goal. He understands she is passing.
Anticipated Discharge: > 48 hours
Subjective/Interval History
-
Date of Service: June 30, 2023
Patient today more lethargic. She had low-grade fever today. She did receive some Dilaudid for pain before my visit.
She mumbles words. She is not conversational.
at bedside who states her being comfortable but that she has not conversational with him.
Objective Data
-
Vital Signs:
Vital Signs
Temp Pulse Resp BP Pulse Ox
100 F 101 22 92/54 95
06/30/23 08:00 06/30/23 08:00 06/30/23 08:00 06/30/23 08:00 06/30/23 08:00
I&O
06/29/23 06/30/23 07/01/23
06:59 06:59 06:59
Intake Total 1440 / 1440 1380 / 1380
Output Total 375 / 375 425 / 425
Balance 1065 / 1065 955 / 955
Review of Systems
-
Unable to obtain full review of systems at this time due to: Other (lethargic)
Physical Exam
-
General: No Apparent Distress and Comfortable
Respiratory: Non Labored Respirations; Negative Accessory Resp Muscle Use
Neuro: Awake; Negative Alert
Psych: Calm
--- NOTE | 2023-06-30 15:55 | CM ---
Comfort Measures. Family does not want any aggressive measures.
[2023-06-30] MEDS: ROXICODONE 5 MG PO (16:25)
[2023-06-30] MEDS: SODIUM BICARBONATE 325 MG PO (16:26)
[2023-06-30] MEDS: ATIVAN PO (23:25)
[2023-06-30 23:34] VITALS: BP 91/52
[2023-07-01] MEDS: MORPHINE SULFATE 1 MG IV ×3 (00:29→13:51)
[2023-07-01] MEDS: NSS (PRESERVATIVE FREE) 1 ML IV ×3 (00:29→13:50)
[2023-07-01] MEDS: ATIVAN 2 MG IV ×3 (00:30→13:51)
[2023-07-01 07:29] VITALS: BP 98/44
[2023-07-01] MEDS: ROXICODONE PO ×2 (09:04→16:28)
[2023-07-01] MEDS: NEURONTIN PO ×3 (09:04→22:03)
[2023-07-01] MEDS: SODIUM BICARBONATE PO ×3 (09:04→22:03)
--- NOTE | 2023-07-01 09:43 | PTCARENOTE ---
pt lethargic and drowsy for this nurse. unable to appropriately administer PO medications. pt is very anxious per nurse assessment and saying she is in pain with few words she is able to make out. pt oral medications returned and prn IV medications
administered through [facility]. pt is a heavy 2-3 assist and is weeping from all extremities.
--- NOTE | 2023-07-01 10:44 | W.PN.HOSP.TC ---
Today's Communication/Plan
-
cw comfort measures
Assessment / Plan
Assessment / Plan
Impression:
Sepsis secondary to ESBL Klebsiella/Acinetobacter bacteremia.
Septic shock
Acute kidney failure requiring hemodialysis.
Acute on chronic bilateral lower extremity cellulitis
Toxic metabolic encephalopathy.
Acute on chronic hypoxic/hypercarbic respiratory failure.
Acute gastrointestinal hemorrhage
Acute blood loss anemia.
Hyponatremia.
Left upper extremity DVT related to PICC line.
Conditions prior to admission:
Prior history of streptococcal bacteremia strep bovis
Left hip intertrochanteric fracture status post ORIF 03/26.
Paroxysmal atrial flutter/SVT
� Not on anticoagulation due to hemorrhagic complications.
PAD with chronic lower extremity wounds
Diabetes type 2.
Morbid obesity with BMI of 46
Essential hypertension.
Anemia of chronic disease
History of right lower extremity deep venous thrombosis.
Dyslipidemia.
Obstructive sleep apnea, intolerant on CPAP on home O2 2 L.
Asthma
Chronic pain syndrome with opiate dependence.
Benzodiazepine dependence.
Meningioma removed.
Plan
Dr Gaines had Long discussion with patient's in presence of nephrology on 06/25. Patient with multiple comorbidities, bedbound prior to admission multiple hospitalizations, not recovering well after hip fracture in March. This prolonged
hospitalization with severe sepsis, gram-negative bacteremia, acute kidney injury requiring hemodialysis, profound anasarca in addition with cognitive overall performance status. Limited options to treat including hemodialysis given profound
hypotension. With idea of not to harm them as per wishes to keep patient comfortable hospice option has been discussed. Further goals of care discussion to follow.
Long discussion with patient's , daughter, remote sensing analyst. Clinically declining with poor performance status, persistent hypotension on increased dose of midodrine, oliguric renal failure. At this point patient is not a candidate for renal
replacement therapy. Patient's family understands that comfort is the priority.
Transition to comfort care
06/29
not eating much. Did not take her medication. Low-grade fever today. More lethargic today. Comfortable after Dilaudid.
Has been off antibiotics; HD cath removed. Remains oliguric.
She is currently on oral analgesic regimen.
cw IV hydromorphone with option of continuous infusion titration if required
Continue oral with addition of IV lorazepam for anxiety and agitation.
Supportive care
Discussed with nursing and at bedside.
reiterates the importance of comfort as a goal. He understands she is passing.
06/30
Didnt take her meds today.
Pt lethargic and with incomprehensible words
Looks comfortable without respiratory distress
Discussed with RN
CW comfort measures
Anticipated Discharge: > 48 hours
Subjective/Interval History
-
Date of Service: July 01, 2023
Patient received Ativan and pain medication this morning.
She is awake but lethargic. Incomprehensible words.
No acute distress.
Objective Data
-
Vital Signs:
Vital Signs
Temp Pulse Resp BP Pulse Ox
99.2 F 103 14 98/44 97
07/01/23 07:29 07/01/23 07:29 07/01/23 07:29 07/01/23 07:29 07/01/23 07:29
I&O
06/30/23 07/01/23 07/02/23
06:59 06:59 06:59
Intake Total 1380 / 1380 220 / 220
Output Total 425 / 425 50 / 50
Balance 955 / 955 170 / 170
Review of Systems
-
Unable to obtain full review of systems at this time due to: Other (incomprehensible words; lethargic)
Physical Exam
-
General: Comfortable; Negative No Apparent Distress
Respiratory: Non Labored Respirations; Negative Accessory Resp Muscle Use
Cardiac: Regular Rhythm and S1/S2
GI: Soft
Musculoskeletal: Negative No Edema (anasarca)
Neuro: Awake; Negative Alert
Psych: Calm and Confused
--- NOTE | 2023-07-01 14:12 | CM ---
AYESHA SMITH B Female : 1955 [facility]# [id number]
07/01/2023 14:13 - Case Management Note by Kerrie Cosby
Acct Num: [id number] : 1955 Patient Age: 68
Ayesha continues to decline. Continue comfort Measures. Family does not want any aggressive measures.
[2023-07-01] MEDS: ATIVAN 1 MG PO (22:02)
[2023-07-01] MEDS: ROXICODONE 5 MG PO (22:02)
[2023-07-01 23:08] VITALS: BP 110/43
[2023-07-02] MEDS: MORPHINE SULFATE 1 MG IV ×3 (06:21→13:21)
[2023-07-02 08:00] VITALS: BP 60/29
--- NOTE | 2023-07-02 09:30 | W.PN.HOSP.TC ---
Addendum entered and electronically signed by Alexis Garcia MD 07/02/23 11:18:
Patient today was worse than yesterday.
Patient requiring more frequent doses of morphine. Discussed with RN ,pt very uncomfortable with a movement or when she gets care.
Discussed with at bedside who reiterated comfort should be the goal.
With a change in status and continued discomfort we discussed about starting morphine drip for comfort which he is agreeable and also transitioning to inpatient hospice at [facility] for better care at the end of her life. He is agreeable.
Discussed with hospice team Milagros. Transition to inpatient hospice.
Discharge to inpatient hospice
Time of discharge 35 minutes
Original Note:
Today's Communication/Plan
-
Continue with comfort measures
Assessment / Plan
Assessment / Plan
Impression:
Sepsis secondary to ESBL Klebsiella/Acinetobacter bacteremia.
Septic shock
Acute kidney failure requiring hemodialysis.
Acute on chronic bilateral lower extremity cellulitis
Toxic metabolic encephalopathy.
Acute on chronic hypoxic/hypercarbic respiratory failure.
Acute gastrointestinal hemorrhage
Acute blood loss anemia.
Hyponatremia.
Left upper extremity DVT related to PICC line.
Conditions prior to admission:
Prior history of streptococcal bacteremia strep bovis
Left hip intertrochanteric fracture status post ORIF 03/26.
Paroxysmal atrial flutter/SVT
� Not on anticoagulation due to hemorrhagic complications.
PAD with chronic lower extremity wounds
Diabetes type 2.
Morbid obesity with BMI of 46
Essential hypertension.
Anemia of chronic disease
History of right lower extremity deep venous thrombosis.
Dyslipidemia.
Obstructive sleep apnea, intolerant on CPAP on home O2 2 L.
Asthma
Chronic pain syndrome with opiate dependence.
Benzodiazepine dependence.
Meningioma removed.
Plan
Dr Gaines had Long discussion with patient's in presence of nephrology on 06/25. Patient with multiple comorbidities, bedbound prior to admission multiple hospitalizations, not recovering well after hip fracture in March. This prolonged
hospitalization with severe sepsis, gram-negative bacteremia, acute kidney injury requiring hemodialysis, profound anasarca in addition with cognitive overall performance status. Limited options to treat including hemodialysis given profound
hypotension. With idea of not to harm them as per wishes to keep patient comfortable hospice option has been discussed. Further goals of care discussion to follow.
Long discussion with patient's , daughter, shift nurse manager. Clinically declining with poor performance status, persistent hypotension on increased dose of midodrine, oliguric renal failure. At this point patient is not a candidate for renal
replacement therapy. Patient's family understands that comfort is the priority.
Transition to comfort care
06/29
not eating much. Did not take her medication. Low-grade fever today. More lethargic today. Comfortable after Dilaudid.
Has been off antibiotics; HD cath removed. Remains oliguric.
She is currently on oral analgesic regimen.
cw IV hydromorphone with option of continuous infusion titration if required
Continue oral with addition of IV lorazepam for anxiety and agitation.
Supportive care
Discussed with nursing and at bedside.
reiterates the importance of comfort as a goal. He understands she is passing.
06/30
Didnt take her meds today.
Pt lethargic and with incomprehensible words
Looks comfortable without respiratory distress
Discussed with RN
CW comfort measures
07/01
Patient less responsive today.
She is febrile and hypotensive. She is also tachycardic.
Looks comfortable.
Continue with morphine for comfort.
patient is passing.
Discussed with the daughter on phone.
Anticipated Discharge: 24 - 48 hours
Subjective/Interval History
-
Date of Service: July 02, 2023
Patient today much less responsive than yesterday. She is hypotensive and febrile.
Objective Data
-
Vital Signs:
Vital Signs
Temp Pulse Resp BP Pulse Ox
101.3 F H 107 22 60/29 86
07/02/23 08:00 07/02/23 08:00 07/02/23 08:00 07/02/23 08:00 07/02/23 08:00
I&O
07/01/23 07/02/23 07/03/23
06:59 06:59 06:59
Intake Total 220 / 220 0 / 0
Output Total 50 / 50 400 / 400
Balance 170 / 170 -400 / -400
Review of Systems
-
Unable to obtain full review of systems at this time due to: Other (decreased responsiveness)
Physical Exam
-
General: Comfortable; Negative Respiratory Distress
Respiratory: Non Labored Respirations; Negative Accessory Resp Muscle Use
Neuro: Negative Alert (very lethargic)
Psych: Calm
[2023-07-02] MEDS: SODIUM BICARBONATE PO (09:44)
[2023-07-02] MEDS: ROXICODONE PO (09:44)
[2023-07-02] MEDS: NEURONTIN PO (09:44)
[2023-07-02] MEDS: TYLENOL/FEVERALL 650 MG RECTAL (09:57)
--- NOTE | 2023-07-02 11:21 | W.DS.TRANS ---
DC Summary - [employer]
-
Discharge Instructions:
Discharge Diagnosis/Procedures Recommend sepsis with septic shock. Acute
kidney injury with oliguria and needing
hemodialysis.
Diet Other diet
Additional Diets comfort food as tolerated
Other Services Hospice
Instructions:
Stand-Alone Forms:
Changes to Home Medications: Yes
Discharge Medications:
Home Medication Changes
All medication discontinued and will be started on comfort measures and medications
Pending Results: No
--- NOTE | 2023-07-02 11:22 | W.DCSUMMARY ---
Discharge Summary
Discharge Data
Date of Admission: 06/02/23
Date of Discharge: 07/02/23
-
Pending Results: No
Hospital Course
Primary diagnosis:
Sepsis secondary to extended spectrum beta-lactamase Klebsiella/Acinetobacter bacteremia.
Septic shock
Acute kidney failure requiring hemodialysis.
Acute on chronic bilateral lower extremity cellulitis
Toxic metabolic encephalopathy.
Acute on chronic hypoxic/hypercarbic respiratory failure.
Acute gastrointestinal hemorrhage
Acute blood loss anemia.
Hyponatremia.
Left upper extremity deep vein thrombosis related to PICC line.
Secondary diagnosis:
Prior history of streptococcal bacteremia strep bovis
Left hip intertrochanteric fracture status post ORIF 03/26.
Paroxysmal atrial flutter/supraventricular tachycardia
� Not on anticoagulation due to hemorrhagic complications.
Diabetes type 2.
Morbid obesity
Essential hypertension.
Anemia of chronic disease
History of right lower extremity deep venous thrombosis.
Dyslipidemia.
Obstructive sleep apnea, intolerant on CPAP on home O2 2 L.
Asthma
Chronic pain syndrome with opiate dependence.
Benzodiazepine dependence.
Meningioma removed.
Hospital course:
Patient initial presentation with septic shock requiring pressors sec to possible cellulitis . She was also severely hypoglycemic hyponatremic. The shock resolved. But she she then had an issue with a metabolic encephalopathy secondary to acute
hypercapnic hypoxic respiratory failure requiring BiPAP but she was not tolerant and was declining to wear it.
Her stay was also complicated by acute GI bleed with acute blood loss anemia. She had colonoscopy and polypectomies. She needed blood transfusion support. She had a left arm PICC line associated DVT for which she needed anticoagulation. With the
GI bleed a repeat ultrasound was done which was negative and the anticoagulation was further kept on hold.
She unfortunately had another septic insult with the ESBL Klebsiella pneumoniae and Acetobacter bacteremia. Concern was that this was a translocation from GI tract.
She then started to have renal issues again. She had NOAM with initial septic shock that resolved but then she started to develop again acute renal failure at this time oliguric. She was seen by renal and was supported with the CRRT with
improvement in creatinine but it was difficult with fluid management.
With multiple acute issues she was failing. Prior to this hospitalization she is in a local senior living. She has not been mobile ever since she had left hip repair.
She was seen by multiple consultants and ultimately felt that the prognosis is poor. The family discussed with renal and dialysis was stopped as patient would not want to go on chronic dialysis and live in a terminal clerk care facility.
She was transitioned into comfort care and today to inpatient hospice.
Consultants on board:
[employer] Production Worker-Jessica Cullen
Nephrology-Usman Maki
ID Kiera Hilliard
GI-Robbie De Paz
Cards - Janet Durham
Discharge Plan
-
Patient Disposition: Hospice - Inpatient
Discharge Diagnosis/Procedures: Recommend sepsis with septic shock. Acute kidney injury with oliguria and needing hemodialysis.
Diet: Other diet
Additional Diets: comfort food as tolerated
Other Services: Hospice
Activity Restrictions/Additional Instructions:
Wound Care Instructions
L hip: clean with saline, Plain packing place at base of wound followed by silicone foam, change daily and prn drainage.
L lateral calf ulcers-clean with saline, honey gel prn yellow fibrin, cover with silicone border foam or adaptic/ABD pad/stockinet (add alginate prn large amount of drainage), change daily and prn drainage.
R lower medial buttocks ulcer-clean with saline, silicone border foam, change daily and prn loosened dressing. If foam ineffective, apply zinc barrier ointment (i.e. Calazime) and cover/tuck with non woven gauze bid and prn incontinence.
MASD sacrum, buttocks, posterior thigh-clean and dry skin, miconazole powder followed by zinc barrier ointment (i.e. Calazime) bid.
Bilateral knee high Keshawn wraps as tolerated; may remove q hs; re-wrap q am.
Elevate heels off bed with pillows.
air mattress
turning schedule
air cushion when sitting or equivalent
Follow up at wound care center call for an appointment.
Referrals:
Sabino Sosa MD [Active] - 08/19/23 3:20 pm (You have a cardiology follow-up at the [facility]. Please call with questions)
Valery Saunders MD [Family Provider] -
Prescriptions:
Discontinued
montelukast 10 MG tablet
10 mg PO QPM
sotalol 120 MG tablet
120 mg PO BID
metoprolol succinate 25 MG tablet extended release 24 hr
25 mg PO DAILY Qty: 0
atorvastatin 20 mg tablet
20 mg PO QPM
cyclobenzaprine 10 MG tablet
10 mg PO TID PRN (Reason: MUSCLE SPASM)
acetaminophen [Tylenol] 325 mg Tablet
650 mg PO Q6HPRN PRN (Reason: MILD PAIN)
alogliptin 25 mg Tablet
25 mg PO DAILY
lorazepam 1 mg tablet
1 mg PO HS
glimepiride 2 mg tablet
2 mg PO DAILY
irbesartan 150 MG tablet
150 mg PO DAILY
gabapentin 100 mg Capsule
100 mg PO TID Qty: 0 0RF
hydrocodone-acetaminophen 5-325 mg Tablet
1 tab PO Q8H
levofloxacin 750 mg Tablet
750 mg PO HS
Rx Instructions:
START 05/22 CONTINUE FOR 14 DAYS
Saccharomyces boulardii 250 mg Capsule
250 mg PO DAILY
pantoprazole 40 mg tablet,delayed release (DR/EC)
40 mg PO BID
ammonium lactate 12 % lotion
1 applic topical BID
Discharge Orders:
Discharge Patient (As Directed); Ordered 07/02/23
Ordered By: Alexis Garcia
Discharge Date and Time
Print Language: TELUGU
--- NOTE | 2023-07-02 12:04 | CM ---
Patient has been discharged from inpatient medical care to inpatient hospice with .
== END 2023-07-02 14:40 | disposition hospice, inpatient (51) | DRG 871 ==
LOC: 2 NORTH 04:46
PROVIDERS: Internal Medicine; Internal Medicine Critical Care Medicine; Internal Medicine Gastroenterology; Internal Medicine Pulmonary Disease; Nurse Practitioner; Nurse Practitioner Family; Nurse Practitioner Gerontology; Radiology Vascular & Interventional Radiology; Specialist; Student in an Organized Health Care Education/Training Program; ADMITTING PHYSICIAN Internal Medicine; ATTENDING PHYSICIAN Internal Medicine; CONSULT PHYSICIAN Internal Medicine Cardiovascular Disease; CONSULT PHYSICIAN Internal Medicine Gastroenterology; CONSULT PHYSICIAN Internal Medicine Infectious Disease; EMERGENCY PHYSICIAN Student in an Organized Health Care Education/Training Program; FAMILY PHYSICIAN Internal Medicine; OTHER PHYSICIAN Internal Medicine; OTHER PHYSICIAN Internal Medicine Hematology & Oncology
PROC: 02HV33Z Insertion of Infusion Device into Superior Vena Cava, Percutaneous Approach (ICD-10-PCS; 2023-06-02)
PROC: 0DBN8ZZ Excision of Sigmoid Colon, Via Natural or Artificial Opening Endoscopic (ICD-10-PCS; 2023-06-10)
PROC: 0DBM8ZX Excision of Descending Colon, Via Natural or Artificial Opening Endoscopic, Diagnostic (ICD-10-PCS; 2023-06-10)
PROC: 0DBM8ZZ Excision of Descending Colon, Via Natural or Artificial Opening Endoscopic (ICD-10-PCS; 2023-06-10)
PROC: 0DBK8ZZ Excision of Ascending Colon, Via Natural or Artificial Opening Endoscopic (ICD-10-PCS; 2023-06-11)
PROC: 0DBL8ZZ Excision of Transverse Colon, Via Natural or Artificial Opening Endoscopic (ICD-10-PCS; 2023-06-11)
PROC: 5A09357 Assistance with Respiratory Ventilation, Less than 24 Consecutive Hours, Continuous Positive Airway Pressure (ICD-10-PCS; 2023-06-13)
PROC: 03HY32Z Insertion of Monitoring Device into Upper Artery, Percutaneous Approach (ICD-10-PCS; 2023-06-19)
PROC: 5A1D90Z Performance of Urinary Filtration, Continuous, Greater than 18 hours Per Day (ICD-10-PCS; 2023-06-20)
PROC: 30233N1 Transfusion of Nonautologous Red Blood Cells into Peripheral Vein, Percutaneous Approach (ICD-10-PCS; 2023-06-20)
PROC: 05PY33Z Removal of Infusion Device from Upper Vein, Percutaneous Approach (ICD-10-PCS; 2023-06-22)
PROC: 02WY33Z Revision of Infusion Device in Great Vessel, Percutaneous Approach (ICD-10-PCS; 2023-06-22)
DX: A41.59 Other Gram-negative sepsis (principal); G92.8 Other toxic encephalopathy; R65.21 Severe sepsis with septic shock; J96.21 Acute and chronic respiratory failure with hypoxia; J96.22 Acute and chronic respiratory failure with hypercapnia; E87.1 Hypo-osmolality and hyponatremia; F11.20 Opioid dependence, uncomplicated; Z68.42 Body mass index [BMI] 45.0-49.9, adult; N17.9 Acute kidney failure, unspecified; L03.116 Cellulitis of left lower limb; I82.622 Acute embolism and thrombosis of deep veins of left upper extremity; L03.115 Cellulitis of right lower limb; A09 Infectious gastroenteritis and colitis, unspecified; D62 Acute posthemorrhagic anemia; T82.868A Thrombosis due to vascular prosthetic devices, implants and grafts, initial encounter; F13.20 Sedative, hypnotic or anxiolytic dependence, uncomplicated; T82.524A Displacement of infusion catheter, initial encounter; K63.3 Ulcer of intestine; E44.0 Moderate protein-calorie malnutrition; E87.20 Acidosis, unspecified; I47.19 Other supraventricular tachycardia; I48.92 Unspecified atrial flutter; I50.32 Chronic diastolic (congestive) heart failure; Z66 Do not resuscitate; Y84.8 Other medical procedures as the cause of abnormal reaction of the patient, or of later complication, without mention of misadventure at the time of the procedure; Z51.5 Encounter for palliative care; E66.01 Morbid (severe) obesity due to excess calories; I48.0 Paroxysmal atrial fibrillation; E11.51 Type 2 diabetes mellitus with diabetic peripheral angiopathy without gangrene; D63.8 Anemia in other chronic diseases classified elsewhere; D12.5 Benign neoplasm of sigmoid colon; D12.4 Benign neoplasm of descending colon; D12.3 Benign neoplasm of transverse colon; D12.2 Benign neoplasm of ascending colon; I11.0 Hypertensive heart disease with heart failure; J45.909 Unspecified asthma, uncomplicated; F41.9 Anxiety disorder, unspecified; E11.649 Type 2 diabetes mellitus with hypoglycemia without coma; G89.4 Chronic pain syndrome; L27.0 Generalized skin eruption due to drugs and medicaments taken internally; I89.0 Lymphedema, not elsewhere classified; E83.42 Hypomagnesemia; E11.40 Type 2 diabetes mellitus with diabetic neuropathy, unspecified; E78.00 Pure hypercholesterolemia, unspecified; G47.33 Obstructive sleep apnea (adult) (pediatric); K64.4 Residual hemorrhoidal skin tags; Z79.84 Long term (current) use of oral hypoglycemic drugs; E83.51 Hypocalcemia; M17.0 Bilateral primary osteoarthritis of knee; Z79.899 Other long term (current) drug therapy; Z86.011 Personal history of benign neoplasm of the brain; Z86.718 Personal history of other venous thrombosis and embolism; Z91.199 Patient's noncompliance with other medical treatment and regimen due to unspecified reason; Z99.81 Dependence on supplemental oxygen; Z86.010 Personal history of colon polyps
CPT/HCPCS: 88305; 36415; 36556; 36580; 36584; 36600; 36620; 71045; 74018; 74176; 74177; 76937; 77001; 80048; 80053; 81003; 81015; 82040; 82248; 82306; 82330; 82533; 82570; 82728; 82805; 82962; 83036; 83540; 83550; 83605; 83690; 83735; 83880; 83930; 83935; 84100; 84145; 84295; 84300; 84439; 84443; 84478; 84481; 85014; 85018; 85025; 85027; 85045; 85610; 85730; 86022; 86706; 86850; 86900; 86901; 86920; 87040; 87070; 87077; 87086; 87147; 87149; 87150; 87186; 87205; 87324; 87340; 87449; 87798; 89055; 92526; 92610; 93005; 93306; 93971; 94660; 96374; 96375; 97110; 97163; 97164; 97167; 97530; 97535; 99285; C1750; C1752; C1769; J0699; J0712; P9016; P9047; Q9967

== ENCOUNTER 2023-07-02 14:41 | Inpatient (IN) | payer OTHER, SELFPAY ==
[2023-07-02 08:00] VITALS: BP 60/29
--- NOTE | 2023-07-02 14:42 | HOSPNOTE ---
Patient is being admitted via [facility] level of hospice care. Patient is [facility] level of care appropriate for the management of pain and anxiety that could not be managed in an outpatient setting. Pain will be managed with Morphine drip and IVP PRN. Anxiety
will be managed with Ativan IVP PRN. Spouse Sergo at bedside and in agreement with hospice. Sergo signed consents. Daughter Pia also present at bedside. Reviewed life expectancy is limited. Attending made aware. Informal report with JUDE Shelton, she
is aware patient is now inpatient hospice level of care. Emotional support provided.
--- NOTE | 2023-07-02 15:02 | HPS.HSE ---
Family Physician
-
Family Physician: NOT KNOW UNKNOWN - PT DOES
Chief Complaint
-
transfer from acute care hospitalization to inpatient hospice care at [facility]
History of Present Illness
see below for explanation for transfer to hospice care.
Patient with decreased responsiveness and no history available
Medical History
Past Medical History
Past Medical History: Reports Other (see below)
Additional Past Medical History:
see below
Past Surgical History: Reports Orthopedic
Additional Past Surgical History:
see below
Social History
Unable to obtain full social history at this time due to: Other (lethargic)
Family History
Family History: Not pertinent
Allergies / Home Medications
Allergies reflects when Allergies were last updated in [employer].
Home Medications with original date entered in [employer]
Allergy/Medication List:
Allergies
Allergy/AdvReac Type Severity Reaction Status Date / Time
furosemide Allergy Severe Body Rash Verified 06/27/23 10:06
ampicillin Allergy Rash AT Verified 06/01/23 23:32
AGE 20
cefaclor [From Ceclor] Allergy Rash/tolerates Verified 06/25/23 13:11
Cephalexin,
Cefazolin,
cefiderocol
ciprofloxacin [From Cipro] Allergy Rash/tolerated Verified 06/01/23 23:32
levofloxacin
clindamycin Allergy Rash - see Verified 06/01/23 23:32
comments
daptomycin Allergy Rash/ Verified 06/01/23 23:32
tolerated
linezolid
erythromycin base Allergy Rash Verified 06/01/23 23:32
Iodinated Contrast Media Allergy Itching Verified 06/01/23 23:32
Penicillins Allergy Rash/tolerated Verified 06/01/23 23:32
meropenem
shellfish derived Allergy Rash, Verified 06/01/23 23:32
itching
Sulfa (Sulfonamide Allergy Swelling Verified 06/01/23 23:32
Antibiotics)
Tetanus Vaccines and Toxoid Allergy Swelling Verified 06/01/23 23:32
tetracycline Allergy Rash Verified 06/01/23 23:32
vancomycin Allergy vancomycin Verified 06/01/23 23:32
infusion
reaction/rash,
itching
02/14/21
Review of Systems
-
Unable to obtain full review of systems at this time due to: Other ( decreased responsiveness)
Physical Exam
Physical Exam
General: Comfortable
Respiratory: Non Labored Respirations; No Accessory Resp Muscle Use
Cardiac: S1/S2 and Regular Rhythm
GI: Soft
Musculoskeletal: No No Edema (anasarca)
Neuro: No Awake or Alert ( decreased responsiveness)
Impression/Plan
-
Primary diagnosis:
Sepsis secondary to extended spectrum beta-lactamase Klebsiella/Acinetobacter bacteremia.
Septic shock
Acute kidney failure requiring hemodialysis.
Acute on chronic bilateral lower extremity cellulitis
Toxic metabolic encephalopathy.
Acute on chronic hypoxic/hypercarbic respiratory failure.
Acute gastrointestinal hemorrhage
Acute blood loss anemia.
Hyponatremia.
Left upper extremity deep vein thrombosis related to PICC line.
Secondary diagnosis:
Prior history of streptococcal bacteremia strep bovis
Left hip intertrochanteric fracture status post ORIF 03/26.
Paroxysmal atrial flutter/supraventricular tachycardia
� Not on anticoagulation due to hemorrhagic complications.
Diabetes type 2.
Morbid obesity
Essential hypertension.
Anemia of chronic disease
History of right lower extremity deep venous thrombosis.
Dyslipidemia.
Obstructive sleep apnea, intolerant on CPAP on home O2 2 L.
Asthma
Chronic pain syndrome with opiate dependence.
Benzodiazepine dependence.
Meningioma removed.
Patient initial presentation with septic shock requiring pressors sec to possible cellulitis . She was also severely hypoglycemic hyponatremic. The shock resolved. But she she then had an issue with a metabolic encephalopathy secondary to acute
hypercapnic hypoxic respiratory failure requiring BiPAP but she was not tolerant and was declining to wear it.
Her stay was also complicated by acute GI bleed with acute blood loss anemia. She had colonoscopy and polypectomies. She needed blood transfusion support. She had a left arm PICC line associated DVT for which she needed anticoagulation. With the
GI bleed a repeat ultrasound was done which was negative and the anticoagulation was further kept on hold.
She unfortunately had another septic insult with the ESBL Klebsiella pneumoniae and Acetobacter bacteremia. Concern was that this was a translocation from GI tract.
She then started to have renal issues again. She had NOAM with initial septic shock that resolved but then she started to develop again acute renal failure at this time oliguric. She was seen by renal and was supported with the CRRT with
improvement in creatinine but it was difficult with fluid management.
With multiple acute issues she was failing. Prior to this hospitalization she is in a local longterm. She has not been mobile ever since she had left hip repair.
She was seen by multiple consultants and ultimately felt that the prognosis is poor. The family discussed with renal and dialysis was stopped as patient would not want to go on chronic dialysis and live in a continuous churn buttermaker care facility.
She was transitioned into comfort care and today to inpatient hospice.
--- NOTE | 2023-07-02 15:37 | PTCARENOTE ---
Pt chart flipped to hospice. new ID band applied.
[2023-07-02] MEDS: MORPHINE 100 IV (17:08)
[2023-07-02 19:41] VITALS: BP 80/42
[2023-07-03 07:46] VITALS: BP 101/54
--- NOTE | 2023-07-03 11:03 | HOSPNOTE ---
Patient is inpatient hospice. No family was present when I made my visit. Patient is on a morphine drip and appears comfortable at this time, however patient needs to be medicated prior to any care for pain. Patient will be seen daily by hospice
nurse.
[2023-07-03] MEDS: MORPHINE SULFATE 2 MG IV ×3 (12:29→14:30)
[2023-07-03] MEDS: NSS (PRESERVATIVE FREE) 0.25 ML IV (13:03)
[2023-07-03] MEDS: ATIVAN 0.5 MG IV (13:03)
--- NOTE | 2023-07-03 13:39 | CHAP ---
Sonam was asleep; she opened her eyes when I spoke. She was aware of my presence, however did not respond when asked abut pain. Read to her from the psas, as on previous visits. Sonam's [employer] no is very important to her. I recited the
blessing from Numbers, and offered words of comfort and hope in the Lord. No family present.
--- NOTE | 2023-07-03 14:16 | W.PN.UPDATE ---
Update Note
Progress Note Update
Patient hospice.
Patient is very lethargic. Opens eyes to her name. Mumbles words. Looks comfortable. Needed 2 extra doses of morphine for comfort. Currently on morphine infusion. No acute respiratory distress.
Continue with the current comfort measures.
[2023-07-03] MEDS: ROBINUL 0.200000000000000011 MG IV (14:30)
--- NOTE | 2023-07-03 14:38 | CM ---
Inpatient Hospice. CM will remain available to hospice team and family.
--- NOTE | 2023-07-03 18:06 | PTCARENOTE ---
pt on step 1 morphine g[address] going through her R midline access site. pt has generalized anasarca grade 4, pitting with weeping sites on lower posterior/anterior parts of extremities. this nurse changed out silicone border foams on patients open sites
and placed barrier cream to sacrum due to foams not being able to stick with the consistent moisture. pt is nonverbal at this time but had two moments of eye opening for this nurse with mumbled garbled words. pt daughter at bedside and this nurse
discussed why she was giving prn doses of ativan and morphine this afternoon. pt daughter was in agreement. pt still has ROYER PICC in place at this time that is not in use. pt is incontinent of stool and has a esposito catheter in place that is draining
sediment, cloudy, yellow/brown urine at this time. pt did not have any oral intake for this nurse.
[2023-07-03 19:20] VITALS: BP 73/39
[2023-07-03 19:35] VITALS: BP 73/39
[2023-07-03] MEDS: TYLENOL/FEVERALL 650 MG RECTAL (20:35)
[2023-07-03 23:15] VITALS: BP 88/44
[2023-07-04] MEDS: MORPHINE SULFATE 2 MG IV ×8 (04:38→22:13)
[2023-07-04 07:50] VITALS: BP 75/48
--- NOTE | 2023-07-04 10:08 | W.PN.UPDATE ---
Update Note
Progress Note Update
looks comfortable ;not responsive.
Continue with current comfort measures. Hospice following.
[2023-07-04] MEDS: ATIVAN 0.5 MG IV ×2 (10:40→20:46)
[2023-07-04] MEDS: NSS (PRESERVATIVE FREE) 0.25 ML IV ×2 (10:40→20:47)
--- NOTE | 2023-07-04 15:13 | HOSPNOTE ---
Patient was moaning when Hospice nurse visited this patient. PRN dose of morphine was given. Patient has numerous areas of breakdown /shearing bilateral buttocks. Area was washed with soap and water and skin barrier was applied.She was then
repositioned. Moore is draining a scant amount of dark urine. Patient will indicate pain and discomfort but does not open her eyes when her name is called. did visit during this visit. Time was allowed for life review,support was given.
[2023-07-04] MEDS: MORPHINE 100 IV (17:25)
[2023-07-04 21:24] VITALS: BP 73/39
[2023-07-05] MEDS: MORPHINE SULFATE 2 MG IV ×3 (01:07→11:16)
[2023-07-05 07:12] VITALS: BP 58/27
--- NOTE | 2023-07-05 08:22 | VATNOTE ---
Upon routine assessment of pt's midline and PICC,pt seemed to have discomfort with the touch necessary to assess sites. Per PCN and PCT, pt's blood pressure is low and pt appears to be declining at this time. Dressing change on midline deferred at
this time to limit patient discomfort.
--- NOTE | 2023-07-05 09:47 | W.PN.UPDATE ---
Update Note
Progress Note Update
Patient on comfort measures
Patient unresponsive. Looks comfortable.
Continue with current measures.
--- NOTE | 2023-07-05 13:30 | PTCARENOTE ---
Called MD to see patient to be pronounce. time of per 1300.
--- NOTE | 2023-07-05 13:49 | W.PN.DEATH ---
Pronouncement of
-
Called to see patient to pronounce.
No spontaneous heart tones or respirations noted.
Patient not responsive to verbal stimuli.
Patient is pronounced .
Time of : 13:00
Date of : 07/05/23
Family Notified: Yes
--- NOTE | 2023-07-05 16:04 | CHAP ---
Sonam was non-responsive. Offered words of comfort and hope in God at bedside. Read psalms 121 and 130, and recited the Hoah[employer]ism blessing from Numbers. Prayer blanket provided.
== END 2023-07-05 16:37 | disposition expired | DRG 951 ==
LOC: 2 NORTH 14:41
PROVIDERS: ADMITTING PHYSICIAN Internal Medicine
DX: Z51.5 Encounter for palliative care (principal); J96.21 Acute and chronic respiratory failure with hypoxia; J96.22 Acute and chronic respiratory failure with hypercapnia; A41.59 Other Gram-negative sepsis; R65.21 Severe sepsis with septic shock; G92.8 Other toxic encephalopathy; N17.9 Acute kidney failure, unspecified; L03.115 Cellulitis of right lower limb; L03.116 Cellulitis of left lower limb; K92.2 Gastrointestinal hemorrhage, unspecified; D62 Acute posthemorrhagic anemia; E87.1 Hypo-osmolality and hyponatremia; I82.622 Acute embolism and thrombosis of deep veins of left upper extremity; T82.868A Thrombosis due to vascular prosthetic devices, implants and grafts, initial encounter; F13.20 Sedative, hypnotic or anxiolytic dependence, uncomplicated; F11.20 Opioid dependence, uncomplicated; I48.92 Unspecified atrial flutter; Z16.12 Extended spectrum beta lactamase (ESBL) resistance; G47.33 Obstructive sleep apnea (adult) (pediatric); G89.4 Chronic pain syndrome; J45.909 Unspecified asthma, uncomplicated; E78.5 Hyperlipidemia, unspecified; D63.8 Anemia in other chronic diseases classified elsewhere; I10 Essential (primary) hypertension; E11.649 Type 2 diabetes mellitus with hypoglycemia without coma; B96.1 Klebsiella pneumoniae [K. pneumoniae] as the cause of diseases classified elsewhere; Y84.8 Other medical procedures as the cause of abnormal reaction of the patient, or of later complication, without mention of misadventure at the time of the procedure; Z88.0 Allergy status to penicillin; Z88.1 Allergy status to other antibiotic agents; Z88.2 Allergy status to sulfonamides; Z88.7 Allergy status to serum and vaccine; Z88.8 Allergy status to other drugs, medicaments and biological substances; Z91.041 Radiographic dye allergy status; Z91.013 Allergy to seafood; Z86.718 Personal history of other venous thrombosis and embolism